=== PATIENT | male | born 1935 | race Caucasian/White ===

== ENCOUNTER 2017-03-25 08:46 | Emergency (ER) | payer BC ==
[~2017-03-25] VITALS: Ht 172.7 cm; Wt 106.7 kg
[~2017-03-25 08:46] MED LIST: DONE10TA12 PO; ECON0.05 TOP; FINA5TAB PO; PHEN1TAB86 PO; TOPI200T14 PO
[2017-03-25 08:49] VITALS: BP 145/80; PULSE 74; TEMP 36.7; O2SAT 95; Ht 172.7 cm; Wt 106.7 kg
--- NOTE | 2017-03-25 09:22 | EMERGENCY ROOM VISIT NOTE ---
ED Visit Note First contact with patient: 09:02 CHIEF COMPLAINT: Left shoulder pain times several weeks HISTORY OF PRESENT ILLNESS: Patient is a [id number] 81-year-old white male who presents emergency department for evaluation of left shoulder pain. He has had pain for several weeks. It is impacting his ADLs. He has been overusing the right arm, and now is beginning to have some right shoulder pain. He reports a history of bursitis in the shoulder, he was injected by his neurologist, Dr. Strange, maybe 10 or 15 years ago. The patient has taken Tylenol and applied ice to his shoulder with minimal relief. He was seen at Dr. Bose's office yesterday and advised that they unfortunately or unable to do any cortisone injections. He hoped that he would be able to get a cortisone injection in the shoulder by coming to the emergency department today. Pain is located in the anterior lateral aspect of the right shoulder and does not radiate. It is worse with movement. He has an appointment with Stephanie in May, but it is for a different complaint. REVIEW OF SYSTEMS: Review of systems as per HPI. All other systems reviewed were negative. At least 3 systems reviewed. PMH: Electronic medical records are reviewed and summarized as above/below. See Problem List. SOCIAL HISTORY: Patient lives at home with his spouse. PHYSICAL EXAM: Vital Signs: Reviewed nurse's notes. CONSTITUTIONAL: Patient is a well-appearing 81-year-old white male who is awake and alert and in no acute distress. Patient declined further exam after being told that the emergency department would be unable to do a cortisone injection in the shoulder. EMERGENCY DEPARTMENT COURSE: The patient was seen and assessed as above. His old records were reviewed. He is here solely for the purpose of getting a cortisone injection in the left shoulder. He denies any new direct trauma. He was advised that the emergency department is unable to perform cortisone injections, but we would be happy to help facilitate getting him follow-up with orthopedics. He was unwilling. He declined any further exam or radiograph. Patient was discussed with attending physician. He was discharged home. Problem List Medical Problems: (1) Epilepsy Status: Chronic (2) Psoriasis Status: Chronic (3) Sleep apnea Status: Chronic Current/Historical Medications Scheduled Donepezil Hydrochloride (Aricept), 10 MG PO DAILY Finasteride (Proscar), 5 MG PO DAILY Phenobarbital (Phenobarbital), 60 MG PO DAILY Topiramate (Topamax), 200 MG PO BID Scheduled PRN Econazole Nitrate 1% (Spectazole 1%), 1 APPLN TOP BID PRN Allergies Coded Allergies: No Known Allergies (Unverified , 07/14/09) Vital Signs Date Time Temp Pulse Resp B/P (MAP) Pulse Ox O2 Delivery O2 Flow Rate FiO2 03/25/17 08:49 36.7 74 18 145/80 95 Room Air Departure Information Impression Primary Impression: Left shoulder pain Referrals Rene Bose D.O. (PCP) Patient Instructions My [facility] Additional Instructions Continue Tylenol. Follow up with Dr. Strange as discussed. Return to the ED as needed.
== END 2017-03-25 09:18 | disposition home or self-care (01) ==
LOC: C.EDB 08:48 → C.EDA 09:18
DX: M25.512 Pain in left shoulder (principal); G40.909 Epilepsy, unspecified, not intractable, without status epilepticus; L40.9 Psoriasis, unspecified

== ENCOUNTER → 2017-09-10 | Outpatient (CLI) | payer BC ==
[2017-09-10 17:10] LABS: BLOOD UREA NITROGEN 8 mg/dl (7-18); CREATININE 0.94 mg/dl (0.60-1.40)
== END | disposition home or self-care (01) ==
LOC: C.LABBC 15:07
PROVIDERS: ATTEND Orthopaedic Surgery
DX: Z01.818 Encounter for other preprocedural examination (principal); M75.100 Unspecified rotator cuff tear or rupture of unspecified shoulder, not specified as traumatic

== ENCOUNTER 2021-04-26 14:27 | Inpatient (IN) ==
--- NOTE | 2021-04-26 15:35 | XRay Report ---
XR chest 1V portable HISTORY: Shortness of breath. COMPARISON: Outside hospital chest CTA 04/26/2021. FINDINGS: No pneumothorax. No pleural effusions. The heart remains mildly enlarged. A few bibasilar l inear densities consistent with subsegmental atelectasis. No evidence for pulmonary edema. Left-sided stimulator device identified. IMPRESSION: Stable mild cardiomegaly. Otherwise, no acute process within the chest. ACT 112: Negative or not required by law. Electronically signed by: Dexter Mancia M.D. 04/26/2021 3:33 PM
--- NOTE | 2021-04-26 15:39 | Emergency Department Note ---
Impression & Plan Pulmonary embolism, SOSA (dyspnea on exertion), Left leg swelling, DVT (deep venous thrombosis) ED Provider Note Provider: Neville Christine MD DATE OF SERVICE: 04/26/2021 CHIEF COMPLAINT: Referred by For blood clot HISTORY OF PRESENT ILLNESS: Patient is a 5-year-old gentleman past medical h istory of epilepsy with vagal stimulator, some memory issues, and dyspnea on exertion. Patient states last summer and again starting in March has had some issues with dyspnea on exertion. Feels short of breath with certain movements. Had prior chest x-ray and PFTs. Seen by cardiology today and had outpatient labs as well as a CT scan. CT scan showed evidence of pulmonary embolisms acute in the distal right pulmonary artery and multiple segmental and subsegmental branches of the right lung. No evidence of pulmonary infarct or right heart strain on the CT report. 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 Patient is reportedly a non-smoker. Was noted to be in the office dyspneic after ambulation. States at rest he does not have significant dyspnea. Denies chest pain. No trauma reported. Patient states last several days he has started to take an aspirin. States he is some chronic swelling in his left leg from prior injury here years ago. REVIEW OF SYSTEMS: A total of 10 review of systems was obtained and negative except as stated above in the HPI. PAST MEDICAL HISTORY: As noted above MEDICATIONS: Reviewed home medication list. SOCIAL HISTORY: Non-smoker, lives at home with PHYSICAL EXAM: GENERAL: alert and oriented in no acute distress on stretcher Head: normocephalic and atraumatic EYES: No injection, discharge or icterus. NECK: Trachea midline. Supple. ENT: Mucous membranes pink and moist. LUNGS: Airway patent. No retractions. Breath sounds clear with good air entry bilaterally. HEART: Regular rate and rhythm. No chest wall tenderness upper chest wall stimulator noted in the subcutaneous tissue without erythema. ABDOMEN: Soft and non-tender, without guarding or rebound. SKIN: Acyanotic, warm, dry, without rashes EXTREMITIES: 2+ left lower extremity swelling with trace pedal edema on the right. No significant tenderness or erythema noted NEUROLOGICAL: No focal deficits. No aphasia. No facial droop or slurred speech. Normal strength and tone in the extremities. Sensation to gross touch normal. EK bpm sinus rhythm with some baseline artifact. No acute ST segment elevation noted. QTc 480. CONTINUOUS CARDIAC MONITORING: was ordered and showed a heart rate of 80s-90s bpm in normal sinus rhythm Patient's laboratory studies and imaging reviewed. Differential includes Reactive airway disease, pneumonia, pneumothorax, COPD, CHF, infections, cardiac ischemia, pulmonary embolism, musculoskeletal, gastrointestinal, as well as other pathologies. IMPRESSION/MEDICAL DECISION MAKING: CT report from outside medical record noted. Repeat labs sent here. Ultrasound of the lower extremity of the legs for DVT given the chronic swelling of the left leg. Patient not hypoxic here but reportedly desaturates gets very dyspneic with ambulation. Discussed the patient the need for anticoagulation. Do not see obvious contraindications at this time. Chest x-ray without pneu monia or pneumothorax. Letter without anemia or leukocytosis. INR is 1. Platelets normal. No severe electrolyte abnormality. No troponin elevation. Negative COVID. Ultrasound shows bilateral DVTs. Again gets dyspneic with ambulation given his age and this with his significant VTE started on the heparin drip. Will discuss with the hospitalist for further care and monitoring here. DIAGNOSIS: Pulmonary embolisms, dyspnea on exertion, bilateral DVTs DISPOSITION: Hospitalist will evaluate Patient was agreeable with this plan. Critical Care I have personally spent 40 minutes of critical care time in the direct management of this patient. This includes bedside care, interpretation of diagnostic studies, and testing, discussion with consultants, patient, and other required patient management activities. These 40 minutes is in excess of all separately billable procedures. 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 Sleep apnea CPAP Surgical History History of colonoscopy History of left cataract surgery History of surgery LEFT HAND LITTLE FINGER S/P placement of VNS (vagus nerve stimulation) device ORIGINAL 1998 AND 2 SINCE THEN (CURRENT AND FUNCTIONING) Family History Son Family history of colon cancer Mother Family history of diabetes mellitus Social History Smoking Status: Never smoker Hx Alcohol Use: No Preferred Language: Icelandic Communication Ability: Effective Stri[employer] Apprentice Required: No Beliefs That Will Affect Care: None Current Living Situation: Spouse Feels Safe at Home: Yes Assistive Devices: CPAP Allergies Allergies Allergy/AdvReac Type Severity Reaction Status Date / Time No Known Allergies Allergy Verified 04/26/21 16:32 Home Meds Home Medications Medication Instructions Recorded Confirmed finasteride 5 mg tablet 5 mg PO QPM 03/11/19 04/26/21 memantine ER 28 mg-donepezil 10 mg 1 cap PO QPM 03/11/19 04/26/21 capsule sprinkle,ext.release 24 hr (Namzaric) phenobarbital 60 mg tablet 60 mg PO BID 03/11/19 04/26/21 tamsulosin 0.4 mg capsule (Flomax) 0.4 mg PO QPM 03/11/19 04/26/21 topiramate 200 mg tablet (Topamax) 200 mg PO BID 03/11/19 04/26/21 ropinirole 0.25 mg tablet 0.25 mg PO QPM 04/26/21 04/26/21 Results & Data (ED) Vital Signs Vital Signs - 24 hr 04/26/21 14:48 04/26/21 15:39 04/26/21 17:00 Temperature 36.6 C Temperature Source Oral Pulse Rate 90 88 Pulse Rate [Apical] 82 84 Pulse Rhythm [Apical] Regular Respiratory Rate 18 18 22 Respiratory Effort / Characteristics Respiratory Depth Normal Blood Pressure 134/74 Blood Pressure [Left Arm] 150/102 H 144/64 H Blood Pressure Mean 94 Blood Pressure Mean [Left Arm] 118 90 Blood Pressure Position Sitting Pulse Oximetry 94 96 94 Oxygen Delivery Method Room Air Room Air Nasal Cannula Oxygen Flow Rate 3 Sepsis Recent Fever Within 48 Hours No Sepsis New/Unexplained Change in Mental Status No Sepsis Action Taken by Nursing No Action Required 04/26/21 19:00 Temperature Temperature Source Pulse Rate Pulse Rate [Apical] 93 H Pulse Rhythm [Apical] Respiratory Rate 18 Respiratory Effort / Characteristics Non-Labored Spontaneous Respiratory Depth Normal Blood Pressure Blood Pressure [Left Arm] 143/78 H Blood Pressure Mean Blood Pressure Mean [Left Arm] 99 Blood Pressure Position Pulse Oximetry 98 Oxygen Delivery Method Nasal Cannula Oxygen Flow Rate 3 Sepsis Recent Fever Within 48 Hours Sepsis New/Unexplained Change in Mental Status Sepsis Action Taken by Nursing Laboratory Data Result diagrams: 04/26/21 15:36 04/26/21 15:36 Lab Results 04/26/21 04/26/21 04/26/21 Range/Units 15:36 15:36 15:36 WBC 7.84 (4.8-10.8) K/uL RBC 4.69 L (4.7-6.1) M/uL Hgb 15.7 (14.0-18.0) g/dL Hct 47.3 (42-52) % MCV 100.9 H (80-100) fL MCH 33.5 (25-34) pg MCHC 33.2 (32-36) g/dL RDW Std Deviation 48.7 H (36.4-46.3) fL RDW Coeff of Tamir 13.3 (11.5-14.5) % Plt Count 188 (130-400) K/uL MPV 9.7 (7.4-10.4) fL Immature Gran % (Auto) 0.4 % Neut % (Auto) 75.6 % Lymph % (Auto) 16.2 % [place] % (Auto) 6.9 % Eos % (Auto) 0.6 % Baso % (Auto) 0.3 % Neut # (Auto) 5.93 (1.4-6.5) K/uL Lymph # (Auto) 1.27 (1.2-3.4) K/uL [place] # (Auto) 0.54 (0.11-0.59) K/uL Eos # (Auto) 0.05 (0-0.5) K/uL Baso # (Auto) 0.02 (0-0.2) K/uL Immature Gran # (Auto) 0.03 H (0.00-0.02) K/uL PT 11.4 (9.0-12.0) Seconds INR 1.1 (0.9-1.1) APTT 28.7 (21.0-31.0) Seconds PTT Ratio 1.0 Sodium 139 (136-145) mmol/L Potassium 4.1 (3.5-5.1) mmol/L Chloride 108 H (98-107) mmol/L Carbon Dioxide 21 (21-32) mmol/L Anion Gap 10 (3-11) BUN 14 (6-23) mg/dl Creatinine 1.07 (0.6-1.4) mg/dl Est Cr Clr Drug Dosing 55.9 ml/min Est GFR ( Amer) 73.5 ml/min Est GFR (Non-Af Amer) 63.4 ml/min BUN/Creatinine Ratio 13.1 (10-20) Glucose 86 (70-99(Fasting)) mg/dl Calcium 9.3 (8.5-10.1) mg/dl Magnesium 1.9 (1.7-2.4) mg/dl Total Bilirubin 0.6 (0.2-1.0) mg/dl AST 12 L (13-39) U/L ALT 10 (7-52) U/L Alkaline Phosphatase 104 (34-104) U/L Troponin I < 0.03 (0-0.04) ng/ml Total Protein 6.8 (6.0-8.3) gm/dl Albumin 4.2 (3.4-5.0) gm/dl Globulin 2.6 (2.5-4.0) gm/dl Albumin/Globulin Ratio 1.6 (0.9-2) SARS-CoV-2, RNA, NAAT (NEGATIVE) 04/26/21 Range/Units 15:36 WBC (4.8-10.8) K/uL RBC (4.7-6.1) M/uL Hgb (14.0-18.0) g/dL Hct (42-52) % MCV (80-100) fL MCH (25-34) pg MCHC (32-36) g/dL RDW Std Deviation (36.4-46.3) fL RDW Coeff of Tamir (11.5-14.5) % Plt Count (130-400) K/uL MPV (7.4-10.4) fL Immature Gran % (Auto) % Neut % (Auto) % Lymph % (Auto) % [place] % (Auto) % Eos % (Auto) % Baso % (Auto) % Neut # (Auto) (1.4-6.5) K/uL Lymph # (Auto) (1.2-3.4) K/uL [place] # (Auto) (0.11-0.59) K/uL Eos # (Auto) (0-0.5) K/uL Baso # (Auto) (0-0.2) K/uL Immature Gran # (Auto) (0.00-0.02) K/uL PT (9.0-12.0) Seconds INR (0.9-1.1) APTT (21.0-31.0) Seconds PTT Ratio Sodium (136-145) mmol/L Potassium (3.5-5.1) mmol/L Chloride (98-107) mmol/L Carbon Dioxide (21-32) mmol/L Anion Gap (3-11) BUN (6-23) mg/dl Creatinine (0.6-1.4) mg/dl Est Cr Clr Drug Dosing ml/min Est GFR ( Amer) ml/min Est GFR (Non-Af Amer) ml/min BUN/Creatinine Ratio (10-20) Glucose (70-99(Fasting)) mg/dl Calcium (8.5-10.1) mg/dl Magnesium (1.7-2.4) mg/dl Total Bilirubin (0.2-1.0) mg/dl AST (13-39) U/L ALT (7-52) U/L Alkaline Phosphatase (34-104) U/L Troponin I (0-0.04) ng/ml Total Protein (6.0-8.3) gm/dl Albumin (3.4-5.0) gm/dl Globulin (2.5-4.0) gm/dl Albumin/Globulin Ratio (0.9-2) SARS-CoV-2, RNA, NAAT NEGATIVE (NEGATIVE) Administered Medications Heparin Sodium/Dextrose (Heparin Sodium/Dextrose) 25,000 units in 500 mls @ 28 mls/hr IV .[id number] [facility]; Protocol Stop: 05/26/21 17:59 Last Admin: 04/26/21 18:34 Dose: 1,400 units/hr, 28 mls/hr Documented by: [id number] Cosigned by: [id number] Discontinued Medications Heparin Sodium (Porcine) (Heparin Sod (Porcine) 1000 Unit/Ml) 6,000 units IV NOW ONE Stop: 04/26/21 18:01 Last Admin: 04/26/21 18:33 Dose: 6,000 units Documented by: [id number] Cosigned by: [id number] Heparin Sodium/Dextrose (Heparin Iv Adult Wt-Based Standard With Bolus Protocol) 1 ea IV NOW STA; Protocol Stop: 04/26/21 17:33 Last Admin: 04/26/21 18:34 Dose: 1 ea Documented by: [id number] Imaging Data Radiologist's Impression: Chest X-Ray 04/26/21 14:59 XR chest 1V portable HISTORY: Shortness of breath. COMPARISON: Outside hospital chest CTA 04/26/2021. FINDINGS: No pneumothorax. No pleural effusions. The heart remains mildly enlarged. A few bibasilar linear densities consistent with subsegmental at electasis. No evidence for pulmonary edema. Left-sided stimulator device identified. IMPRESSION: Stable mild cardiomegaly. Otherwise, no acute process within the chest. ACT 112: Negative or not required by law. Electronically signed by: Dexter Mancia M.D. 04/26/2021 3:33 PM Venous Doppler Study 04/26/21 15:38 BILATERAL LOWER EXTREMITY VENOUS DOPPLER HISTORY: Bilateral lower extremity swelling, history of pulmonary embolus COMPARISON STUDY: None. FINDINGS: A right common femoral and superficial femoral veins are patent. Thrombus identified within the right popliteal vein and one of 2 right posterior tibial veins. Incomplete flow within the right peroneal vein may also represent an area of thrombosed. There is also extensive thrombus within the left common femoral vein, superficial femoral vein, deep femoral vein, popliteal, posterior tibial, and peroneal veins. IMPRESSION: Bilateral lower extremity DVT, left greater than right, as described above ACT 112: Negative or not required by law. Electronically signed by: Dexter Mancia M.D. 04/26/2021 5:16 PM Discharge Plan Visit Data Chief Complaint: Referred by Doctor Stated Complaint: HAS BLOOD CLOT IN LUNG, DR REFERRED ED Provider: Neville Christine Discharge Problem: Pulmonary embolism, SOSA (dyspnea on exertion), Left leg swelling, DVT (deep venous thrombosis) Patient Disposition: Being Evaluated by Hospitalist Forms Stand Alone Forms: [facility] [employer] Prescriptions Prescriptions: No Action finasteride 5 mg tablet 5 mg PO QPM RF: 0 tamsulosin [Flomax] 0.4 mg capsule 0.4 mg PO QPM RF: 0 Namzaric 28-10 mg capsule,sprinkle,ER 24hr 1 cap PO QPM RF: 0 phenobarbital 60 mg tablet 60 mg PO BID RF: 0 topiramate [Topamax] 200 mg tablet 200 mg PO BID RF: 0 ropinirole 0.25 mg tablet 0.25 mg PO QPM RF: 0 Referrals Referrals: PCP,NO [Physician] - Discharge Problem: Pulmonary embolism Qualifiers: Pulmonary embolism type: unspecified Chronicity: acute Acute cor pulmonale presence: unspecified Qualified Code(s): I26.99 - Other pulmonary embolism without acute cor pulmonale DVT (deep venous thrombosis) Qualifiers: DVT location: lower extremity Affected thrombotic vein of extremity: uns pecified vein of extremity Chronicity: acute Laterality: bilateral Qualified Code(s): I82.403 - Acute embolism and thrombosis of unspecified deep veins of lower extremity, bilateral
[2021-04-26 16:00] LABS: Basophils # (auto) 0.02 K/uL (0-0.2); Basophils % (auto) 0.3 %; Eosinophils # (auto) 0.05 K/uL (0-0.5); Eosinophils % (auto) 0.6 %; Hematocrit (blood only) 47.3 % (42-52); Hemoglobin 15.7 g/dL (14.0-18.0); Immature Granulocytes # (auto) 0.03 K/uL (0.00-0.02); Immature Granulocytes % (auto) 0.4 %; Lymphocytes # (auto) 1.27 K/uL (1.2-3.4); Lymphocytes % (auto) 16.2 %; Mean Corpuscular Hemoglobin 33.5 pg (25-34); Mean Corpuscular Hgb Conc 33.2 g/dL (32-36); Mean Corpuscular Volume 100.9 fL (80-100); Mean Platelet Volume 9.7 fL (7.4-10.4); Monocytes # (auto) 0.54 K/uL (0.11-0.59); Monocytes % (auto) 6.9 %; Neutrophils # (auto) 5.93 K/uL (1.4-6.5); Neutrophils % (auto) 75.6 %; Platelet Count 188 K/uL (130-400); RDW Coefficient of Variation 13.3 % (11.5-14.5); RDW Standard Deviation 48.7 fL (36.4-46.3); Red Blood Count 4.69 M/uL (4.7-6.1); White Blood Count 7.84 K/uL (4.8-10.8)
[2021-04-26 16:18] LABS: INR 1.1 (0.9-1.1); Partial Thromboplastin Time 28.7 Seconds (21.0-31.0); Prothrombin Time 11.4 Seconds (9.0-12.0)
[2021-04-26 16:31] LABS: Troponin I < 0.03 ng/ml (0-0.04)
[2021-04-26 16:36] LABS: Alanine Aminotransferase 10 U/L (7-52); Albumin Globulin Ratio 1.6 (0.9-2); Albumin Level 4.2 gm/dl (3.4-5.0); Alkaline Phosphatase 104 U/L (34-104); Anion Gap 10 (3-11); Aspartate Aminotransferase 12 U/L (13-39); BUN Creatinine Ratio 13.1 (10-20); Bilirubin,Total 0.6 mg/dl (0.2-1.0); Blood Urea Nitrogen 14 mg/dl (6-23); Calcium 9.3 mg/dl (8.5-10.1); Carbon Dioxide 21 mmol/L (21-32); Chloride 108 mmol/L (98-107); Creatinine Clr Calc Pharmacy 55.9 ml/min; Est GFR (African American) 73.5 ml/min; Est GFR (Non-African American) 63.4 ml/min; Globulin 2.6 gm/dl (2.5-4.0); Glucose 86 mg/dl (70-99(Fasting)); Magnesium 1.9 mg/dl (1.7-2.4); Potassium 4.1 mmol/L (3.5-5.1); Sodium 139 mmol/L (136-145); Total Protein 6.8 gm/dl (6.0-8.3)
--- NOTE | 2021-04-26 17:18 | Ultrasound Report ---
BILATERAL LOWER EXTREMITY VENOUS DOPPLER HISTORY: Bilateral lower extremity swelling, history of pulmonary embolus COMPARISON STUDY: None. FINDINGS: A right common femoral and superficial femoral veins are patent. Thrombus identified within the right popliteal vein and one of 2 right posterior tibial veins. Incomplete flow within the right peroneal vein may also represent an area of thrombosed. There is also extensive thrombus within the left common femoral vein, superficial femoral vein, deep femoral vein, popliteal, posterior tibial, a nd peroneal veins. IMPRESSION: Bilateral lower extremity DVT, left greater than right, as described above ACT 112: Negative or not required by law. Electronically signed by: Dexter Mancia M.D. 04/26/2021 5:16 PM
[2021-04-26] MEDS ORDERED: Heparin IV Adult Wt-Based Standard WITH Bolus Protocol IV STA (17:32)
[2021-04-26] MEDS ORDERED: HEPARIN SOD (PORCINE) 1000 UNIT/ML IV ONE ×2 (17:47→18:00)
[2021-04-26] MEDS: HEPARIN SODIUM/DEXTROSE 25,000 UNITS/500 ML BAG IV SCH (18:34)
--- NOTE | 2021-04-26 18:52 | History & Physical Report ---
Date of Service April 26, 2021 Assessment & Plan (1) Acute respiratory failure with hypoxia: (2) Pulmonary embolism: (3) DVT (deep venous thrombosis): Plan: Admit to [facility] with telemetry Patient presenting by referral of outpatient podiatric aide after CTA chest showed pulmonary embolism. Currently requiring 3 L of oxygen via nasal cannula In the ED, venous Doppler showing BLE DVT Seems to be unprovoked, however CTA chest showing possible pancreatic tail lesion, therefore ?? Underlying malignancy Started on IV heparin in the ED, likely transition to Eliquis Echo May need two-step O2 eval before discharge (4) Pancreatic lesion: Plan: CT chest showing Indeterminate 2.3 cm lesion in the pancreatic tail, which may represent normal parenchyma with surrounding pancreatic atrophy, an intrap ancreatic splenule, or possibly a mass. A contrast enhanced MRI of the abdomen is recommended. Abdomen MRI ordered, discussed with mobile service rv technician regarding patient's VNS. They will investigate if it is MRI compatible. (5) Pulmonary nodules: Plan: CTA chest showing Multiple solid nodules throughout both lungs measuring 2-3 mm, which are likely benign in the absence of known malignancy. If the patient has risk factors for lung cancer, an optional follow-up CT of the chest can be considered in 1 year. (6) Seizure disorder: Plan: S/p VNS Continue phenobarbital and Topamax (7) Enlarged prostate: Plan: Continue finasteride and tamsulosin (8) Sleep apnea: Plan: CPAP as per home settings (9) DVT prophylaxis: Plan: On IV heparin History of Present Illness Chief Complaint: Shortness of Breath Primary Care Provider: Marbin Lira PA-C 85 year old male with PMH epilepsy s/p VNS, ELAN, BPH and other problems listed below who presents to the ED for evaluation of shortness of breath and after outpatient CTA chest showed pulmonary embolism. Patient reports he had sudden onset shortness of breath last summer. Symptoms only lasted briefly, patient also states he an "extensive work up that didn't show anything." On Mar 16, patient reports he had similar return of symptoms. He was seen in the cardiology office today and a CTA chest was ordered that showed Acute pulmonary emboli in the distal right pulmonary artery and extending throughout multiple segmental and subsegmental branches in the right lung. Patient was referred to the ED for further evaluation. Patient reports shortness of breath with minimal exertion. No chest pain. Denies lightheadedness, dizziness, diaphoresis, syncopal events. No abdominal pain, nausea, vomiting, diarrhea. Denies any other recent illnesses, fevers, chills. No urinary symptoms. In the ED, patient was requiring 3 L of oxygen via nasal cannula. Labs are unremarkable. BLE venous Doppler shows Bilateral lower extremity DVT, left greater than right. Patient was started on IV heparin. Allergies Allergy/AdvReac Type Severity Reaction Status Date / Time No Known Allergies Allergy Verified 04/26/21 16:32 Home Medications Medication Instructions Recorded Confirmed Type finasteride 5 mg tablet 5 mg PO QPM 03/11/19 04/26/21 History memantine ER 28 mg-donepezil 10 mg 1 cap PO QPM 03/11/19 04/26/21 History capsule sprinkle,ext.release 24 hr (Namzaric) phenobarbital 60 mg tablet 60 mg PO BID 03/11/19 04/26/21 History tamsulosin 0.4 mg capsule (Flomax) 0.4 mg PO QPM 03/11/19 04/26/21 History topiramate 200 mg tablet (Topamax) 200 mg PO BID 03/11/19 04/26/21 History ropinirole 0.25 mg tablet 0.25 mg PO QPM 04/26/21 04/26/21 History Past Med/Surg History Medical History (Updated 04/26/21 @ 21:17 by DICK Doherty) Enlarged prostate Restless leg syndrome Seizure disorder DX AGE 7 , 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 Sleep apnea CPAP Surgical History History of colonoscopy History of left cataract surgery History of surgery LEFT HAND LITTLE FINGER S/P placement of VNS (vagus nerve stimulation) device ORIGINAL 1998 AND 2 SINCE THEN (CURRENT AND FUNCTIONING) Family History Son Family history of colon cancer Mother Family history of diabetes mellitus Social History Smoking Status: Unknown if ever smoked Second Hand Exposure: No; Do You Dip or Chew Tobacco: No; Tobacco Cessation Education Requested by Patient: No Hx Alcohol Use: No Hx Substance Use: No Preferred Language: Kazakh Communication Ability: Effective Health Unit Supervisor Required: No Beliefs That Will Affect Care: None Current Living Situation: Other Other Information That Helps Us Care for You: No Feels Safe at Home: Yes Safety Concerns: Feels Safe At This Time Assistive Devices: Glasses Assistive Devices Comment: NO PRIOR HX OF ASSISTIVE DEVICE USE Review of Systems Review of Systems: ROS per HPI, all other systems reviewed and negative Physical Exam Physical Exam: Please refer to Dr. Reynaga's addendum for physical exam Results & Data Results & Data ([facility]) Vital Signs (Past 12 Hours) Vital Signs Temp Pulse Pulse Resp BP BP Pulse Ox 04/26/21 17:00 84 22 144/64 H 94 04/26/21 15:39 88 82 18 150/102 H 96 04/26/21 14:48 36.6 C 90 18 134/74 94 Laboratory Results Short CBC 04/26/21 Range/Units 15:36 WBC 7.84 (4.8-10.8) K/uL Hgb 15.7 (14.0-18.0) g/dL Hct 47.3 (42-52) % Plt Count 188 (130-400) K/uL BMP 04/26/21 15:36 Sodium 139 Potassium 4.1 Chloride 108 H Carbon Dioxide 21 BUN 14 Creatinine 1.07 Glucose 86 Calcium 9.3 Cardiac Enzymes 04/26/21 Range/Units 15:36 Troponin I < 0.03 (0-0.04) ng/ml Liver Function 04/26/21 Range/Units 15:36 Total Bilirubin 0.6 (0.2-1.0) mg/dl AST 12 L (13-39) U/L ALT 10 (7-52) U/L Alkaline Phosphatase 104 (34-104) U/L Albumin 4.2 (3.4-5.0) gm/dl Diagnostic Findings Outpatient CTA chest 04/26/2021 IMPRESSION: 1. Acute pulmonary emboli in the distal right pulmonary artery and extending throughout multiple segmental and subsegmental branches in the right lung. There is no evidence of pulmonary infarction or right heart strain. 2. 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 3. Multiple solid nodules throughout both lungs measuring 2-3 mm, which are likely benign in the absence of known malignancy. If the patient has risk factors for lung cancer, an optional follow-up CT of the chest can be considered in 1 year. 4. Indeterminate 2.3 cm lesion in the pancreatic tail, which may represent normal parenchyma with surrounding pancreatic atrophy, an intrapancreatic splenule, or possibly a mass. A contrast enhanced MRI of the abdomen is recommended. Chest X-Ray 04/26/21 14:59 XR chest 1V portable HISTORY: Shortness of breath. COMPARISON: Outside hospital chest CTA 04/26/2021. FINDINGS: No pneumothorax. No pleural effusions. The heart remains mildly enlarged. A few bibasilar linear densities consistent with subsegmental atelectasis. No evidence for pulmonary edema. Left-sided stimulator device identified. IMPRESSION: Stable mild cardiomegaly. Otherwise, no acute process within the chest. ACT 112: Negative or not required by law. Electronically signed by: Dexter Mancia M.D. 04/26/2021 3:33 PM Venous Doppler Study 04/26/21 15:38 BILATERAL LOWER EXTREMITY VENOUS DOPPLER HISTORY: Bilateral lower extremity swelling, history of pulmonary embolus COMPARISON STUDY: None. FINDINGS: A right common femoral and superficial femoral veins are patent. Thrombus identified within the right popliteal vein and one of 2 right posterior tibial veins. Incomplete flow within the right peroneal vein may also represent an area of thrombosed. There is also extensive thrombus within the left common femoral vein, superficial femoral vein, deep femoral vein, popliteal, posterior tibial, and peroneal veins. IMPRESSION: Bilateral lower extremity DVT, left greater than right, as described above ACT 112: Negative or not required by law. Electronically signed by: Dexter Mancia M.D. 04/26/2021 5:16 PM Code Status & VTE Plan Code Status Patient is a full code. VTE Prophylaxis Plan VTE Prophylaxis will be ordered: No Supervising Physician Co-Signing Physician Notes Addendum in a communication note (1) DVT (deep venous thrombosis) Affected thrombotic vein of extremity: unspecified vein of extremity Chronicity: acute DVT location: lower extremity Laterality: bilateral Qualified Code(s): I82.403 - Acute embolism and thrombosis of unspecified deep veins of lower extremity, bilateral (2) Pulmonary embolism Acute cor pulmonale presence: unspecified Chronicity: acute Pulmonary embolism type: unspecified Qualified Code(s): I26.99 - Other pulmonary embolism without acute cor pulmonale
--- NOTE | 2021-04-26 20:18 | Communication Note ---
Date of Service: April 26, 2021 Addendum to Admission note: Pt is a 85 y/o M with hx of Dementia, Epilepsy s/p vagus nerve stimulator, ELAN on CPAP, BPH, RLS admitted for b/l DVT and PE. CTA chest (from [email or web address] [facility]): IMPRESSION 1. Acute pulmonary emboli in the distal right pulmonary artery and extending throughout multiple segmental and subsegmental branches in the right lung. There is no evidence of pulmonary infarction or right heart strain. 2. 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 3. Multiple solid nodules throughout both lungs measuring 2-3 mm, which are likely benign in the absence of known malignancy. If the patient has risk factors for lung cancer, an optional follow-up CT of the chest can be considered in 1 year. 4. Indeterminate 2.3 cm lesion in the pancreatic tail, which may represent normal parenchyma with surrounding pancreatic atrophy, an intrapancreatic splenule, or possibly a mass. A contrast enhanced MRI of the abdomen is recommended. PE: NAD, well developed Lungs: CTA, no wheezing or crackles Cardiac: normal S1/S2, no murmur Abd: ND, NT, soft MSK: LLE mild pitting edema Psych: AAOX3, normal affect A/P: B/L DVT and PE: -Vss -no personal hx of cancer ---- had colonoscopy in 2014 and PSA on 2007 wnl - will get MRI abd with contrast to evaluate the pancreatic tail lesion -started on heparin drip - cbc unremarkable - possible DOAC on discharge and outpt work up for coagulopathy Other chronic medical conditions: continue home meds and plan per Admission note by DICK Doherty
[2021-04-26] MEDS ORDERED: ACETAMINOPHEN 325 MG TAB PO PRN (21:36)
[2021-04-26] MEDS: TAMSULOSIN HCL 0.4 MG CAP PO SCH (22:19)
[2021-04-26] MEDS: FINASTERIDE 5 MG TAB PO SCH (22:19)
[2021-04-26] MEDS: rOPINIRole HCL 0.25 MG TABLET PO SCH (22:19)
[2021-04-26] MEDS: TOPIRAMATE 100 MG TAB PO SCH (22:19)
[2021-04-26] MEDS: PHENobarbitaL 30 MG TAB PO SCH (22:45)
[2021-04-27 01:23] LABS: Partial Thromboplastin Ratio 2.9
[2021-04-27 01:44] LABS: Partial Thromboplastin Time 78.5 Seconds (21.0-31.0)
[2021-04-27 08:16] LABS: Hematocrit (blood only) 43.5 % (42-52); Hemoglobin 14.9 g/dL (14.0-18.0); Mean Corpuscular Hemoglobin 33.9 pg (25-34); Mean Corpuscular Hgb Conc 34.3 g/dL (32-36); Mean Corpuscular Volume 98.9 fL (80-100); Mean Platelet Volume 9.2 fL (7.4-10.4); Platelet Count 169 K/uL (130-400); RDW Coefficient of Variation 13.2 % (11.5-14.5); RDW Standard Deviation 47.8 fL (36.4-46.3); White Blood Count 5.53 K/uL (4.8-10.8)
[2021-04-27] MEDS: TOPIRAMATE 100 MG TAB PO SCH ×2 (08:19→20:53)
[2021-04-27] MEDS: PHENobarbitaL 30 MG TAB PO SCH ×2 (08:19→20:53)
[2021-04-27 08:41] LABS: BUN Creatinine Ratio 14.9 (10-20); Calcium 8.6 mg/dl (8.5-10.1); Creatinine Clr Calc Pharmacy 61.5 ml/min; Est GFR (African American) 85.9 ml/min; Est GFR (Non-African American) 74.2 ml/min; Potassium 4.1 mmol/L (3.5-5.1)
[2021-04-27 08:56] LABS: Partial Thromboplastin Time 83.1 Seconds (21.0-31.0)
--- NOTE | 2021-04-27 11:48 | Hospitalist Progress Note ---
Date of Service April 27, 2021 Assessment & Plan (1) Acute respiratory failure with hypoxia: (2) Pulmonary embolism: (3) DVT (deep venous thrombosis): (4) Pancreatic lesion: (5) Pulmonary nodules: (6) Seizure disorder: (7) Enlarged prostate: (8) Sleep apnea: (9) DVT prophylaxis: Plan: 85 year old male referred to the ED 04/26 by OP certified wellness program manager after OP CTA chest showed acute PE 1. Acute pulmonary embolism with acute hypoxic respiratory failure 2. Acute bilateral LE DVT - Unprovoked, 1st episode, hemodynamically stable. - CTA chest 04/26 with acyte PE in distal right pulmonary emboli and extending throughout multiple segmental and subsegmental branches in right lung, no evidence of right heart strain; suspected chronic PE in distal left pulmonary - US LE 04/26 with bilateral LE DVT (L>R; extensive thrombus in left common femoral vein, superficial femoral vein, deep femoral vein, popliteal, posterior tibial and peroneal vein; thrombus in right posterior tibial and popliteal vein) - Echo pending - Currently on heparin drip, will change to DOAC tomorrow - Wean down on oxygen, will need two step O2 eval at discharge 3. Pancreatic lesion: Incidental finding in CT.CT chest showing Indeterminate 2.3 cm lesion in the pancreatic tail, which may represent normal parenchyma with surrounding pancreatic atrophy, an intrapancreatic splenule, or possibly a mass. A contrast enhanced MRI of the abdomen is recommended. - Abdominal MRI pending 4. Pulmonary nodules: - CTA chest showing Multiple solid nodules throughout both lungs measuring 2-3 mm, which are likely benign in the absence of known malignancy. If the patient has risk factors for lung cancer, an optional follow-up CT of the chest can be considered in 1 year. He is a non smoker. F/u with PCP 5. Seizure disorder: S/p VNS; Continue phenobarbital and Topamax 6. Enlarged prostate: Continue finasteride and tamsulosin 7. Sleep apnea: continue CPAP as per home settings DVT prophylaxis: heparin drip Dispo: Likely d/c in 1-2 days, Abdominal MRI pending, needs 2step O2 eval prior to discharge Admission and Anticipated Discharge Date Admission Date: April 26, 2021 Subjective Feels okay. Denies any new issues. Remains on 3 L NC. Denies any history of VTE in the past. Denies any bleeding issues. Denies any anticoagulation in the past. Denies any history of known malignancy. He is physically active. States he lives on 1 floor and is independent with his daily activities. He started getting short of breath with exertion in March. Review of Systems Review of Systems: All systems reviewed & are unremarkable except as noted in Subjective Physical Exam Physical Exam: General: Elderly male, Lying comfortably in bed, not in distress, on 3 L NC HEENT: EOMI, COLLIN, MMM Chest: Clear breath sounds bilaterally, no wheezes or crackles CVS: Regular rate and rhythm, normal heart sounds, no murmur Abdomen: Soft, non tender, not distended, normal bowel sounds Neuro: Awake, alert, oriented, conversing well, non focal Extremities: No cyanosis, clubbing or edema Results & Data Results & Data ([facility]) Vital Signs (Past 12 Hours) Vital Signs Temp Pulse Pulse Resp BP Pulse Ox 04/27/21 10:46 36.4 C L 66 16 118/70 99 04/27/21 07:52 70 04/27/21 06:35 36.6 C 71 18 115/73 98 04/27/21 04:03 36.6 C 74 20 109/65 96 04/27/21 00:44 36.6 C 85 20 153/77 H 97 Laboratory Results Short CBC 04/26/21 04/27/21 Range/Units 15:36 07:58 WBC 7.84 5.53 (4.8-10.8) K/uL Hgb 15.7 14.9 (14.0-18.0) g/dL Hct 47.3 43.5 (42-52) % Plt Count 188 169 (130-400) K/uL BMP 04/26/21 04/27/21 15:36 07:58 Sodium 139 138 Potassium 4.1 4.1 Chloride 108 H 111 H Carbon Dioxide 21 23 BUN 14 14 Creatinine 1.07 0.94 Glucose 86 85 Calcium 9.3 8.6 Cardiac Enzymes 04/26/21 Range/Units 15:36 Troponin I < 0.03 (0-0.04) ng/ml Liver Function 04/26/21 Range/Units 15:36 Total Bilirubin 0.6 (0.2-1.0) mg/dl AST 12 L (13-39) U/L ALT 10 (7-52) U/L Alkaline Phosphatase 104 (34-104) U/L Albumin 4.2 (3.4-5.0) gm/dl Diagnostic Findings Laboratory Results WBC 5.53 K/uL (4.8-10.8) 04/27/21 07:58 RBC 4.40 M/uL (4.7-6.1) L 04/27/21 07:58 Hgb 14.9 g/dL (14.0-18.0) 04/27/21 07:58 Hct 43.5 % (42-52) 04/27/21 07:58 MCV 98.9 fL (80-100) 04/27/21 07:58 MCH 33.9 pg (25-34) 04/27/21 07:58 MCHC 34.3 g/dL (32-36) 04/27/21 07:58 RDW Std Deviation 47.8 fL (36.4-46.3) H 04/27/21 07:58 RDW Coeff of Tamir 13.2 % (11.5-14.5) 04/27/21 07:58 Plt Count 169 K/uL (130-400) 04/27/21 07:58 MPV 9.2 fL (7.4-10.4) 04/27/21 07:58 Immature Gran % (Auto) 0.4 % 04/26/21 15:36 Neut % (Auto) 75.6 % 04/26/21 15:36 Lymph % (Auto) 16.2 % 04/26/21 15:36 [place] % (Auto) 6.9 % 04/26/21 15:36 Eos % (Auto) 0.6 % 04/26/21 15:36 Baso % (Auto) 0.3 % 04/26/21 15:36 Neut # (Auto) 5.93 K/uL (1.4-6.5) 04/26/21 15:36 Lymph # (Auto) 1.27 K/uL (1.2-3.4) 04/26/21 15:36 [place] # (Auto) 0.54 K/uL (0.11-0.59) 04/26/21 15:36 Eos # (Auto) 0.05 K/uL (0-0.5) 04/26/21 15:36 Baso # (Auto) 0.02 K/uL (0-0.2) 04/26/21 15:36 Immature Gran # (Auto) 0.03 K/uL (0.00-0.02) H 04/26/21 15:36 PT 11.4 Seconds (9.0-12.0) 04/26/21 15:36 INR 1.1 (0.9-1.1) 04/26/21 15:36 APTT 83.1 Seconds (21.0-31.0) H* 04/27/21 07:58 PTT Ratio 3.0 04/27/21 07:58 Sodium 138 mmol/L (136-145) 04/27/21 07:58 Potassium 4.1 mmol/L (3.5-5.1) 04/27/21 07:58 Chloride 111 mmol/L (98-107) H 04/27/21 07:58 Carbon Dioxide 23 mmol/L (21-32) 04/27/21 07:58 Anion Gap 4 (3-11) 04/27/21 07:58 BUN 14 mg/dl (6-23) 04/27/21 07:58 Creatinine 0.94 mg/dl (0.6-1.4) 04/27/21 07:58 Est Cr Clr Drug Dosing 61.5 ml/min 04/27/21 07:58 Est GFR ( Amer) 85.9 ml/min 04/27/21 07:58 Est GFR (Non-Af Amer) 74.2 ml/min 04/27/21 07:58 BUN/Creatinine Ratio 14.9 (10-20) 04/27/21 07:58 Glucose 85 mg/dl (70-99(Fasting)) 04/27/21 07:58 Calcium 8.6 mg/dl (8.5-10.1) 04/27/21 07:58 Magnesium 1.9 mg/dl (1.7-2.4) 04/26/21 15:36 Total Bilirubin 0.6 mg/dl (0.2-1.0) 04/26/21 15:36 AST 12 U/L (13-39) L 04/26/21 15:36 ALT 10 U/L (7-52) 04/26/21 15:36 Alkaline Phosphatase 104 U/L (34-104) 04/26/21 15:36 Troponin I < 0.03 ng/ml (0-0.04) 04/26/21 15:36 Total Protein 6.8 gm/dl (6.0-8.3) 04/26/21 15:36 Albumin 4.2 gm/dl (3.4-5.0) 04/26/21 15:36 Globulin 2.6 gm/dl (2.5-4.0) 04/26/21 15:36 Albumin/Globulin Ratio 1.6 (0.9-2) 04/26/21 15:36 SARS-CoV-2, RNA, NAAT NEGATIVE (NEGATIVE) 04/26/21 15:36 Impressions Chest X-Ray 04/26/21 14:59 XR chest 1V portable HISTORY: Shortness of breath. COMPARISON: Outside hospital chest CTA 04/26/2021. FINDINGS: No pneumothorax. No pleural effusions. The heart remains mildly enlarged. A few bibasilar linear densities consistent with subsegmental atelectasis. No evidence for pulmonary edema. Left-sided stimulator device identified. IMPRESSION: Stable mild cardiomegaly. Otherwise, no acute process within the chest. ACT 112: Negative or not required by law. Electronically signed by: Dexter Mancia M.D. 04/26/2021 3:33 PM Venous Doppler Study 04/26/21 15:38 BILATERAL LOWER EXTREMITY VENOUS DOPPLER HISTORY: Bilateral lower extremity swelling, history of pulmonary embolus COMPARISON STUDY: None. FINDINGS: A right common femoral and superficial femoral veins are patent. Thrombus identified within the right popliteal vein and one of 2 right posterior tibial veins. Incomplete flow within the right peroneal vein may also represent an area of thrombosed. There is also extensive thrombus within the left common femoral vein, superficial femoral vein, deep femoral vein, popliteal, posterior tibial, and peroneal veins. IMPRESSION: Bilateral lower extremity DVT, left greater than right, as described above ACT 112: Negative or not required by law. Electronically signed by: Dexter Mancia M.D. 04/26/2021 5:16 PM Medications Administered Current Inpatient Medications Acetaminophen (Acetaminophen 325 Mg Tab) 650 mg PO Q4H PRN PRN Reason: pain/fever Stop: 05/26/21 21:35 Finasteride (Finasteride 5 Mg Tab) 5 mg PO QPM SHANNON Stop: 05/26/21 21:59 Last Admin: 04/26/21 22:19 Dose: 5 mg Documented by: Heparin Sodium/Dextrose (Heparin Sodium/Dextrose) 25,000 units in 500 mls @ 28 mls/hr IV .[id number] [facility]; Protocol Stop: 05/26/21 17:59 Last Titration: 04/27/21 09:04 Dose: 1,200 units/hr, 24 mls/hr Documented by: Miscellaneous (Namzaric: Order Awaiting Action) 1 ea N/A QS SHANNON Stop: 05/27/21 00:00 Last Admin: 04/27/21 08:20 Dose: Not Given Documented by: Phenobarbital (Phenobarbital 30 Mg Tab) 60 mg PO BID [facility] Stop: 05/26/21 21:59 Last Admin: 04/27/21 08:19 Dose: 60 mg Documented by: Ropinirole HCl (Ropinirole Hcl 0.25 Mg Tablet) 0.25 mg PO QPM [facility] Stop: 05/26/21 21:59 Last Admin: 04/26/21 22:19 Dose: 0.25 mg Documented by: Tamsulosin HCl (Tamsulosin Hcl 0.4 Mg Cap) 0.4 mg PO QPM SHANNON Stop: 05/26/21 21:59 Last Admin: 04/26/21 22:19 Dose: 0.4 mg Documented by: Topiramate (Topiramate 100 Mg Tab) 200 mg PO BID [facility] Stop: 05/26/21 21:59 Last Admin: 04/27/21 08:19 Dose: 200 mg Documented by: (1) Pulmonary embolism Acute cor pulmonale presence: unspecified Chronicity: acute Pulmonary embolism type: unspecified Qualified Code(s): I26.99 - Other pulmonary embolism without acute cor pulmonale (2) DVT (deep venous thrombosis) Affected thrombotic vein of extremity: unspecified vein of extremity Chronicity: acute DVT location: lower extremity Laterality: bilateral Qualified Code(s): I82.403 - Acute embolism and thrombosis of unspecified deep veins of lower extremity, bilateral
[2021-04-27] MEDS: HEPARIN SODIUM/DEXTROSE 25,000 UNITS/500 ML BAG IV SCH (13:40)
[2021-04-27 16:05] LABS: Partial Thromboplastin Ratio 2.4
[2021-04-27 16:46] LABS: Partial Thromboplastin Time 66.6 Seconds (21.0-31.0)
[2021-04-27] MEDS: rOPINIRole HCL 0.25 MG TABLET PO SCH (20:53)
[2021-04-27] MEDS: TAMSULOSIN HCL 0.4 MG CAP PO SCH (20:53)
[2021-04-27] MEDS: FINASTERIDE 5 MG TAB PO SCH (20:53)
--- NOTE | 2021-04-27 21:13 | Electrocardiogram Report ---
Test Reason : Blood Pressure : / mmHG Vent. Rate : 095 BPM Atrial Rate : 095 BPM P-R Int : 188 ms QRS Dur : 088 ms QT Int : 382 ms P-R-T Axes : 069 054 036 degrees QTc Int : 480 ms Poor data quality, interpretation may be adversely affected Sinus rhythm with sinus arrhythmia Nonspecific ST and T wave abnormality Prolonged QT Abnormal ECG When compared with ECG of 01-OCT-2012 00:42, QT has lengthened Confirmed by Saad Obrien ([id number]) on 04/27/2021 9:13:32 PM Referred By: Confirmed By:Saad Obrien
[2021-04-27 23:09] LABS: Partial Thromboplastin Ratio 2.1
[2021-04-28 06:55] LABS: Appearance Urine Clear (Clear); Bilirubin Urine Negative (Negative); Blood Urine Negative (Negative); Color Urine Yellow; Glucose Urine UA Negative (Negative); Ketones Urine Negative (Negative); Leukocyte Esterase Urine Negative (Negative); Nitrite Urine Negative (Negative); Protein Urine Negative (Negative); Specific Gravity Urine 1.022 (1.000-1.030); Urobilinogen Urine Negative (Negative)
[2021-04-28 07:12] LABS: Basophils # (auto) 0.05 K/uL (0-0.2); Basophils % (auto) 0.9 %; Eosinophils # (auto) 0.12 K/uL (0-0.5); Eosinophils % (auto) 2.1 %; Hematocrit (blood only) 41.3 % (42-52); Immature Granulocytes # (auto) 0.01 K/uL (0.00-0.02); Immature Granulocytes % (auto) 0.2 %; Lymphocytes # (auto) 1.42 K/uL (1.2-3.4); Lymphocytes % (auto) 25.1 %; Mean Corpuscular Hemoglobin 33.5 pg (25-34); Mean Corpuscular Hgb Conc 33.9 g/dL (32-36); Mean Corpuscular Volume 98.8 fL (80-100); Mean Platelet Volume 9.3 fL (7.4-10.4); Monocytes # (auto) 0.42 K/uL (0.11-0.59); Monocytes % (auto) 7.4 %; Neutrophils # (auto) 3.63 K/uL (1.4-6.5); Neutrophils % (auto) 64.3 %; Platelet Count 183 K/uL (130-400); RDW Coefficient of Variation 13.2 % (11.5-14.5); RDW Standard Deviation 47.4 fL (36.4-46.3); Red Blood Count 4.18 M/uL (4.7-6.1); White Blood Count 5.65 K/uL (4.8-10.8)
[2021-04-28 07:41] LABS: Partial Thromboplastin Ratio 2.3
[2021-04-28 07:43] LABS: Partial Thromboplastin Time 62.9 Seconds (21.0-31.0)
[2021-04-28 07:46] LABS: BUN Creatinine Ratio 14.3 (10-20); Calcium 8.5 mg/dl (8.5-10.1); Creatinine Clr Calc Pharmacy 52.4 ml/min; Est GFR (African American) 69.5 ml/min; Potassium 3.9 mmol/L (3.5-5.1)
[2021-04-28] MEDS ORDERED: APIXABAN 5 MG TABLET PO SCH (09:00)
[2021-04-28] MEDS: TOPIRAMATE 100 MG TAB PO SCH (09:13)
[2021-04-28] MEDS: PHENobarbitaL 30 MG TAB PO SCH (09:14)
[2021-04-28] MEDS ORDERED: OPTIRAY 320 100ml IV ONE (13:01)
--- NOTE | 2021-04-28 13:27 | CT Scan Report ---
CT SCAN OF THE ABDOMEN COMBO PANCREAS PROTOCOL CLINICAL HISTORY: Follow-up pancreatic lesion. COMPARISON STUDY: Chest CT scans dated 04/26/2021 and 02/13/2019. TECHNIQUE: Before and following the IV administration of 95 cc of Optiray 320, CT scan of the abdome n is performed from the lung bases to the pelvic inlet utilizing the pancreas protocol. Images are re viewed in the axial, sagittal, and coronal planes. IV contrast was administered without complication. A dose lowering technique was utilized adhering to the principles of ALARA. CT DOSE: 1572.09 mGycm FINDINGS: Lung bases: The heart is normal in size and without pericardial effusion. There is bibasilar scarring /atelectasis. No airspace consolidation typical for pneumonia or pleural effusion is identified. Ther e is a tiny hiatal hernia. Liver: The contrast-enhanced liver is normal in size, contour, and attenuation. There is no intrahepa tic biliary ductal dilatation. Hepatic and portal vasculature: Hepatic arterial anatomy is conventional. The hepatic veins and miah l veins are patent. The splenic vein and the superior mesenteric vein are patent. Gallbladder: Unremarkable. Spleen: Normal in size and attenuation. Pancreas: There is moderate glandular atrophy of the pancreas. The duct is normal in caliber. There i s a cluster of 3 round nodules within or adjacent to the pancreatic tail near the splenic hilum. Thes e measure up to 1.5 cm and appear to follow the spleen on all phases of enhancement and likely repres ent splenules. No additional enhancing pancreatic lesion is identified. Adrenal glands: Unremarkable. Kidneys: The contrast enhanced kidneys demonstrate mild cortical atrophy and are without hydronephros is. A punctate nonobstructing left renal calculus is seen on the unenhanced series. The kidneys enhan ce symmetrically. Abdominal vasculature: The abdominal aorta is normal in course and caliber noting moderate atheroscle rotic calcification. Bowel: Imaged portions of the small bowel and colon show no evidence of obstruction. There is diverti culosis of the visualized colon without CT evidence of acute diverticulitis. Peritoneum: There is no intraperitoneal free air or abdominal ascites. Lymphadenopathy: None. Skeletal structures: The skeletal structures are osteopenic. There is mild lumbosacral spondylosis. T here are chronic-appearing superior endplate compression deformities of T12 and L1. No lytic or blast ic lesions are seen. IMPRESSION: 1. There are 3 round nodules within or adjacent to the pancreatic tail near the splenic hilum. These measure up to 1.5 cm and appear to follow splenic enhancement on all phases. These have not appreciab ly changed as compared to a 02/13/[address] and given 2 years of stability likely represent benign splenules. If clinically desired, an additional one-year follow-up CT scan could be considered. 2. No concerning pancreatic lesion is identified. The duct is normal in caliber. 3. Additional findings as above. ACT 112: Negative or not required by law. Electronically signed by: Stewart Thrasher M.D. 04/28/2021 1:26 PM
--- NOTE | 2021-04-28 14:50 | Discharge Summary ---
Date of Service April 28, 2021 Admission HPI Per Admitting Provider Chief Complaint: Shortness of Breath Primary Care Provider: Marbin Lira PA-C 85 year old male with PMH epilepsy s/p VNS, EALN, BPH and other problems listed below who presents to the ED for evaluation of shortness of br eath and after outpatient CTA chest showed pulmonary embolism. Patient reports he had sudden onset shortness of breath last summer. Symptoms only lasted briefly, patient also states he an "extensive work up that didn't show anything." On Mar 16, patient reports he had similar return of symptoms. He was seen in the cardiology office today and a CTA chest was ordered that showed Acute pulmonary emboli in the distal right pulmonary artery and extending throughout multiple segmental and subsegmental branches in the right lung. Patient was referred to the ED for further evaluation. Patient reports shortness of breath with minimal exertion. No chest pain. Denies lightheadedness, dizziness, diaphoresis, syncopal events. No abdominal pain, nausea, vomiting, diarrhea. Denies any other recent illnesses, fevers, chills. No urinary symptoms. In the ED, patient was requiring 3 L of oxygen via nasal cannula. Labs are unremarkable. BLE venous Doppler shows Bilateral lower extremity DVT, left greater than right. Patient was started on IV heparin. Admission Exam Per Admitting Provider NAD, well developed Lungs: CTA, no wheezing or crackles Cardiac: normal S1/S2, no murmur Abd: ND, NT, soft MSK: LLE mild pitting edema Psych: AAOX3, normal affect Principal Diagnosis Acute pulmonary embolism, acute bilateral LE DVT Discharge Exam General: Elderly male, Lying comfortably in bed, not in distress, on room air HEENT: EOMI, COLLIN, MMM Chest: Clear breath sounds bilaterally, no wheezes or crackles CVS: Regular rate and rhythm, normal heart sounds, no murmur Abdomen: Soft, non tender, not distended, normal bowel sounds Neuro: Awake, alert, oriented, conversing well, non focal Extremities: No cyanosis, clubbing or edema Discharge Data Allergies Allergy/AdvReac Type Severity Reaction Status Date / Time No Known Allergies Allergy Verified 04/26/21 16:32 Consultations 04/26/21 18:05 ED Decision to Admit Stat Ordered Studies 04/26/21 15:38 US venous doppler LE BI Stat 04/28/21 08:41 CT pancreas 3-phase wo/w con Routine Hospital Course (1) Acute respiratory failure with hypoxia: (2) Pulmonary embolism: (3) DVT (deep venous thrombosis): (4) Pancreatic lesion: (5) Pulmonary nodules: (6) Seizure disorder: (7) Enlarged prostate: (8) Sleep apnea: (9) DVT prophylaxis: 85 year old male referred to the ED 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 Patient was started on IV heparin. Workup showed bilateral LE DVT. CT chest showed possible pancreatic lesion and recommended MRI which patient could not get due to his vagal nerve stimulator. Dedicated pancreatic CT was done which showed no pancreatic lesion but stable splenic nodules, likely benign and recommended 1 year follow up if clinically desired. Also has stable pulmonary nodules, likely benign as he is a never smoker- recommended [address] if there is concern for malignancy. He was initially on oxygen however was able to wean down to room air and also with ambulation. He was seen by physical therapy and cleared for discharge home. His heparin drip was switched to Eliquis- 40$ per month which patient is agreeable to. Recommended at least 3-6 months of anticoagulation and likely lifelong, given extensive DVT along with PE, suma if patient tolerates well without any issues. Will defer to the family doctor. All questions were answered to satisfaction. Patient is comfortable and stable for discharge home. 1. Acute hypoxic respiratory failure- due to PE. Resolved. On room air saturating well. 2 step oxygen evaluation completed. 2. Acute pulmonary embolism with bilateral LE DVT - Unprovoked, 1st episode, hemodynamically stable. 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 Sent to pharmacy. $40 per month 3. Splenic nodules: Incidental finding in CT.Stable compared to prior CT and likely benign. No pancreatic lesion. Recommended repeat CT in 1 year if desired. Couldn't get MRI due to vagal nerve stimulator. 4. Pulmonary nodules: CTA chest showing Multiple solid nodules throughout both lungs measuring 2-3 mm, which are likely benign in the absence of known malignancy. If the patient has risk factors for lung cancer, an optional follow-up CT of the chest can be considered in 1 year. He is a non smoker. F/u with PCP 5. Seizure disorder: S/p VNS; Continue phenobarbital and Topamax 6. Enlarged prostate: Continue finasteride and tamsulosin 7. Sleep apnea: continue CPAP as per home settings Total Time Total Time Spent Total Time Spent (In Minutes): 45 Discharge Plan Discharge Items Patient Disposition: Home - Self-Care Reason For Visit: DVT/PE Discharge Diagnosis: Acute DVT/PE Activity: Resume your previous activity Non-emergency contact: Primary Care Provider Call non-emergency contact if: you have any medication questions and your symptoms worsen Follow-up/Referrals: Marbin Lira PA-C [Primary Care Provider] - 05/04/21 10:00 am (Date & Time 05/04/2021 10:00 AM Provider Miranda Rogers MD Department General Internal Medicine [facility] ) Diet: Regular Addtl Attending Provider Instructions: Continue eliquis 2 tab (10 mg) twice daily for 1 week followed by 1 tab (5mg) twice daily. You will need the blood thinner for at least 3-6 months and likely indefinitely. Follow with the family doctor for further discussion. Watch out for any bleeding. Take care not to fall down or hit your head while on blood thinners. You have spleen and lung nodules which have been stable and are likely benign. You can get repeat CT in 1 year to ensure stability. Follow up with the family doctor. Pending Studies at Discharge: No Stand-Alone Forms: [employer], Smoking Cessation Medications and DC Order Prescriptions: New Eliquis 5 mg (74 tabs) tablets,dose pack 5 mg PO BID Qty: 74 RF: 0 Continued finasteride 5 mg tablet 5 mg PO QPM RF: 0 tamsulosin [Flomax] 0.4 mg capsule 0.4 mg PO QPM RF: 0 Namzaric 28-10 mg capsule,sprinkle,ER 24hr 1 cap PO QPM RF: 0 phenobarbital 60 mg tablet 60 mg PO BID RF: 0 topiramate [Topamax] 200 mg tablet 200 mg PO BID RF: 0 ropinirole 0.25 mg tablet 0.25 mg PO QPM RF: 0 Discharge Orders: Discharge Order (Routine); Ordered 04/28/21 Ordered By: Jarred Amaya Admission Data Admit Date/Time: 04/26/21 18:45 Attending Provider: Jarred Amaya Admit Provider: Suzie Reynaga Primary Care Provider: Marbin Lira Other Providers: Suzie Reynaga
== END 2021-04-28 17:00 | disposition home or self-care (01) | DRG 175 ==
LOC: ED 14:27 → SUATTDRO 18:45 → 2N 18:45

== ENCOUNTER 2022-03-13 10:55 | Inpatient (IN) ==
--- NOTE | 2022-03-13 11:22 | Emergency Department Note ---
Impression & Plan Closed rib fracture, Ambulatory dysfunction ADMIT ED Provider Note HPI: The patient is an 86-year-old gentleman with reported history of seizure disorder, on Topamax and phenobarbital, presents emergency department after he had a seizure earlier this morning at approximately 4 AM. Patient was at home with his son, patient states that he believes he had a seizure in the bathroom and hit his head against likely the radiator in the bathroom. Patient states that his son heard him fall and then helped him get back into bed. Patient's other family members found out about this later in the morning and then brought him to the ED to be assessed. Patient is on Eliquis for history of DVT. On arrival here to the ED the patient is alert and oriented, he has an abrasion to the left side of his scalp but otherwise no outward evidence of trauma is noted. He is in no acute distress on arrival. ROS: - Per HPI *Outpatient medications and allergy history reviewed. *Pertinent external medical records reviewed. PE: General: Alert, frail-appearing, no acute distress HEENT: Normocephalic, trachea midline, abrasion to left side of scalp without active bleeding Eyes: Extraocular eye movement is intact, no scleral erythema Pulmonary: Clear to auscultation bilaterally, no wheezing Cardio: Regular rate and rhythm GI: Abdomen is soft, nontender : No suprapubic tenderness MSK: No evidence of trauma or malformation of the extremities, no edema, there is tenderness to palpation in the area of the left lateral ribs Skin: No evidence of rash Neuro: Alert, no focal deficits Psychiatric: Cooperative client services account manager: - An order was placed for continuous cardiac monitoring - Patient was noted to be in sinus rhythm with a rate of 105 EKG: (As interpreted by myself): Rate: 99 Rhythm: Sinus rhythm Intervals: NH interval prolonged at 230 ms, otherwise within normal limits ST changes: No ST elevation Time: 1109 Interventions provided in ED: -IV fluid bolus Medical Decision Making: Patient presented to the emergency department after a fall versus seizure that happened at approximately 4:00 in the morning. This was unwitnessed by family at the bedside, apparently was heard by his son who is not here in the ED and patient was assisted back to bed. Patient's family tells me on further history that he has had some ambulatory issues at home recently that been worsening. He is only able to ambulate short distances and this has been worsening over the past several weeks. He apparently had an event at about 4 AM where he fell, this was unwitnessed so unclear if it was a seizure versus a fall. Patient states he does not remember the event. He does have an abrasion to left forehead but otherwise appears in no acute distress on arrival. IV was established, lab work obtained, CT imaging of the head, cervical spine, as well as the chest, abdomen, and pelvis were obtained, no evidence of intracranial bleeding or cervical spine fracture is noted, there is evidence of endplate fracture at L3 as well as age-indeterminate rib fracture at the 11th rib on the left side without significant displacement. Patient is tender in this area therefore I suspect this is acute. Patient's lab work otherwise is fairly reassuring, lactic acid level is within normal limits. Patient was given IV fluids in the ED. X-ray imaging of left knee does not show any evidence of acute fracture or dislocation. Patient was able to ambulate a short distance with bedside RN and the assistance of a walker however he became acutely short of breath and had oxygen desaturation to 84%. He appears more comfortable at rest on my reassessment. I did have a thorough discussion with the family at the bedside, at this time they do not feel the patient is safe to be at home secondary to his ambulatory dysfunction and recurrent fall risk. In addition, he is becoming significantly short of breath with exertion. I think given his comorbidities in addition to his recent ambulatory dysfunction worsening, he is appropriate for admission with PT/OT consultation and pain management for his rib fracture if determined appropriate. Family is requesting admission at this time. Case [facility] patient was placed for admission in stable condition. Disposition discussion held by myself with: Patient, , and daughter at the bedside Diagnosis: 1. Hypoxia with exertion 2. Left-sided rib fracture, closed, 11th rib 3. Syncopal event versus seizure 4. 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 Sleep apnea CPAP Weakness Surgical History History of colonoscopy History of left cataract surgery History of surgery LEFT HAND LITTLE FINGER S/P placement of VNS (vagus nerve stimulation) device ORIGINAL 1998 AND 2 SINCE THEN (CURRENT AND FUNCTIONING) Family History Son Family history of colon cancer Mother Family history of diabetes mellitus Social History Smoking Status: Never smoker Second Hand Exposure: No; Hx Alcohol Use: No Hx Substance Use: No Preferred Language: Mongolian Communication Ability: Effective Product Marketing Coordinator Required: No Beliefs That Will Affect Care: None marital status: Current Living Situation: Other Feels Safe at Home: Yes Assistive Devices: Glasses Allergies Allergies Allergy/AdvReac Type Severity Reaction Status Date / Time No Known Drug Allergies Allergy Verified 06/20/21 09:24 Home Meds Home Medications Medication Instructions Recorded Confirmed finasteride 5 mg tablet 5 mg PO QPM 03/11/19 03/13/22 memantine ER 28 mg-donepezil 10 mg 1 cap PO QPM 03/11/19 03/13/22 capsule sprinkle,ext.release 24 hr (Namzaric) phenobarbital 60 mg tablet 60 mg PO BID 03/11/19 03/13/22 tamsulosin 0.4 mg capsule (Flomax) 0.4 mg PO QPM 03/11/19 03/13/22 topiramate 200 mg tablet (Topamax) 200 mg PO BID 03/11/19 03/13/22 ropinirole 0.25 mg tablet 0.25 mg PO QPM 04/26/21 03/13/22 Previous Rx's Medication Instructions Recorded apixaban 5 mg (74 tabs) tablets in 5 mg PO BID #74 ea 04/27/21 a dose pack (Eliquis) Results & Data (ED) Vital Signs Vital Signs - 24 hr 03/13/22 10:57 03/13/22 11:05 03/13/22 14:48 Temperature 36.7 C 36.9 C 37 C Temperature Source Oral Oral Oral Pulse Rate 101 H Pulse Rate [Right Brachial] 98 H 91 H Pulse Rhythm Regular Pulse Rhythm [Right Brachial] Regular Regular Pulse Strength Normal Pulse Strength [Right Brachial] Normal Normal Respiratory Rate 19 19 19 Respiratory Effort / Characteristics Non-Labored Spontaneous Non-Labored Spontaneous Non-Labored Spontaneous Respiratory Depth Normal Normal Normal Respiratory Pattern Regular Regular Regular Blood Pressure 139/80 Blood Pressure [Right Arm] 139/80 132/72 Blood Pressure Mean 99 Blood Pressure Mean [Right Arm] 99 92 Blood Pressure Position Lying Blood Pressure Position [Right Arm] Lying Lying Pulse Oximetry 95 99 98 Oxygen Delivery Method Nasal Cannula Nasal Cannula Nasal Cannula Oxygen Flow Rate 2 3 Sepsis Recent Fever Within 48 Hours No Sepsis New/Unexplained Change in Mental Status N/A Sepsis Action Taken by Nursing No Action Required Laboratory Data 03/13/22 11:20 03/13/22 11:20 Lab Results 03/13/22 03/13/22 03/13/22 Range/Units 11:20 11:20 11:20 WBC 11.99 H (4.8-10.8) K/ul RBC 4.64 L (4.70-6.10) M/uL Hgb 15.1 (14.0-18.0) g/dl Hct 44.9 (42.0-52.0) % MCV 96.8 (80.0-100.0) fL MCH 32.5 (25.0-34.0) pg MCHC 33.6 (32.0-36.0) g/dL RDW Std Deviation 45.3 (36.4-46.3) fL RDW Coeff of Tamir 12.7 (11.5-14.5) % Plt Count 217 (130-400) K/uL MPV 9.2 L (9.4-12.4) fL Immature Gran % (Auto) 0.5 % Neut % (Auto) 89.2 % Lymph % (Auto) 6.1 % Hale % (Auto) 3.7 % Eos % (Auto) 0.2 % Baso % (Auto) 0.3 % Neut # (Auto) 10.71 H (1.40-6.50) K/uL Lymph # (Auto) 0.73 L (1.2-3.4) K/uL Hale # (Auto) 0.44 (0.11-0.59) K/uL Eos # (Auto) 0.02 (0-0.50) K/uL Baso # (Auto) 0.03 (0-0.2) K/uL Immature Gran # (Auto) 0.06 (0.01-0.20) K/uL Sodium 140 (136-145) mmol/L Potassium 4.2 (3.5-5.1) mmol/L Chloride 110 H (98-107) mmol/L Carbon Dioxide 25 (21-32) mmol/L Anion Gap 5 (3-11) BUN 18 (6-23) mg/dl Creatinine 1.01 (0.6-1.4) mg/dl Est Cr Clr Drug Dosing 57.1 ml/min Est GFR ( Amer) 78.2 ml/min Est GFR (Non-Af Amer) 67.5 ml/min BUN/Creatinine Ratio 17.8 (10-20) Glucose 103 H (70-99(Fasting)) mg/dl Lactate 1.0 (0.4-2.0) mmol/L Calcium 9.0 (8.5-10.1) mg/dl Total Bilirubin 0.6 (0.2-1.0) mg/dl AST 17 (13-39) U/L ALT 11 (7-52) U/L Alkaline Phosphatase 87 (34-104) U/L Total Protein 6.3 (6.0-8.3) gm/dl Albumin 3.7 (3.4-5.0) gm/dl Globulin 2.6 (2.5-4.0) gm/dl Albumin/Globulin Ratio 1.4 (0.9-2) Urine Color Urine Appearance (Clear) Urine pH (4.5-7.5) Ur Specific [place] (1.000-1.030) Urine Protein (Negative) Urine Glucose (UA) (Negative) Urine Ketones (Negative) Urine Blood (Negative) Urine Nitrite (Negative) Urine Bilirubin (Negative) Urine Urobilinogen (Negative) Ur Leukocyte Esterase (Negative) Urine WBC (Auto) (0-5) /hpf Urine RBC (Auto) (0-4) /hpf U Hyaline Cast (Auto) (0-5) /lpf U Epithel Cells (Auto) (0-5) /lpf Urine Bacteria (Auto) (Negative) Phenobarbital (10-40) mcg/ml SARS-CoV-2, RNA, NAAT (NEGATIVE) 03/13/22 03/13/22 03/13/22 Range/Units 13:50 14:05 15:43 WBC (4.8-10.8) K/ul RBC (4.70-6.10) M/uL Hgb (14.0-18.0) g/dl Hct (42.0-52.0) % MCV (80.0-100.0) fL MCH (25.0-34.0) pg MCHC (32.0-36.0) g/dL RDW Std Deviation (36.4-46.3) fL RDW Coeff of Tamir (11.5-14.5) % Plt Count (130-400) K/uL MPV (9.4-12.4) fL Immature Gran % (Auto) % Neut % (Auto) % Lymph % (Auto) % Hale % (Auto) % Eos % (Auto) % Baso % (Auto) % Neut # (Auto) (1.40-6.50) K/uL Lymph # (Auto) (1.2-3.4) K/uL Hale # (Auto) (0.11-0.59) K/uL Eos # (Auto) (0-0.50) K/uL Baso # (Auto) (0-0.2) K/uL Immature Gran # (Auto) (0.01-0.20) K/uL Sodium (136-145) mmol/L Potassium (3.5-5.1) mmol/L Chloride (98-107) mmol/L Carbon Dioxide (21-32) mmol/L Anion Gap (3-11) BUN (6-23) mg/dl Creatinine (0.6-1.4) mg/dl Est Cr Clr Drug Dosing ml/min Est GFR ( Amer) ml/min Est GFR (Non-Af Amer) ml/min BUN/Creatinine Ratio (10-20) Glucose (70-99(Fasting)) mg/dl Lactate (0.4-2.0) mmol/L Calcium (8.5-10.1) mg/dl Total Bilirubin (0.2-1.0) mg/dl AST (13-39) U/L ALT (7-52) U/L Alkaline Phosphatase (34-104) U/L Total Protein (6.0-8.3) gm/dl Albumin (3.4-5.0) gm/dl Globulin (2.5-4.0) gm/dl Albumin/Globulin Ratio (0.9-2) Urine Color Yellow Urine Appearance Clear (Clear) Urine pH 8.0 H (4.5-7.5) Ur Specific [place] > 1.045 H (1.000-1.030) Urine Protein Trace H (Negative) Urine Glucose (UA) Negative (Negative) Urine Ketones Negative (Negative) Urine Blood Trace H (Negative) Urine Nitrite Negative (Negative) Urine Bilirubin Negative (Negative) Urine Urobilinogen Negative (Negative) Ur Leukocyte Esterase Negative (Negative) Urine WBC (Auto) 0 (0-5) /hpf Urine RBC (Auto) 0-4 (0-4) /hpf U Hyaline Cast (Auto) 0 (0-5) /lpf U Epithel Cells (Auto) 0-5 (0-5) /lpf Urine Bacteria (Auto) Negative (Negative) Phenobarbital 15.9 (10-40) mcg/ml SARS-CoV-2, RNA, NAAT NEGATIVE (NEGATIVE) Administered Medications Discontinued Medications Sodium Chloride (Nss) 500 mls @ 999 mls/hr IV .Q31M SHANNON Stop: 03/13/22 12:00 Last Infusion: 03/13/22 12:21 Dose: 0 mls/hr Documented By: Admin: 03/13/22 11:28 Dose: 999 mls/hr Documented By: ALEKS Acetaminophen (Ofirmev) 1,000 mg in 100 mls @ 400 mls/hr IV NOW STA Stop: 03/13/22 15:30 Last Infusion: 03/13/22 15:40 Dose: 0 mls/hr Documented By: Admin: 03/13/22 15:22 Dose: 400 mls/hr Documented By: ALEKS Ioversol (Optiray 350 100ml) 86 ml IV ONCE ONE Stop: 03/13/22 12:43 Last Admin: 03/13/22 12:42 Dose: 86 ml Documented By: MICHAEL Imaging Data Radiologist's Impression: Head CT 03/13/22 11:[address] DOSE: HISTORY: seizure/fall TECHNIQUE: Multiaxial CT images of the head were performed without the use of intravenous contrast. Automated exposure control was utilized for this study. A dose lowering technique was utilized adhering to the principles of ALARA. Comparison: Head CT 05/08/2007. Findings: Near complete opacification of the right maxillary sinus with an associated fluid level. This is consistent with acute sinusitis. The mastoid air cells are clear. The calvarium and skull base are intact. There is no mass, hematoma, midline shift, acute infarct. White matter hypodensity is nonspecific but suggestive of microvascular ischemic change. The ventricles and sulci demonstrate mild age-related involutional changes. Impression: 1. No acute intracranial abnormality. 2. Acute right maxillary sinusitis. ACT 112: Negative or not required by law. Electronically signed by: Dexter Mancia M.D. 03/13/2022 12:58 PM Abdomen/Pelvis CT 03/13/22 11:[address] WITH IV CONTRAST CT DOSE: HISTORY: fall L side pain, on OAC TECHNIQUE: Multiaxial CT images of the abdomen and pelvis were performed following the use of intravenous contrast. A dose lowering technique was utilized adhering to the principles of ALARA. COMPARISON STUDY: CT pancreas 04/28/2021. FINDINGS: The lung bases will be reported on the same day chest CT. Mild superior endplate compression deformities at T12 and L1 are likely chronic. There is an acute mild superior endplate compression fracture at L3 which demonstrates up to 10% loss of height centrally. No associated retropulsion. No pneumoperitoneum. No pneumatosis. Age-indeterminate nondisplaced left lateral 11th rib fracture on image 187. The liver, gallbladder, pancreas, spleen, and adrenal glands unremarkable. There is a punctate stone within the left kidney on image 189. The kidneys enhance normally. No hydronephrosis. No retroperitoneal hematoma or lymphadenopathy. Calcified plaque within the normal caliber abdominal aorta. The prostate gland is enlarged. The bladder is mildly distend ed. Trace presacral edema is noted. No pelvic free fluid. Colonic diverticulosis. No evidence for acute diverticulitis. No bowel wall thickening or obstruction. Normal appendix. IMPRESSION: 1. An acute mild superior endplate compression fracture at L3. No associated retropulsion. 2. Age-indeterminate nondisplaced left lateral 11th rib fracture. 3. Left-sided nephrolithiasis. No hydronephrosis. 4. Additional findings as described above. ACT 112: Negative or not required by law. Electronically signed by: Dexter Mancia M.D. 03/13/2022 1:[address] 03/13/22 11:[address] DOSE: HISTORY: Neck pain. fall TECHNIQUE: Multiaxial CT images of the cervical spine were performed and reformatted in the sagittal and coronal plane without the use of contrast. A dose lowering technique was utilized adhering to the principles of ALARA. COMPARISON: None. FINDINGS: No fractures. No subluxation. Prevertebral soft tissues and the C1-C2 interval are intact. IMPRESSION: No fractures within the cervical spine. ACT 112: Negative or not required by law. Electronically signed by: Dexter Mancia M.D. 03/13/2022 12:[address] 03/13/22 11:[address] CONTRAST CT DOSE: 2351.00 mGy.cm HISTORY: Acute left-sided flank pain status post fall fall L flank pain TECHNIQUE: Multiaxial CT images of the chest were performed following the IV administration of 86 cc of Optiray. A dose lowering technique was utilized adhering to the principles of ALARA. COMPARISON: CT abdomen and pelvis of same day, chest CT 10/09/2019 FINDINGS: Unremarkable thyroid. Subcentimeter mediastinal and hilar lymph nodes are likely reactive. Heart is normal in size without pericardial effusion. Moderate coronary artery calcifications. Unremarkable thoracic aorta. The pulmonary artery is within normal limits. No pneumothorax or pleural effusion. Bibasilar groundglass and linear consolidative opacities within the dependent lower lobes. Mild associated mucous plugging. 3 mm fissural nodule of the right midlung on image 146 is suggestive of a benign lymph node. There are a few scattered low suspicion likely benign solid pulmonary nodules including a stable 3 mm nodule of the right upper lobe, image 99. Subpleural 4 mm nodular focus of the right upper lobe, image 129. 3 mm lingular nodule, image 182. 5 mm subpleural nodule of the left lower lobe, image 193. No acute process of the imaged upper abdomen. Mild gynecomastia. Battery pack of the left chest wall with electrode projected superiorly within the left neck extending outside the [id number]. Chronic T12 and L1 superior endplate compression deformities. IMPRESSION: 1. No acute posttraumatic intrathoracic abnormality. 2. No acute fracture or pneumothorax. 3. Mild bibasilar mucous plugging with bibasilar densities favoring atelectasis. 4. Scattered low suspicion solid pulmonary nodules measuring up to 5 mm Please refer to below summary of Fleischner criteria recommendations for follow- up of incidental CT nodules (Deb Martinez, Guidelines for management of small pulmonary nodules detected on CT scans: A statement from the Fleischner Society , Radiology 237: [phone].) SOLID NODULES Multiple nodules size: <6 mm * Low risk patients: no routine follow-up * high risk patients: optional CT at 12 months Note: newly detected indeterminate nodule in persons 35 years of age or older. * Low risk patients: minimal or absent history of smoking and/or other known risk factors * high risk patients: history of smoking or of other known risk factors (e.g. first degree relative with lung cancer, or exposure to asbestos, radon, uranium) * if a nodule up to 8 mm is partly solid or is ground glass further follow-up is required after 24 months to exclude possible slow growing adenocarcinoma (BEBA) ACT 112: Negative or not required by law. Electronically signed by: Josemanule Ellis M.D. 03/13/2022 1:10 PM Knee X-Ray 03/13/22 11:19 LEFT KNEE 3 VIEWS HISTORY: Left knee pain. fall COMPARISON: None. FINDINGS: There is no fracture or dislocation. Soft tissues are unremarkable. No radiopaque foreign bodies. No significant joint effusion. IMPRESSION: No fractures. ACT 112: Negative or not required by law. Electronically signed by: Dexter Mancia M.D. 03/13/2022 1:41 PM Discharge Plan Visit Data Chief Complaint: Fall Stated Complaint: SEIZURE, FALL, RIB PAIN ED Provider: Reg Madrigal Discharge Problem: Closed rib fracture, Ambulatory dysfunction Patient Disposition: Admitted As Inpatient Condition: Good Forms Stand Alone Forms: [facility] Next 2 Greatness Prescriptions Prescriptions: No Action finasteride 5 mg tablet 5 mg PO QPM tamsulosin [Flomax] 0.4 mg capsule 0.4 mg PO QPM Namzaric 28-10 mg capsule,sprinkle,ER 24hr 1 cap PO QPM phenobarbital 60 mg tablet 60 mg PO BID topiramate [Topamax] 200 mg tablet 200 mg PO BID ropinirole 0.25 mg tablet 0.25 mg PO QPM Eliquis 5 mg (74 tabs) tablets,dose pack 5 mg PO BID Qty: 74 0RF Rx Instructions: take 2 tabs twice daily for 1 week followed by 1 tab twice daily Referrals Referrals: Marbni Lira PA-C [Primary Care Provider] -
[2022-03-13] MEDS ORDERED: SODIUM CHLORIDE 0.9% 500 ML IV SCH (11:30)
[2022-03-13 11:54] LABS: Albumin Level 3.7 gm/dl (3.4-5.0); Bilirubin,Total 0.6 mg/dl (0.2-1.0); Potassium 4.2 mmol/L (3.5-5.1)
[2022-03-13 11:58] LABS: Hematocrit (blood only) 44.9 % (42.0-52.0); Hemoglobin 15.1 g/dl (14.0-18.0); Mean Corpuscular Hemoglobin 32.5 pg (25.0-34.0); Mean Corpuscular Hgb Conc 33.6 g/dL (32.0-36.0); Mean Corpuscular Volume 96.8 fL (80.0-100.0); Mean Platelet Volume 9.2 fL (9.4-12.4); Platelet Count 217 K/uL (130-400); RDW Coefficient of Variation 12.7 % (11.5-14.5); RDW Standard Deviation 45.3 fL (36.4-46.3); Red Blood Count 4.64 M/uL (4.70-6.10); White Blood Count 11.99 K/ul (4.8-10.8)
[2022-03-13 12:00] LABS: Albumin Globulin Ratio 1.4 (0.9-2); BUN Creatinine Ratio 17.8 (10-20); Creatinine Clr Calc Pharmacy 57.1 ml/min; Est GFR (African American) 78.2 ml/min; Est GFR (Non-African American) 67.5 ml/min; Globulin 2.6 gm/dl (2.5-4.0); Total Protein 6.3 gm/dl (6.0-8.3)
[2022-03-13 12:02] LABS: Basophils # (auto) 0.03 K/uL (0-0.2); Basophils % (auto) 0.3 %; Eosinophils # (auto) 0.02 K/uL (0-0.50); Eosinophils % (auto) 0.2 %; Immature Granulocytes # (auto) 0.06 K/uL (0.01-0.20); Immature Granulocytes % (auto) 0.5 %; Lymphocytes # (auto) 0.73 K/uL (1.2-3.4); Lymphocytes % (auto) 6.1 %; Monocytes # (auto) 0.44 K/uL (0.11-0.59); Monocytes % (auto) 3.7 %; Neutrophils # (auto) 10.71 K/uL (1.40-6.50); Neutrophils % (auto) 89.2 %
[2022-03-13] MEDS ORDERED: OPTIRAY 350 100ml IV ONE (12:42)
--- NOTE | 2022-03-13 12:55 | CT Scan Report ---
CERVICAL SPINE CT CT DOSE: HISTORY: Neck pain. fall TECHNIQUE: Multiaxial CT images of the cervical spine were performed and reformatted in the sagittal and coronal plane without the use of contrast. A dose lowering technique was utilized adhering to e principles of ALARA. COMPARISON: None. FINDINGS: No fractures. No subluxation. Prevertebral soft tissues and the C1-C2 interval are intact. IMPRESSION: No fractures within the cervical spine. ACT 112: Negative or not required by law. Electronically signed by: Dexter Mancia M.D. 03/13/2022 12:54 PM
--- NOTE | 2022-03-13 13:00 | CT Scan Report ---
HEAD CT NONCONTRAST CT DOSE: HISTORY: seizure/fall TECHNIQUE: Multiaxial CT images of the head were performed without the use of intravenous contrast. A utomated exposure control was utilized for this study. A dose lowering technique was utilized adheri ng to the principles of ALARA. Comparison: Head CT 05/08/2007. Findings: Near complete opacification of the right maxillary sinus with an associated fluid level. Th is is consistent with acute sinusitis. The mastoid air cells are clear. The calvarium and skull base are intact. There is no mass, hematoma, midline shift, acute infarct. White matter hypodensity is non specific but suggestive of microvascular ischemic change. The ventricles and sulci demonstrate mild a ge-related involutional changes. Impression: 1. No acute intracranial abnormality. 2. Acute right maxillary sinusitis. ACT 112: Negative or not required by law. Electronically signed by: Dexter Mancia M.D. 03/13/2022 12:58 PM
--- NOTE | 2022-03-13 13:09 | CT Scan Report ---
ABDOMEN AND PELVIS CT WITH IV CONTRAST CT DOSE: HISTORY: fall L side pain, on OAC TECHNIQUE: Multiaxial CT images of the abdomen and pelvis were performed following the use of intrave nous contrast. A dose lowering technique was utilized adhering to the principles of ALARA. COMPARISON STUDY: CT pancreas 04/28/2021. FINDINGS: The lung bases will be reported on the same day chest CT. Mild superior endplate compressio n deformities at T12 and L1 are likely chronic. There is an acute mild superior endplate compression fracture at L3 which demonstrates up to 10% loss of height centrally. No associated retropulsion. No pneumoperitoneum. No pneumatosis. Age-indeterminate nondisplaced left lateral 11th rib fracture on im age 89. The liver, gallbladder, pancreas, spleen, and adrenal glands unremarkable. There is a puncta te stone within the left kidney on image 189. The kidneys enhance normally. No hydronephrosis. No ret roperitoneal hematoma or lymphadenopathy. Calcified plaque within the normal caliber abdominal aorta. The prostate gland is enlarged. The bladder is mildly distended. Trace presacral edema is noted. No pelvic free fluid. Colonic diverticulosis. No evidence for acute diverticulitis. No bowel wall thicke maxine or obstruction. Normal appendix. IMPRESSION: 1. An acute mild superior endplate compression fracture at L3. No associated retropulsion. 2. Age-indeterminate nondisplaced left lateral 11th rib fracture. 3. Left-sided nephrolithiasis. No hydronephrosis. 4. Additional findings as described above. ACT 112: Negative or not required by law. Electronically signed by: Dexter Mancia M.D. 03/13/2022 1:07 PM
--- NOTE | 2022-03-13 13:11 | CT Scan Report ---
CHEST CT WITH CONTRAST CT DOSE: 2351.00 mGy.cm HISTORY: Acute left-sided flank pain status post fall fall L flank pain TECHNIQUE: Multiaxial CT images of the chest were performed following the IV administration of 86 cc of Optiray. A dose lowering technique was utilized adhering to the principles of ALARA. COMPARISON: CT abdomen and pelvis of same day, chest CT 10/09/2019 FINDINGS: Unremarkable thyroid. Subcentimeter mediastinal and hilar lymph nodes are likely reactive. Heart is normal in size without pericardial effusion. Moderate coronary artery calcifications. Unrema rkable thoracic aorta. The pulmonary artery is within normal limits. No pneumothorax or pleural effusion. Bibasilar groundglass and linear consolidative opacities within the dependent lower lobes. Mild associated mucous plugging. 3 mm fissural nodule of the right midlung on image 146 is suggestive of a benign lymph node. There are a few scattered low suspicion likely be nign solid pulmonary nodules including a stable 3 mm nodule of the right upper lobe, image 99. Subple ural 4 mm nodular focus of the right upper lobe, image 129. 3 mm lingular nodule, image 182. 5 mm sub pleural nodule of the left lower lobe, image 193. No acute process of the imaged upper abdomen. Mild gynecomastia. Battery pack of the left chest wall with electrode projected superiorly within the left neck extending outside the [id number]. Chronic T12 and L1 superior endplate compression deformities. IMPRESSION: 1. No acute posttraumatic intrathoracic abnormality. 2. No acute fracture or pneumothorax. 3. Mild bibasilar mucous plugging with bibasilar densities favoring atelectasis. 4. Scattered low suspicion solid pulmonary nodules measuring up to 5 mm Please refer to below summary of Fleischner criteria recommendations for follow-up of incidental CT n odules (Deb Martinez, Guidelines for management of small pulmonary nodules detected on CT scans: A sta tement from the Fleischner Society, Radiology 237: [phone].) SOLID NODULES Multiple nodules size: <6 mm * Low risk patients: no routine follow-up * high risk patients: optional CT at 12 months Note: newly detected indeterminate nodule in persons 35 years of age or older. * Low risk patients: minimal or absent history of smoking and/or other known risk factors * high risk patients: history of smoking or of other known risk factors (e.g. first degree relative with lung cancer, or exposure to asbestos, radon, uranium) * if a nodule up to 8 mm is partly solid or is ground glass further follow-up is required after 24 m onths to exclude possible slow growing adenocarcinoma (BEBA) ACT 112: Negative or not required by law. Electronically signed by: Josemanuel Ellis M.D. 03/13/2022 1:10 PM
--- NOTE | 2022-03-13 13:43 | XRay Report ---
LEFT KNEE 3 VIEWS HISTORY: Left knee pain. fall COMPARISON: None. FINDINGS: There is no fracture or dislocation. Soft tissues are unremarkable. No radiopaque foreign b odies. No significant joint effusion. IMPRESSION: No fractures. ACT 112: Negative or not required by law. Electronically signed by: Dexter Mancia M.D. 03/13/2022 1:41 PM
[2022-03-13 14:08] LABS: Appearance Urine Clear (Clear); Bilirubin Urine Negative (Negative); Blood Urine Trace (Negative); Color Urine Yellow; Glucose Urine UA Negative (Negative); Ketones Urine Negative (Negative); Leukocyte Esterase Urine Negative (Negative); Nitrite Urine Negative (Negative); Specific Gravity Urine > 1.045 (1.000-1.030); Urobilinogen Urine Negative (Negative)
[2022-03-13 14:13] LABS: Protein Urine Trace (Negative)
[2022-03-13 14:22] LABS: Epithelial Cell Urine Auto 0-5 /lpf (0-5); RBC Urine Automated 0-4 /hpf (0-4); WBC Urine Automated 0 /hpf (0-5)
[2022-03-13 14:23] LABS: Bacteria Urine Automated Negative (Negative); Cast Urine Automated 0 /lpf (0-5)
--- NOTE | 2022-03-13 14:53 | History & Physical Report ---
Date of Service March 13, 2022 Assessment & Plan (1) Weakness: (2) Fall: (3) Seizure disorder: (4) Sleep apnea: Plan 86 y/o with h/o seizures presents s/p fall and suspected seizure. 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 Pain control, ortho and neuro consult with PT/OT. Ambulatory Dysfunction: Compression fracture: s/p fall: -Fall in bathroom; baseline no cane/walker -Head CT (-) -C-spine CT (-) -Abd/Pelvis CT: compression fracture L3 -Chest CT: 11th rib left chest wall non-displaced fracture, no PNX -PT/OT -Ortho BP's -Pain control with scheduled Tylenol and Lidocaine patch -Ortho consult for evaluation; unlikely surgery but OPT f/u. 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 BPH: -Takes Tamsulosin; continue Disposition: PCP: Marbin Lira PA-C Code Status: Full Code VTE Prophylaxis: Eloquis A total of 88 minutes was spent with greater than 50% of that time personally reviewing all current laboratory work and diagnostic imaging studies obtained in the ED. Additionally, I was able to review the patients past medication reconciliation and history with direct visualization in the patients chart. Included in the time above, a portion of that time was spent assessing the patient while discussing and collaborating with specialists, if necessary, and making medical decisions regarding orders to be placed. All of the aforementioned completed while collaborating with Dr. Ward for a full treatment plan. Please see her addendum for further details. History of Present Illness Chief Complaint: s/p fall and weakness Primary Care Provider: Marbin Lira PA-C Mr. Dumont is an 86 year old male that presented to the [facility] s/p fall at home this morning. He reports that he woke this morning at 4AM and went to the bathroom and fell into one of their radiators. His son, who lives in the home, heard him fall and went to help him up. He thought he could have had a seizure, but pre other family, this information may not be reliable. He did hit his left chest wall and face for which he does have an abrasion. Chest CT revealed acute nondisplaced rib fracture, C-spine CT negative, Head CT negative for ICH, midline shift or fractures, abdomen/pelvis CT reveals compression fracture L3. Additional PMH includes dementia, H/O DVT/PE (03/2019 s/p COVID and now on Eliquis), ELAN (on CPAP at ), and asthma with ILD. Per patient, he initially stated that he recalled the event and that this happens in March, and later he indicated that he did recall having an aura. He does have a history of seizures that was diagnosed at the age of 7 and his last seizure was 03/2019. He does take Topamax and Phenobarbital. He did NOT take these medications this morning. With review in EMR, pt last ECHO 04/2021: EF 55- 60% , mild tricuspid regurgitation, mild aortic regurgitation but normal wall motion. Patient was able to answer all questions appropriately. His and daughter were at bedside and stated that he appears back to his baseline functional and cognitive status. On exam, he was AAOx4 and able to recall the events that occurred and also tell me his medications. At baseline, he is able to do his ADL's independently and does not use a walker or can for ambulatory assistance. Patient does not appear post ictal on exam. He does have left chest wall pain from his non-displaced rib fracture. Patient will be admitted for further evaluation and management. Please see A/P for further details. Allergies Allergy/AdvReac Type Severity Reaction Status Date / Time No Known Drug Allergies Allergy Verified 06/20/21 09:24 Home Medications Medication Instructions Recorded Confirmed Type finasteride 5 mg tablet 5 mg PO QPM 03/11/19 03/13/22 History memantine ER 28 mg-donepezil 10 mg 1 cap PO QPM 03/11/19 03/13/22 History capsule sprinkle,ext.release 24 hr (Namzaric) phenobarbital 60 mg tablet 60 mg PO BID 03/11/19 03/13/22 History tamsulosin 0.4 mg capsule (Flomax) 0.4 mg PO QPM 03/11/19 03/13/22 History topiramate 200 mg tablet (Topamax) 200 mg PO BID 03/11/19 03/13/22 History ropinirole 0.25 mg tablet 0.25 mg PO QPM 04/26/21 03/13/22 History apixaban 5 mg (74 tabs) tablets in 5 mg PO BID #74 ea 04/27/21 03/13/22 Rx a dose pack (Eliquis) Past Med/Surg History Medical History Enlarged prostate Fall Restless leg syndrome Seizure disorder DX AGE 7 , 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 Sleep apnea CPAP Weakness Surgical History History of colonoscopy History of left cataract surgery History of surgery LEFT HAND LITTLE FINGER S/P placement of VNS (vagus nerve stimulation) device ORIGINAL 1998 AND 2 SINCE THEN (CURRENT AND FUNCTIONING) Family History Son Family history of colon cancer Mother Family history of diabetes mellitus Social History Smoking Status: Never smoker Second Hand Exposure: No; Hx Alcohol Use: No Hx Substance Use: No Preferred Language: Faroese Communication Ability: Effective Team Lead Required: No Beliefs That Will Affect Care: None marital status: Current Living Situation: Other Feels Safe at Home: Yes Assistive Devices: Glasses Review of Systems Review of Systems: Neuro: (+) Falls, trauma, (-) slurred speech HEENT: (-) SIMMONS, dizziness, dysphagia, visual or auditory changes CV: (-) CP, palpitations, swelling Resp: (-) SOB GI: (-) appetite changes, N/V/D, bowel changes : (-) urinary changes Skin: (-) rashes Psych: (-) anxiety, depression Physical Exam Physical Exam: Neuro: AAOx4, PERRLA, no aphagia, memory changes, CNII-XII grossly intact. Reports aura HEENT: head normocephalic, moist mucus membranes CV: S1/S2, (-) M/G/R, (-) edema, cap refill < 3 seconds Resp: Lungs CTA in all escobar. On 2LNC GI: Abdomen S/NT/ND, Ax4 bowel sounds, (-) CVA tenderness Musculoskeletal: 5/5 B/L UE strength, 5/5 B/L LE strength. No gait disturbance Skin: (-) rashes , (-) erythema. Psych: euthymic mood Results & Data Results & Data ([facility]) Vital Signs (Past 12 Hours) Vital Signs Temp Pulse Pulse Resp BP BP Pulse Ox 03/13/22 14:48 37 C 91 H 19 132/72 98 03/13/22 11:05 36.9 C 98 H 19 139/80 99 03/13/22 10:57 36.7 C 101 H 19 139/80 95 O2 Del Method O2 Flow Rate 03/13/22 14:48 Nasal Cannula 3 03/13/22 11:05 Nasal Cannula 2 03/13/22 10:57 Nasal Cannula Laboratory Results Short CBC 03/13/22 Range/Units 11:20 WBC 11.99 H (4.8-10.8) K/ul Hgb 15.1 (14.0-18.0) g/dl Hct 44.9 (42.0-52.0) % Plt Count 217 (130-400) K/uL BMP 03/13/22 11:20 Sodium 140 Potassium 4.2 Chloride 110 H Carbon Dioxide 25 BUN 18 Creatinine 1.01 Glucose 103 H Calcium 9.0 Liver Function 03/13/22 Range/Units 11:20 Total Bilirubin 0.6 (0.2-1.0) mg/dl AST 17 (13-39) U/L ALT 11 (7-52) U/L Alkaline Phosphatase 87 (34-104) U/L Albumin 3.7 (3.4-5.0) gm/dl Urine 03/13/22 Range/Units 13:50 Urine Color Yellow Urine Appearance Clear (Clear) Urine pH 8.0 H (4.5-7.5) Ur Specific [place] > 1.045 H (1.000-1.030) Urine Protein Trace H (Negative) Urine Glucose (UA) Negative (Negative) Diagnostic Findings Head CT 03/13/22 11:[address] DOSE: HISTORY: seizure/fall TECHNIQUE: Multiaxial CT images of the head were performed without the use of intravenous contrast. Automated exposure control was utilized for this study. A dose lowering technique was utilized adhering to the principles of ALARA. Comparison: Head CT 05/08/2007. Findings: Near complete opacification of the right maxillary sinus with an associated fluid level. This is consistent with acute sinusitis. The mastoid air cells are clear. The calvarium and skull base are intact. There is no mass, hematoma, midline shift, acute infarct. White matter hypodensity is nonspecific but suggestive of microvascular ischemic change. The ventricles and sulci demonstrate mild age-related involutional changes. Impression: 1. No acute intracranial abnormality. 2. Acute right maxillary sinusitis. ACT 112: Negative or not required by law. Electronically signed by: Dexter Mancia M.D. 03/13/2022 12:58 PM Abdomen/Pelvis CT 03/13/22 11:[address] WITH IV CONTRAST CT DOSE: HISTORY: fall L side pain, on OAC TECHNIQUE: Multiaxial CT images of the abdomen and pelvis were performed following the use of intravenous contrast. A dose lowering technique was utilized adhering to the principles of ALARA. COMPARISON STUDY: CT pancreas 04/28/2021. FINDINGS: The lung bases will be reported on the same day chest CT. Mild superior endplate compression deformities at T12 and L1 are likely chronic. There is an acute mild superior endplate compression fracture at L3 which demonstrates up to 10% loss of height centrally. No associated retropulsion. No pneumoperitoneum. No pneumatosis. Age-indeterminate nondisplaced left lateral 11th rib fracture on image 187. The liver, gallbladder, pancreas, spleen, and adrenal glands unremarkable. There is a punctate stone within the left kidney on image 189. The kidneys enhance normally. No hydronephrosis. No retroperitoneal hematoma or lymphadenopathy. Calcified plaque within the normal caliber abdominal aorta. The prostate gland is enlarged. The bladder is mildly distended. Trace presacral edema is noted. No pelvic free fluid. Colonic diverticulosis. No evidence for acute diverticulitis. No bowel wall thickening or obstruction. Normal appendix. IMPRESSION: 1. An acute mild superior endplate compression fracture at L3. No associated retropulsion. 2. Age-indeterminate nondisplaced left lateral 11th rib fracture. 3. Left-sided nephrolithiasis. No hydronephrosis. 4. Additional findings as described above. ACT 112: Negative or not required by law. Electronically signed by: Dexter Mancia M.D. 03/13/2022 1:[address] 03/13/22 11:[address] DOSE: HISTORY: Neck pain. fall TECHNIQUE: Multiaxial CT images of the cervical spine were performed and reformatted in the sagittal and coronal plane without the use of contrast. A dose lowering technique was utilized adhering to the principles of ALARA. COMPARISON: None. FINDINGS: No fractures. No subluxation. Prevertebral soft tissues and the C1-C2 interval are intact. IMPRESSION: No fractures within the cervical spine. ACT 112: Negative or not required by law. Electronically signed by: Dexter Mancia M.D. 03/13/2022 12:[address] 03/13/22 11:[address] WITH CONTRAST CT DOSE: 2351.00 mGy.cm HISTORY: Acute left-sided flank pain status post fall fall L flank pain TECHNIQUE: Multiaxial CT images of the chest were performed following the IV administration of 86 cc of Optiray. A dose lowering technique was utilized adhering to the principles of ALARA. COMPARISON: CT abdomen and pelvis of same day, chest CT 10/09/2019 FINDINGS: Unremarkable thyroid. Subcentimeter mediastinal and hilar lymph nodes are likely reactive. Heart is normal in size without pericardial effusion. Moderate coronary artery calcifications. Unremarkable thoracic aorta. The pulmonary artery is within normal limits. No pneumothorax or pleural effusion. Bibasilar groundglass and linear consolidative opacities within the dependent lower lobes. Mild associated mucous plugging. 3 mm fissural nodule of the right midlung on image 146 is suggestive of a benign lymph node. There are a few scattered low suspicion likely benign solid pulmonary nodules including a stable 3 mm nodule of the right upper lobe, image 99. Subpleural 4 mm nodular focus of the right upper lobe, image 129. 3 mm lingular nodule, image 182. 5 mm subpleural nodule of the left lower lobe, image 193. No acute process of the imaged upper abdomen. Mild gynecomastia. Battery pack of the left chest wall with electrode projected superiorly within the left neck extending outside the [id number]. Chronic T12 and L1 superior endplate compression deformities. IMPRESSION: 1. No acute posttraumatic intrathoracic abnormality. 2. No acute fracture or pneumothorax. 3. Mild bibasilar mucous plugging with bibasilar densities favoring atelectasis. 4. Scattered low suspicion solid pulmonary nodules measuring up to 5 mm Please refer to below summary of Fleischner criteria recommendations for follow- up of incidental CT nodules (Deb Martinez, Guidelines for management of small pulmonary nodules detected on CT scans: A statement from the Fleischner Society, Radiology 237: [phone].) SOLID NODULES Multiple nodules size: <6 mm * Low risk patients: no routine follow-up * high risk patients: optional CT at 12 months Note: newly detected indeterminate nodule in persons 35 years of age or older. * Low risk patients: minimal or absent history of smoking and/or other known risk factors * high risk patients: history of smoking or of other known risk factors (e.g. first degree relative with lung cancer, or exposure to asbestos, radon, uranium) * if a nodule up to 8 mm is partly solid or is ground glass further follow-up is required after 24 months to exclude possible slow growing adenocarcinoma (BEBA) ACT 112: Negative or not required by law. Electronically signed by: Josemanuel Ellis M.D. 03/13/2022 1:10 PM Knee X-Ray 03/13/22 11:19 LEFT KNEE 3 VIEWS HISTORY: Left knee pain. fall COMPARISON: None. FINDINGS: There is no fracture or dislocation. Soft tissues are unremarkable. No radiopaque foreign bodies. No significant joint effusion. IMPRESSION: No fractures. ACT 112: Negative or not required by law. Electronically signed by: Dexter Mancia M.D. 03/13/2022 1:41 PM Code Status & VTE Plan Code Status Full Code in the event of cardiac or respiratory arrest VTE Prophylaxis Plan VTE Prophylaxis will be ordered: Yes Supervising Physician Co-Signing Physician Notes Patient was seen and examined. Chart reviewed. Case discussed with MADISYN. Patient here with fall, he reports it was a breakthrough seizure. Described as having an aura preceding the fall then "blacking out" then waking up on the floor. Denies recent illness but reports he has not been sleeping well due to left knee pain. Post fall, found to have acute L3 compression fracture and 11th rib fracture. Patient counseled on seizure precaution (no driving, no swimming, no baths). Will consult Neurology to evaluate whether medications need adjustment. He has been well controlled prior to today, his last breakthrough seizure was 3 years prior. Will consult Orthopedic surgery for acute L3 compression fracture. Agree with scheduled tylenol and lidocaine patch PT/OT evaluation
[2022-03-13] MEDS ORDERED: ACETAMINOPHEN 1,000 MG/100 ML VIAL IV STA (15:16)
--- NOTE | 2022-03-13 16:20 | Electrocardiogram Report ---
Test Reason : Blood Pressure : / mmHG Vent. Rate : 099 BPM Atrial Rate : 099 BPM P-R Int : 230 ms QRS Dur : 086 ms QT Int : 340 ms P-R-T Axes : 052 070 033 degrees QTc Int : 436 ms Sinus rhythm with 1st degree A-V block Otherwise normal ECG When compared with ECG of 26-APR-2021 15:20, DE interval has increased T wave inversion no longer evident in Lateral leads Confirmed by Onesimo Dugan ([id number]) on 03/13/2022 4:19:59 PM Referred By: REFERRED SELF Confirmed By:Onesimo Dugan
[2022-03-13] MEDS: LIDOCAINE 5% 1 PATCH TD SCH (18:33)
[2022-03-13] MEDS: FINASTERIDE 5 MG TAB PO SCH (20:06)
[2022-03-13] MEDS: rOPINIRole HCL 0.25 MG TABLET PO SCH (20:06)
[2022-03-13] MEDS: APIXABAN 5 MG TABLET PO SCH (20:06)
[2022-03-13] MEDS: TAMSULOSIN HCL 0.4 MG CAP PO SCH (20:07)
[2022-03-13] MEDS: TOPIRAMATE 100 MG TAB PO SCH (20:07)
[2022-03-13] MEDS: PHENobarbitaL 30 MG TAB PO SCH (20:33)
[2022-03-14] MEDS: ACETAMINOPHEN 325 MG TAB PO SCH ×4 (00:13→21:57)
[2022-03-14] MEDS: oxyCODONE HCL IR 5 MG TAB (IMMEDIATE RELEASE) PO PRN ×3 (04:00→18:04)
[2022-03-14] MEDS: TOPIRAMATE 100 MG TAB PO SCH ×2 (09:08→21:59)
[2022-03-14] MEDS: APIXABAN 5 MG TABLET PO SCH ×2 (09:08→21:57)
[2022-03-14] MEDS: LIDOCAINE 5% 1 PATCH TD SCH (09:13)
[2022-03-14] MEDS: PHENobarbitaL 30 MG TAB PO SCH ×2 (09:20→22:06)
[2022-03-14] MEDS ORDERED: LIDOCAINE 5% 1 PATCH TD SCH (09:40)
--- NOTE | 2022-03-14 13:29 | XRay Report ---
XR femur LT 2V routine CLINICAL HISTORY: pain, r/o fracture. Left femur pain. COMPARISON STUDY: None. FINDINGS: No fracture or dislocation within the left femur. Soft tissues are unremarkable. No radiopa que foreign bodies. IMPRESSION: No fracture or dislocation within the left femur. ACT 112: Negative or not required by law. Electronically signed by: Dexter Mancia M.D. 03/14/2022 1:28 PM
--- NOTE | 2022-03-14 13:49 | Orthopedic Consultation ---
Date of Service March 14, 2022 Assessment & Plan (1) Trochanteric bursitis of left hip: He was seen and examined by Dr. Kelsey. He was reassured that his xrays are negative for fracture of the left femur/knee. We offered him an injection for the trochanteric bursitis and he would like to proceed with that. We will order this and plan to inject his left hip/trochanteric bursa. He has an appointment with Dr. Mcintyre 03/28/22 for his hip and shoulders as well. History of Present Illness Reason for Consultation: . Requesting Physician: . Attending Physician: Servando Hall MD .86 year old patient admitted yesterday after a fall and history of seizures. He is complaining of proximal lateral left thigh pain. He has had this pain intermittently in the past and does see Dr. Mcintyre for greater trochanteric bursitis injections as well as shoulder injections. Denies groin pain. No back pain. Imaging did reveal L3 compression fracture and rib fracture. Allergies Allergy/AdvReac Type Severity Reaction Status Date / Time No Known Drug Allergies Allergy Verified 06/20/21 09:24 Home Medications Medication Instructions Recorded Confirmed Type finasteride 5 mg tablet 5 mg PO QPM 03/11/19 03/13/22 History memantine ER 28 mg-donepezil 10 mg 1 cap PO QPM 03/11/19 03/13/22 History capsule sprinkle,ext.release 24 hr (Namzaric) phenobarbital 60 mg tablet 60 mg PO BID 03/11/19 03/13/22 History tamsulosin 0.4 mg capsule (Flomax) 0.4 mg PO QPM 03/11/19 03/13/22 History topiramate 200 mg tablet (Topamax) 200 mg PO BID 03/11/19 03/13/22 History ropinirole 0.25 mg tablet 0.25 mg PO QPM 04/26/21 03/13/22 History apixaban 5 mg (74 tabs) tablets in 5 mg PO BID #74 ea 04/27/21 03/13/22 Rx a dose pack (Eliquis) Past Med/Surg History Medical History Enlarged prostate Fall Restless leg syndrome Seizure disorder DX AGE 7 , 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 Sleep apnea CPAP Weakness Surgical History History of colonoscopy History of left cataract surgery History of surgery LEFT HAND LITTLE FINGER S/P placement of VNS (vagus nerve stimulation) device ORIGINAL 1998 AND 2 SINCE THEN (CURRENT AND FUNCTIONING) Family History Son Family history of colon cancer Mother Family history of diabetes mellitus Social History Smoking Status: Never smoker Second Hand Exposure: No; Hx Alcohol Use: No Hx Substance Use: No Preferred Language: Prydeinig Communication Ability: Effective Sales Support Associate Required: No Beliefs That Will Affect Care: None marital status: Current Living Situation: Family Other Information That Helps Us Care for You: No Feels Safe at Home: Yes Safety Concerns: Feels Safe At This Time Assistive Devices: CPAP Review of Systems All systems reviewed & are unremarkable except as noted in HPI & below. Physical Exam . Alert and oriented. NAD. Left leg: able to do a straight leg raise without pain or difficulty. Has good motion of his left hip. He is tender to palpation laterally around the greater trochanteric bursa. No knee effusion. No tenderness around the knee and no pain with motion of his knee. Results & Data Results & Data Laboratory Results . Diagnostic Findings .xrays of the left knee and left femur were reviewed and are negative for fracture. PG Care Time/CCT Total # of Minutes Spent Total Time Spent with Patient: Total time spent is greater than 50% in coordination of care (as documented) at patient's floor/unit and/or counseling patient: Coding Level of Care Code INP/OBS CONSULT LVL 3, 45 MIN Diagnoses Trochanteric bursitis of left hip M70.62
[2022-03-14] MEDS ORDERED: BUPIVACAINE 0.5 % 5 MG/1 ML MPF 30ML VIAL IA ONE (14:00)
[2022-03-14] MEDS ORDERED: BETAMETH SOD PHOS/ACETATE IA 6 MG/ML IA ONE (14:00)
--- NOTE | 2022-03-14 15:22 | Hospitalist Progress Note ---
Date of Service March 14, 2022 Assessment & Plan (1) Weakness: (2) Fall: (3) Seizure disorder: (4) Sleep apnea: Plan 86 y/o with h/o seizures presents s/p fall and suspected seizure. 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 Pain control, ortho and neuro consult with PT/OT. per admitting service notes with addendum: Ambulatory Dysfunction: L 3 Acute Compression fracture: L rib #1 Fracture s/p Fall, s/p Breakthrough Seizure -Fall in bathroom; baseline no cane/walker -Head CT (-) -C-spine CT (-) -Abd/Pelvis CT: compression fracture L3 -Chest CT: 11th rib left chest wall non-displaced fracture, no PNX pain well controlled Ortho spine ordered PT/OT Possible Breakthrough Seizure H/O Seizure disorder: -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7 -last seizure 03/2019 -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 -Takes Topamax and Phenobarbital with compliance -Topamax and Phenobarb levels pending -CT head: negative awaiting Neurologist recommendations L upper leg pain Ortho consulted Femur XR: no fracture possible trochanteric bursitis, steroid injection planned 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 BPH: -Takes Tamsulosin; continue Disposition: PCP: Marbin Lira PA-C Code Status: Full Code VTE Prophylaxis: Eloquis Disposition pending lives at home with son PT/OT eval Admission and Anticipated Discharge Date Admission Date: March 13, 2022 Subjective Follow-up for status post fall, possible breakthrough seizure, L3 compression fracture, left rib fracture, etc. seen resting in bed, comfortable, sitting up states he feels ok overall no recurrence of seizure no headache, dizziness, focal neuro deficits has mild pain on the L lower rib are no SOB denies back pain reports L upper leg pain, lateral side, chronic but worse no other symptoms Review of Systems Review of Systems: all noted and negative except for above Physical Exam Physical Exam: General- oriented x 3, not in distress, speaks in sentences with no effort or accessory muscle use Eyes- anicteric Neck- no JVD Lungs- clear breath sounds bilaterally, no rales/wheezes mild tenderness #11 L Rib are no hematoma Heart- normal rate, regular rhythm; no murmurs Abdomen- normal bowel sounds, nondistended, soft, nontender Extremities- no pretibial edema, no calf tenderness (+) moderate tenderness distal, lateral aspect of L upper leg Neuro- alert, oriented x 3; no gross focal neurologic deficits Skin- warm & dry Results & Data Results & Data ([facility]) Vital Signs (Past 12 Hours) Vital Signs Temp Pulse Pulse Resp BP Pulse Ox O2 Del Method 03/14/22 14:53 36.7 C 65 20 116/70 92 Room Air 03/14/22 14:49 75 03/14/22 12:04 Nasal Cannula 03/14/22 11:10 36.5 C 73 20 113/72 94 Nasal Cannula 03/14/22 08:02 36.8 C 73 20 111/68 96 Nasal Cannula 03/14/22 06:58 77 03/14/22 04:38 83 137/71 93 Nasal Cannula O2 Flow Rate 03/14/22 14:53 03/14/22 14:49 03/14/22 12:04 2 03/14/22 11:10 2 03/14/22 08:02 2 03/14/22 06:58 03/14/22 04:38 3 all noted and reviewed including below
--- NOTE | 2022-03-14 15:39 | XRay Report ---
XR lumbar spine 2-3V HISTORY: 86 years-old Male lumbar fracture acute low back pain COMPARISON: CT abdomen pelvis 03/13/2022 TECHNIQUE: 3 views of the lumbar spine FINDINGS: Mild acute L3 superior endplate compression deformity without retropulsion. Chronic appearing T12 and L1 compression deformity is again noted. Demineralized appearance of the bones. Mild multilevel disc space narrowing with moderate to severe facet arthrosis. Gaseous distention of the large and small b owel. IMPRESSION: 1. Unchanged appearance of the mild acute superior endplate compression fracture of L3 without retrop ulsion. 2. Chronic T12 and L1 compression deformities. ACT 112: Negative or not required by law. The above report was generated using voice recognition software. It may contain grammatical, syntax o r spelling errors. Electronically signed by: Josemanuel Ellis M.D. 03/14/2022 3:38 PM
[2022-03-14] MEDS ORDERED: DOCUSATE SODIUM/SENNA 50/8.6MG TAB PO SCH (20:10)
--- NOTE | 2022-03-14 21:41 | Neurology Consultation ---
Date of Consultation March 14, 2022 Assessment & Plan (1) Fall: Impression: The patient fell down after using bathroom at night. The patient was pushing his bowels more than usual because of constipation. After standing up, he fell down. There was no warning sign. He was helped by his son after he heard a sound related to patient's fall. There is no witnessed tonic-clonic activity, postictal confusion, urinary incontinence or tongue biting. Seizure is unlikely cause of the patient's recent fall. Either vasovagal syncope or mechanical fall is more likely. Recommendations/plan: We will keep the patient on the same antiepileptic medications. I agree with serum trough topiramate and phenobarbital level checks. The patient should contact with his regular neurologist. Apparently, he has nephrolithiasis, and topiramate can cause kidney stones. Seizure precautions are fully explained to patient. Fall precautions. No further recommendations at this time. Please contact with neurology again for any additional concerns or questions. (2) Seizure disorder: Impression: The patient has a long history of seizure disorder. He has been followed by an neurologist in [place] for a long time. His last witnessed seizure activity was 3 years ago. He has been compliant on current antiepileptic medications. Plan/recommendations: As mentioned above. (3) Sleep apnea: (4) Peripheral polyneuropathy: Impression: The patient has been having balance issues with frequent falls. Today's examination is suggestive of peripheral polyneuropathy. Plan/recommendations: The patient will contact with his regular neurologist. History of Present Illness Reason for Consultation: Fall, possible seizure Requesting Physician: Sarah Ward MD Attending Physician: Sarah Ward MD History of Present Illness The patient is 86-year-old pleasant gentleman, with long history of seizure disorder, who was brought to emergency department after he fell down yesterday morning after using the bathroom. His son into home, heard him fall, went to help him up. There is no postictal confusion, witnessed tonic-clonic activity, urinary incontinence or tongue biting. Apparently, the patient pushed his bowel a lot, due to constipation while using bathroom. He was able to stand up, then he remembered his son was helping him up. He did not remember feeling dizzy, lightheaded, or unusual feeling as he typically experienced prior to seizures. He has unsteady gait and imbalance, probably due to arthritis and peripheral polyneuropathy. Only light light was on when he fell down. He has been compliant on phenobarbital and topiramate. He has been followed by his neurologist in [place] regularly. Last visit with him was [address] was unremarkable. Apparently, the patient hit his head on a radiator when he was falling down. There is no persistent headache, mental status change, or other symptoms to suggest postconcussive syndrome. The patient has been on Eliquis. His last seizure was 3 years ago. Imaging studies did not show fracture but he had bruises and knees and elbows. I have reviewed the patient's chart including imaging studies and discussed the case with the patient and answer his questions in detail. Allergies Allergy/AdvReac Type Severity Reaction Status Date / Time No Known Drug Allergies Allergy Verified 06/20/21 09:24 Home Medications Medication Instructions Recorded Confirmed Type finasteride 5 mg tablet 5 mg PO QPM 03/11/19 03/13/22 History memantine ER 28 mg-donepezil 10 mg 1 cap PO QPM 03/11/19 03/13/22 History capsule sprinkle,ext.release 24 hr (Namzaric) phenobarbital 60 mg tablet 60 mg PO BID 03/11/19 03/13/22 History tamsulosin 0.4 mg capsule (Flomax) 0.4 mg PO QPM 03/11/19 03/13/22 History topiramate 200 mg tablet (Topamax) 200 mg PO BID 03/11/19 03/13/22 History ropinirole 0.25 mg tablet 0.25 mg PO QPM 04/26/21 03/13/22 History apixaban 5 mg (74 tabs) tablets in 5 mg PO BID #74 ea 04/27/21 03/13/22 Rx a dose pack (Eliquis) Patient History Medical History Enlarged prostate Fall Restless leg syndrome Seizure disorder DX AGE 7 , 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 Sensorineural hearing loss (SNHL) of both ears Sleep apnea CPAP Weakness Surgical History History of colonoscopy History of left cataract surgery History of surgery LEFT HAND LITTLE FINGER S/P placement of VNS (vagus nerve stimulation) device ORIGINAL 1998 AND 2 SINCE THEN (CURRENT AND FUNCTIONING) Family History Son Family history of colon cancer Mother Family history of diabetes mellitus Social History Smoking Status: Never smoker Second Hand Exposure: No; Hx Alcohol Use: No Hx Substance Use: No Preferred Language: Libyan Communication Ability: Effective Property Adjuster Required: No Beliefs That Will Affect Care: None marital status: Current Living Situation: Family Other Information That Helps Us Care for You: No Feels Safe at Home: Yes Safety Concerns: Feels Safe At This Time Assistive Devices: CPAP Review of Systems Review of Systems: All systems reviewed & are unremarkable except as noted in HPI & below Physical Exam Physical Exam: General Examination: Constitutional: Well developed person in no acute distress. HENT: Normal exam with inspection. CV: Hearth rhythm is regular. Neck: Supple, no carotid bruits. Lungs: Non-labored and comfortable breathing. Abdomen: Soft, non-tender, non-distended. Skin: No rash or ecchymosis. Extremities: No edema or cyanosis. Bruises in extremities and left confucianism. NEUROLOGICAL EXAMINATION: Mental Status: Alert and oriented to place, person and time. Cranial Nerves: II-XII are intact. No nystagmus. Funduscopy: Normal looking optic discs. Motor: 5-/5 in all extremities without asymmetry. Tone: Normal without spasticity or rigidity. Sensory: Decreased sensation in distal lower extremities symmetrically. Coordination: No dysmetria with FTN testing. Speech: Fluent. Comprehension is intact. Gait: Not assessed DTRs: 1- in upper extremities, trace in knees and absent in ankles. Results & Data ([facility]) Vital Signs (Past 12 Hours) Vital Signs Temp Pulse Pulse Resp BP BP Pulse Ox 03/14/22 20:28 36.7 C 94 H 134/72 96 03/14/22 19:54 90 18 116/65 96 03/14/22 19:33 37.3 C 89 16 106/65 93 03/14/22 14:53 36.7 C 65 20 116/70 92 03/14/22 14:49 75 03/14/22 12:04 03/14/22 11:10 36.5 C 73 20 113/72 94 O2 Del Method O2 Flow Rate 03/14/22 20:28 Nasal Cannula 4 03/14/22 19:54 Nasal Cannula 2 03/14/22 19:33 Nasal Cannula 3 03/14/22 14:53 Room Air 03/14/22 14:49 03/14/22 12:04 Nasal Cannula 2 03/14/22 11:10 Nasal Cannula [address] 03/13/22 11:[address] DOSE: HISTORY: seizure/fall TECHNIQUE: Multiaxial CT images of the head were performed without the use of intravenous contrast. Automated exposure control was utilized for this study. A dose lowering technique was utilized adhering to the principles of ALARA. Comparison: Head CT 05/08/2007. Findings: Near complete opacification of the right maxillary sinus with an associated fluid level. This is consistent with acute sinusitis. The mastoid air cells are clear. The calvarium and skull base are intact. There is no mass, hematoma, midline shift, acute infarct. White matter hypodensity is nonspecific but suggestive of microvascular ischemic change. The ventricles and sulci demonstrate mild age-related involutional changes. Impression: 1. No acute intracranial abnormality. 2. Acute right maxillary sinusitis. ACT 112: Negative or not required by law. Electronically signed by: Dexter Mancia M.D. 03/13/2022 12:58 PM Abdomen/Pelvis CT 03/13/22 11:[address] WITH IV CONTRAST CT DOSE: HISTORY: fall L side pain, on OAC TECHNIQUE: Multiaxial CT images of the abdomen and pelvis were performed following the use of intravenous contrast. A dose lowering technique was utilized adhering to the principles of ALARA. COMPARISON STUDY: CT pancreas 04/28/2021. FINDINGS: The lung bases will be reported on the same day chest CT. Mild superior endplate compression deformities at T12 and L1 are likely chronic. There is an acute mild superior endplate compression fracture at L3 which demonstrates up to 10% loss of height centrally. No associated retropulsion. No pneumoperitoneum. No pneumatosis. Age-indeterminate nondisplaced left lateral 11th rib fracture on image 187. The liver, gallbladder, pancreas, spleen, and adrenal glands unremarkable. There is a punctate stone within the left kidney on image 189. The kidneys enhance normally. No hydronephrosis. No retroperitoneal hematoma or lymphadenopathy. Calcified plaque within the normal caliber abdominal aorta. The prostate gland is enlarged. The bladder is mildly distended. Trace presacral edema is noted. No pelvic free fluid. Colonic diverticulosis. No evidence for acute diverticulitis. No bowel wall thickening or obstruction. Normal appendix. IMPRESSION: 1. An acute mild superior endplate compression fracture at L3. No associated retropulsion. 2. Age-indeterminate nondisplaced left lateral 11th rib fracture. 3. Left-sided nephrolithiasis. No hydronephrosis. 4. Additional findings as described above. ACT 112: Negative or not required by law. Electronically signed by: Dexter Mancia M.D. 03/13/2022 1:[address] 03/13/22 11:[address] DOSE: HISTORY: Neck pain. fall TECHNIQUE: Multiaxial CT images of the cervical spine were performed and reformatted in the sagittal and coronal plane without the use of contrast. A dose lowering technique was utilized adhering to the principles of ALARA. COMPARISON: None. FINDINGS: No fractures. No subluxation. Prevertebral soft tissues and the C1-C2 interval are intact. IMPRESSION: No fractures within the cervical spine. ACT 112: Negative or not required by law. Electronically signed by: Dexter Mancia M.D. 03/13/2022 12:[address] 03/13/22 11:[address] WITH CONTRAST CT DOSE: 2351.00 mGy.cm HISTORY: Acute left-sided flank pain status post fall fall L flank pain TECHNIQUE: Multiaxial CT images of the chest were performed following the IV administration of 86 cc of Optiray. A dose lowering technique was utilized adhering to the principles of ALARA. COMPARISON: CT abdomen and pelvis of same day, chest CT 10/09/2019 FINDINGS: Unremarkable thyroid. Subcentimeter mediastinal and hilar lymph nodes are likely reactive. Heart is normal in size without pericardial effusion. Moderate coronary artery calcifications. Unremarkable thoracic aorta. The pulmonary artery is within normal limits. No pneumothorax or pleural effusion. Bibasilar groundglass and linear consolidative opacities within the dependent lower lobes. Mild associated mucous plugging. 3 mm fissural nodule of the right midlung on image 146 is suggestive of a benign lymph node. There are a few scattered low suspicion likely benign solid pulmonary nodules including a stable 3 mm nodule of the right upper lobe, image 99. Subpleural 4 mm nodular focus of the right upper lobe, image 129. 3 mm lingular nodule, image 182. 5 mm subpleural nodule of the left lower lobe, image 193. No acute process of the imaged upper abdomen. Mild gynecomastia. Battery pack of the left chest wall with electrode projected superiorly within the left neck extending outside the [id number]. Chronic T12 and L1 superior endplate compression deformities. IMPRESSION: 1. No acute posttraumatic intrathoracic abnormality. 2. No acute fracture or pneumothorax. 3. Mild bibasilar mucous plugging with bibasilar densities favoring atelectasis. 4. Scattered low suspicion solid pulmonary nodules measuring up to 5 mm Please refer to below summary of Fleischner criteria recommendations for follow- up of incidental CT nodules (Deb Martinez, Guidelines for management of small pulmonary nodules detected on CT scans: A statement from the Fleischner Society, Radiology 237: [phone].) SOLID NODULES Multiple nodules size: <6 mm * Low risk patients: no routine follow-up * high risk patients: optional CT at 12 months Note: newly detected indeterminate nodule in persons 35 years of age or older. * Low risk patients: minimal or absent history of smoking and/or other known risk factors * high risk patients: history of smoking or of other known risk factors (e.g. first degree relative with lung cancer, or exposure to asbestos, radon, uranium) * if a nodule up to 8 mm is partly solid or is ground glass further follow-up is required after 24 months to exclude possible slow growing adenocarcinoma (BEBA) ACT 112: Negative or not required by law. Electronically signed by: Josemanuel Ellis M.D. 03/13/2022 1:10 PM Knee X-Ray 03/13/22 11:19 LEFT KNEE 3 VIEWS HISTORY: Left knee pain. fall COMPARISON: None. FINDINGS: There is no fracture or dislocation. Soft tissues are unremarkable. No radiopaque foreign bodies. No significant joint effusion. IMPRESSION: No fractures. ACT 112: Negative or not required by law. Electronically signed by: Dexter Mancia M.D. 03/13/2022 1:41 PM Femur X-Ray 03/14/22 09:37 XR femur LT 2V routine CLINICAL HISTORY: pain, r/o fracture. Left femur pain. COMPARISON STUDY: None. FINDINGS: No fracture or dislocation within the left femur. Soft tissues are unremarkable. No radiopaque foreign bodies. IMPRESSION: No fracture or dislocation within the left femur. ACT 112: Negative or not required by law. Electronically signed by: Dexter Mancia M.D. 03/14/2022 1:28 PM Lumbar Spine X-Ray 03/14/22 14:24 XR lumbar spine 2-3V HISTORY: 86 years-old Male lumbar fracture acute low back pain COMPARISON: CT abdomen pelvis 03/13/2022 TECHNIQUE: 3 views of the lumbar spine FINDINGS: Mild acute L3 superior endplate compression deformity without retropulsion. Chronic appearing T12 and L1 compression deformity is again noted. Demineralized appearance of the bones. Mild multilevel disc space narrowing with moderate to severe facet arthrosis. Gaseous distention of the large and small bowel. IMPRESSION: 1. Unchanged appearance of the mild acute superior endplate compression fracture of L3 without retropulsion. 2. Chronic T12 and L1 compression deformities. ACT 112: Negative or not required by law. The above report was generated using voice recognition software. It may contain grammatical, syntax or spelling errors. Electronically signed by: Josemanuel Ellis M.D. 03/14/2022 3:38 PM
[2022-03-14] MEDS: FINASTERIDE 5 MG TAB PO SCH (21:59)
[2022-03-14] MEDS: TAMSULOSIN HCL 0.4 MG CAP PO SCH (21:59)
[2022-03-14] MEDS: rOPINIRole HCL 0.25 MG TABLET PO SCH (21:59)
[2022-03-14] MEDS: POLYETHYLENE (MIRALAX) 17 GM PACK PO PRN (22:35)
[2022-03-15] MEDS ORDERED: OPTIRAY 350 100ml IV ONE (04:04)
[2022-03-15] MEDS ORDERED: LACTULOSE SYRUP 30 GM/45 ML UDP PO STA (05:14)
--- NOTE | 2022-03-15 05:14 | Communication Note ---
Date of Service: March 15, 2022 Patient had a fall after coming out of the bathroom around 8:40 PM last night. Did not use call murguia as recommended by RN. No head trauma, no LOC. Patient later on complaint of lower abdominal pain and constipation. CT head initial read: No acute intracranial findings. No change from 03/13/2022. No fracture. Extensive opacification of the right maxillary sinus. CT abdomen pelvis initial read: Gaseous distention of much of the colon. Small bowel loops are mildly and diffusely prominent without clear evidence of small bowel obstruction. No free intraperitoneal air or fluid. Contrast is seen within the bladder. The bladder has a normal appearance. There is no hydronephrosis. Mild atelectasis in both lower lobes. AP Constipation, possibly narcotic induced Clear liquids for now Bowel regimen May benefit from methylnaltrexone if without response to above. Will relay to AM provider.
[2022-03-15] MEDS ORDERED: LACTATED RINGER'S 1,000 ML IV ONE (05:15)
[2022-03-15] MEDS: DOCUSATE SODIUM/SENNA 50/8.6MG TAB PO SCH ×2 (05:31→22:59)
[2022-03-15] MEDS: ACETAMINOPHEN 325 MG TAB PO SCH ×3 (05:33→23:04)
--- NOTE | 2022-03-15 07:17 | CT Scan Report ---
CT SCAN OF THE BRAIN WITHOUT IV CONTRAST CLINICAL HISTORY: Fall. COMPARISON STUDY: CT of the brain dated 03/13/2022. TECHNIQUE: Unenhanced axial CT scan of the brain is performed from the vertex to the skull base. A do se lowering technique was utilized adhering to the principles of ALARA. CT DOSE: 663.41 mGy.cm FINDINGS: Brain parenchyma: There is age-related involutional change noting mild subcortical and periventricula r microangiopathic disease. There is no hemorrhage, mass effect, or evidence of acute territorial isc hemia by CT criteria. Sharpe-white matter differentiation is preserved. No extra-axial fluid collection is seen. Ventricles, sulci, cisterns: Prominent secondary to involutional change. Intracranial vasculature: There is atherosclerotic calcification of the cavernous carotid arteries. Calvarium: The skeletal structures are osteopenic. No depressed calvarial fracture is identified. Sinuses and mastoids: There is subtotal opacification of the right maxillary antrum. Trace mucosal th ickening is seen in the ethmoid sinuses. The remaining paranasal sinuses are clear. The mastoid air c ells are well pneumatized. Orbits: The bony orbits are grossly intact. There are bilateral ocular lens implants. IMPRESSION: There is no hemorrhage, mass effect, or evidence of acute territorial ischemia by CT becca carbajal. ACT 112: Negative or not required by law. Electronically signed by: Stewart Thrasher M.D. 03/15/2022 7:14 AM
--- NOTE | 2022-03-15 08:21 | CT Scan Report ---
ABDOMEN AND PELVIS CT WITH IV CONTRAST CT DOSE: 466.36 mGy.cm HISTORY: Acute generalized abdominal pain abd pain TECHNIQUE: Multiaxial CT images of the abdomen and pelvis were performed following the IV administrat ion of 87 cc of Optiray, A dose lowering technique was utilized adhering to the principles of ALARA. COMPARISON STUDY: CT abdomen and pelvis 03/13/2022 FINDINGS: Cardiomegaly with trace pleural effusions and mild dependent subsegmental bibasilar consoli dation. No pneumatosis or pneumoperitoneum. Unremarkable spleen, dystrophic pancreas and adrenal glan ds. Gallbladder is within normal limits. Unremarkable liver with patency of the hepatic and portal ve ins. No hydronephrosis. 2 mm nonobstructing calculus of the inferior pole left kidney. No ureteral calculi or hydronephrosis. Prostamegaly. Mild urinary bladder wall thickening with partial distention. Ather osclerosis of the aorta. No lymphadenopathy identified. Fluid-filled distal esophagus. Debris-filled distended stomach. Numerous air and fluid-filled loops of small bowel measure up to approximately 3 c m. Decompressed rectum and sigmoid with abrupt caliber change involving the sigmoid colon on image 38 6. There is also caliber change within this area on the prior study which was less pronounced. There is now moderate upstream gaseous distention of the large bowel. Moderate fecal retention of the cecum . Normal appendix. Mild gynecomastia. Degenerative changes of the spine, pelvis and hips. Unchanged a ppearance of the acute L3 superior endplate compression deformity without retropulsion. Chronic T12 a nd L1 compression fractures. Minimally displaced lateral left 11th rib fracture again noted. IMPRESSION: 1. Unchanged appearance of the acute L3 superior endplate compression fracture without retropulsion. 2. New/progressive large and small bowel dilation compared to the 03/13/2022 study with focal caliber change within the sigmoid colon. Follow-up KUB radiographs recommended to exclude ileus versus obstru ction. These findings could be correlated with follow-up colonoscopy. 3. Left nephrolithiasis. 4. Acute appearing minimally displaced lateral left 11th rib fracture. 5. Additional findings as above. ACT 112: Negative or not required by law. The above report was generated using voice recognition software. It may contain grammatical, syntax o r spelling errors. Electronically signed by: Josemanuel Ellis M.D. 03/15/2022 8:20 AM
[2022-03-15] MEDS: APIXABAN 5 MG TABLET PO SCH ×2 (09:40→22:59)
[2022-03-15] MEDS: TOPIRAMATE 100 MG TAB PO SCH ×2 (09:40→23:02)
[2022-03-15] MEDS: PHENobarbitaL 30 MG TAB PO SCH ×2 (09:43→23:12)
[2022-03-15] MEDS: LIDOCAINE 5% 1 PATCH TD SCH (09:44)
[2022-03-15] MEDS ORDERED: SOD PHOSPHATE/SOD BIPHOSPHATE ENEMA 132 ML BTL PR PRN (11:00)
[2022-03-15] MEDS ORDERED: SOD PHOSPHATE/SOD BIPHOSPHATE ENEMA 132 ML BTL PR STA ×2 (11:03→16:28)
--- NOTE | 2022-03-15 11:42 | Consultation ---
Date of Consultation March 15, 2022 Assessment & Plan (1) Lumbar compression fracture: Dr. Kimbrough has reviewed imaging from abdominal and pelvic CT scan. Treatment is conservative. Bracing was ordered yesterday by Dr. Kimbrough. Unfortunately when he wears the brace this really increases his left lateral rib pain. We can therefore hold on using the brace. Ambulate ad kenneth. No lifting greater than 5 pounds. No surgical intervention warranted as he does not have any lower back pain. Will sign off. He can follow-up in the office in 2 weeks for updated x-rays. History of Present Illness Reason for Consultation: L3 compression fracture status post fall Attending Physician: Mumtaz Stover MD History of Present Illness Izabella is a pleasant 86-year-old gentleman who presented to the emergency room on March 13. He told me he lost his balance and fell against a radiator. He lives at home with his . Typically he amb ulates independently. He really denies any back pain. Upon examination largest complaint is left anterior rib cage pain. Denies bowel bladder changes Allergies Allergy/AdvReac Type Severity Reaction Status Date / Time No Known Drug Allergies Allergy Verified 06/20/21 09:24 Home Medications Medication Instructions Recorded Confirmed Type finasteride 5 mg tablet 5 mg PO QPM 03/11/19 03/13/22 History memantine ER 28 mg-donepezil 10 mg 1 cap PO QPM 03/11/19 03/13/22 History capsule sprinkle,ext.release 24 hr (Namzaric) phenobarbital 60 mg tablet 60 mg PO BID 03/11/19 03/13/22 History tamsulosin 0.4 mg capsule (Flomax) 0.4 mg PO QPM 03/11/19 03/13/22 History topiramate 200 mg tablet (Topamax) 200 mg PO BID 03/11/19 03/13/22 History ropinirole 0.25 mg tablet 0.25 mg PO QPM 04/26/21 03/13/22 History apixaban 5 mg (74 tabs) tablets in 5 mg PO BID #74 ea 04/27/21 03/13/22 Rx a dose pack (Eliquis) Patient History Medical History Enlarged prostate Fall Restless leg syndrome Seizure disorder DX AGE 7 , 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 Sleep apnea CPAP Weakness Surgical History History of colonoscopy History of left cataract surgery History of surgery LEFT HAND LITTLE FINGER S/P placement of VNS (vagus nerve stimulation) device ORIGINAL 1998 AND 2 SINCE THEN (CURRENT AND FUNCTIONING) Family History Son Family history of colon cancer Mother Family history of diabetes mellitus Social History Smoking Status: Never smoker Second Hand Exposure: No; Hx Alcohol Use: No Hx Substance Use: No Preferred Language: Frisian Communication Ability: Effective Dye Room Helper Required: No Beliefs That Will Affect Care: None marital status: Current Living Situation: Family Other Information That Helps Us Care for You: No Feels Safe at Home: Yes Safety Concerns: Feels Safe At This Time Assistive Devices: CPAP Review of Systems Review of Systems: All systems reviewed & are unremarkable except as noted in HPI & below Physical Exam Physical Exam: He sitting in bed in no acute distress Alert and oriented x3 5/5 bilateral EHL, dorsiflexion, plantarflexion, quadriceps, hamstrings, hip flexors, hip abductor's and hip adductor's Negative tension signs bilaterally Negative logrolling bilaterally Constitutional: average body habitus Eyes: normal visual escobar by confrontation ENMT: external ear and nose normal, oropharynx normal Neck: normal visual inspection Respiratory: normal respiratory effort Cardiovascular: Extremities: normal capillary refill Gastrointestinal (Abdomen): Inspection/Auscultation: abdomen normal to inspection Musculoskeletal: Extremities: extremities normal to inspection and strength 5/5 throughout Skin: normal turgor Neurologic: normal touch/pain/proprioception and moves all extremities Psychiatric: A+Ox3, euthymic affect Eye Contact: good eye contact Results & Data ([facility]) Vital Signs (Past 12 Hours) Vital Signs Temp Pulse Resp BP Pulse Ox O2 Del Method O2 Flow Rate 03/15/22 11:25 36.4 C L 81 20 128/76 93 Nasal Cannula 3 03/15/22 10:00 Nasal Cannula 3 03/15/22 07:35 36.4 C L 83 20 125/76 93 Nasal Cannula 3 03/15/22 05:47 94 Nasal Cannula 3 03/15/22 03:19 36.5 C 89 18 119/70 90 Nasal Cannula 3 03/15/22 02:12 Nasal Cannula 4 [phone] Scan Report Patient:IZABELLA LIZARRAGA Admit Date:03/14/22 MR#:[id number] Address1:[address] [place] [address] Acct ID:[id number] Address2: [address] Date:[address] [facility] Zip:[place] [address] Age:86 Location: Sex:M Room/Bed:[facility] Att Phy:Mumtaz Stover MD Diagnosis:WEAKNESS [place] Phy:Marbin Lira PA-C Service Date:03/14/22 Fam Phy: Interpreting Phy:Josemanuel EllisAdmit Phy:Servando Hall MD Ordering Phy:Yoni Morillo MD cc: ~ ABDOMEN AND PELVIS CT WITH IV CONTRAST CT DOSE: 466.36 mGy.cm HISTORY: Acute generalized abdominal pain abd pain TECHNIQUE: Multiaxial CT images of the abdomen and pelvis were performed following the IV administration of 87 cc of Optiray, A dose lowering technique was utilized adhering to the principles of ALARA. COMPARISON STUDY: CT abdomen and pelvis 03/13/2022 FINDINGS: Cardiomegaly with trace pleural effusions and mild dependent subsegmental bibasilar consolidation. No pneumatosis or pneumoperitoneum. Unremarkable spleen, dystrophic pancreas and adrenal glands. Gallbladder is within normal limits. Unremarkable liver with patency of the hepatic and portal veins. No hydronephrosis. 2 mm nonobstructing calculus of the inferior pole left kidney. No ureteral calculi or hydronephrosis. Prostamegaly. Mild urinary bladder wall thickening with partial distention. Atherosclerosis of the aorta. No lymphadenopathy identified. Fluid-filled distal esophagus. Debris-filled distended stomach. Numerous air and fluid-filled loops of small bowel measure up to approximately 3 cm. Decompressed rectum and sigmoid with abrupt caliber change involving the sigmoid colon on image 386. There is also caliber change within this area on the prior study which was less pronounced. There is now moderate upstream gaseous distention of the large bowel. Moderate fecal retention of the cecum. Normal appendix. Mild gynecomastia. Degenerative changes of the spine, pelvis and hips. Unchanged appearance of the acute L3 superior endplate compression deformity without retropulsion. Chronic T12 and L1 compression fractures. Minimally displaced lateral left 11th rib fracture again noted. IMPRESSION: 1. Unchanged appearance of the acute L3 superior endplate compression fracture without retropulsion. 2. New/progressive large and small bowel dilation compared to the 03/13/2022 study with focal caliber change within the sigmoid colon. Follow-up KUB radiographs recommended to exclude ileus versus obstruction. These findings could be correlated with follow-up colonoscopy. 3. Left nephrolithiasis. 4. Acute appearing minimally displaced lateral left 11th rib fracture. 5. Additional findings as above. ACT 112: Negative or not required by law. The above report was generated using voice recognition software. It may contain grammatical, syntax or spelling errors. Electronically signed by: Josemanuel Ellis M.D. 03/15/2022 8:20 AM Dictated:03/15/2213 Transcribed: 03/15/22 08
[2022-03-15 13:06] LABS: Appearance Urine Clear (Clear); Bacteria Urine Automated Negative (Negative); Bilirubin Urine Negative (Negative); Blood Urine Negative (Negative); Color Urine Dark Yellow; Glucose Urine UA Negative (Negative); Ketones Urine Trace (Negative); Leukocyte Esterase Urine Negative (Negative); Nitrite Urine Negative (Negative); Protein Urine 1+ (Negative); RBC Urine Automated 0-4 /hpf (0-4); Specific Gravity Urine > 1.045 (1.000-1.030); Urobilinogen Urine Negative (Negative)
--- NOTE | 2022-03-15 15:22 | Hospitalist Progress Note ---
Date of Service March 15, 2022 Assessment & Plan (1) Weakness: (2) Fall: (3) Seizure disorder: (4) Sleep apnea: Plan 86 y/o with h/o seizures presents s/p fall and suspected seizure. 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 Pain control, ortho and neuro consult with PT/OT. Fall Likely secondary to ambulatory dysfunction and seizure is unlikely the cause of fall Status post breakthrough seizure was considered on admission Appreciate neurology input and recommendation We will continue current doses of seizure medication Phenobarb level is therapeutic at 15.9 and topiramate level is pending No more seizure since admission Status post fall last evening-03/14/2022 No significant injury no loss of consciousness and no seizures CT scan of the head and CT of the abdomen and pelvis remain unremarkable Denies any complaints as of today Constipation Has had laxatives without any effect Will give Fleet enema L 3 Acute Compression fracture: L rib #[address] and negative C-spine CT of the abdomen and pelvis showed L3 acute compression fraction as above -Chest CT: 11th rib left chest wall non-displaced fracture, no PNX Appreciate orthospine evaluation and recommendation Will have PT and OT evaluation-PT recommended home Possible Breakthrough Seizure H/O Seizure disorder: -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7 -last seizure 03/2019 -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 -Takes Topamax and Phenobarbital with compliance -Topamax and Phenobarb levels pending -Appreciate neurology input and recommendation L upper leg pain Ortho consulted Femur XR: no fracture possible trochanteric bursitis, steroid injection planned Appreciate Ortho input and recommendation for left greater trochanteric bursa injection 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 BPH: -Takes Tamsulosin; continue Disposition: PCP: Marbin Lira PA-C Code Status: Full Code VTE Prophylaxis: Eloquis Disposition pending lives at home with son PT/OT eval Admission and Anticipated Discharge Date Admission Date: March 14, 2022 Subjective 03/15/2022 The patient was seen and examined in medical telemetry unit He has been feeling a lot better today but has not moved his bowels for the last few days His back pain seems to be stable at rest Denies any problem with urine Denies any other symptoms Review of Systems Review of Systems: All systems reviewed and are unremarkable except as noted below Physical Exam Physical Exam: Lying in bed comfortably Constitutional: well developed, well nourished and + obese; not ill appearing Eyes: PERRL, conjunctivae normal, anicteric sclerae ENMT: external ear and nose normal, oropharynx normal Neck: trachea midline, no thyromegaly Respiratory: no respiratory distress Auscultation: lungs clear to auscultation bilaterally Cardiovascular: Rate/Rhythm: regular rate and regular rhythm; not tachycardic Heart Sounds: normal S1 and normal S2; no murmur Extremities: no edema Gastrointestinal (Abdomen): Inspection/Auscultation: + abdomen distended and normal bowel sounds Percussion/Palpation: abdomen soft; abdomen nontender Musculoskeletal: No acute arthritis involving any joint Neurologic: Alert, awake and oriented x3. No focal sensory or no motor deficit appreciated Psychiatric: A+Ox3, euthymic affect Lymphatic: no cervical or axillary lymphadenopathy Results & Data Results & Data ([facility]) Vital Signs (Past 12 Hours) Vital Signs Temp Pulse Resp BP Pulse Ox O2 Del Method O2 Flow Rate 03/15/22 11:25 36.4 C L 81 20 128/76 93 Nasal Cannula 3 03/15/22 10:00 Nasal Cannula 3 03/15/22 07:35 36.4 C L 83 20 125/76 93 Nasal Cannula 3 03/15/22 05:47 94 Nasal Cannula 3 Laboratory Results Urine 03/15/22 Range/Units 12:50 Urine Color Dark Yellow Urine Appearance Clear (Clear) Urine pH 5.0 (4.5-7.5) Ur Specific [place] > 1.045 H (1.000-1.030) Urine Protein 1+ H (Negative) Urine Glucose (UA) Negative (Negative) Medications Administered Current Inpatient Medications Acetaminophen (Acetaminophen 325 Mg Tab) 650 mg PO Q8 [facility] Stop: 04/13/22 00:00 Last Admin: 03/15/22 14:26 Dose: 650 mg Apixaban (Apixaban 5 Mg Tablet) 5 mg PO BID [facility] Stop: 04/12/22 20:59 Last Admin: 03/15/22 09:40 Dose: 5 mg Finasteride (Finasteride 5 Mg Tab) 5 mg PO QPM [facility] Stop: 04/12/22 20:59 Last Admin: 03/14/22 21:59 Dose: 5 mg Lactated Ringer's (Lr) 1,000 mls @ 60 mls/hr IV .[id number] ONE Stop: 03/15/22 21:54 Last Admin: 03/15/22 05:28 Dose: 60 mls/hr Lidocaine (Lidocaine 5% 1 Patch) 1 patch TD QAM [facility] Stop: 04/12/22 15:29 Last Admin: 03/15/22 09:44 Dose: 1 patch Miscellaneous (Remove Lidoderm Patch) 1 each N/A DAILY@2100 [facility] Stop: 04/12/22 20:59 Last Admin: 03/14/22 21:59 Dose: 1 each Oxycodone HCl (Oxycodone Hcl Ir 5 Mg Tab (Immediate Release)) 5 mg PO Q4H PRN PRN Reason: Pain Stop: 03/28/22 03:40 Last Admin: 03/14/22 18:04 Dose: 5 mg Phenobarbital (Phenobarbital 30 Mg Tab) 60 mg PO BID [facility] Stop: 04/12/22 20:59 Last Admin: 03/15/22 09:43 Dose: 60 mg Polyethylene Glycol (Polyethylene (Miralax) 17 Gm Pack) 17 gm PO DAILY PRN PRN Reason: Constipation Stop: 04/13/22 20:08 Last Admin: 03/14/22 22:35 Dose: 17 gm Ropinirole HCl (Ropinirole Hcl 0.25 Mg Tablet) 0.25 mg PO QPM [facility] Stop: 04/12/22 20:59 Last Admin: 03/14/22 21:59 Dose: 0.25 mg Senna/Docusate Sodium (Docusate Sodium/Senna 50/8.6mg Tab) 1 tab PO BID [facility] Stop: 04/14/22 05:19 Last Admin: 03/15/22 05:31 Dose: 1 tab Sodium Biphosphate/Sodium Phosphate (Sod Phosphate/Sod Biphosphate Enema 132 Ml Btl) 132 ml AR DAILY PRN PRN Reason: Constipation Stop: 04/14/22 10:59 Tamsulosin HCl (Tamsulosin Hcl 0.4 Mg Cap) 0.4 mg PO QPM [facility] Stop: 04/12/22 20:59 Last Admin: 03/14/22 21:59 Dose: 0.4 mg Topiramate (Topiramate 100 Mg Tab) 200 mg PO BID [facility] Stop: 04/12/22 20:59 Last Admin: 03/15/22 09:40 Dose: 200 mg
--- NOTE | 2022-03-15 17:23 | Orthopedic Progress Note ---
Date of Service March 15, 2022 Assessment & Plan (1) Trochanteric bursitis of left hip: I offered him the steroid injection and he wants to proceed with that today. Injection provided around the troch. bursa. He can follow up with Dr. Mcintyre as scheduled. Procedure note: Left hip sterilely prepped laterally with alcohol. Using aseptic technique 2ml of celestone and 8ml of 0.5% marcaine injected into the troch bursa around the area of tenderness. He tolerated the procedure well. No complications. Subjective . Patient still complaining of left hip/lateral thigh pain, requesting injection. No groin pain. Review of Systems All systems reviewed & are unremarkable except as noted in HPI & below. Physical Exam . alert, NAD Left leg: No pain or difficulty with straight leg raise. Tender around lateral hip/thigh. Skin intact. Results & Data Results & Data Laboratory Results . Diagnostic Findings . PG Care Time/CCT Total # of Minutes Spent Total Time Spent with Patient: Total time spent is greater than 50% in coordination of care (as documented) at patient's floor/unit and/or counseling patient: Coding Level of Care Code 83254 SUB INP/OBS CARE 2/35MIN Diagnoses Trochanteric bursitis of left hip M70.62
[2022-03-15] MEDS: FINASTERIDE 5 MG TAB PO SCH (23:00)
[2022-03-15] MEDS: TAMSULOSIN HCL 0.4 MG CAP PO SCH (23:01)
[2022-03-15] MEDS: rOPINIRole HCL 0.25 MG TABLET PO SCH (23:01)
[2022-03-16] MEDS: ACETAMINOPHEN 325 MG TAB PO SCH ×3 (06:17→21:21)
[2022-03-16 06:51] LABS: Hematocrit (blood only) 41.9 % (42.0-52.0); Hemoglobin 14.2 g/dl (14.0-18.0); Immature Granulocytes # (auto) 0.02 K/uL (0.01-0.20); Immature Granulocytes % (auto) 0.4 %; Lymphocytes # (auto) 0.53 K/uL (1.2-3.4); Lymphocytes % (auto) 9.7 %; Mean Corpuscular Hemoglobin 32.8 pg (25.0-34.0); Mean Corpuscular Hgb Conc 33.9 g/dL (32.0-36.0); Mean Corpuscular Volume 96.8 fL (80.0-100.0); Mean Platelet Volume 9.5 fL (9.4-12.4); Monocytes # (auto) 0.28 K/uL (0.11-0.59); Monocytes % (auto) 5.1 %; Neutrophils # (auto) 4.63 K/uL (1.40-6.50); Neutrophils % (auto) 84.8 %; Platelet Count 189 K/uL (130-400); RDW Coefficient of Variation 12.1 % (11.5-14.5); RDW Standard Deviation 43.7 fL (36.4-46.3); Red Blood Count 4.33 M/uL (4.70-6.10); White Blood Count 5.46 K/ul (4.8-10.8)
[2022-03-16 08:16] LABS: BUN Creatinine Ratio 19.8 (10-20); Calcium 8.9 mg/dl (8.5-10.1); Creatinine Clr Calc Pharmacy 71.4 ml/min; Est GFR (African American) 93.9 ml/min
[2022-03-16] MEDS: APIXABAN 5 MG TABLET PO SCH ×2 (09:53→20:09)
[2022-03-16] MEDS: DOCUSATE SODIUM/SENNA 50/8.6MG TAB PO SCH ×2 (09:54→20:09)
[2022-03-16] MEDS: LIDOCAINE 5% 1 PATCH TD SCH (09:55)
[2022-03-16] MEDS: TOPIRAMATE 100 MG TAB PO SCH ×2 (10:03→20:11)
[2022-03-16] MEDS: PHENobarbitaL 30 MG TAB PO SCH ×2 (10:30→20:16)
--- NOTE | 2022-03-16 14:42 | Hospitalist Progress Note ---
Date of Service March 16, 2022 Assessment & Plan (1) Weakness: (2) Fall: (3) Seizure disorder: (4) Sleep apnea: Plan 86 y/o with h/o seizures presents s/p fall and suspected seizure. 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 Pain control, ortho and neuro consult with PT/OT. Fall Likely secondary to ambulatory dysfunction and seizure is unlikely the cause of fall Status post breakthrough seizure was considered on admission Appreciate neurology input and recommendation We will continue current doses of seizure medication Phenobarb level is therapeutic at 15.9 and topiramate level is pending No more seizure since admission Will have PT and OT evaluation prior to discharge likely tomorrow Status post fall last evening-03/14/2022 No significant injury no loss of consciousness and no seizures CT scan of the head and CT of the abdomen and pelvis remain unremarkable Denies any complaints as of today No acute symptoms Constipation Has had laxatives without any effect Will give Fleet enema We will start more mobilization L 3 Acute Compression fracture: L rib #[address] and negative C-spine CT of the abdomen and pelvis showed L3 acute compression fraction as above -Chest CT: 11th rib left chest wall non-displaced fracture, no PNX Appreciate orthospine evaluation and recommendation Possible Breakthrough Seizure H/O Seizure disorder: -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7 -last seizure 03/2019 -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 -Takes Topamax and Phenobarbital with compliance -Topamax and Phenobarb levels pending -Appreciate neurology input and recommendation L upper leg pain Ortho consulted Femur XR: no fracture possible trochanteric bursitis, steroid injection planned Appreciate Ortho input and recommendation for left greater trochanteric bursa injection Status post steroid injection to the greater trochanteric bursa on the left side Symptomatically better Get PT and OT evaluation 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 BPH: -Takes Tamsulosin; continue Disposition: PCP: Marbin Lira PA-C Code Status: Full Code VTE Prophylaxis: Eloquis Disposition pending lives at home with son PT/OT eval-likely discharge tomorrow Admission and Anticipated Discharge Date Admission Date: March 14, 2022 Subjective 03/15/2022 The patient was seen and examined in medical telemetry unit He has been feeling a lot better today but has not moved his bowels for the last few days His back pain seems to be stable at rest Denies any problem with urine Denies any other symptoms 03/16/2022 The patient was seen and examined in medical telemetry floor He has been feeling better but he still has abdominal distention and bowel is not cleared His back pain and the pain in the left hip are reasonable Did not had any physical therapy at Review of Systems Review of Systems: All systems reviewed and are unremarkable except as noted below Musculoskeletal: Denies any significant pain involving the left hip and her back Physical Exam Physical Exam: Lying in bed comfortably Constitutional: well developed, well nourished and + obese; not ill appearing Eyes: PERRL, conjunctivae normal, anicteric sclerae ENMT: external ear and nose normal, oropharynx normal Neck: trachea midline, no thyromegaly Respiratory: no respiratory distress Auscultation: lungs clear to auscultation bilaterally Cardiovascular: Rate/Rhythm: regular rate and regular rhythm; not tachycardic Heart Sounds: normal S1 and normal S2; no murmur Extremities: no edema Gastrointestinal (Abdomen): Inspection/Auscultation: + abdomen distended and normal bowel sounds Percussion/Palpation: abdomen soft; abdomen nontender Musculoskeletal: No acute arthritis involving any joint Neurologic: normal touch/pain/proprioception and moves all extremities; no focal motor deficits Psychiatric: A+Ox3, euthymic affect Lymphatic: no cervical or axillary lymphadenopathy Results & Data Results & Data ([facility]) Vital Signs (Past 12 Hours) Vital Signs Temp Pulse Pulse Resp BP BP Pulse Ox 03/16/22 11:53 80 18 124/64 93 03/16/22 08:00 03/16/22 08:35 36.5 C 72 18 124/73 95 03/16/22 08:02 72 03/16/22 04:00 36.5 C 77 18 121/78 96 O2 Del Method O2 Flow Rate 03/16/22 11:53 Nasal Cannula 3 03/16/22 08:00 Nasal Cannula 3 03/16/22 08:35 Nasal Cannula 3 03/16/22 08:02 03/16/22 04:00 Nasal Cannula 3 Laboratory Results Short CBC 03/16/22 Range/Units 06:40 WBC 5.46 (4.8-10.8) K/ul Hgb 14.2 (14.0-18.0) g/dl Hct 41.9 L (42.0-52.0) % Plt Count 189 (130-400) K/uL BMP 03/16/22 06:40 Sodium 139 Potassium 4.0 Chloride 109 H Carbon Dioxide 23 BUN 16 Creatinine 0.81 Glucose 126 H Calcium 8.9 Medications Administered Current Inpatient Medications Acetaminophen (Acetaminophen 325 Mg Tab) 650 mg PO Q8 [facility] Stop: 04/13/22 00:00 Last Admin: 03/16/22 13:18 Dose: 650 mg Apixaban (Apixaban 5 Mg Tablet) 5 mg PO BID [facility] Stop: 04/12/22 20:59 Last Admin: 03/16/22 09:53 Dose: 5 mg Finasteride (Finasteride 5 Mg Tab) 5 mg PO QPM [facility] Stop: 04/12/22 20:59 Last Admin: 03/15/22 23:00 Dose: 5 mg Lidocaine (Lidocaine 5% 1 Patch) 1 patch TD QAM [facility] Stop: 04/12/22 15:29 Last Admin: 03/16/22 09:55 Dose: 1 patch Miscellaneous (Remove Lidoderm Patch) 1 each N/A DAILY@2100 [facility] Stop: 04/12/22 20:59 Last Admin: 03/15/22 23:01 Dose: 1 each Oxycodone HCl (Oxycodone Hcl Ir 5 Mg Tab (Immediate Release)) 5 mg PO Q4H PRN PRN Reason: Pain Stop: 03/28/22 03:40 Last Admin: 03/14/22 18:04 Dose: 5 mg Phenobarbital (Phenobarbital 30 Mg Tab) 60 mg PO BID [facility] Stop: 04/12/22 20:59 Last Admin: 03/16/22 10:30 Dose: 60 mg Polyethylene Glycol (Polyethylene (Miralax) 17 Gm Pack) 17 gm PO DAILY PRN PRN Reason: Constipation Stop: 04/13/22 20:08 Last Admin: 03/14/22 22:35 Dose: 17 gm Ropinirole HCl (Ropinirole Hcl 0.25 Mg Tablet) 0.25 mg PO QPM [facility] Stop: 04/12/22 20:59 Last Admin: 03/15/22 23:01 Dose: 0.25 mg Senna/Docusate Sodium (Docusate Sodium/Senna 50/8.6mg Tab) 1 tab PO BID [facility] Stop: 04/14/22 05:19 Last Admin: 03/16/22 09:54 Dose: 1 tab Sodium Biphosphate/Sodium Phosphate (Sod Phosphate/Sod Biphosphate Enema 132 Ml Btl) 132 ml AL DAILY PRN PRN Reason: Constipation Stop: 04/14/22 10:59 Tamsulosin HCl (Tamsulosin Hcl 0.4 Mg Cap) 0.4 mg PO QPM [facility] Stop: 04/12/22 20:59 Last Admin: 03/15/22 23:01 Dose: 0.4 mg Topiramate (Topiramate 100 Mg Tab) 200 mg PO BID [facility] Stop: 04/12/22 20:59 Last Admin: 03/16/22 10:03 Dose: 200 mg
[2022-03-16] MEDS: FINASTERIDE 5 MG TAB PO SCH (20:09)
[2022-03-16] MEDS: rOPINIRole HCL 0.25 MG TABLET PO SCH (20:10)
[2022-03-16] MEDS: TAMSULOSIN HCL 0.4 MG CAP PO SCH (20:11)
[2022-03-17] MEDS: ACETAMINOPHEN 325 MG TAB PO SCH ×3 (05:29→20:24)
[2022-03-17] MEDS: TOPIRAMATE 100 MG TAB PO SCH ×2 (07:41→20:26)
[2022-03-17] MEDS: DOCUSATE SODIUM/SENNA 50/8.6MG TAB PO SCH ×2 (07:41→20:24)
[2022-03-17] MEDS: LIDOCAINE 5% 1 PATCH TD SCH (07:42)
[2022-03-17] MEDS: APIXABAN 5 MG TABLET PO SCH ×2 (07:42→20:26)
[2022-03-17] MEDS: PHENobarbitaL 30 MG TAB PO SCH ×2 (07:51→20:29)
[2022-03-17] MEDS ORDERED: LACTULOSE 200GM/700ML WTR ENEMA PR ONE (12:10)
--- NOTE | 2022-03-17 15:06 | Hospitalist Progress Note ---
Date of Service March 17, 2022 Assessment & Plan (1) Weakness: (2) Fall: (3) Seizure disorder: (4) Sleep apnea: Plan 86 y/o with h/o seizures presents s/p fall and suspected seizure. 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 Pain control, ortho and neuro consult with PT/OT. Fall Likely secondary to ambulatory dysfunction and seizure is unlikely the cause of fall Status post breakthrough seizure was considered on admission Appreciate neurology input and recommendation We will continue current doses of seizure medication Phenobarb level is therapeutic at 15.9 and topiramate level is pending No more seizure since admission PT recommended rehab but the family members are refusing to send him to rehab Discussed with the patient he wants to go to rehab for short-term We will discussed with the family members prior to discharge Has had PT today and the recommendation persist Status post fall last evening-03/14/2022 No significant injury no loss of consciousness and no seizures CT scan of the head and CT of the abdomen and pelvis remain unremarkable Denies any complaints as of today No acute symptoms Constipation Has had laxatives without any effect Will give Fleet enema We will start more mobilization Current laxatives have not been working Will give her lactulose enema today and start with regular lactulose orally L 3 Acute Compression fracture: L rib #[address] and negative C-spine CT of the abdomen and pelvis showed L3 acute compression fraction as above -Chest CT: 11th rib left chest wall non-displaced fracture, no PNX Appreciate orthospine evaluation and recommendation Back pain is stable Possible Breakthrough Seizure H/O Seizure disorder: -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7 -last seizure 03/2019 -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 -Takes Topamax and Phenobarbital with compliance -Topamax and Phenobarb levels pending -Appreciate neurology input and recommendation L upper leg pain Ortho consulted Femur XR: no fracture possible trochanteric bursitis, steroid injection planned Appreciate Ortho input and recommendation for left greater trochanteric bursa injection Status post steroid injection to the greater trochanteric bursa on the left side Symptomatically better Get PT and OT evaluation 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 BPH: -Takes Tamsulosin; continue Disposition: PCP: Marbin Lira PA-C Code Status: Full Code VTE Prophylaxis: Eloquis Disposition pending lives at home with son PT/OT recommended rehab and the patient is willing to go to rehab but the family members are resisting Admission and Anticipated Discharge Date Admission Date: March 14, 2022 Subjective 03/15/2022 The patient was seen and examined in medical telemetry unit He has been feeling a lot better today but has not moved his bowels for the last few days His back pain seems to be stable at rest Denies any problem with urine Denies any other symptoms 03/16/2022 The patient was seen and examined in medical telemetry floor He has been feeling better but he still has abdominal distention and bowel is not cleared His back pain and the pain in the left hip are reasonable Did not had any physical therapy yet 03/17/2022 The patient was seen and examined in medical telemetry floor He has had physical therapy and recommended rehab The family members did does not want to send him to rehab Discussed with the patient he feels that he should go to rehab Has not had any bowel movement for the last 2 or 3 days as per the nurse Review of Systems Review of Systems: All systems reviewed and are unremarkable except as noted below Musculoskeletal: Denies any significant pain involving the left hip and her back Physical Exam Physical Exam: Lying in bed comfortably Constitutional: well developed, well nourished and + obese; not ill appearing Eyes: PERRL, conjunctivae normal, anicteric sclerae ENMT: external ear and nose normal, oropharynx normal Neck: trachea midline, no thyromegaly Respiratory: no respiratory distress Auscultation: lungs clear to auscultation bilaterally Cardiovascular: Rate/Rhythm: regular rate and regular rhythm; not tachycardic Heart Sounds: normal S1 and normal S2; no murmur Extremities: no edema Gastrointestinal (Abdomen): Inspection/Auscultation: + abdomen distended and normal bowel sounds Percussion/Palpation: abdomen soft; abdomen nontender Musculoskeletal: The back pain and the pain in the left hip are improving Neurologic: normal touch/pain/proprioception and moves all extremities; no focal motor deficits Psychiatric: A+Ox3, euthymic affect Lymphatic: no cervical or axillary lymphadenopathy Results & Data Results & Data ([facility]) Vital Signs (Past 12 Hours) Vital Signs Temp Pulse Pulse Resp BP Pulse Ox O2 Del Method 03/17/22 11:34 36.5 C 74 19 116/70 95 Nasal Cannula 03/17/22 09:18 Nasal Cannula 03/17/22 07:00 63 O2 Flow Rate 03/17/22 11:34 2 03/17/22 09:18 3 03/17/22 07:00 Medications Administered Current Inpatient Medications Acetaminophen (Acetaminophen 325 Mg Tab) 650 mg PO Q8 SHANNON Stop: 04/13/22 00:00 Last Admin: 03/17/22 05:29 Dose: 650 mg Apixaban (Apixaban 5 Mg Tablet) 5 mg PO BID SHANNON Stop: 04/12/22 20:59 Last Admin: 03/17/22 07:42 Dose: 5 mg Finasteride (Finasteride 5 Mg Tab) 5 mg PO QPM SHANNON Stop: 04/12/22 20:59 Last Admin: 03/16/22 20:09 Dose: 5 mg Lidocaine (Lidocaine 5% 1 Patch) 1 patch TD QAM SHANNON Stop: 04/12/22 15:29 Last Admin: 03/17/22 07:42 Dose: 1 patch Miscellaneous (Remove Lidoderm Patch) 1 each N/A DAILY@2100 COUNT INCLUDES THE [facility] Stop: 04/12/22 20:59 Last Admin: 03/16/22 20:10 Dose: 1 each Oxycodone HCl (Oxycodone Hcl Ir 5 Mg Tab (Immediate Release)) 5 mg PO Q4H PRN PRN Reason: Pain Stop: 03/28/22 03:40 Last Admin: 03/14/22 18:04 Dose: 5 mg Phenobarbital (Phenobarbital 30 Mg Tab) 60 mg PO BID SHANNON Stop: 04/12/22 20:59 Last Admin: 03/17/22 07:51 Dose: 60 mg Polyethylene Glycol (Polyethylene (Miralax) 17 Gm Pack) 17 gm PO DAILY PRN PRN Reason: Constipation Stop: 04/13/22 20:08 Last Admin: 03/14/22 22:35 Dose: 17 gm Ropinirole HCl (Ropinirole Hcl 0.25 Mg Tablet) 0.25 mg PO QPM SHANNON Stop: 04/12/22 20:59 Last Admin: 03/16/22 20:10 Dose: 0.25 mg Senna/Docusate Sodium (Docusate Sodium/Senna 50/8.6mg Tab) 1 tab PO BID SHANNON Stop: 04/14/22 05:19 Last Admin: 03/17/22 07:41 Dose: 1 tab Sodium Biphosphate/Sodium Phosphate (Sod Phosphate/Sod Biphosphate Enema 132 Ml Btl) [address] DAILY PRN PRN Reason: Constipation Stop: 04/14/22 10:59 Tamsulosin HCl (Tamsulosin Hcl 0.4 Mg Cap) 0.4 mg PO QPM SHANNON Stop: 04/12/22 20:59 Last Admin: 03/16/22 20:11 Dose: 0.4 mg Topiramate (Topiramate 100 Mg Tab) 200 mg PO BID SHANNON Stop: 04/12/22 20:59 Last Admin: 03/17/22 07:41 Dose: 200 mg
[2022-03-17] MEDS: oxyCODONE HCL IR 5 MG TAB (IMMEDIATE RELEASE) PO PRN (20:24)
[2022-03-17] MEDS: FINASTERIDE 5 MG TAB PO SCH (20:25)
[2022-03-17] MEDS: TAMSULOSIN HCL 0.4 MG CAP PO SCH (20:25)
[2022-03-17] MEDS: rOPINIRole HCL 0.25 MG TABLET PO SCH (20:26)
[2022-03-18] MEDS: ACETAMINOPHEN 325 MG TAB PO SCH ×3 (05:07→22:58)
[2022-03-18] MEDS: oxyCODONE HCL IR 5 MG TAB (IMMEDIATE RELEASE) PO PRN (06:28)
[2022-03-18] MEDS: APIXABAN 5 MG TABLET PO SCH ×2 (08:18→20:34)
[2022-03-18] MEDS: TOPIRAMATE 100 MG TAB PO SCH ×2 (08:18→20:34)
[2022-03-18] MEDS: LIDOCAINE 5% 1 PATCH TD SCH (08:19)
[2022-03-18] MEDS: DOCUSATE SODIUM/SENNA 50/8.6MG TAB PO SCH ×2 (08:19→20:36)
[2022-03-18] MEDS: PHENobarbitaL 30 MG TAB PO SCH ×2 (09:07→20:33)
--- NOTE | 2022-03-18 11:07 | XRay Report ---
KUB HISTORY: Follow up study in a patient with small bowel obstruction SBO COMPARISON: CT 03/15/2022 FINDINGS: Unchanged appearance of the large and small bowel dilation with dilation again most pronoun rob involving the large bowel. No renal calculi. No ureteral calculi. No pneumoperitoneum or pneumat osis. No fracture. IMPRESSION: Unchanged large and small bowel dilation suggestive of ileus versus distal obstruction. Enteric tube placement may be considered. ACT 112: Negative or not required by law. The above report was generated using voice recognition software. It may contain grammatical, syntax o r spelling errors. Electronically signed by: Josemanuel Ellis M.D. 03/18/2022 11:05 AM
[2022-03-18] MEDS ORDERED: LACTULOSE SYRUP 30 GM/45 ML UDP PO STA (12:23)
[2022-03-18] MEDS ORDERED: METHYLNALTREXONE BROMIDE 12 MG/0.6 ML VIAL SQ ONE (12:45)
--- NOTE | 2022-03-18 13:40 | Hospitalist Progress Note ---
Date of Service March 18, 2022 Assessment & Plan (1) Weakness: (2) Fall: (3) Seizure disorder: (4) Sleep apnea: Plan 86 y/o with h/o seizures presents s/p fall and suspected seizure. 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 Pain control, ortho and neuro consult with PT/OT. Fall Likely secondary to ambulatory dysfunction and seizure is unlikely the cause of fall Status post breakthrough seizure was considered on admission Appreciate neurology input and recommendation We will continue current doses of seizure medication Phenobarb level is therapeutic at 15.9 and topiramate level is pending No more seizure since admission PT recommended rehab but the family members are refusing to send him to rehab Discussed with the patient he wants to go to rehab for short-term We will discussed with the family members prior to discharge Has had PT today and the recommendation persist Has been waiting to go to rehab. Denies any pain but has abdominal discomfort due to ongoing constipation Status post fall last evening-03/14/2022 No significant injury no loss of consciousness and no seizures CT scan of the head and CT of the abdomen and pelvis remain unremarkable Denies any complaints as of today No acute symptoms Constipation Has had laxatives without any effect Will give Fleet enema We will start more mobilization Current laxatives have not been working Will give her lactulose enema today and start with regular lactulose orally KUB showed ileus but no definite obstruction Will try Relistor and oral lactulose If no improvement will get GI involved for possible rectal tube L 3 Acute Compression fracture: L rib #[address] and negative C-spine CT of the abdomen and pelvis showed L3 acute compression fraction as above -Chest CT: 11th rib left chest wall non-displaced fracture, no PNX Appreciate orthospine evaluation and recommendation Back pain is stable Possible Breakthrough Seizure H/O Seizure disorder: -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7 -last seizure 03/2019 -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 -Takes Topamax and Phenobarbital with compliance -Topamax and Phenobarb levels pending -Appreciate neurology input and recommendation L upper leg pain Ortho consulted Femur XR: no fracture possible trochanteric bursitis, steroid injection planned Appreciate Ortho input and recommendation for left greater trochanteric bursa injection Status post steroid injection to the greater trochanteric bursa on the left side Symptomatically better Get PT and OT evaluation 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 BPH: -Takes Tamsulosin; continue Disposition: PCP: Marbin Lira PA-C Code Status: Full Code VTE Prophylaxis: Eloquis Disposition pending lives at home with son PT/OT recommended rehab and the patient is willing to go to rehab but the family members are resisting To discharge on Sunday Admission and Anticipated Discharge Date Admission Date: March 14, 2022 Subjective 03/15/2022 The patient was seen and examined in medical telemetry unit He has been feeling a lot better today but has not moved his bowels for the last few days His back pain seems to be stable at rest Denies any problem with urine Denies any other symptoms 03/16/2022 The patient was seen and examined in medical telemetry floor He has been feeling better but he still has abdominal distention and bowel is not cleared His back pain and the pain in the left hip are reasonable Did not had any physical therapy yet 03/17/2022 The patient was seen and examined in medical telemetry floor He has had physical therapy and recommended rehab The family members did does not want to send him to rehab Discussed with the patient he feels that he should go to rehab Has not had any bowel movement for the last 2 or 3 days as per the nurse 03/18/2022 The patient was seen and examined in medical telemetry unit Apparently he has not had any bowel movement for the last few days Slight distention of the abdomen with some discomfort but no definite pain No nausea and/or vomiting His pain seems to be controlled Review of Systems Review of Systems: All systems reviewed and are unremarkable except as noted below Gastrointestinal: Abdominal distention and discomfort Musculoskeletal: Denies any significant pain involving the left hip and her back Physical Exam Physical Exam: Lying in bed with discomfort secondary to abdominal discomfort and distention Constitutional: well developed, well nourished and + obese; not ill appearing Eyes: PERRL, conjunctivae normal, anicteric sclerae ENMT: external ear and nose normal, oropharynx normal Neck: trachea midline, no thyromegaly Respiratory: no respiratory distress Auscultation: lungs clear to auscultation bilaterally Cardiovascular: Rate/Rhythm: regular rate and regular rhythm; not tachycardic Heart Sounds: normal S1 and normal S2; no murmur Extremities: no edema Gastrointestinal (Abdomen): Inspection/Auscultation: + abdomen distended (Distended but soft); + abnormal bowel sounds (Decreased bowel sound) Percussion/Palpation: + abdomen tender (Minimally tender all over) and abdomen soft Musculoskeletal: No acute arthritis involving any joint Neurologic: normal touch/pain/proprioception and moves all extremities; no focal motor deficits Psychiatric: A+Ox3, euthymic affect Lymphatic: no cervical or axillary lymphadenopathy Results & Data Results & Data ([facility]) Vital Signs (Past 12 Hours) Vital Signs Temp Pulse Pulse Resp BP BP Pulse Ox 03/18/22 11:16 36.7 C 79 18 130/77 98 03/18/22 07:30 03/18/22 08:07 72 03/18/22 07:25 36.4 C L 76 18 124/71 96 03/18/22 02:51 36.6 C 70 20 123/76 97 O2 Del Method O2 Flow Rate 03/18/22 11:16 Nasal Cannula 3 03/18/22 07:30 Nasal Cannula 3 03/18/22 08:07 03/18/22 07:25 Nasal Cannula 3 03/18/22 02:51 Nasal Cannula 3 Medications Administered Current Inpatient Medications Acetaminophen (Acetaminophen 325 Mg Tab) 650 mg PO Q8 SHANNON Stop: 04/13/22 00:00 Last Admin: 03/18/22 05:07 Dose: Not Given Apixaban (Apixaban 5 Mg Tablet) 5 mg PO BID SHANNON Stop: 04/12/22 20:59 Last Admin: 03/18/22 08:18 Dose: 5 mg Finasteride (Finasteride 5 Mg Tab) 5 mg PO QPM SHANNON Stop: 04/12/22 20:59 Last Admin: 03/17/22 20:25 Dose: 5 mg Lidocaine (Lidocaine 5% 1 Patch) 1 patch TD QAM SHANNON Stop: 04/12/22 15:29 Last Admin: 03/18/22 08:19 Dose: 1 patch Miscellaneous (Remove Lidoderm Patch) 1 each N/A DAILY@2100 SHANNON Stop: 04/12/22 20:59 Last Admin: 03/17/22 20:25 Dose: 1 each Oxycodone HCl (Oxycodone Hcl Ir 5 Mg Tab (Immediate Release)) 5 mg PO Q4H PRN PRN Reason: Pain Stop: 03/28/22 03:40 Last Admin: 03/18/22 06:28 Dose: 5 mg Phenobarbital (Phenobarbital 30 Mg Tab) 60 mg PO BID SHANNON Stop: 04/12/22 20:59 Last Admin: 03/18/22 09:07 Dose: 60 mg Polyethylene Glycol (Polyethylene (Miralax) 17 Gm Pack) 17 gm PO DAILY PRN PRN Reason: Constipation Stop: 04/13/22 20:08 Last Admin: 03/14/22 22:35 Dose: 17 gm Ropinirole HCl (Ropinirole Hcl 0.25 Mg Tablet) 0.25 mg PO QPM SHANNON Stop: 04/12/22 20:59 Last Admin: 03/17/22 20:26 Dose: 0.25 mg Senna/Docusate Sodium (Docusate Sodium/Senna 50/8.6mg Tab) 1 tab PO BID SHANNON Stop: 04/14/22 05:19 Last Admin: 03/18/22 08:19 Dose: 1 tab Sodium Biphosphate/Sodium Phosphate (Sod Phosphate/Sod Biphosphate Enema 132 Ml Btl) 132 ml [place] DAILY PRN PRN Reason: Constipation Stop: 04/14/22 10:59 Tamsulosin HCl (Tamsulosin Hcl 0.4 Mg Cap) 0.4 mg PO QPM SHANNON Stop: 04/12/22 20:59 Last Admin: 03/17/22 20:25 Dose: 0.4 mg Topiramate (Topiramate 100 Mg Tab) 200 mg PO BID SHANNON Stop: 04/12/22 20:59 Last Admin: 03/18/22 08:18 Dose: 200 mg
[2022-03-18] MEDS: POLYETHYLENE (MIRALAX) 17 GM PACK PO PRN (19:30)
[2022-03-18] MEDS: FINASTERIDE 5 MG TAB PO SCH (20:34)
[2022-03-18] MEDS: rOPINIRole HCL 0.25 MG TABLET PO SCH (20:35)
[2022-03-18] MEDS: TAMSULOSIN HCL 0.4 MG CAP PO SCH (20:35)
[2022-03-19] MEDS: oxyCODONE HCL IR 5 MG TAB (IMMEDIATE RELEASE) PO PRN ×2 (00:52→12:56)
[2022-03-19] MEDS: ACETAMINOPHEN 325 MG TAB PO SCH ×3 (05:25→21:06)
[2022-03-19 06:47] LABS: Basophils # (auto) 0.03 K/uL (0-0.2); Basophils % (auto) 0.4 %; Eosinophils # (auto) 0.15 K/uL (0-0.50); Eosinophils % (auto) 1.8 %; Hematocrit (blood only) 41.5 % (42.0-52.0); Hemoglobin 13.9 g/dl (14.0-18.0); Immature Granulocytes # (auto) 0.06 K/uL (0.01-0.20); Immature Granulocytes % (auto) 0.7 %; Lymphocytes # (auto) 1.04 K/uL (1.2-3.4); Lymphocytes % (auto) 12.4 %; Mean Corpuscular Hemoglobin 32.7 pg (25.0-34.0); Mean Corpuscular Hgb Conc 33.5 g/dL (32.0-36.0); Mean Corpuscular Volume 97.6 fL (80.0-100.0); Mean Platelet Volume 9.8 fL (9.4-12.4); Monocytes # (auto) 0.66 K/uL (0.11-0.59); Monocytes % (auto) 7.9 %; Neutrophils # (auto) 6.45 K/uL (1.40-6.50); Neutrophils % (auto) 76.8 %; Platelet Count 211 K/uL (130-400); RDW Coefficient of Variation 12.2 % (11.5-14.5); RDW Standard Deviation 44.1 fL (36.4-46.3); Red Blood Count 4.25 M/uL (4.70-6.10); White Blood Count 8.39 K/ul (4.8-10.8)
[2022-03-19 06:50] LABS: BUN Creatinine Ratio 23.3 (10-20); Calcium 9.2 mg/dl (8.5-10.1); Creatinine Clr Calc Pharmacy 68.2 ml/min; Est GFR (African American) 91.6 ml/min; Est GFR (Non-African American) 79.1 ml/min; Potassium 3.4 mmol/L (3.5-5.1)
[2022-03-19] MEDS: APIXABAN 5 MG TABLET PO SCH ×2 (08:29→21:03)
[2022-03-19] MEDS: DOCUSATE SODIUM/SENNA 50/8.6MG TAB PO SCH ×2 (08:29→21:03)
[2022-03-19] MEDS: LIDOCAINE 5% 1 PATCH TD SCH (08:29)
[2022-03-19] MEDS: TOPIRAMATE 100 MG TAB PO SCH ×2 (08:29→21:04)
[2022-03-19] MEDS: PHENobarbitaL 30 MG TAB PO SCH ×2 (08:32→21:04)
[2022-03-19] MEDS: POLYETHYLENE (MIRALAX) 17 GM PACK PO PRN (08:38)
[2022-03-19] MEDS ORDERED: SOD PHOSPHATE/SOD BIPHOSPHATE ENEMA 132 ML BTL PR STA (09:15)
[2022-03-19] MEDS: POTASSIUM CHLORIDE / WTR 10 MEQ/100 ML PLCT IV SCH ×2 (10:31→12:52)
--- NOTE | 2022-03-19 11:41 | Hospitalist Progress Note ---
Date of Service March 19, 2022 Assessment & Plan (1) Weakness: (2) Fall: (3) Seizure disorder: (4) Sleep apnea: Plan 86 y/o with h/o seizures presents s/p fall and suspected seizure. 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 Pain control, ortho and neuro consult with PT/OT. Fall Likely secondary to ambulatory dysfunction and seizure is unlikely the cause of fall Status post breakthrough seizure was considered on admission Appreciate neurology input and recommendation We will continue current doses of seizure medication Phenobarb level is therapeutic at 15.9 and topiramate level is pending No more seizure since admission PT recommended rehab but the family members are refusing to send him to rehab Discussed with the patient he wants to go to rehab for short-term We will discussed with the family members prior to discharge Has had PT today and the recommendation persist Has been waiting to go to rehab. Denies any pain but has abdominal discomfort due to ongoing constipation He has been is stable to be transferred except that he has not had a bowel movement for a while Status post fall last evening-03/14/2022 No significant injury no loss of consciousness and no seizures CT scan of the head and CT of the abdomen and pelvis remain unremarkable Denies any complaints as of today No acute symptoms Constipation Has had laxatives without any effect Will give Fleet enema We will start more mobilization Current laxatives have not been working Will give her lactulose enema today and start with regular lactulose orally KUB showed ileus but no definite obstruction Will try Relistor and oral lactulose If no improvement will get GI involved for possible rectal tube His bowel sounds are much improved today and has had results with enema and he feels better following small bowel movement Will try another enema this afternoon L 3 Acute Compression fracture: L rib #[address] and negative C-spine CT of the abdomen and pelvis showed L3 acute compression fraction as above -Chest CT: 11th rib left chest wall non-displaced fracture, no PNX Appreciate orthospine evaluation and recommendation Back pain is stable Possible Breakthrough Seizure H/O Seizure disorder: -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7 -last seizure 03/2019 -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 -Takes Topamax and Phenobarbital with compliance -Topamax and Phenobarb levels pending -Appreciate neurology input and recommendation L upper leg pain Ortho consulted Femur XR: no fracture possible trochanteric bursitis, steroid injection planned Appreciate Ortho input and recommendation for left greater trochanteric bursa injection Status post steroid injection to the greater trochanteric bursa on the left side Symptomatically better Get PT and OT evaluation-recommended rehab 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 BPH: -Takes Tamsulosin; continue Disposition: PCP: Marbin Lira PA-C Code Status: Full Code VTE Prophylaxis: Eloquis Disposition pending lives at home with son PT/OT recommended rehab and the patient is willing to go to rehab but the family members are resisting Awaiting placement Admission and Anticipated Discharge Date Admission Date: March 14, 2022 Subjective 03/15/2022 The patient was seen and examined in medical telemetry unit He has been feeling a lot better today but has not moved his bowels for the last few days His back pain seems to be stable at rest Denies any problem with urine Denies any other symptoms 03/16/2022 The patient was seen and examined in medical telemetry floor He has been feeling better but he still has abdominal distention and bowel is not cleared His back pain and the pain in the left hip are reasonable Did not had any physical therapy yet 03/17/2022 The patient was seen and examined in medical telemetry floor He has had physical therapy and recommended rehab The family members did does not want to send him to rehab Discussed with the patient he feels that he should go to rehab Has not had any bowel movement for the last 2 or 3 days as per the nurse 03/18/2022 The patient was seen and examined in medical telemetry unit Apparently he has not had any bowel movement for the last few days Slight distention of the abdomen with some discomfort but no definite pain No nausea and/or vomiting His pain seems to be controlled 03/19/2022 The patient was seen and examined in medical telemetry unit He has not had any bowel movement for the last few days Abdomen is distended but without any pain and/or significant discomfort and no nausea or vomiting KUB showed possible ileus but no obstruction Denies any other significant symptoms except weakness Review of Systems Review of Systems: All systems reviewed and are unremarkable except as noted below Gastrointestinal: Abdominal distention and discomfort Musculoskeletal: Denies any significant pain involving the left hip and her back Physical Exam Physical Exam: Lying in bed with discomfort secondary to abdominal discomfort and distention Constitutional: well developed, well nourished and + obese; not ill appearing Eyes: PERRL, conjunctivae normal, anicteric sclerae ENMT: external ear and nose normal, oropharynx normal Neck: trachea midline, no thyromegaly Respiratory: no respiratory distress Auscultation: lungs clear to auscultation bilaterally Cardiovascular: Rate/Rhythm: regular rate and regular rhythm; not tachycardic Heart Sounds: normal S1 and normal S2; no murmur Extremities: no edema Gastrointestinal (Abdomen): Inspection/Auscultation: + abdomen distended (Distended but soft) and normal bowel sounds (Much better today) Per cussion/Palpation: + abdomen tender (Minimally tender all over) and abdomen soft Musculoskeletal: No acute arthritis involving any joint Neurologic: normal touch/pain/proprioception and moves all extremities; no focal motor deficits Psychiatric: A+Ox3, euthymic affect Lymphatic: no cervical or axillary lymphadenopathy Results & Data Results & Data ([facility]) Vital Signs (Past 12 Hours) Vital Signs Temp Pulse Pulse Resp BP BP Pulse Ox 03/19/22 10:51 36.3 C L 78 20 113/70 97 03/19/22 07:46 73 03/19/22 07:39 36.4 C L 78 18 131/81 98 03/19/22 03:23 36.4 C L 76 18 138/71 93 O2 Del Method O2 Flow Rate 03/19/22 10:51 Nasal Cannula 3 03/19/22 07:46 03/19/22 07:39 Nasal Cannula 3 03/19/22 03:23 Nasal Cannula 3 Laboratory Results Short CBC 03/19/22 Range/Units 05:46 WBC 8.39 (4.8-10.8) K/ul Hgb 13.9 L (14.0-18.0) g/dl Hct 41.5 L (42.0-52.0) % Plt Count 211 (130-400) K/uL BMP 03/19/22 05:46 Sodium 138 Potassium 3.4 L Chloride 107 Carbon Dioxide 24 BUN 20 Creatinine 0.86 Glucose 82 Calcium 9.2 Medications Administered Current Inpatient Medications Acetaminophen (Acetaminophen 325 Mg Tab) 650 mg PO Q8 [facility] Stop: 04/13/22 00:00 Last Admin: 03/19/22 05:25 Dose: Not Given Apixaban (Apixaban 5 Mg Tablet) 5 mg PO BID [facility] Stop: 04/12/22 20:59 Last Admin: 03/19/22 08:29 Dose: 5 mg Finasteride (Finasteride 5 Mg Tab) 5 mg PO QPM [facility] Stop: 04/12/22 20:59 Last Admin: 03/18/22 20:34 Dose: 5 mg Potassium Chloride (K Ruel / Wtr) 10 meq in 100 mls @ 100 mls/hr IV Q1H [facility] Stop: 03/19/22 11:59 Last Admin: 03/19/22 10:31 Dose: 100 mls/hr Lidocaine (Lidocaine 5% 1 Patch) 1 patch TD QAM [facility] Stop: 04/12/22 15:29 Last Admin: 03/19/22 08:29 Dose: 1 patch Miscellaneous (Remove Lidoderm Patch) 1 each N/A DAILY@2100 [facility] Stop: 04/12/22 20:59 Last Admin: 03/18/22 20:34 Dose: 1 each Oxycodone HCl (Oxycodone Hcl Ir 5 Mg Tab (Immediate Release)) 5 mg PO Q4H PRN PRN Reason: Pain Stop: 03/28/22 03:40 Last Admin: 03/19/22 00:52 Dose: 5 mg Phenobarbital (Phenobarbital 30 Mg Tab) 60 mg PO BID [facility] Stop: 04/12/22 20:59 Last Admin: 03/19/22 08:32 Dose: 60 mg Polyethylene Glycol (Polyethylene (Miralax) 17 Gm Pack) 17 gm PO DAILY PRN PRN Reason: Constipation Stop: 04/13/22 20:08 Last Admin: 03/19/22 08:38 Dose: 17 gm Ropinirole HCl (Ropinirole Hcl 0.25 Mg Tablet) 0.25 mg PO QPM [facility] Stop: 04/12/22 20:59 Last Admin: 03/18/22 20:35 Dose: 0.25 mg Senna/Docusate Sodium (Docusate Sodium/Senna 50/8.6mg Tab) 1 tab PO BID [facility] Stop: 04/14/22 05:19 Last Admin: 03/19/22 08:29 Dose: 1 tab Sodium Biphosphate/Sodium Phosphate (Sod Phosphate/Sod Biphosphate Enema 132 Ml Btl) 132 ml [place] DAILY PRN PRN Reason: Constipation Stop: 04/14/22 10:59 Tamsulosin HCl (Tamsulosin Hcl 0.4 Mg Cap) 0.4 mg PO QPM [facility] Stop: 04/12/22 20:59 Last Admin: 03/18/22 20:35 Dose: 0.4 mg Topiramate (Topiramate 100 Mg Tab) 200 mg PO BID [facility] Stop: 04/12/22 20:59 Last Admin: 03/19/22 08:29 Dose: 200 mg
[2022-03-19] MEDS: rOPINIRole HCL 0.25 MG TABLET PO SCH (21:04)
[2022-03-19] MEDS: TAMSULOSIN HCL 0.4 MG CAP PO SCH (21:04)
[2022-03-19] MEDS: FINASTERIDE 5 MG TAB PO SCH (21:04)
[2022-03-20] MEDS: oxyCODONE HCL IR 5 MG TAB (IMMEDIATE RELEASE) PO PRN ×2 (01:05→13:45)
[2022-03-20] MEDS: ACETAMINOPHEN 325 MG TAB PO SCH ×3 (05:20→21:40)
[2022-03-20] MEDS: DOCUSATE SODIUM/SENNA 50/8.6MG TAB PO SCH ×2 (07:35→21:35)
[2022-03-20] MEDS: TOPIRAMATE 100 MG TAB PO SCH ×2 (07:35→21:34)
[2022-03-20] MEDS: APIXABAN 5 MG TABLET PO SCH ×2 (07:35→21:34)
[2022-03-20] MEDS: LIDOCAINE 5% 1 PATCH TD SCH (07:36)
[2022-03-20] MEDS: PHENobarbitaL 30 MG TAB PO SCH ×2 (07:40→21:41)
[2022-03-20] MEDS ORDERED: LACTULOSE 200GM/700ML WTR ENEMA PR ONE (10:30)
--- NOTE | 2022-03-20 14:49 | Hospitalist Progress Note ---
Date of Service March 20, 2022 Assessment & Plan (1) Weakness: (2) Fall: (3) Seizure disorder: (4) Sleep apnea: Plan 86 y/o with h/o seizures presents s/p fall and suspected seizure. 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 Pain control, ortho and neuro consult with PT/OT. Fall Likely secondary to ambulatory dysfunction and seizure is unlikely the cause of fall Status post breakthrough seizure was considered on admission Appreciate neurology input and recommendation We will continue current doses of seizure medication Phenobarb level is therapeutic at 15.9 and topiramate level is pending No more seizure since admission PT recommended rehab but the family members are refusing to send him to rehab Discussed with the patient he wants to go to rehab for short-term We will discussed with the family members prior to discharge Has had PT today and the recommendation persist Has been waiting to go to rehab. Denies any pain but has abdominal discomfort due to ongoing constipation He has been is stable to be transferred except that he has not had a bowel movement for a while Remained stable except abdominal distention and inadequate bowel movement Status post fall last evening-03/14/2022 No significant injury no loss of consciousness and no seizures CT scan of the head and CT of the abdomen and pelvis remain unremarkable Denies any complaints as of today No acute symptoms Constipation Has had laxatives without any effect Will give Fleet enema We will start more mobilization Current laxatives have not been working Will give her lactulose enema today and start with regular lactulose orally KUB showed ileus but no definite obstruction Will try Relistor and oral lactulose If no improvement will get GI involved for possible rectal tube His bowel sounds are much improved today and has had results with enema and he feels better following small bowel movement Will try another enema this afternoon Small amount of bowel movement yesterday but is still very distended We will get a CT of the abdomen without contrast to rule out an obstruction L 3 Acute Compression fracture: L rib #[address] and negative C-spine CT of the abdomen and pelvis showed L3 acute compression fraction as above -Chest CT: 11th rib left chest wall non-displaced fracture, no PNX Appreciate orthospine evaluation and recommendation Back pain is stable Possible Breakthrough Seizure H/O Seizure disorder: -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7 -last seizure 03/2019 -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 -Takes Topamax and Phenobarbital with compliance -Topamax and Phenobarb levels pending -Appreciate neurology input and recommendation -No more seizures L upper leg pain Ortho consulted Femur XR: no fracture possible trochanteric bursitis, steroid injection planned Appreciate Ortho input and recommendation for left greater trochanteric bursa injection Status post steroid injection to the greater trochanteric bursa on the left side Symptomatically better Get PT and OT evaluation-recommended rehab 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 BPH: -Takes Tamsulosin; continue Disposition: PCP: Marbin Lira PA-C Code Status: Full Code VTE Prophylaxis: Eloquis Disposition pending lives at home with son PT/OT recommended rehab and the patient is willing to go to rehab but the family members are resisting Awaiting placement Admission and Anticipated Discharge Date Admission Date: March 14, 2022 Subjective 03/15/2022 The patient was seen and examined in medical telemetry unit He has been feeling a lot better today but has not moved his bowels for the last few days His back pain seems to be stable at rest Denies any problem with urine Denies any other symptoms 03/16/2022 The patient was seen and examined in medical telemetry floor He has been feeling better but he still has abdominal distention and bowel is not cleared His back pain and the pain in the left hip are reasonable Did not had any physical therapy yet 03/17/2022 The patient was seen and examined in medical telemetry floor He has had physical therapy and recommended rehab The family members did does not want to send him to rehab Discussed with the patient he feels that he should go to rehab Has not had any bowel movement for the last 2 or 3 days as per the nurse 03/18/2022 The patient was seen and examined in medical telemetry unit Apparently he has not had any bowel movement for the last few days Slight distention of the abdomen with some discomfort but no definite pain No nausea and/or vomiting His pain seems to be controlled 03/19/2022 The patient was seen and examined in medical telemetry unit He has not had any bowel movement for the last few days Abdomen is distended but without any pain and/or significant discomfort and no nausea or vomiting KUB showed possible ileus but no obstruction Denies any other significant symptoms except weakness 03/20/2022 The patient was seen and examined in medical telemetry unit He has had a bowel movement last evening but is still the abdomen remains very distended He denies any pain but does have discomfort and no nausea or vomiting He will have a CT scan of the abdomen pelvis to rule out an obstruction or any other pathology Review of Systems Review of Systems: All systems reviewed and are unremarkable except as noted below Gastrointestinal: Abdominal distention and discomfort Musculoskeletal: Denies any significant pain involving the left hip and her back Physical Exam Physical Exam: Lying in bed with discomfort secondary to abdominal discomfort and distention Constitutional: well developed, well nourished and + obese; not ill appearing Eyes: PERRL, conjunctivae normal, anicteric sclerae ENMT: external ear and nose normal, oropharynx normal Neck: trachea midline, no thyromegaly Respiratory: no respiratory distress Auscultation: lungs clear to auscultation bilaterally Cardiovascular: Rate/Rhythm: regular rate and regular rhythm; not tachycardic Heart Sounds: normal S1 and normal S2; no murmur Extremities: no edema Gastrointestinal (Abdomen): Inspection/Auscultation: + abdomen distended (Distended but soft) and normal bowel sounds (Much better today) Percussion/Palpation: + abdomen tender (Minimally tender all over) and abdomen soft Musculoskeletal: No acute arthritis involving any joint Neurologic: normal touch/pain/proprioception and moves all extremities; no focal motor deficits Psychiatric: A+Ox3, euthymic affect Lymphatic: no cervical or axillary lymphadenopathy Results & Data Results & Data ([place]) Vital Signs (Past 12 Hours) Vital Signs Temp Pulse Pulse Resp BP BP Pulse Ox 03/20/22 11:10 36.3 C L 80 20 148/77 H 96 03/20/22 07:56 03/20/22 07:34 36.7 C 74 20 135/75 96 03/20/22 07:14 75 03/20/22 03:12 36.4 C L 75 18 127/70 96 O2 Del Method O2 Flow Rate 03/20/22 11:10 Nasal Cannula 3 03/20/22 07:56 Nasal Cannula 3.5 03/20/22 07:34 Nasal Cannula 03/20/22 07:14 03/20/22 03:12 Nasal Cannula 3 Medications Administered Current Inpatient Medications Acetaminophen (Acetaminophen 325 Mg Tab) 650 mg PO Q8 [facility] Stop: 04/13/22 00:00 Last Admin: 03/20/22 13:44 Dose: 650 mg Apixaban (Apixaban 5 Mg Tablet) 5 mg PO BID [facility] Stop: 04/12/22 20:59 Last Admin: 03/20/22 07:35 Dose: 5 mg Finasteride (Finasteride 5 Mg Tab) 5 mg PO QPM [facility] Stop: 04/12/22 20:59 Last Admin: 03/19/22 21:04 Dose: 5 mg Lidocaine (Lidocaine 5% 1 Patch) 1 patch TD QAM [facility] Stop: 04/12/22 15:29 Last Admin: 03/20/22 07:36 Dose: 1 patch Miscellaneous (Remove Lidoderm Patch) 1 each N/A DAILY@2100 [facility] Stop: 04/12/22 20:59 Last Admin: 03/19/22 21:04 Dose: 1 each Oxycodone HCl (Oxycodone Hcl Ir 5 Mg Tab (Immediate Release)) 5 mg PO Q4H PRN PRN Reason: Pain Stop: 03/28/22 03:40 Last Admin: 03/20/22 13:45 Dose: 5 mg Phenobarbital (Phenobarbital 30 Mg Tab) 60 mg PO BID [facility] Stop: 04/12/22 20:59 Last Admin: 03/20/22 07:40 Dose: 60 mg Polyethylene Glycol (Polyethylene (Miralax) 17 Gm Pack) 17 gm PO DAILY PRN PRN Reason: Constipation Stop: 04/13/22 20:08 Last Admin: 03/19/22 08:38 Dose: 17 gm Ropinirole HCl (Ropinirole Hcl 0.25 Mg Tablet) 0.25 mg PO QPM [facility] Stop: 04/12/22 20:59 Last Admin: 03/19/22 21:04 Dose: 0.25 mg Senna/Docusate Sodium (Docusate Sodium/Senna 50/8.6mg Tab) 1 tab PO BID [facility] Stop: 04/14/22 05:19 Last Admin: 03/20/22 07:35 Dose: 1 tab Sodium Biphosphate/Sodium Phosphate (Sod Phosphate/Sod Biphosphate Enema 132 Ml Btl) 132 ml [place] DAILY PRN PRN Reason: Constipation Stop: 04/14/22 10:59 Tamsulosin HCl (Tamsulosin Hcl 0.4 Mg Cap) 0.4 mg PO QPM [facility] Stop: 04/12/22 20:59 Last Admin: 03/19/22 21:04 Dose: 0.4 mg Topiramate (Topiramate 100 Mg Tab) 200 mg PO BID [facility] Stop: 04/12/22 20:59 Last Admin: 03/20/22 07:35 Dose: 200 mg
--- NOTE | 2022-03-20 15:31 | CT Scan Report ---
ABDOMEN AND PELVIS CT WITHOUT CONTRAST CT DOSE: 1049.80 mGycm HISTORY: Acute generalized abdominal pain R/O obstruction TECHNIQUE: Multiaxial CT images of the abdomen and pelvis were performed without contrast. A dose lo wering technique was utilized adhering to the principles of ALARA. COMPARISON STUDY: 03/15/2022 FINDINGS: Limited exam secondary to upper extremities positioning and lack of contrast. Cardiomegaly with trace right and small left pleural effusions and mild dependent subsegmental bibasilar consolida tion. No pneumatosis or pneumoperitoneum. Unremarkable spleen, dystrophic pancreas and adrenal glands. Gallbladder is mildly distended. Unremar kable liver with patency of the hepatic and portal veins. No hydronephrosis. 2 mm nonobstructing calc ulus of the inferior pole left kidney. No ureteral calculi or hydronephrosis. Prostamegaly. Mild urin victoria bladder wall thickening with partial distention. Atherosclerosis of the aorta. No lymphadenopathy identified. Small amount of fluid within the distal esophagus. Distended debris and fluid-filled stomach. Numerou s air and fluid-filled loops of small bowel measure up to approximately 3.5 cm. Air and fluid-filled distended loops of large bowel are noted with progressive dilation of the cecum now measuring up to 1 0.8 cm, previously 8 cm. There is increased inflammatory stranding with trace ascites adjacent to the cecum. Mild twisting of the mesentery adjacent to the sigmoid colon with sigmoid colonic narrowing o n image 303. Fluid-filled appendix is likely secondary to the fluid within the large bowel. Mild gyne comastia. Degenerative changes of the spine, pelvis and hips. Unchanged appearance of the acute L3 booker perior endplate compression deformity without retropulsion. Chronic T12 and L1 compression fractures. Minimally displaced lateral left 11th rib fracture again noted. IMPRESSION: 1. Large and small bowel dilation is again noted with progressively worsened dilation of the cecum al luciano with new pericecal inflammation and trace ascites. 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 Follow-up recommended. 2. Unchanged appearance of the acute L3 superior endplate compression deformity. 3. Left nephrolithiasis. 4. Acute appearing minimally displaced lateral left 11th rib fracture. 5. Additional findings as above. ACT 112: Negative or not required by law. The above report was generated using voice recognition software. It may contain grammatical, syntax o r spelling errors. Electronically signed by: Josemanuel Ellis M.D. 03/20/2022 3:30 PM
[2022-03-20] MEDS: SODIUM CHLORIDE 0.9% 1000ML 1,000 ML IV SCH (18:06)
[2022-03-20] MEDS: FINASTERIDE 5 MG TAB PO SCH (21:34)
[2022-03-20] MEDS: rOPINIRole HCL 0.25 MG TABLET PO SCH (21:34)
[2022-03-20] MEDS: TAMSULOSIN HCL 0.4 MG CAP PO SCH (21:36)
[2022-03-21] MEDS: ACETAMINOPHEN 325 MG TAB PO SCH ×4 (06:13→20:57)
[2022-03-21] MEDS: SODIUM CHLORIDE 0.9% 1000ML 1,000 ML IV SCH (06:14)
[2022-03-21 08:09] LABS: Basophils # (auto) 0.05 K/uL (0-0.2); Basophils % (auto) 0.5 %; Eosinophils # (auto) 0.15 K/uL (0-0.50); Eosinophils % (auto) 1.6 %; Hematocrit (blood only) 42.2 % (42.0-52.0); Hemoglobin 13.9 g/dl (14.0-18.0); Immature Granulocytes # (auto) 0.03 K/uL (0.01-0.20); Immature Granulocytes % (auto) 0.3 %; Lymphocytes # (auto) 1.06 K/uL (1.2-3.4); Mean Corpuscular Hemoglobin 32.3 pg (25.0-34.0); Mean Corpuscular Hgb Conc 32.9 g/dL (32.0-36.0); Mean Corpuscular Volume 98.1 fL (80.0-100.0); Mean Platelet Volume 9.7 fL (9.4-12.4); Monocytes # (auto) 0.67 K/uL (0.11-0.59); Monocytes % (auto) 6.9 %; Neutrophils % (auto) 79.7 %; Platelet Count 247 K/uL (130-400); RDW Coefficient of Variation 12.3 % (11.5-14.5); RDW Standard Deviation 44.2 fL (36.4-46.3); White Blood Count 9.66 K/ul (4.8-10.8)
[2022-03-21 08:30] LABS: BUN Creatinine Ratio 18.7 (10-20); Calcium 9.1 mg/dl (8.5-10.1); Creatinine Clr Calc Pharmacy 78.8 ml/min; Est GFR (African American) 96.9 ml/min; Est GFR (Non-African American) 83.6 ml/min; Potassium 3.2 mmol/L (3.5-5.1)
[2022-03-21] MEDS ORDERED: SOD PHOSPHATE/SOD BIPHOSPHATE ENEMA 132 ML BTL PR STA (08:36)
--- NOTE | 2022-03-21 08:46 | Anesthesiology Consultation ---
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 initiated History Surgery Operation Date: 03/21/22 16:30 Proposed Procedures p Colonoscopy Dr Sagar Keith, Height/Weight Height: 5 ft 8 in Weight: 90.9 kg Allergies Allergy/AdvReac Type Severity Reaction Status Date / Time No Known Drug Allergies Allergy Verified 06/20/21 09:24 Medications Home Medications Medication Instructions Recorded Confirmed Last Taken finasteride 5 mg tablet 5 mg PO QPM 03/11/19 03/13/22 04/25/21 17:00 memantine ER 28 mg-donepezil 10 mg 1 cap PO QPM 03/11/19 03/13/22 04/25/21 17:00 capsule sprinkle,ext.release 24 hr (Namzaric) phenobarbital 60 mg tablet 60 mg PO BID 03/11/19 03/13/22 04/26/21 09:00 tamsulosin 0.4 mg capsule (Flomax) 0.4 mg PO QPM 03/11/19 03/13/22 04/25/21 17:00 topiramate 200 mg tablet (Topamax) 200 mg PO BID 03/11/19 03/13/22 04/26/21 09:00 ropinirole 0.25 mg tablet 0.25 mg PO QPM 04/26/21 03/13/22 04/25/21 17:00 apixaban 5 mg (74 tabs) tablets in 5 mg PO BID #74 ea 04/27/21 03/13/22 Unknown a dose pack (Eliquis) Active Medications Generic Name Dose Route Start Last Admin Trade Name Josh PRN Reason Stop Dose Admin Acetaminophen 650 mg 03/14/22 00:00 03/21/22 07:20 Acetaminophen 325 Mg Tab PO 04/13/22 00:00 Not Given Q8 SHANNON Apixaban 5 mg 03/13/22 21:00 03/20/22 21:34 Apixaban 5 Mg Tablet PO 04/12/22 20:59 5 mg BID SHANNON Administration Finasteride 5 mg 03/13/22 21:00 03/20/22 21:34 Finasteride 5 Mg Tab PO 04/12/22 20:59 5 mg QPM SHANNON Administration Sodium Chloride 1,000 mls @ 80 mls/hr 03/20/22 17:45 03/21/22 06:14 Nss 1000ml IV 04/19/22 17:44 80 mls/hr .[id number] SHANNON Administration Lidocaine 1 patch 03/13/22 15:30 03/20/22 07:36 Lidocaine 5% 1 Patch TD 04/12/22 15:29 1 patch QAM SHANNON Administration Miscellaneous 1 each 03/13/22 21:00 03/20/22 21:55 Remove Lidoderm Patch N/A 04/12/22 20:59 1 each DAILY@2100 SHANNON Administration Oxycodone HCl 5 mg 03/14/22 03:41 03/20/22 13:45 Oxycodone Hcl Ir 5 Mg Tab (Immediate Release) PO 03/28/22 03:40 5 mg Q4H PRN Administration Pain Phenobarbital 60 mg 03/13/22 21:00 03/20/22 21:41 Phenobarbital 30 Mg Tab PO 04/12/22 20:59 60 mg BID SHANNON Administration Polyethylene Glycol 17 gm 03/14/22 20:09 03/19/22 08:38 Polyethylene (Miralax) 17 Gm Pack PO 04/13/22 20:08 17 gm DAILY PRN Administration Constipation Ropinirole HCl 0.25 mg 03/13/22 21:00 03/20/22 21:34 Ropinirole Hcl 0.25 Mg Tablet PO 04/12/22 20:59 0.25 mg QPM SHANNON Administration Senna/Docusate Sodium 1 tab 03/15/22 05:20 03/20/22 21:35 Docusate Sodium/Senna 50/8.6mg Tab PO 04/14/22 05:19 1 tab BID SHANNON Administration Tamsulosin HCl 0.4 mg 03/13/22 21:00 03/20/22 21:36 Tamsulosin Hcl 0.4 Mg Cap PO 04/12/22 20:59 0.4 mg QPM SHANNON Administration Topiramate 200 mg 03/13/22 21:00 03/20/22 21:34 Topiramate 100 Mg Tab PO 04/12/22 20:59 200 mg BID SHANNON Administration Past Medical History Medical History Enlarged prostate Fall Restless leg syndrome Seizure disorder DX AGE 7 , 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 Sleep apnea CPAP Weakness Past Family History Family History Son Family history of colon cancer Mother Family history of diabetes mellitus Past Surgical History Surgical History History of colonoscopy History of left cataract surgery History of surgery LEFT HAND LITTLE FINGER S/P placement of VNS (vagus nerve stimulation) device ORIGINAL 1998 AND 2 SINCE THEN (CURRENT AND FUNCTIONING) Social History Smoking Status: Never smoker Hx Alcohol Use: No Hx Substance Use: No substance use type: does not use Physical Exam Vital Signs Last Vital Signs Temp 96.3 F L 03/21/22 07:30 Pulse 80 03/21/22 07:30 Resp 22 03/21/22 07:30 BP 135/73 03/21/22 07:30 Pulse Ox 93 03/21/22 07:30 O2 Del Method 03/21/22 07:30 O2 Flow Rate 2 03/21/22 07:30 Testing Laboratory Results 03/21/22 07:35 03/21/22 07:35 Urine Color Dark Yellow 03/15/22 12:50 Urine Appearance Clear (Clear) 03/15/22 12:50 Urine pH 5.0 (4.5-7.5) 03/15/22 12:50 Ur Specific [place] > 1.045 (1.000-1.030) H 03/15/22 12:50 Urine Protein 1+ (Negative) H 03/15/22 12:50 Urine Glucose (UA) Negative (Negative) 03/15/22 12:50 Urine Ketones Trace (Negative) H 03/15/22 12:50 Urine Nitrite Negative (Negative) 03/15/22 12:50 Ur Leukocyte Esterase Negative (Negative) 03/15/22 12:50 Urine WBC (Auto) 1-5 /hpf (0-5) 03/15/22 12:50 Urine RBC (Auto) 0-4 /hpf (0-4) 03/15/22 12:50 U Hyaline Cast (Auto) 1-5 /lpf (0-5) 03/15/22 12:50 U Epithel Cells (Auto) 10-20 /lpf (0-5) H 03/15/22 12:50 Urine Bacteria (Auto) Negative (Negative) 03/15/22 12:50 Electrocardiogram Date: 03/13/22 Sinus rhythm with 1st degree A-V block, rate 99 bpm Otherwise normal ECG When compared with ECG of 26-APR-2021 15:20, IL interval has increased T wave inversion no longer evident in Lateral leads Confirmed by Onesimo Dugan ([id number]) on 03/13/2022 4:19:59 PM Echocardiogram Date: 04/27/21 There is normal LV wall thickness LV wall motion is normal AV sclerosis mild, without significant AV stenosis Mild AR Mild MR Mild to mod TR Mild to mod pulmonary HTN PA systolic pressure is estimated to be 38-58 mm Hg RV is normal in size and function EF 55-60%
--- NOTE | 2022-03-21 08:46 | Gastrointestinal Consultation ---
Date of Consultation March 21, 2022 Assessment & Plan (1) Dilatation of colon: (2) Ambulatory dysfunction: (3) Fall: Plan 86 y/o male with multiple co-morbidities, admitted after a fall at home, has L3 compression fracture, and has had progressive abd distention, w/ progressive l arge and small bowel dilation on imaging, concerning for possible colonic pseudoobstruction; possible contributing factors include recent trauma, meds including narcotics, limited mobility, hypokalemia. On exam, abd distended and tympanic, tender; he is AAOx4 and otherwise resting comfortably in bed; HD stable. - Keep NPO - IVF - Hold AM Eliquis please - Fleets enema stat x 1 now - Would correct electrolytes as needed; K 3.2 this AM - Mag is 2.0; aim to keep this and K in range - Will plan for urgent colonoscopy for decompression today Thank you for allowing us to participate in the care of this patient. Please call with any acute changes, questions or concerns. Please see addendum below with additional recommendation from my supervising physician. Supervising Physician Co-Signing Physician Notes Saw and evaluated the patient. We were asked to see this patient after he had a CT performed yesterday evening which showed a thickened colonic dilation. The patient is admitted after a compression fracture at home after a fall and is presently on high-dose narcotic therapy. Patient notes that he is passing very limited amounts of gas and no stool in several days. CT was obtained yesterday cecal diameter of 10.5 cm which is acutely different from CT in the recent past. The patient notes abdominal distention, nausea and no emesis. Impression Patient presents on chronic chronic analgesia, the CT is somewhat concerning as they wonder about a possible sigmoid volvulus or perhaps colonic pseudoobstr uction/ileus as result of narcotic use. Recommendations Urgent colonic decompression today given the massive dilation of the cecum Daily KUB n.P.o. Highly recommend discontinuation of narcotic analgesia Pending outcome of decompression the patient may benefit from use of Relistor. Stool for C. difficile History of Present Illness Reason for Consultation: Colonic Pseudoobstruction Requesting Physician: Dr. 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 dementia, admitted 03/13/22 after presenting with a fall at home, ? breakthrough seizure, found to have rib fracture and compression fracture L3. Has had issues with constipation while admitted and imaging suggests progressive dilation of the large and small bowel, ? colonic pseudoobstruction, with air and fluid-filled distended loops of large bowel are noted with progressive dilation of the cecum now measuring up to 10.8 cm, previously 8 cm. Has been getting Lactulose and fleets enemas with small amts of liquid stool as output. He reports he is passing minimal flatus. He tells me he has abd pain, mostly in the RLQ. Has been eating well; asking for ice cream this AM. Labs reviewed; he has mild hypokalemia, Mag in range. CTAP 03/20/22: 1. Large and small bowel dilation is again noted with progressively worsened dilation of the cecum along with new pericecal inflammation and trace ascites. Findings may represent colonic pseudoobstruction (Inez syndrome) with distal colonic mechanical obstruction or sigmoid volvulus considered much less likely considerations. Follow-up recommended. Currently states he has RLQ abd discomfort; no nausea, vomiting, hematemesis, melena, hematochezia, CP, SOB, fever, chills. States he used to get regular screening colonoscopies up until around age 77 then stopped due to age; denies having h/o polyps, colon cancer. Allergies Allergy/AdvReac Type Severity Reaction Status Date / Time No Known Drug Allergies Allergy Verified 03/21/22 09:50 Home Medications Medication Instructions Recorded Confirmed Type finasteride 5 mg tablet 5 mg PO QPM 03/11/19 03/13/22 History memantine ER 28 mg-donepezil 10 mg 1 cap PO QPM 03/11/19 03/13/22 History capsule sprinkle,ext.release 24 hr (Namzaric) phenobarbital 60 mg tablet 60 mg PO BID 03/11/19 03/13/22 History tamsulosin 0.4 mg capsule (Flomax) 0.4 mg PO QPM 03/11/19 03/13/22 History topiramate 200 mg tablet (Topamax) 200 mg PO BID 03/11/19 03/13/22 History ropinirole 0.25 mg tablet 0.25 mg PO QPM 04/26/21 03/13/22 History apixaban 5 mg (74 tabs) tablets in 5 mg PO BID #74 ea 04/27/21 03/13/22 Rx a dose pack (Eliquis) Patient History Medical History Enlarged prostate Fall Restless leg syndrome Seizure disorder DX AGE 7 , 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: No Beliefs That Will Affect Care: None marital status: Current Living Situation: Family Other Information That Helps Us Care for You: No Feels Safe at Home: Yes Safety Concerns: Feels Safe At This Time Assistive Devices: CPAP Review of Systems 2 Review of Systems: All systems reviewed & are unremarkable except as noted in HPI & below Physical Exam Constitutional: well developed, well nourished and comfortable; no acute distress Eyes: Sclera anicteric, no conjunctival injection ENMT: moist mucous membranes, no pallor Neck: trachea midline supple Respiratory: normal respiratory effort, lungs clear to auscultation Cardiovascular: RRR Gastrointestinal (Abdomen): abd distended and tympanic, decreased BS w/ occasional high-pitched tinkling sounds, mild TTP diffusely but moreso in the RLQ Skin: no rashes, warm and dry Neurologic: alert and oriented x 3, no obvious focal neuro deficit Psychiatric: normal mood and affect Results & Data ([facility]) Vital Signs (Past 12 Hours) Vital Signs Temp Pulse Pulse Resp BP BP Pulse Ox 03/21/22 07:30 35.7 C L 80 22 135/73 93 03/20/22 21:59 82 03/21/22 07:13 78 03/21/22 02:46 36.5 C 78 18 131/76 98 03/20/22 21:00 03/20/22 22:55 36.4 C L 67 18 130/72 95 O2 Del Method O2 Flow Rate 03/21/22 07:30 Nasal Cannula 2 03/20/22 21:59 03/21/22 07:13 03/21/22 02:46 Nasal Cannula 3 03/20/22 21:00 Nasal Cannula 3 03/20/22 22:55 Nasal Cannula 3 Laboratory Results 03/21/22 03/21/22 Range/Units 07:35 07:35 WBC 9.66 (4.8-10.8) K/ul RBC 4.30 L (4.70-6.10) M/uL Hgb 13.9 L (14.0-18.0) g/dl Hct 42.2 (42.0-52.0) % MCV 98.1 (80.0-100.0) fL MCH 32.3 (25.0-34.0) pg MCHC 32.9 (32.0-36.0) g/dL RDW Std Deviation 44.2 (36.4-46.3) fL RDW Coeff of Tamir 12.3 (11.5-14.5) % Plt Count 247 (130-400) K/uL MPV 9.7 (9.4-12.4) fL Immature Gran % (Auto) 0.3 % Neut % (Auto) 79.7 % Lymph % (Auto) 11.0 % [place] % (Auto) 6.9 % Eos % (Auto) 1.6 % Baso % (Auto) 0.5 % Neut # (Auto) 7.70 H (1.40-6.50) K/uL Lymph # (Auto) 1.06 L (1.2-3.4) K/uL [place] # (Auto) 0.67 H (0.11-0.59) K/uL Eos # (Auto) 0.15 (0-0.50) K/uL Baso # (Auto) 0.05 (0-0.2) K/uL Immature Gran # (Auto) 0.03 (0.01-0.20) K/uL Sodium 141 (136-145) mmol/L Potassium 3.2 L (3.5-5.1) mmol/L Chloride 107 (98-107) mmol/L Carbon Dioxide 27 (21-32) mmol/L Anion Gap 7 (3-11) BUN 14 (6-23) mg/dl Creatinine 0.75 (0.6-1.4) mg/dl Est Cr Clr Drug Dosing 78.8 ml/min Est GFR ( Amer) 96.9 ml/min Est GFR (Non-Af Amer) 83.6 ml/min BUN/Creatinine Ratio 18.7 (10-20) Glucose 100 H (70-99(Fasting)) mg/dl Calcium 9.1 (8.5-10.1) mg/dl Magnesium 2.0 (1.7-2.4) mg/dl Diagnostic Findings CTAP 03/20/22 FINDINGS: Limited exam secondary to upper extremities positioning and lack of contrast. Cardiomegaly with trace right and small left pleural effusions and mild dependent subsegmental bibasilar consolidation. No pneumatosis or pneumoper itoneum. Unremarkable spleen, dystrophic pancreas and adrenal glands. Gallbladder is mildly distended. Unremarkable liver with patency of the hepatic and portal veins. No hydronephrosis. 2 mm nonobstructing calculus of the inferior pole left kidney. No ureteral calculi or hydronephrosis. Prostamegaly. Mild urinary bladder wall thickening with partial distention. Atherosclerosis of the aorta. No lymphadenopathy identified. Small amount of fluid within the distal esophagus. Distended debris and fluid- filled stomach. Numerous air and fluid-filled loops of small bowel measure up to approximately 3.5 cm. Air and fluid-filled distended loops of large bowel are noted with progressive dilation of the cecum now measuring up to 10.8 cm, previously 8 cm. There is increased inflammatory stranding with trace ascites adjacent to the cecum. Mild twisting of the mesentery adjacent to the sigmoid colon with sigmoid colonic narrowing on image 303. Fluid-filled appendix is likely secondary to the fluid within the large bowel. Mild gynecomastia. Degenerative changes of the spine, pelvis and hips. Unchanged appearance of the acute L3 superior endplate compression deformity without retropulsion. Chronic T12 and L1 compression fractures. Minimally displaced lateral left 11th rib fracture again noted. IMPRESSION: 1. Large and small bowel dilation is again noted with progressively worsened dilation of the cecum along with new pericecal inflammation and trace ascites. 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 Follow-up recommended. 2. Unchanged appearance of the acute L3 superior endplate compression deformity. 3. Left nephrolithiasis. 4. Acute appearing minimally displaced lateral left 11th rib fracture. 5. Additional findings as above. KUB 03/18/22: FINDINGS: Unchanged appearance of the large and small bowel dilation with dilation again most pronounced involving the large bowel. No renal calculi. No ureteral calculi. No pneumoperitoneum or pneumatosis. No fracture. IMPRESSION: Unchanged large and small bowel dilation suggestive of ileus versus distal obstruction. Enteric tube placement may be considered. CTAP 03/14/22: FINDINGS: Cardiomegaly with trace pleural effusions and mild dependent subsegmental bibasilar consolidation. No pneumatosis or pneumoperitoneum. Unremarkable spleen, dystrophic pancreas and adrenal glands. Gallbladder is within normal limits. Unremarkable liver with patency of the hepatic and portal veins. No hydronephrosis. 2 mm nonobstructing calculus of the inferior pole left kidney. No ureteral calculi or hydronephrosis. Prostamegaly. Mild urinary bladder wall thickening with partial distention. Atherosclerosis of the aorta. No lymphadenopathy identified. Fluid-filled distal esophagus. Debris-filled distended stomach. Numerous air and fluid-filled loops of small bowel measure up to approximately 3 cm. Decompressed rectum and sigmoid with abrupt caliber change involving the sigmoid colon on image 386. There is also caliber change within this area on the prior study which was less pronounced. There is now moderate upstream gaseous distention of the large bowel. Moderate fecal retention of the cecum. Normal appendix. Mild gynecomastia. Degenerative changes of the spine, pelvis and hips. Unchanged appearance of the acute L3 superior endplate compression deformity without retropulsion. Chronic T12 and L1 compression fractures. Minimally displaced lateral left 11th rib fracture again noted. IMPRESSION: 1. Unchanged appearance of the acute L3 superior endplate compression fracture without retropulsion. 2. New/progressive large and small bowel dilation compared to the 03/13/2022 study with focal caliber change within the sigmoid colon. Follow-up KUB radiographs recommended to exclude ileus versus obstruction. These findings could be correlated with follow-up colonoscopy. 3. Left nephrolithiasis. 4. Acute appearing minimally displaced lateral left 11th rib fracture. 5. Additional findings as above.
[2022-03-21] MEDS ORDERED: LIDOCAINE 2% MPF LOCAL 5 ML VIAL INFIL ONE (08:53)
[2022-03-21] MEDS ORDERED: PROPOFOL IV EMULSION 10 MG/ML 20 ML VIAL IV ONE (08:53)
[2022-03-21] MEDS: NSS + 20MEQ KCL 20 MEQ/1,000 ML BAG IV SCH (09:26)
[2022-03-21] MEDS: POTASSIUM CHLORIDE / WTR 10 MEQ/100 ML PLCT IV SCH ×2 (09:26→12:26)
[2022-03-21] MEDS ORDERED: MINERAL OIL 30 ML UDC ONE (09:47)
[2022-03-21] MEDS ORDERED: fentaNYL citrate 100 MCG/2 ML VIAL ONE (10:36)
[2022-03-21] MEDS ORDERED: MIDAZOLAM HCL 1 MG/ML 2ML VIAL ONE (10:39)
--- NOTE | 2022-03-21 10:54 | Communication Note ---
Date of Service: March 21, 2022 Patient underwent urgent colonic decompression this morning. We found that there was evidence of ischemic changes within the region of the hepatic flexure. A colonic decompression tube placement placed under direct visualization. Recommendations Daily KUB Recommend stopping all narcotic use Pending response to decompression would then suggest use of Relistor. Consider placement of an NG tube Colyte 100 mL via rectal tube every 2-4 hours to maintain tube patency General surgery consultation
--- NOTE | 2022-03-21 11:17 | GI REPORT ---
Patient Name: Patrick Tinoco Procedure Date: 03/21/2022 10:20 AM Date of : 1935 Admit Type: Inpatient Age: 86 Gender: Male Attending MD: Aaron Keith DO, Procedure: Colonoscopy Providers: Aaron Keith DO Referring MD: Mumtaz Stover Indications: Therapeutic procedure, Abnormal CT of the GI tract, Epigastric abdominal pain Medicines: Monitored Anesthesia Care Complications: No immediate complications. Estimated blood loss: Minimal. Estimated Blood Loss: Estimated blood loss was minimal. Procedure: Pre-Anesthesia Assessment: - Prior to the procedure, a History and Physical was performed, and patient medications, allergies and sensitivities were reviewed. The patient's tolerance of previous anesthesia was reviewed. - The risks and benefits of the procedure and the sedation options and risks were discussed with the patient. All questions were answered and informed consent was obtained. - Patient identification and proposed procedure were verified prior to the procedure by the physician, the nurse and the russian history professor. The procedure was verified in the procedure room. - Pre-procedure physical examination revealed no contraindications to sedation. - ASA Grade Assessment: IV - A patient with severe systemic disease that is a constant threat to life. - After reviewing the risks and benefits, the patient was deemed in satisfactory condition to undergo the procedure. - The anesthesia plan was to use monitored anesthesia care (MAC). - The heart rate, respiratory rate, oxygen saturations, blood pressure, adequacy of pulmonary ventilation, and response to care were monitored throughout the procedure. - The physical status of the patient was re-assessed after the procedure. After I obtained informed consent, the scope was passed under direct vision. Throughout the procedure, the patient's blood pressure, pulse, and oxygen saturations were monitored continuously. The Endoscope was introduced through the anus and advanced to the hepatic flexure for evaluation. This was the intended extent. The colonoscopy was performed without difficulty. The patient tolerated the procedure well. The quality of the bowel preparation was fair. Findings: The perianal and digital rectal examinations were normal. Pertinent negatives include normal sphincter tone. Discontinuous areas of nonbleeding ulcerated mucosa with no stigmata of recent bleeding were present at the hepatic flexure. The lumen of the descending colon and transverse colon was significantly dilated. A colonic decompression tube was placed under direct visualization using a Raptor grasper to the region of the hepatic flexure.. Impression: - Preparation of the colon was fair. - Mucosal ulceration consistent with ischemia near the hepatic flexture. - Dilated in the descending colon and in the transverse colon. - Decompression tube placed to the hepatic flexure under direct visualization with an endoscope. Recommendation: - The patient will be observed post-procedure, until all discharge criteria are met. - NPO. - Colyte 100 mL every 2-4 hours to maintain tube patency. - Would recommend stopping narcotic use - Daily KUB - Empiric coverage with broad-spectrum antibiotics recommended - Suggest general surgery consultation Aaron Keith D.O. Aaron Keith, 03/21/2022 11:17:26 AM This report has been signed electronically. Note Initiated On: 03/21/2022 10:20 AM Number of Addenda: 0 I attest to the content of the Intraoperative Record and orders documented therein, exceptions below {[id number]}
[2022-03-21] MEDS ORDERED: PIPERACILLIN/TAZOBACTAM 4.5 GM in DEXTROSE 5% 100 ML IV ONE (11:30)
--- NOTE | 2022-03-21 11:59 | Anesthesiology Progress Note ---
Date of Service March 21, 2022 Anesthesia Post Procedure Vital Signs Vital Signs: Temp Pulse Pulse Resp BP BP Pulse Ox 03/21/22 11:32 82 18 133/68 99 03/21/22 11:17 80 18 132/65 93 03/21/22 11:02 84 18 118/69 97 03/21/22 09:51 97.2 F L 82 16 115/72 99 03/21/22 09:29 03/21/22 07:30 96.3 F L 80 22 135/73 93 03/20/22 21:59 82 03/21/22 07:13 78 03/21/22 02:46 97.7 F 78 18 131/76 98 03/20/22 21:00 03/20/22 22:55 97.5 F L 67 18 130/72 95 03/20/22 19:20 98.6 F 76 16 133/77 96 03/20/22 15:10 97.7 F 86 20 145/77 H 96 03/20/22 15:02 80 O2 Del Method O2 Flow Rate 03/21/22 11:32 Nasal Cannula 3 03/21/22 11:17 Nasal Cannula 3 03/21/22 11:02 Nasal Cannula 3 03/21/22 09:51 Nasal Cannula 3 03/21/22 09:29 Nasal Cannula 3 03/21/22 07:30 Nasal Cannula 2 03/20/22 21:59 03/21/22 07:13 03/21/22 02:46 Nasal Cannula 3 03/20/22 21:00 Nasal Cannula 3 03/20/22 22:55 Nasal Cannula 3 03/20/22 19:20 Nasal Cannula 3 03/20/22 15:10 Nasal Cannula 3 03/20/22 15:02 Pain Intensity Left Ribs: Pain Intensity: 3 Transfer of Care Handoff Completed per policy Notes Mental Status: alert / awake / arousable and participated in evaluation Patient Amnestic to Procedure: Yes Nausea / Vomiting: adequately controlled Pain: adequately controlled Airway Patency, RR, SpO2: stable & adequate BP & HR: stable & adequate Hydration State: stable & adequate Anesthetic Complications: no major complications apparent and Pt Satisfied with anesthetic care
[2022-03-21] MEDS: TOPIRAMATE 100 MG TAB PO SCH ×2 (12:03→20:55)
[2022-03-21] MEDS: PHENobarbitaL 30 MG TAB PO SCH ×2 (12:03→20:57)
[2022-03-21] MEDS: DOCUSATE SODIUM/SENNA 50/8.6MG TAB PO SCH ×2 (12:03→20:56)
[2022-03-21] MEDS: APIXABAN 5 MG TABLET PO SCH ×2 (12:03→20:56)
[2022-03-21] MEDS: LIDOCAINE 5% 1 PATCH TD SCH (12:41)
--- NOTE | 2022-03-21 12:44 | Surgery Consultation ---
Date of Consultation March 21, 2022 Assessment & Plan (1) Dilatation of colon: This is an 86yM with a PMH of seizures, blood clots on eliquis, who presented to the [facility] ED on 03/13/22 with a fall at home with question of seizure. The patient was found to have an L3 compression fracture in addition to a left 11th rib fracture. Since his admission he has been dealing with constipation. Says this started since being here, was previously having regular bowel movements. No CP/SOB/fevers/chills. He had a CT on 03/14 that showed new large and small bowel dilation and cannot rule out ileus vs obstruction, and close follow up recommended. He continued on laxatives, however still unable to have a BM and was with worsening abdominal distention. CT a/p was performed yesterday that revealed large and small bowel dilation is again noted with progressively worsened dilation of the cecum along with new pericecal inflammation and trace ascites. 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 GI was consulted thereafter and performed a colonoscopy and left a rectal tube in place for decompression. They found mucosal ulceration near the hepatic flexure concerning for ischemia and placed decompressive rectal tube. He currently denies any abdominal pain, nausea/vomiting. He denies any prior abdominal surgical history. Supervising Physician Co-Signing Physician Notes Dr. Del Valle saw the patient in his room with his and daughter at the bedside. As above with recent trauma and immobility Developing progressive colon and small bowel dilatation-especially the cecum to 10 cm Undergoing colonoscopic decompression with tube placement-the daughter states that the patient's abdomen is much less distended He is in no distress and not complaining of any abdominal pain-his abdomen is distended but not rigid and does not have any peritoneal irritation to palpation I discussed the treatment which would be major surgery for either worsening abdominal pain consistent with peritoneal irritation or increasing distention of the cecum/colon-major abdominal surgery with possible bowel resection and stoma Likely postop ICU with ventilator and prolonged postop course They do understand We will monitor his progress for now History of Present Illness Attending Physician: Mumtaz Stover MD History of Present Illness This is an 86yM with a PMH of seizures, blood clots on eliquis, who presented to the [facility] ED on 03/13/22 with a fall at home with question of seizure. The patient was found to have an L3 compression fracture in addition to a left 11th rib fracture. Since his admission he has been dealing with constipation. Says this started since being here, was previously having regular bowel movements. No CP/SOB/fevers/chills. He had a CT on 03/14 that showed new large and small bowel dilation and cannot rule out ileus vs obstruction, and close follow up recommended. He continued on laxatives, however still unable to have a BM and was with worsening abdominal distention. CT a/p was performed yesterday that revealed large and small bowel dilation is again noted with progressively worsened dilation of the cecum along with new pericecal inflammation and trace ascites. 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 GI was consulted thereafter and performed a colonoscopy and left a rectal tube in place for decompression. They found mucosal ulceration near the hepatic flexure concerning for ischemia and placed decompressive rectal tube. He currently denies any abdominal pain, nausea/vomiting. He denies any prior abdominal surgical history. Allergies Allergy/AdvReac Type Severity Reaction Status Date / Time No Known Drug Allergies Allergy Verified 03/21/22 09:50 Home Medications Medication Instructions Recorded Confirmed Type finasteride 5 mg tablet 5 mg PO QPM 03/11/19 03/13/22 History memantine ER 28 mg-donepezil 10 mg 1 cap PO QPM 03/11/19 03/13/22 History capsule sprinkle,ext.release 24 hr (Namzaric) phenobarbital 60 mg tablet 60 mg PO BID 03/11/19 03/13/22 History tamsulosin 0.4 mg capsule (Flomax) 0.4 mg PO QPM 03/11/19 03/13/22 History topiramate 200 mg tablet (Topamax) 200 mg PO BID 03/11/19 03/13/22 History ropinirole 0.25 mg tablet 0.25 mg PO QPM 04/26/21 03/13/22 History apixaban 5 mg (74 tabs) tablets in 5 mg PO BID #74 ea 04/27/21 03/13/22 Rx a dose pack (Eliquis) Patient History Medical History Enlarged prostate Fall Restless leg syndrome Seizure disorder DX AGE 7 , 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 Sleep apnea CPAP Weakness Surgical History History of colonoscopy History of left cataract surgery History of surgery LEFT HAND LITTLE FINGER S/P placement of VNS (vagus nerve stimulation) device ORIGINAL 1998 AND 2 SINCE THEN (CURRENT AND FUNCTIONING) Family History Son Family history of colon cancer Mother Family history of diabetes mellitus Social History Smoking Status: Never smoker Second Hand Exposure: No; Hx Alcohol Use: No Hx Substance Use: No Preferred Language: Niuean Communication Ability: Effective Aircraft Instrument Tester Required: No Beliefs That Will Affect Care: None marital status: Current Living Situation: Family Other Information That Helps Us Care for You: No Feels Safe at Home: Yes Safety Concerns: Feels Safe At This Time Assistive Devices: CPAP Review of Systems Constitutional: no fever and no chills Respiratory: no dyspnea Cardiovascular: no chest pain Gastrointestinal: + bloating and + constipation; no abdominal pain, no nausea and no vomiting Physical Exam Physical Exam: awake/alert, no distress Respiratory: normal respiratory effort Gastrointestinal (Abdomen): Inspection/Auscultation: + abdomen distended Percussion/Palpation: abdomen soft; abdomen nontender Results & Data ([facility]) Vital Signs (Past 12 Hours) Vital Signs Temp Pulse Pulse Resp BP BP Pulse Ox 03/21/22 11:32 82 18 133/68 99 03/21/22 11:17 80 18 132/65 93 03/21/22 11:02 84 18 118/69 97 03/21/22 09:51 36.2 C L 82 16 115/72 99 03/21/22 09:29 03/21/22 07:30 35.7 C L 80 22 135/73 93 03/21/22 07:13 78 03/21/22 02:46 36.5 C 78 18 131/76 98 O2 Del Method O2 Flow Rate 03/21/22 11:32 Nasal Cannula 3 03/21/22 11:17 Nasal Cannula 3 03/21/22 11:02 Nasal Cannula 3 03/21/22 09:51 Nasal Cannula 3 03/21/22 09:29 Nasal Cannula 3 03/21/22 07:30 Nasal Cannula 2 03/21/22 07:13 03/21/22 02:46 Nasal Cannula 3 Diagnostic Findings ABDOMEN AND PELVIS CT WITH IV CONTRAST CT DOSE: 466.36 mGy.cm HISTORY: Acute generalized abdominal pain abd pain TECHNIQUE: Multiaxial CT images of the abdomen and pelvis were performed following the IV administration of 87 cc of Optiray, A dose lowering technique was utilized adhering to the principles of ALARA. COMPARISON STUDY: CT abdomen and pelvis 03/13/2022 FINDINGS: Cardiomegaly with trace pleural effusions and mild dependent subsegmental bibasilar consolidation. No pneumatosis or pneumoperitoneum. Unremarkable spleen, dystrophic pancreas and adrenal glands. Gallbladder is within normal limits. Unremarkable liver with patency of the hepatic and portal veins. No hydronephrosis. 2 mm nonobstructing calculus of the inferior pole left kidney. No ureteral calculi or hydronephrosis. Prostamegaly. Mild urinary bladder wall thickening with partial distention. Atherosclerosis of the aorta. No lymphadenopathy identified. Fluid-filled distal esophagus. Debris-filled distended stomach. Numerous air and fluid-filled loops of small bowel measure up to approximately 3 cm. Decompressed rectum and sigmoid with abrupt caliber change involving the sigmoid colon on image 386. There is also caliber change within this area on the prior study which was less pronounced. There is now moderate upstream gaseous distention of the large bowel. Moderate fecal re tention of the cecum. Normal appendix. Mild gynecomastia. Degenerative changes of the spine, pelvis and hips. Unchanged appearance of the acute L3 superior endplate compression deformity without retropulsion. Chronic T12 and L1 compression fractures. Minimally displaced lateral left 11th rib fracture again noted. IMPRESSION: 1. Unchanged appearance of the acute L3 superior endplate compression fracture without retropulsion. 2. New/progressive large and small bowel dilation compared to the 03/13/2022 study with focal caliber change within the sigmoid colon. Follow-up KUB radiographs recommended to exclude ileus versus obstruction. These findings could be correlated with follow-up colonoscopy. 3. Left nephrolithiasis. 4. Acute appearing minimally displaced lateral left 11th rib fracture. 5. Additional findings as above. ACT 112: Negative or not required by law. The above report was generated using voice recognition software. It may contain grammatical, syntax or spelling errors. Electronically signed by: Josemanuel Ellis M.D. 03/15/2022 8:20 AM ABDOMEN AND PELVIS CT WITHOUT CONTRAST CT DOSE: 1049.80 mGycm HISTORY: Acute generalized abdominal pain R/O obstruction TECHNIQUE: Multiaxial CT images of the abdomen and pelvis were performed without contrast. A dose lowering technique was utilized adhering to the principles of ALARA. COMPARISON STUDY: 03/15/2022 FINDINGS: Limited exam secondary to upper extremities positioning and lack of contrast. Cardiomegaly with trace right and small left pleural effusions and mild dependent subsegmental bibasilar consolidation. No pneumatosis or pneumoperitoneum. Unremarkable spleen, dystrophic pancreas and adrenal glands. Gallbladder is mildly distended. Unremarkable liver with patency of the hepatic and portal veins. No hydronephrosis. 2 mm nonobstructing calculus of the inferior pole left kidney. No ureteral calculi or hydronephrosis. Prostamegaly. Mild urinary bladder wall thickening with partial distention. Atherosclerosis of the aorta. No lymphadenopathy identified. Small amount of fluid within the distal esophagus. Distended debris and fluid- filled stomach. Numerous air and fluid-filled loops of small bowel measure up to approximately 3.5 cm. Air and fluid-filled distended loops of large bowel are noted with progressive dilation of the cecum now measuring up to 10.8 cm, previously 8 cm. There is increased inflammatory stranding with trace ascites adjacent to the cecum. Mild twisting of the mesentery adjacent to the sigmoid colon with sigmoid colonic narrowing on image 303. Fluid-filled appendix is li gino secondary to the fluid within the large bowel. Mild gynecomastia. Degenerative changes of the spine, pelvis and hips. Unchanged appearance of the acute L3 superior endplate compression deformity without retropulsion. Chronic T12 and L1 compression fractures. Minimally displaced lateral left 11th rib fracture again noted. IMPRESSION: 1. Large and small bowel dilation is again noted with progressively worsened dilation of the cecum along with new pericecal inflammation and trace ascites. 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 Follow-up recommended. 2. Unchanged appearance of the acute L3 superior endplate compression deformity. 3. Left nephrolithiasis. 4. Acute appearing minimally displaced lateral left 11th rib fracture. 5. Additional findings as above. ACT 112: Negative or not required by law. The above report was generated using voice recognition software. It may contain grammatical, syntax or spelling errors. Electronically signed by: Josemanuel Ellis M.D. 03/20/2022 3:30 PM PG Care Time/CCT Total # of Minutes Spent Total Time Spent with Patient: Total time spent is greater than 50% in coordination of care (as documented) at patient's floor/unit and/or counseling patient: Coding Level of Care Code 65803 INT INP/OBS CARE 1/40MIN Diagnoses Dilatation of colon K59.39
--- NOTE | 2022-03-21 12:45 | XRay Report ---
KUB CLINICAL HISTORY: Enteric tube placement. FINDINGS: An AP, portable, upright view of the lower chest and upper abdomen is correlated with abdom inal CT dated 03/20/2022. An enteric tube has been placed. The tip projects below the diaphragm over th e mid to distal stomach. A presumed rectal tube is in place. There is persistent gaseous distention o f the small bowel loops. No evidence of intraperitoneal free air seen below the diaphragm. There are no abnormal abdominal calcifications. A left pleural effusion is noted with left basilar consolidatio n. IMPRESSION: 1. An enteric tube has been placed as above. 2. There is persistent gaseous distention of the small bowel loops. Electronically signed by: Stewart Thrasher M.D. 03/21/2022 12:43 PM
--- NOTE | 2022-03-21 13:23 | Hospitalist Progress Note ---
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 difficile colitis and the patient is placed on intravenous Zosyn Appreciate GI and surgery input and recommendation Discussed with the family members (2) Weakness: (3) Fall: (4) Seizure disorder: (5) Sleep apnea: Plan 86 y/o with h/o seizures presents s/p fall and suspected seizure. 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 Pain control, ortho and neuro consult with PT/OT. Fall Likely secondary to ambulatory dysfunction and seizure is unlikely the cause of fall Status post breakthrough seizure was considered on admission Appreciate neurology input and recommendation We will continue current doses of seizure medication Phenobarb level is therapeutic at 15.9 and topiramate level is pending No more seizure since admission PT recommended rehab but the family members are refusing to send him to rehab Discussed with the patient he wants to go to rehab for short-term We will discussed with the family members prior to discharge Has had PT today and the recommendation persist Has been waiting to go to rehab. Denies any pain but has abdominal discomfort due to ongoing constipation He has been is stable to be transferred except that he has not had a bowel movement for a while Remained stable except abdominal distention and inadequate bowel movement Status post fall last evening-03/14/2022 No significant injury no loss of consciousness and no seizures CT scan of the head and CT of the abdomen and pelvis remain unremarkable Denies any complaints as of today No acute symptoms Constipation Has had laxatives without any effect Will give Fleet enema We will start more mobilization Current laxatives have not been working Will give her lactulose enema today and start with regular lactulose orally KUB showed ileus but no definite obstruction Will try Relistor and oral lactulose If no improvement will get GI involved for possible rectal tube His bowel sounds are much improved today and has had results with enema and he feels better following small bowel movement Will try another enema this afternoon Small amount of bowel movement yesterday but is still very distended We will get a CT of the abdomen without contrast to rule out an obstruction As above L 3 Acute Compression fracture: L rib #[address] and negative C-spine CT of the abdomen and pelvis showed L3 acute compression fraction as above -Chest CT: 11th rib left chest wall non-displaced fracture, no PNX Appreciate orthospine evaluation and recommendation Back pain is stable-.. 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 -Takes Topamax and Phenobarbital with compliance -Topamax and Phenobarb levels pending -Appreciate neurology input and recommendation -No more seizures -We will continue giving medications orally L upper leg pain Ortho consulted Femur XR: no fracture possible trochanteric bursitis, steroid injection planned Appreciate Ortho input and recommendation for left greater trochanteric bursa injection Status post steroid injection to the greater trochanteric bursa on the left side Symptomatically better Get PT and OT evaluation-recommended rehab 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 BPH: -Takes Tamsulosin; continue Disposition: PCP: Marbin Lira PA-C Code Status: Full Code VTE Prophylaxis: Eloquis Disposition pending lives at home with son PT/OT recommended rehab and the patient is willing to go to rehab but the family members are resisting Awaiting placement Admission and Anticipated Discharge Date Admission Date: March 14, 2022 Subjective 03/15/2022 The patient was seen and examined in medical telemetry unit He has been feeling a lot better today but has not moved his bowels for the last few days His back pain seems to be stable at rest Denies any problem with urine Denies any other symptoms 03/16/2022 The patient was seen and examined in medical telemetry floor He has been feeling better but he still has abdominal distention and bowel is not cleared His back pain and the pain in the left hip are reasonable Did not had any physical therapy yet 03/17/2022 The patient was seen and examined in medical telemetry floor He has had physical therapy and recommended rehab The family members did does not want to send him to rehab Discussed with the patient he feels that he should go to rehab Has not had any bowel movement for the last 2 or 3 days as per the nurse 03/18/2022 The patient was seen and examined in medical telemetry unit Apparently he has not had any bowel movement for the last few days Slight distention of the abdomen with some discomfort but no definite pain No nausea and/or vomiting His pain seems to be controlled 03/19/2022 The patient was seen and examined in medical telemetry unit He has not had any bowel movement for the last few days Abdomen is distended but without any pain and/or significant discomfort and no nausea or vomiting KUB showed possible ileus but no obstruction Denies any other significant symptoms except weakness 03/20/2022 The patient was seen and examined in medical telemetry unit He has had a bowel movement last evening but is still the abdomen remains very distended He denies any pain but does have discomfort and no nausea or vomiting He will have a CT scan of the abdomen pelvis to rule out an obstruction or any other pathology 03/21/2022 The patient was seen and examined in medical telemetry unit He is a status post colonoscopy and rectal tube placement following colonic pseudoobstruction and dilatation Remains n.p.o. with NG tube in place Complaints of discomfort secondary to NGT but denies any other significant symptoms Review of Systems Review of Systems: All systems reviewed and are unremarkable except as noted below Gastrointestinal: Abdominal distention and discomfort Physical Exam Physical Exam: Lying in bed with discomfort secondary to abdominal discomfort and distention Constitutional: well developed, well nourished and + obese; not ill appearing Eyes: PERRL, conjunctivae normal, anicteric sclerae ENMT: external ear and nose normal, oropharynx normal Neck: trachea midline, no thyromegaly Respiratory: no respiratory distress Auscultation: lungs clear to auscultation bilaterally Cardiovascular: Rate/Rhythm: regular rate and regular rhythm; not tachycardic Heart Sounds: normal S1 and normal S2; no murmur Extremities: no edema Gastrointestinal (Abdomen): Inspection/Auscultation: + abdomen distended (Distended but soft) and normal bowel sounds (Decreased) Percussion/Palpation: + abdomen tender (Minimally tender all over) and abdomen soft Musculoskeletal: No acute arthritis involving any joint Neurologic: normal touch/pain/proprioception and moves all extremities; no focal motor deficits Psychiatric: A+Ox3, euthymic affect Lymphatic: no cervical or axillary lymphadenopathy Results & Data Results & Data ([facility]) Vital Signs (Past 12 Hours) Vital Signs Temp Pulse Pulse Resp BP BP Pulse Ox 03/21/22 11:32 82 18 133/68 99 03/21/22 11:17 80 18 132/65 93 03/21/22 11:02 84 18 118/69 97 03/21/22 09:51 36.2 C L 82 16 115/72 99 03/21/22 09:29 03/21/22 07:30 35.7 C L 80 22 135/73 93 03/21/22 07:13 78 03/21/22 02:46 36.5 C 78 18 131/76 98 O2 Del Method O2 Flow Rate 03/21/22 11:32 Nasal Cannula 3 03/21/22 11:17 Nasal Cannula 3 03/21/22 11:02 Nasal Cannula 3 03/21/22 09:51 Nasal Cannula 3 03/21/22 09:29 Nasal Cannula 3 03/21/22 07:30 Nasal Cannula 2 03/21/22 07:13 03/21/22 02:46 Nasal Cannula 3 Laboratory Results Short CBC 03/21/22 Range/Units 07:35 WBC 9.66 (4.8-10.8) K/ul Hgb 13.9 L (14.0-18.0) g/dl Hct 42.2 (42.0-52.0) % Plt Count 247 (130-400) K/uL BMP 03/21/22 07:35 Sodium 141 Potassium 3.2 L Chloride 107 Carbon Dioxide 27 BUN 14 Creatinine 0.75 Glucose 100 H Calcium 9.1 Medications Administered Current Inpatient Medications Acetaminophen (Acetaminophen 325 Mg Tab) 650 mg PO Q8 [facility] Stop: 04/13/22 00:00 Last Admin: 03/21/22 07:20 Dose: Not Given Apixaban (Apixaban 5 Mg Tablet) 5 mg PO BID [facility] Stop: 04/12/22 20:59 Last Admin: 03/21/22 12:03 Dose: Not Given Finasteride (Finasteride 5 Mg Tab) 5 mg PO QPM [facility] Stop: 04/12/22 20:59 Last Admin: 03/20/22 21:34 Dose: 5 mg Potassium Chloride/Sodium Chloride (Normal Saline W/20 Meq Kcl) 20 meq in 1,000 mls @ 100 mls/hr IV .Q10H [facility]; Protocol Stop: 04/20/22 10:59 Last Admin: 03/21/22 09:26 Dose: 100 mls/hr Piperacillin Sod/Tazobactam (Sod 4.5 gm/ Dextrose) 120 mls @ 30 mls/hr IV Q8H [facility]; Protocol Stop: 03/23/22 15:59 Lidocaine (Lidocaine 5% 1 Patch) 1 patch TD QAM [facility] Stop: 04/12/22 15:29 Last Admin: 03/21/22 12:41 Dose: 1 patch Miscellaneous (Remove Lidoderm Patch) 1 each N/A DAILY@2100 [facility] Stop: 04/12/22 20:59 Last Admin: 03/20/22 21:55 Dose: 1 each Oxycodone HCl (Oxycodone Hcl Ir 5 Mg Tab (Immediate Release)) 5 mg PO Q4H PRN PRN Reason: Pain Stop: 03/28/22 03:40 Last Admin: 03/20/22 13:45 Dose: 5 mg Phenobarbital (Phenobarbital 30 Mg Tab) 60 mg PO BID [facility] Stop: 04/12/22 20:59 Last Admin: 03/21/22 12:03 Dose: Not Given Polyethylene Glycol (Polyethylene (Miralax) 17 Gm Pack) 17 gm PO DAILY PRN PRN Reason: Constipation Stop: 04/13/22 20:08 Last Admin: 03/19/22 08:38 Dose: 17 gm Polyethylene Glycol/Electrolytes (Lavage Solution 4000ml) 0.4 dose PA Q2H [facility] Stop: 04/20/22 12:14 Ropinirole HCl (Ropinirole Hcl 0.25 Mg Tablet) 0.25 mg PO QPM [facility] Stop: 04/12/22 20:59 Last Admin: 03/20/22 21:34 Dose: 0.25 mg Senna/Docusate Sodium (Docusate Sodium/Senna 50/8.6mg Tab) 1 tab PO BID [facility] Stop: 04/14/22 05:19 Last Admin: 03/21/22 12:03 Dose: Not Given Tamsulosin HCl (Tamsulosin Hcl 0.4 Mg Cap) 0.4 mg PO QPM [facility] Stop: 04/12/22 20:59 Last Admin: 03/20/22 21:36 Dose: 0.4 mg Topiramate (Topiramate 100 Mg Tab) 200 mg PO BID [facility] Stop: 04/12/22 20:59 Last Admin: 03/21/22 12:03 Dose: Not Given
[2022-03-21] MEDS: LAVAGE SOLUTION 4000ML PR SCH ×6 (13:31→22:31)
[2022-03-21] MEDS: PIPERACILLIN/TAZOBACTAM 4.5 GM in DEXTROSE 5% 100 ML IV SCH (17:10)
[2022-03-21] MEDS: rOPINIRole HCL 0.25 MG TABLET PO SCH (20:55)
[2022-03-21] MEDS: TAMSULOSIN HCL 0.4 MG CAP PO SCH (20:57)
[2022-03-21] MEDS: FINASTERIDE 5 MG TAB PO SCH (20:57)
[2022-03-21] MEDS: oxyCODONE HCL IR 5 MG TAB (IMMEDIATE RELEASE) PO PRN (22:41)
[2022-03-22] MEDS: NSS + 20MEQ KCL 20 MEQ/1,000 ML BAG IV SCH ×3 (00:03→17:59)
[2022-03-22] MEDS: LAVAGE SOLUTION 4000ML PR SCH ×12 (00:06→22:27)
[2022-03-22] MEDS: PIPERACILLIN/TAZOBACTAM 4.5 GM in DEXTROSE 5% 100 ML IV SCH ×3 (02:07→17:07)
[2022-03-22] MEDS: ACETAMINOPHEN 325 MG TAB PO SCH ×3 (05:53→20:30)
--- NOTE | 2022-03-22 07:17 | Surgery Progress Note ---
Date of Service March 22, 2022 Assessment & Plan (1) Pseudoobstruction of colon: Plan: Patient appears to be improving very slowly with NG decompression and transrectal colonic tube Also receiving polyethylene glycol via the NG tube His abdomen is less distended and nontender He does have some bowel sounds Continue with nonoperative intervention Admission and Anticipated Discharge Date Admission Date: March 14, 2022 Subjective Patient in no distress with no abdominal pain NG tube and transrectal colonic tube in place Review of Systems Review of Systems: All systems reviewed & are unremarkable except as noted in HPI & below Physical Exam Physical Exam: Patient in no distress His abdomen is much less distended and he does have some bowel sounds He has no tenderness to palpation Constitutional: no acute distress Respiratory: normal respiratory effort; no respiratory distress Cardiovascular: Rate/Rhythm: regular rate Gastrointestinal (Abdomen): See above Skin: no rashes, warm and dry Neurologic: awake Psychiatric: Orientation: alert Results & Data ([facility]) Vital Signs (Past 12 Hours) Vital Signs Temp Pulse Pulse Resp BP Pulse Ox O2 Del Method 03/21/22 22:55 86 03/22/22 03:28 36.5 C 80 18 107/64 97 Nasal Cannula 03/21/22 19:30 Nasal Cannula 03/21/22 22:22 36.5 C 80 18 131/73 96 Nasal Cannula O2 Flow Rate 03/21/22 22:55 03/22/22 03:28 3 03/21/22 19:30 3 03/21/22 22:22 3 PG Care Time/CCT Total # of Minutes Spent Total Time Spent with Patient: Total time spent is greater than 50% in coordination of care (as documented) at patient's floor/unit and/or counseling patient: Coding Level of Care Code 57842 SUB INP/OBS CARE 03/08MIN Diagnoses Pseudoobstruction of colon K59.81
[2022-03-22 08:14] LABS: Basophils # (auto) 0.06 K/uL (0-0.2); Basophils % (auto) 0.8 %; Eosinophils % (auto) 2.8 %; Hematocrit (blood only) 37.3 % (42.0-52.0); Hemoglobin 12.5 g/dl (14.0-18.0); Immature Granulocytes # (auto) 0.08 K/uL (0.01-0.20); Immature Granulocytes % (auto) 1.1 %; Lymphocytes # (auto) 1.14 K/uL (1.2-3.4); Mean Corpuscular Hemoglobin 32.6 pg (25.0-34.0); Mean Corpuscular Hgb Conc 33.5 g/dL (32.0-36.0); Mean Corpuscular Volume 97.4 fL (80.0-100.0); Mean Platelet Volume 9.5 fL (9.4-12.4); Monocytes # (auto) 0.41 K/uL (0.11-0.59); Monocytes % (auto) 5.8 %; Neutrophils # (auto) 5.24 K/uL (1.40-6.50); Neutrophils % (auto) 73.5 %; Platelet Count 249 K/uL (130-400); RDW Coefficient of Variation 12.2 % (11.5-14.5); RDW Standard Deviation 43.7 fL (36.4-46.3); Red Blood Count 3.83 M/uL (4.70-6.10); White Blood Count 7.13 K/ul (4.8-10.8)
[2022-03-22 08:39] LABS: Albumin Globulin Ratio 1.3 (0.9-2); Albumin Level 2.9 gm/dl (3.4-5.0); Bilirubin,Total 0.4 mg/dl (0.2-1.0); Calcium 8.5 mg/dl (8.5-10.1); Creatinine Clr Calc Pharmacy 69.5 ml/min; Est GFR (African American) 91.6 ml/min; Est GFR (Non-African American) 79.1 ml/min; Globulin 2.3 gm/dl (2.5-4.0); Magnesium 1.8 mg/dl (1.7-2.4); Phosphorus 2.6 mg/dl (2.5-4.9); Potassium 3.7 mmol/L (3.5-5.1); Total Protein 5.2 gm/dl (6.0-8.3)
[2022-03-22] MEDS: APIXABAN 5 MG TABLET PO SCH ×2 (08:49→20:32)
[2022-03-22] MEDS: LIDOCAINE 5% 1 PATCH TD SCH (08:50)
[2022-03-22] MEDS: DOCUSATE SODIUM/SENNA 50/8.6MG TAB PO SCH ×2 (08:50→23:18)
[2022-03-22] MEDS: TOPIRAMATE 100 MG TAB PO SCH ×2 (08:50→20:31)
--- NOTE | 2022-03-22 08:53 | XRay Report ---
KUB HISTORY: eval bowel distention s/p rectal tube COMPARISON: KUB 03/21/2022. FINDINGS: A rectal/colonic tube is again noted with the tip terminating in expected location of the m id transverse colon. There is a nasogastric tube within the stomach. There is persistent distention o f the proximal colon/cecum measuring up to 13 cm in diameter. A few mildly dilated gas-filled loops o f small bowel are also unchanged. No renal calculi. No ureteral calculi. No pneumoperitoneum or pneu matosis. IMPRESSION: 1. A rectal/colonic tube is unchanged in position. 2. Persistent distention of the proximal colon/cecum. 3. A few mildly dilated gas-filled loops of small bowel are also unchanged. 4. Nasogastric tube appears in good position. ACT 112: Negative or not required by law. Electronically signed by: Dexter Mancia M.D. 03/22/2022 8:52 AM
[2022-03-22] MEDS: PHENobarbitaL 30 MG TAB PO SCH ×2 (08:54→20:30)
--- NOTE | 2022-03-22 11:53 | Gastroenterology Progress Note ---
Date of Service March 22, 2022 Assessment & Plan (1) Pseudoobstruction of colon: (2) Dilatation of colon: Plan 86 y/o male with multiple co-morbidities, admitted after a fall at home, has L3 compression fracture, and had progressive large and small bowel dilation on imaging, s/p colonoscopy for decompression yesterday as above. Pt doing much better since placement of rectal/NG tubes. He has been seen by general surgery. KUB today showing persistent distention of proximal colon/cecum. Clinically abd much less distended, soft, nontender. - Would continue to keep NG and rectal tubes in place - Colyte 100 mL every 2-4 hours to maintain tube patency - Would keep NPO for now - Daily KUB - Empiric coverage with broad-spectrum antibiotics recommended - Will order dose of Relistor to help with bowel motility - IVF - Aim to keep potassium and magnesium in range for bowel motility - Would avoid narcotics Thank you for allowing us to participate in the care of this patient. Please call with any acute changes, questions or concerns. Please see addendum below with additional recommendation from my supervising physician. Admission and Anticipated Discharge Date Admission Date: March 14, 2022 Supervising Physician Co-Signing Physician Notes I saw and evaluated the patient this morning. Of note he feels that his abdominal distention is improving significantly and he is now having some spontaneous bowel movements and passage of gas. His abdominal x-ray does show persistent dilation of the cecum up to 12 cm in the right colon. Recommendations Continue with NG tube suction Rectal tube to remain in place for continued decompression Would suggest giving a dose of Relistor today Avoid narcotic use Continue with empiric antibiotic coverage Appreciate surgical insight in case urgent surgery is needed for this patient Subjective Patient seen and examined, chart reviewed. No acute events overnight. Pt having drainge from NG tube and rectal tube. Wants NG tube out and wants to eat . Denies abd pain, nausea, vomiting, melena, hematochezia, fever, chills, CP, SOB. Review of Systems Review of Systems: All systems reviewed & are unremarkable except as noted in HPI & below Physical Exam Constitutional: well developed, well nourished and comfortable; no acute distress ENMT: external ear and nose normal, oropharynx normal NG in place w/ half the cannister full of light brown liquid from last night Neck: trachea midline Respiratory: normal respiratory effort, lungs clear to auscultation Gastrointestinal (Abdomen): abd soft, nontender, normal bowel sounds, much less distended than yesterday Rectal tube in place with 350 mL dark brown liquid from overnight Skin: no rashes, warm and dry Psychiatric: A+Ox3, euthymic affect Results & Data ([facility]) Vital Signs (Past 12 Hours) Vital Signs Temp Pulse Pulse Resp BP BP Pulse Ox 03/22/22 07:10 77 03/22/22 11:05 36.2 C L 75 18 122/68 98 03/22/22 10:33 03/22/22 07:38 36.4 C L 75 18 114/66 96 03/22/22 03:28 36.5 C 80 18 107/64 97 O2 Del Method O2 Flow Rate 03/22/22 07:10 03/22/22 11:05 Nasal Cannula 3 03/22/22 10:33 Nasal Cannula 3 03/22/22 07:38 Nasal Cannula 3 03/22/22 03:28 Nasal Cannula 3 Diagnostic Findings Colonoscopy 03/21/22: Findings: The perianal and digital rectal examinations were normal. Pertinent negatives include normal sphincter tone. Discontinuous areas of nonbleeding ulcerated mucosa with no stigmata of recent bleeding were present at the hepatic flexure. The lumen of the descending colon and transverse colon was significantly dilated. A colonic decompression tube was placed under direct visualization using a Raptor grasper to the region of the hepatic flexure.. Impression: - Preparation of the colon was fair. - Mucosal ulceration consistent with ischemia near the hepatic flexure. - Dilated in the descending colon and in the transverse colon. - Decompression tube placed to the hepatic flexure under direct visualization with an endoscope. Recommendation: - The patient will be observed post-procedure, until all discharge criteria are met. - NPO. - Colyte 100 mL every 2-4 hours to maintain tube patency. - Would recommend stopping narcotic use - Daily KUB - Empiric coverage with broad-spectrum antibiotics recommended - Suggest general surgery consultation KUB 03/22/22: FINDINGS: A rectal/colonic tube is again noted with the tip terminating in expected location of the mid transverse colon. There is a nasogastric tube within the stomach. There is persistent distention of the proximal colon/cecum measuring up to 13 cm in diameter. A few mildly dilated gas-filled loops of small bowel are also unchanged. No renal calculi. No ureteral calculi. No pneumoperitoneum or pneumatosis. IMPRESSION: 1. A rectal/colonic tube is unchanged in position. 2. Persistent distention of the proximal colon/cecum. 3. A few mildly dilated gas-filled loops of small bowel are also unchanged. 4. Nasogastric tube appears in good position.
[2022-03-22] MEDS ORDERED: METHYLNALTREXONE BROMIDE 12 MG/0.6 ML VIAL SQ ONE (12:45)
--- NOTE | 2022-03-22 14:04 | Hospitalist Progress Note ---
Date of Service March 22, 2022 Assessment & Plan (1) Dilatation of colon: Plan: Colonic pseudoobstruction with ischemia and mucosal ulceration-aggravated by use of narcotics Status post colonoscopy and rectal tube placement Status post NG tube placement for decompression Stool was checked for C. difficile colitis and the patient is placed on intravenous Zosyn Appreciate GI and surgery input and recommendation Discussed with the family members Clinically little bit better there is little or no improvement of obstruction as of yet We will continue n.p.o., suction rectal tube drainage as planned Repeat electrolytes and repeat KUB in the morning Narcotics have been discontinued and he is getting Relistor as per GI (2) Weakness: (3) Fall: (4) Seizure disorder: (5) Sleep apnea: Plan 86 y/o with h/o seizures presents s/p fall and suspected seizure. 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 Pain control, ortho and neuro consult with PT/OT. Fall Likely secondary to ambulatory dysfunction and seizure is unlikely the cause of fall Status post breakthrough seizure was considered on admission Appreciate neurology input and recommendation We will continue current doses of seizure medication Phenobarb level is therapeutic at 15.9 and topiramate level is pending No more seizure since admission PT recommended rehab but the family members are refusing to send him to rehab Discussed with the patient he wants to go to rehab for short-term We will discussed with the family members prior to discharge Has had PT today and the recommendation persist Has been waiting to go to rehab. Denies any pain but has abdominal discomfort due to ongoing constipation He has been is stable to be transferred except that he has not had a bowel movement for a while Remained stable except abdominal distention and inadequate bowel movement Status post fall last evening-03/14/2022 No significant injury no loss of consciousness and no seizures CT scan of the head and CT of the abdomen and pelvis remain unremarkable Denies any complaints as of today No acute symptoms Constipation Has had laxatives without any effect Will give Fleet enema We will start more mobilization Current laxatives have not been working Will give her lactulose enema today and start with regular lactulose orally KUB showed ileus but no definite obstruction Will try Relistor and oral lactulose If no improvement will get GI involved for possible rectal tube His bowel sounds are much improved today and has had results with enema and he feels better following small bowel movement Will try another enema this afternoon Small amount of bowel movement yesterday but is still very distended We will get a CT of the abdomen without contrast to rule out an obstruction As above L 3 Acute Compression fracture: L rib #[address] and negative C-spine CT of the abdomen and pelvis showed L3 acute compression fraction as above -Chest CT: 11th rib left chest wall non-displaced fracture, no PNX Appreciate orthospine evaluation and recommendation Back pain is stable-.. 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 -Takes Topamax and Phenobarbital with compliance -Topamax and Phenobarb levels pending -Appreciate neurology input and recommendation -No more seizures -We will continue giving medications orally L upper leg pain Ortho consulted Femur XR: no fracture possible trochanteric bursitis, steroid injection planned Appreciate Ortho input and recommendation for left greater trochanteric bursa injection Status post steroid injection to the greater trochanteric bursa on the left side Symptomatically better Get PT and OT evaluation-recommended rehab 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 BPH: -Takes Tamsulosin; continue Disposition: PCP: Marbin Lira PA-C Code Status: Full Code VTE Prophylaxis: Eloquis Disposition pending lives at home with son PT/OT recommended rehab and the patient is willing to go to rehab but the family members are resisting Awaiting placement Admission and Anticipated Discharge Date Admission Date: March 14, 2022 Subjective 03/15/2022 The patient was seen and examined in medical telemetry unit He has been feeling a lot better today but has not moved his bowels for the last few days His back pain seems to be stable at rest Denies any problem with urine Denies any other symptoms 03/16/2022 The patient was seen and examined in medical telemetry floor He has been feeling better but he still has abdominal distention and bowel is not cleared His back pain and the pain in the left hip are reasonable Did not had any physical therapy yet 03/17/2022 The patient was seen and examined in medical telemetry floor He has had physical therapy and recommended rehab The family members did does not want to send him to rehab Discussed with the patient he feels that he should go to rehab Has not had any bowel movement for the last 2 or 3 days as per the nurse 03/18/2022 The patient was seen and examined in medical telemetry unit Apparently he has not had any bowel movement for the last few days Slight distention of the abdomen with some discomfort but no definite pain No nausea and/or vomiting His pain seems to be controlled 03/19/2022 The patient was seen and examined in medical telemetry unit He has not had any bowel movement for the last few days Abdomen is distended but without any pain and/or significant discomfort and no nausea or vomiting KUB showed possible ileus but no obstruction Denies any other significant symptoms except weakness 03/20/2022 The patient was seen and examined in medical telemetry unit He has had a bowel movement last evening but is still the abdomen remains very distended He denies any pain but does have discomfort and no nausea or vomiting He will have a CT scan of the abdomen pelvis to rule out an obstruction or any other pathology 03/21/2022 The patient was seen and examined in medical telemetry unit He is a status post colonoscopy and rectal tube placement following colonic pseudoobstruction and dilatation Remains n.p.o. with NG tube in place Complaints of discomfort secondary to NGT but denies any other significant symptoms 03/22/2022 The patient was seen and examined in medical telemetry unit He has been feeling better following colonoscopy and NG tube placement Abdomen is less distended Discomfort due to NG tube Review of Systems Review of Systems: All systems reviewed and are unremarkable except as noted below Gastrointestinal: Abdominal distention and discomfort Physical Exam Physical Exam: Lying in bed with discomfort secondary to abdominal discomfort and distention Constitutional: well developed, well nourished and + obese; not ill appearing Eyes: PERRL, conjunctivae normal, anicteric sclerae ENMT: external ear and nose normal, oropharynx normal Neck: trachea midline, no thyromegaly Respiratory: no respiratory distress Auscultation: lungs clear to auscultation bilaterally Cardiovascular: Rate/Rhythm: regular rate and regular rhythm; not tachycardic Heart Sounds: normal S1 and normal S2; no murmur Extremities: no edema Gastrointestinal (Abdomen): Inspection/Auscultation: + abdomen distended (Distended but soft) and normal bowel sounds (Decreased) Percussion/Palpation: + abdomen tender (Minimally tender all over) and abdomen soft Musculoskeletal: No acute arthritis involving any joint Neurologic: normal touch/pain/proprioception and moves all extremities; no focal motor deficits Psychiatric: A+Ox3, euthymic affect Lymphatic: no cervical or axillary lymphadenopathy Results & Data Results & Data ([facility]) Vital Signs (Past 12 Hours) Vital Signs Temp Pulse Pulse Resp BP BP Pulse Ox 03/22/22 07:10 77 03/22/22 11:05 36.2 C L 75 18 122/68 98 03/22/22 10:33 03/22/22 07:38 36.4 C L 75 18 114/66 96 03/22/22 03:28 36.5 C 80 18 107/64 97 O2 Del Method O2 Flow Rate 03/22/22 07:10 03/22/22 11:05 Nasal Cannula 3 03/22/22 10:33 Nasal Cannula 3 03/22/22 07:38 Nasal Cannula 3 03/22/22 03:28 Nasal Cannula 3 Laboratory Results Short CBC 03/22/22 Range/Units 07:52 WBC 7.13 (4.8-10.8) K/ul Hgb 12.5 L (14.0-18.0) g/dl Hct 37.3 L (42.0-52.0) % Plt Count 249 (130-400) K/uL BMP 03/22/22 07:52 Sodium 140 Potassium 3.7 Chloride 110 H Carbon Dioxide 25 BUN 12 Creatinine 0.86 Glucose 81 Calcium 8.5 Liver Function 03/22/22 Range/Units 07:52 Total Bilirubin 0.4 (0.2-1.0) mg/dl AST 14 (13-39) U/L ALT 11 (7-52) U/L Alkaline Phosphatase 74 (34-104) U/L Albumin 2.9 L (3.4-5.0) gm/dl Medications Administered Current Inpatient Medications Acetaminophen (Acetaminophen 325 Mg Tab) 650 mg PO Q8 [facility] Stop: 04/13/22 00:00 Last Admin: 03/22/22 13:59 Dose: Not Given Apixaban (Apixaban 5 Mg Tablet) 5 mg PO BID [facility] Stop: 04/12/22 20:59 Last Admin: 03/22/22 08:49 Dose: 5 mg Finasteride (Finasteride 5 Mg Tab) 5 mg PO QPM [facility]ON Stop: 04/12/22 20:59 Last Admin: 03/21/22 20:57 Dose: Not Given Potassium Chloride/Sodium Chloride (Normal Saline W/20 Meq Kcl) 20 meq in 1,000 mls @ 100 mls/hr IV .Q10H [facility]; Protocol Stop: 04/20/22 10:59 Last Admin: 03/22/22 08:48 Dose: 100 mls/hr Piperacillin Sod/Tazobactam (Sod 4.5 gm/ Dextrose) 120 mls @ 30 mls/hr IV Q8H [facility]; Protocol Stop: 03/23/22 15:59 Last Infusion: 03/22/22 13:58 Dose: Infused Lidocaine (Lidocaine 5% 1 Patch) 1 patch TD QAM [facility] Stop: 04/12/22 15:29 Last Admin: 03/22/22 08:50 Dose: Not Given Miscellaneous (Remove Lidoderm Patch) 1 each N/A DAILY@2100 [facility] Stop: 04/12/22 20:59 Last Admin: 03/21/22 20:58 Dose: 1 each Oxycodone HCl (Oxycodone Hcl Ir 5 Mg Tab (Immediate Release)) 5 mg PO Q4H PRN PRN Reason: Pain Stop: 03/28/22 03:40 Last Admin: 03/21/22 22:41 Dose: 5 mg Phenobarbital (Phenobarbital 30 Mg Tab) 60 mg PO BID [facility] Stop: 04/12/22 20:59 Last Admin: 03/22/22 08:54 Dose: 60 mg Polyethylene Glycol (Polyethylene (Miralax) 17 Gm Pack) 17 gm PO DAILY PRN PRN Reason: Constipation Stop: 04/13/22 20:08 Last Admin: 03/19/22 08:38 Dose: 17 gm Polyethylene Glycol/Electrolytes (Lavage Solution 4000ml) 0.4 dose [place] Q2H [facility] Stop: 04/20/22 12:14 Last Admin: 03/22/22 14:00 Dose: 0.4 dose Ropinirole HCl (Ropinirole Hcl 0.25 Mg Tablet) 0.25 mg PO QPM [facility] Stop: 04/12/22 20:59 Last Admin: 03/21/22 20:55 Dose: 0.25 mg Senna/Docusate Sodium (Docusate Sodium/Senna 50/8.6mg Tab) 1 tab PO BID [facility] Stop: 04/14/22 05:19 Last Admin: 03/22/22 08:50 Dose: 1 tab Tamsulosin HCl (Tamsulosin Hcl 0.4 Mg Cap) 0.4 mg PO QPM [facility] Stop: 04/12/22 20:59 Last Admin: 03/21/22 20:57 Dose: Not Given Topiramate (Topiramate 100 Mg Tab) 200 mg PO BID [facility] Stop: 04/12/22 20:59 Last Admin: 03/22/22 08:50 Dose: 200 mg
[2022-03-22] MEDS ORDERED: Nursing to Pharmacy Communication SCH (16:15)
[2022-03-22] MEDS: FINASTERIDE 5 MG TAB PO SCH (20:34)
[2022-03-22] MEDS: TAMSULOSIN HCL 0.4 MG CAP PO SCH (20:34)
[2022-03-22] MEDS: rOPINIRole HCL 0.25 MG TABLET PO SCH (23:18)
[2022-03-23] MEDS: LAVAGE SOLUTION 4000ML PR SCH ×12 (00:24→22:10)
[2022-03-23] MEDS: PIPERACILLIN/TAZOBACTAM 4.5 GM in DEXTROSE 5% 100 ML IV SCH ×3 (03:24→18:07)
[2022-03-23] MEDS: NSS + 20MEQ KCL 20 MEQ/1,000 ML BAG IV SCH ×2 (04:25→14:58)
[2022-03-23] MEDS ORDERED: ACETAMINOPHEN 325 MG TAB PO STA (04:38)
--- NOTE | 2022-03-23 07:21 | CT Scan Report ---
CT femur LT wo con CLINICAL HISTORY: Left lateral leg pain following injury. COMPARISON STUDY: Left femur radiographs March 14, 2022. TECHNIQUE: Axial images of the left femur and thigh were obtained without IV contrast. Sagittal and c oronal reconstructions were viewed. Automated exposure control was utilized for the study. A dose lo wering technique was utilized adhering to the principles of ALARA. FINDINGS: A rectal tube is partially imaged. There is no acute fracture within the left femur. No oss eous lesions are noted. Fatty atrophy versus a lipoma within the left rectus femoris is noted. There is no left thigh hematoma. There is no soft tissue gas. There is mild subcutaneous fluid of the left thigh. Alignment of the left knee and left hip is in stomach. There is no evidence for avascular necr osis of the left femoral head. No significant muscular abnormality of the left thigh is noted. There is no fascial fluid. IMPRESSION: 1. No acute fracture within the left femur. No left thigh hematoma. 2. Mild subcutaneous edema of the left thigh. ACT 112: Negative or not required by law. Electronically signed by: Michel Nash M.D. 03/23/2022 7:20 AM
[2022-03-23 07:55] LABS: BUN Creatinine Ratio 12.5 (10-20); Calcium 7.7 mg/dl (8.5-10.1); Creatinine Clr Calc Pharmacy 93.5 ml/min; Est GFR (African American) 103.5 ml/min; Est GFR (Non-African American) 89.3 ml/min; Magnesium 1.7 mg/dl (1.7-2.4); Potassium 3.9 mmol/L (3.5-5.1)
--- NOTE | 2022-03-23 08:01 | Surgery Progress Note ---
Date of Service March 23, 2022 Assessment & Plan (1) Pseudoobstruction of colon: Plan: Patient is very immobile Clinically he is not showing any deterioration He does not have any worsening abdominal symptoms to indicate need for surgery Surgical intervention would be major including possible bowel resection and likely ileostomy Ileostomy is not always well tolerated in an elderly person and even can be associated with mortality Appreciate medical and GI input and continued nonoperative management Admission and Anticipated Discharge Date Admission Date: March 14, 2022 Subjective Patient having no abdominal pain and requiring no narcotics Vital signs are stable and he is afebrile NG output is minimal and normal gastric contents Having some bowel movements around the transrectal/colonic tube Review of Systems Review of Systems: All systems reviewed & are unremarkable except as noted in HPI & below Physical Exam Physical Exam: Patient awake and alert in the his bed in no distress, affect seems very normal His abdomen does show distention but is relatively soft and there is no evidence of any peritoneal irritation Or significant tenderness to palpation He does have some bowel sounds Rectal tube is in place as well as NG tube Results & Data ([facility]) Vital Signs (Past 12 Hours) Vital Signs Temp Pulse Resp BP Pulse Ox O2 Del Method O2 Flow Rate 03/23/22 07:36 36.5 C 65 20 111/64 97 Nasal Cannula 2 03/23/22 06:41 36.6 C 71 20 107/67 97 Room Air 03/22/22 22:40 36.6 C 78 18 131/75 98 Nasal Cannula 2 PG Care Time/CCT Total # of Minutes Spent Total Time Spent with Patient: Total time spent is greater than 50% in coordination of care (as documented) at patient's floor/unit and/or counseling patient: Coding Level of Care Code 63259 SUB INP/OBS CARE Diagnoses Pseudoobstruction of colon K59.81
[2022-03-23] MEDS: APIXABAN 5 MG TABLET PO SCH ×2 (08:08→21:09)
[2022-03-23] MEDS: TOPIRAMATE 100 MG TAB PO SCH ×2 (08:08→21:08)
[2022-03-23] MEDS: LIDOCAINE 5% 1 PATCH TD SCH ×2 (08:09→08:10)
[2022-03-23] MEDS: DOCUSATE SODIUM/SENNA 50/8.6MG TAB PO SCH ×2 (08:09→20:58)
[2022-03-23] MEDS: PHENobarbitaL 30 MG TAB PO SCH ×2 (08:14→21:07)
--- NOTE | 2022-03-23 09:47 | XRay Report ---
KUB CLINICAL HISTORY: SBO COMPARISON STUDY: CT of the abdomen and pelvis favor 2022 and KUB March 22, 2022. FINDINGS: Nasogastric tube is within the body of the stomach. There has been slight distal migration of a rectal tube. The tube tip now projects over the splenic flexure. Right colon distention is simil ar to prior exam. Right colon measures up to 13.7 cm in caliber. Although sensitivity is diminished o n this supine exam, there is no evidence for free air. There is no radiographic evidence for pneumato sis or portal venous gas. IMPRESSION: 1. Rectal tube in place. Minimal distal migration. Tip projects over the splenic flexure. 2. No change in significant right colon dilatation. 3. Appropriately positioned nasogastric tube. ACT 112: Negative or not required by law. Electronically signed by: Michel Nash M.D. 03/23/2022 9:46 AM
--- NOTE | 2022-03-23 12:56 | Gastroenterology Progress Note ---
Date of Service March 23, 2022 Assessment & Plan (1) Pseudoobstruction of colon: (2) Dilatation of colon: Plan 86 y/o male with multiple co-morbidities, admitted after a fall at home, has L3 compression fracture, and had progressive large and small bowel dilation on imaging, s/p colonoscopy for decompression. Pt clinically doing much better since placement of rectal/NG tubes. KUB showing no significant change in significant distention of proximal colon/cecum. Clinically soft, nontender. NGT output has been minimal; pt having several loose Bms around the rectal tube. - Would continue to keep NG and rectal tubes in place for today for continued decompression - Daily KUB - Pt got dose of Relistor yesterday; can repeat dose tomorrow - Colyte 100 mL every 2-4 hours to maintain tube patency - Would keep NPO - Empiric coverage with broad-spectrum antibiotics recommended - Appreciate surgery service seeing him in case he would need urgent surgery. - IVF - Aim to keep potassium and magnesium in range for bowel motility - Would avoid narcotics Thank you for allowing us to participate in the care of this patient. Please call with any acute changes, questions or concerns. Please see addendum below with additional recommendation from my supervising physician. Admission and Anticipated Discharge Date Admission Date: March 14, 2022 Supervising Physician Co-Signing Physician Notes I saw and evaluated the patient on 03/23, the patient does seem to be slowly improving from his narcotic induced ileus. Would recommend continued NG tube suction and daily KUBs for the present time. Please avoid use of narcotics. Would recommend an additional dose of Relistor on Sunday. Subjective Patient seen and examined, chart reviewed. Clinically feels well, asking to have tubes removed. No nausea vomiting. NGT output has been minimal; pt having several loose Bms around the rectal tube. No melena hematochezia, abdominal pain, hematemesis, fevers or chills Review of Systems Review of Systems: All systems reviewed & are unremarkable except as noted in HPI & below Physical Exam Constitutional: well developed, well nourished and comfortable; no acute distress ENMT: NGT in place Respiratory: normal respiratory effort, lungs clear to auscultation Gastrointestinal (Abdomen): abd soft, nontender, minimally distended, BS x 4 quads Skin: no rashes, warm and dry Psychiatric: A+Ox3, euthymic affect Results & Data ([facility]) Vital Signs (Past 12 Hours) Vital Signs Temp Pulse Pulse Resp BP Pulse Ox O2 Del Method 03/23/22 11:53 36.3 C L 73 16 117/62 97 Nasal Cannula 03/23/22 10:13 Nasal Cannula 03/23/22 08:00 74 03/23/22 07:36 36.5 C 65 20 111/64 97 Nasal Cannula 03/23/22 06:41 36.6 C 71 20 107/67 97 Room Air O2 Flow Rate 03/23/22 11:53 2 03/23/22 10:13 2 03/23/22 08:00 03/23/22 07:36 2 03/23/22 06:41 Laboratory Results 03/23/22 Range/Units 07:08 Sodium 142 (136-145) mmol/L Potassium 3.9 (3.5-5.1) mmol/L Chloride 112 H (98-107) mmol/L Carbon Dioxide 20 L (21-32) mmol/L Anion Gap 10 (3-11) BUN 8 (6-23) mg/dl Creatinine 0.64 (0.6-1.4) mg/dl Est Cr Clr Drug Dosing 93.5 ml/min Est GFR ( Amer) 103.5 ml/min Est GFR (Non-Af Amer) 89.3 ml/min BUN/Creatinine Ratio 12.5 (10-20) Glucose 65 L (70-99(Fasting)) mg/dl Calcium 7.7 L (8.5-10.1) mg/dl Magnesium 1.7 (1.7-2.4) mg/dl Diagnostic Findings KUB 03/23/22: FINDINGS: Nasogastric tube is within the body of the stomach. There has been slight distal migration of a rectal tube. The tube tip now projects over the splenic flexure. Right colon distention is similar to prior exam. Right colon measures up to 13.7 cm in caliber. Although sensitivity is diminished on this supine exam, there is no evidence for free air. There is no radiographic eviden ce for pneumatosis or portal venous gas. IMPRESSION: 1. Rectal tube in place. Minimal distal migration. Tip projects over the splenic flexure. 2. No change in significant right colon dilatation. 3. Appropriately positioned nasogastric tube.
--- NOTE | 2022-03-23 13:06 | Hospitalist Progress Note ---
Date of Service March 23, 2022 Assessment & Plan (1) Dilatation of colon: Plan: Colonic pseudoobstruction with ischemia and mucosal ulceration-aggravated by use of narcotics Status post colonoscopy and rectal tube placement Status post NG tube placement for decompression Stool was checked for C. difficile colitis and the patient is placed on intravenous Zosyn Appreciate GI and surgery input and recommendation Discussed with the family members Clinically little bit better there is little or no improvement of obstruction as of yet We will continue n.p.o., suction rectal tube drainage as planned Repeat electrolytes and repeat KUB in the morning Narcotics have been discontinued and he is getting Relistor as per GI Clinically not any better or worse-still having watery diarrhea. KUB remains dilated We will continue conservative management and will need to start PPN or TPN for nutritional support (2) Weakness: (3) Fall: (4) Seizure disorder: (5) Sleep apnea: Plan 86 y/o with h/o seizures presents s/p fall and suspected seizure. 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 Pain control, ortho and neuro consult with PT/OT. Fall Likely secondary to ambulatory dysfunction and seizure is unlikely the cause of fall Status post breakthrough seizure was considered on admission Appreciate neurology input and recommendation We will continue current doses of seizure medication Phenobarb level is therapeutic at 15.9 and topiramate level is pending No more seizure since admission PT recommended rehab but the family members are refusing to send him to rehab Discussed with the patient he wants to go to rehab for short-term We will discussed with the family members prior to discharge Has had PT today and the recommendation persist Has been waiting to go to rehab. Denies any pain but has abdominal discomfort due to ongoing constipation He has been is stable to be transferred except that he has not had a bowel movement for a while Remained stable except abdominal distention and inadequate bowel movement Awaiting placement Status post fall last evening-03/14/2022 No significant injury no loss of consciousness and no seizures CT scan of the head and CT of the abdomen and pelvis remain unremarkable Denies any complaints as of today No acute symptoms Constipation Has had laxatives without any effect Will give Fleet enema We will start more mobilization Current laxatives have not been working Will give her lactulose enema today and start with regular lactulose orally KUB showed ileus but no definite obstruction Will try Relistor and oral lactulose If no improvement will get GI involved for possible rectal tube His bowel sounds are much improved today and has had results with enema and he feels better following small bowel movement Will try another enema this afternoon Small amount of bowel movement yesterday but is still very distended We will get a CT of the abdomen without contrast to rule out an obstruction As above L 3 Acute Compression fracture: L rib #[address] and negative C-spine CT of the abdomen and pelvis showed L3 acute compression fraction as above -Chest CT: 11th rib left chest wall non-displaced fracture, no PNX Appreciate orthospine evaluation and recommendation Back pain is stable-.. 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 -Takes Topamax and Phenobarbital with compliance -Topamax and Phenobarb levels pending -Appreciate neurology input and recommendation -No more seizures -We will continue giving medications orally L upper leg pain Ortho consulted Femur XR: no fracture possible trochanteric bursitis, steroid injection planned Appreciate Ortho input and recommendation for left greater trochanteric bursa injection Status post steroid injection to the greater trochanteric bursa on the left side Symptomatically better Get PT and OT evaluation-recommended rehab-awaiting placement 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 BPH: -Takes Tamsulosin; continue Disposition: PCP: Marbin Lira PA-C Code Status: Full Code VTE Prophylaxis: Eloquis Disposition pending lives at home with son PT/OT recommended rehab and the patient is willing to go to rehab but the family members are resisting Awaiting placement Admission and Anticipated Discharge Date Admission Date: March 14, 2022 Subjective 03/15/2022 The patient was seen and examined in medical telemetry unit He has been feeling a lot better today but has not moved his bowels for the last few days His back pain seems to be stable at rest Denies any problem with urine Denies any other symptoms 03/16/2022 The patient was seen and examined in medical telemetry floor He has been feeling better but he still has abdominal distention and bowel is not cleared His back pain and the pain in the left hip are reasonable Did not had any physical therapy yet 03/17/2022 The patient was seen and examined in medical telemetry floor He has had physical therapy and recommended rehab The family members did does not want to send him to rehab Discussed with the patient he feels that he should go to rehab Has not had any bowel movement for the last 2 or 3 days as per the nurse 03/18/2022 The patient was seen and examined in medical telemetry unit Apparently he has not had any bowel movement for the last few days Slight distention of the abdomen with some discomfort but no definite pain No nausea and/or vomiting His pain seems to be controlled 03/19/2022 The patient was seen and examined in medical telemetry unit He has not had any bowel movement for the last few days Abdomen is distended but without any pain and/or significant discomfort and no nausea or vomiting KUB showed possible ileus but no obstruction Denies any other significant symptoms except weakness 03/20/2022 The patient was seen and examined in medical telemetry unit He has had a bowel movement last evening but is still the abdomen remains very distended He denies any pain but does have discomfort and no nausea or vomiting He will have a CT scan of the abdomen pelvis to rule out an obstruction or any other pathology 03/21/2022 The patient was seen and examined in medical telemetry unit He is a status post colonoscopy and rectal tube placement following colonic pseudoobstruction and dilatation Remains n.p.o. with NG tube in place Complaints of discomfort secondary to NGT but denies any other significant symptoms 03/22/2022 The patient was seen and examined in medical telemetry unit He has been feeling better following colonoscopy and NG tube placement Abdomen is less distended Discomfort due to NG tube 03/23/2022 The patient was seen and examined in medical telemetry unit He has been feeling better but is still the abdomen remains distended Having loose stool and green drainage from the NG tube Denies any fever and or chills Review of Systems Review of Systems: All systems reviewed and are unremarkable except as noted below Physical Exam Physical Exam: Lying in bed with discomfort secondary to abdominal discomfort and distention Constitutional: well developed, well nourished and + obese; not ill appearing Eyes: PERRL, conjunctivae normal, anicteric sclerae ENMT: external ear and nose normal, oropharynx normal Neck: trachea midline, no thyromegaly Respiratory: no respiratory distress Auscultation: lungs clear to aus cultation bilaterally Cardiovascular: Rate/Rhythm: regular rate and regular rhythm; not tachycardic Heart Sounds: normal S1 and normal S2; no murmur Extremities: no edema Gastrointestinal (Abdomen): Inspection/Auscultation: + abdomen distended (Distended but soft) and normal bowel sounds (Decreased) Percussion/Palpation: + abdomen tender (Minimally tender all over) and abdomen soft Neurologic: normal touch/pain/proprioception and moves all extremities; no focal motor deficits Psychiatric: A+Ox3, euthymic affect Lymphatic: no cervical or axillary lymphadenopathy Results & Data Results & Data ([facility]) Vital Signs (Past 12 Hours) Vital Signs Temp Pulse Pulse Resp BP Pulse Ox O2 Del Method 03/23/22 11:53 36.3 C L 73 16 117/62 97 Nasal Cannula 03/23/22 10:13 Nasal Cannula 03/23/22 08:00 74 03/23/22 07:36 36.5 C 65 20 111/64 97 Nasal Cannula 03/23/22 06:41 36.6 C 71 20 107/67 97 Room Air O2 Flow Rate 03/23/22 11:53 2 03/23/22 10:13 2 03/23/22 08:00 03/23/22 07:36 2 03/23/22 06:41 Laboratory Results [facility] 03/23/22 07:08 Sodium 142 Potassium 3.9 Chloride 112 H Carbon Dioxide 20 L BUN 8 Creatinine 0.64 Glucose 65 L Calcium 7.7 L Medications Administered Current Inpatient Medications Acetaminophen (Acetaminophen 325 Mg Tab) 650 mg PO Q8 [facility] Stop: 04/22/22 13:59 Apixaban (Apixaban 5 Mg Tablet) 5 mg PO BID [facility] Stop: 04/12/22 20:59 Last Admin: 03/23/22 08:08 Dose: 5 mg Finasteride (Finasteride 5 Mg Tab) 5 mg PO QPM [facility] Stop: 04/12/22 20:59 Last Admin: 03/22/22 20:34 Dose: Not Given Potassium Chloride/Sodium Chloride (Normal Saline W/20 Meq Kcl) 20 meq in 1,000 mls @ 100 mls/hr IV .Q10H [facility]; Protocol Stop: 04/20/22 10:59 Last Admin: 03/23/22 04:25 Dose: 100 mls/hr Piperacillin Sod/Tazobactam (Sod 4.5 gm/ Dextrose) 120 mls @ 30 mls/hr IV Q8H [facility]; Protocol Stop: 03/23/22 15:59 Last Admin: 03/23/22 09:55 Dose: 28.8 mls/hr Lidocaine (Lidocaine 5% 1 Patch) 1 patch TD QAM [facility] Stop: 04/12/22 15:29 Last Admin: 03/23/22 08:10 Dose: Not Given Miscellaneous (Remove Lidoderm Patch) 1 each N/A DAILY@2100 [facility] Stop: 04/12/22 20:59 Last Admin: 03/22/22 20:30 Dose: 1 each Oxycodone HCl (Oxycodone Hcl Ir 5 Mg Tab (Immediate Release)) 5 mg PO Q4H PRN PRN Reason: Pain Stop: 03/28/22 03:40 Last Admin: 03/21/22 22:41 Dose: 5 mg Phenobarbital (Phenobarbital 30 Mg Tab) 60 mg PO BID [facility] Stop: 04/12/22 20:59 Last Admin: 03/23/22 08:14 Dose: 60 mg Polyethylene Glycol (Polyethylene (Miralax) 17 Gm Pack) 17 gm PO DAILY PRN PRN Reason: Constipation Stop: 04/13/22 20:08 Last Admin: 03/19/22 08:38 Dose: 17 gm Polyethylene Glycol/Electrolytes (Lavage Solution 4000ml) 0.[address] Q2H [facility] Stop: 04/20/22 12:14 Last Admin: 03/23/22 12:29 Dose: 0.4 dose Ropinirole HCl (Ropinirole Hcl 0.25 Mg Tablet) 0.25 mg PO QPM [facility] Stop: 04/12/22 20:59 Last Admin: 03/22/22 23:18 Dose: Not Given Senna/Docusate Sodium (Docusate Sodium/Senna 50/8.6mg Tab) 1 tab PO BID [facility] Stop: 04/14/22 05:19 Last Admin: 03/23/22 08:09 Dose: Not Given Tamsulosin HCl (Tamsulosin Hcl 0.4 Mg Cap) 0.4 mg PO QPM [facility] Stop: 04/12/22 20:59 Last Admin: 03/22/22 20:34 Dose: Not Given Topiramate (Topiramate 100 Mg Tab) 200 mg PO BID [facility] Stop: 04/12/22 20:59 Last Admin: 03/23/22 08:08 Dose: 200 mg
[2022-03-23] MEDS: ACETAMINOPHEN 325 MG TAB PO SCH ×2 (13:35→21:07)
[2022-03-23] MEDS ORDERED: DEXTROSE 10% 1,000 ML IV PRN (14:10)
[2022-03-23] MEDS ORDERED: TPN/PPN CONSULT PHARMACY STA (14:10)
[2022-03-23] MEDS ORDERED: TPN/PPN CONSULT PHARMACY PRN (14:13)
[2022-03-23] MEDS ORDERED: PERIPHERAL TPN IV SCH (16:00)
[2022-03-23] MEDS ORDERED: AMINO ACIDS 4.25% IV SCH (16:00)
[2022-03-23] MEDS ORDERED: D5W IV SCH (16:00)
[2022-03-23] MEDS ORDERED: CLINOLIPID 20% IV FAT EMULSION 250 ML IV SCH (16:00)
[2022-03-23] MEDS: rOPINIRole HCL 0.25 MG TABLET PO SCH (21:08)
[2022-03-23] MEDS: TAMSULOSIN HCL 0.4 MG CAP PO SCH (21:09)
[2022-03-23] MEDS: FINASTERIDE 5 MG TAB PO SCH (21:09)
[2022-03-23] MEDS ORDERED: STOP CLINOLIPID SCH (22:00)
[2022-03-24] MEDS: LAVAGE SOLUTION 4000ML PR SCH ×10 (00:40→17:49)
[2022-03-24] MEDS: PIPERACILLIN/TAZOBACTAM 4.5 GM in DEXTROSE 5% 100 ML IV SCH ×3 (01:11→17:49)
[2022-03-24] MEDS: ACETAMINOPHEN 325 MG TAB PO SCH ×3 (05:34→22:21)
[2022-03-24 07:02] LABS: Calcium 8.3 mg/dl (8.5-10.1); Magnesium 1.8 mg/dl (1.7-2.4); Potassium 3.7 mmol/L (3.5-5.1)
[2022-03-24 07:07] LABS: BUN Creatinine Ratio 10.1 (10-20); Creatinine Clr Calc Pharmacy 85.5 ml/min; Est GFR (African American) 100.3 ml/min; Est GFR (Non-African American) 86.6 ml/min; Phosphorus 2.4 mg/dl (2.5-4.9)
[2022-03-24] MEDS: APIXABAN 5 MG TABLET PO SCH ×2 (07:49→22:23)
[2022-03-24] MEDS: TOPIRAMATE 100 MG TAB PO SCH ×2 (07:50→22:22)
[2022-03-24] MEDS: DOCUSATE SODIUM/SENNA 50/8.6MG TAB PO SCH ×2 (07:50→22:23)
[2022-03-24] MEDS: LIDOCAINE 5% 1 PATCH TD SCH (07:51)
[2022-03-24] MEDS ORDERED: POTASSIUM PHOS 3 MMOL/1 ML INFUSION IV STA (07:56)
[2022-03-24] MEDS: PHENobarbitaL 30 MG TAB PO SCH ×2 (08:00→22:34)
[2022-03-24] MEDS ORDERED: POTASSIUM PHOSPHATE 9 MMOL in SODIUM CHLORIDE 0.9% 250 ML IV ONE (08:00)
[2022-03-24] MEDS ORDERED: POTASSIUM PHOSPHATE 15 MMOL in SODIUM CHLORIDE 0.9% 250 ML IV ONE (08:30)
--- NOTE | 2022-03-24 11:14 | Surgery Progress Note ---
Date of Service March 24, 2022 Assessment & Plan (1) Pseudoobstruction of colon: Plan: Patient does not require an urgent operative intervention This would be a major undertaking for him and only if lifesaving His postop course will be very difficult May consider adding PPN as he has not been eating much and may benefit from the protein Appreciate GI input- Patient is extremely immobile with tubes in place Admission and Anticipated Discharge Date Admission Date: March 14, 2022 Subjective Patient without significant abdominal pain Having bowel movements around the transrectal tube NG tube with normal gastric output and minimal Physical Exam Physical Exam: His abdomen is still distended but he does have some bowel sounds Basically does not have any tenderness or peritoneal irritation Results & Data ([facility]) Vital Signs (Past 12 Hours) Vital Signs Temp Pulse Pulse Resp BP Pulse Ox O2 Del Method 03/24/22 08:00 Nasal Cannula 03/24/22 08:05 36.3 C L 70 16 136/71 95 Nasal Cannula 03/24/22 07:10 70 03/24/22 03:00 36.7 C 75 18 131/73 95 Nasal Cannula O2 Flow Rate 03/24/22 08:00 2 03/24/22 08:05 1.5 03/24/22 07:10 03/24/22 03:00 2 PG Care Time/CCT Total # of Minutes Spent Total Time Spent with Patient: Total time spent is greater than 50% in coordination of care (as documented) at patient's floor/unit and/or counseling patient: Coding Level of Care Code 10742 SUB INP/OBS CARE 03/08MIN Diagnoses Pseudoobstruction of colon K59.81
--- NOTE | 2022-03-24 12:57 | Gastroenterology Progress Note ---
Date of Service March 24, 2022 Assessment & Plan (1) Pseudoobstruction of colon: (2) Dilatation of colon: Plan 86 y/o male with multiple co-morbidities, admitted after a fall at home, has L3 compression fracture, and had progressive large and small bowel dilation on imaging, s/p colonoscopy for decompression. Pt clinically doing better since placement of rectal/NG tubes. However KUBs have shown no significant change in significant distention of proximal colon/cecum. Clinically soft, nontender. NGT output has been minimal; pt having several loose Bms around the rectal tube. KUB from today still pending. - Will give an additional dose of Relistor today - Would continue to keep NG and rectal tubes in place for today for continued decompression - Daily KUB - Colyte 100 mL every 2-4 hours to maintain tube patency - Would keep NPO - Empiric coverage with broad-spectrum antibiotics recommended - Appreciate surgery service seeing him in case he would need urgent surgery. - IVF - Aim to keep potassium and magnesium in range for bowel motility - Would avoid narcotics Thank you for allowing us to participate in the care of this patient. Please call with any acute changes, questions or concerns. Please see addendum below with additional recommendation from my supervising physician. Admission and Anticipated Discharge Date Admission Date: March 14, 2022 Supervising Physician Co-Signing Physician Notes The patient notes that he feels better however his abdominal x-ray seems to indicate that the colon is still significantly dilated. This seems to be an acute change from prior imaging done last month. Given this he appears to be failing medical therapy, we will give an additional dose of Relistor however should this surgery may need to be considered. Subjective Patient seen and examined, chart reviewed. No acute events overnight. Pt feels the same. No abd pain, n/v, CP, SOB. Stooling around the rectal tube. NGT draining green bilious fluid. Review of Systems Review of Systems: All systems reviewed & are unremarkable except as noted in HPI & below Physical Exam Constitutional: well developed, well nourished and comfortable; no acute distress ENMT: external ear and nose normal, oropharynx normal Neck: trachea midline Respiratory: Normal respiratory effort Gastrointestinal (Abdomen): Abd remains mildly distended, + tympanic, occasional high pitched tinkling BS, nontender Skin: no rashes, warm and dry Psychiatric: A+Ox3, euthymic affect Results & Data ([facility]) Vital Signs (Past 12 Hours) Vital Signs Temp Pulse Pulse Resp BP Pulse Ox O2 Del Method 03/24/22 11:40 36.5 C 70 16 127/74 94 Room Air 03/24/22 08:00 Nasal Cannula 03/24/22 08:05 36.3 C L 70 16 136/71 95 Nasal Cannula 03/24/22 07:10 70 03/24/22 03:00 36.7 C 75 18 131/73 95 Nasal Cannula O2 Flow Rate 03/24/22 11:40 03/24/22 08:00 2 03/24/22 08:05 1.5 03/24/22 07:10 03/24/22 03:00 2 Laboratory Results 03/24/22 03/24/22 Range/Units 06:14 01:10 Sodium 140 (136-145) mmol/L Potassium 3.7 (3.5-5.1) mmol/L Chloride 109 H (98-107) mmol/L Carbon Dioxide 23 (21-32) mmol/L Anion Gap 8 (3-11) BUN 7 (6-23) mg/dl Creatinine 0.69 (0.6-1.4) mg/dl Est Cr Clr Drug Dosing 85.5 ml/min Est GFR ( Amer) 100.3 ml/min Est GFR (Non-Af Amer) 86.6 ml/min BUN/Creatinine Ratio 10.1 (10-20) Glucose 91 (70-99(Fasting)) mg/dl POC Glucose 75 (70-99) mg/dl Calcium 8.3 L (8.5-10.1) mg/dl Phosphorus 2.4 L (2.5-4.9) mg/dl Magnesium 1.8 (1.7-2.4) mg/dl
--- NOTE | 2022-03-24 13:14 | Pharmacy Report ---
Pharmacy PN Initial Consult - Date of Service March 24, 2022 - Scope Pharmacy has been consulted to manage parenteral nutrition orders and order appropriate labs. As part of the Nutrition Support Team guidelines, pharmacy will work in conjunction with dietary when determining the patients caloric needs. - Subjective The patient is a 86 year old M admitted on 03/14/22 18:51 for WEAKNESS. Patient is to receive parenteral nutrition for prolonged NPO status. Pertinent PMH: N/A - Objective Height: 5 ft 8 in Weight: 90.4 kg Vascular Access:: peripheral Intake & Output (Last 24Hrs): Intake & Output 03/22/22 03/23/22 03/24/22 03/25/22 06:59 06:59 06:59 06:59 Intake Total 1928 / 1928 3033.333 / 3033.333 1735 / 1735 Output Total 1250 / 1250 1804 / 1804 1051 / 1051 Balance 678 / 678 1229.333 / 1229.333 684 / 684 Weight 93.1 kg 93.1 kg 90.4 kg 90.4 kg Laboratory Data (Last 24 Hrs):: 03/24/22 06:14 Sodium 140 Potassium 3.7 Chloride 109 H Carbon Dioxide 23 BUN 7 Creatinine 0.69 Glucose 91 Calcium 8.3 L Phosphorus 2.4 L Magnesium 1.8 Nutrition Assessment:: Please refer to the Notes section of the EMR for the most recent service desk agent note. - Plan For day 2 of PN administration, the following will be ordered: Macronutrients Amino acids 85 grams/day Dextrose 100 grams/day Lipids 50 grams/day Micronutrients Combined electrolytes -- mL - contains 35 mEq Na, 20 meq K, 4.5 mEq Ca, 5 mEq Mg, 35 mEq Cl, 29.5 mEq acetate per 20 mL Sodium phosphate -- MMol Sodium chloride 120 mEq Sodium acetate 10 mEq Potassium phosphate 30 mMol Potassium chloride -- mEq Potassium acetate 40 mEq Magnesium sulfate 8.12 mEq Calcium gluconate 4.06 mEq Multivitamins 10 mL Trace Elements 10 mL Additional additives: Total volume 2121 mL to be infused over 24 hrs will provide 1180 kcal/day Final osmolarity 886 mOsm/L (maximum for PPN is 900 mOsm/L) Labs to be ordered per PN order protocol Pharmacy will follow and adjust parenteral nutrition orders on a daily basis. Thank you.
[2022-03-24] MEDS: METHYLNALTREXONE BROMIDE 12 MG/0.6 ML VIAL SQ SCH (14:02)
--- NOTE | 2022-03-24 14:08 | XRay Report ---
KUB HISTORY: reassess colonic distention COMPARISON: KUB 03/23/2022. FINDINGS: The rectal tube is been pulled back and now resides within the mid sigmoid colon. Nasogastr ic tube is curled within the body the stomach. Dilated gas-filled loops of large and small bowel are again seen throughout the abdomen and are similar to the prior study. The cecum measures up to 14 cm in diameter. No renal calculi. No ureteral calculi. No pneumoperitoneum or pneumatosis. IMPRESSION: 1. No significant change in the dilated gas-filled loops of large and small bowel seen throughout the abdomen most pronounced within the cecum. 2. A rectal tube has been pulled back and now resides within the mid sigmoid colon. 3. Nasogastric tube terminates in the stomach. ACT 112: Negative or not required by law. Electronically signed by: Dexter Mancia M.D. 03/24/2022 2:07 PM
[2022-03-24] MEDS ORDERED: CLINOLIPID 20% IV FAT EMULSION 250 ML IV SCH (16:00)
[2022-03-24] MEDS ORDERED: D5W IV SCH (16:00)
[2022-03-24] MEDS ORDERED: AMINO ACIDS 4.25% IV SCH (16:00)
[2022-03-24] MEDS ORDERED: PERIPHERAL TPN IV SCH (16:00)
--- NOTE | 2022-03-24 16:08 | Hospitalist Progress Note ---
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 difficile colitis and the patient is placed on intravenous Zosyn Appreciate GI and surgery input and recommendation Discussed with the family members Clinically little bit better there is little or no improvement of obstruction as of yet We will continue n.p.o., suction rectal tube drainage as planned KUB today showed no significant change in the dilated gas-filled loops of large and small bowel seen throughout the abdomen most pronounced within the cecum. Narcotics have been discontinued and he is getting Relistor as per GI Clinically not any better or worse-still having watery diarrhea. We will continue conservative management Continue PPN or TPN for nutritional support Continue monitor electrolytes Fall Likely secondary to ambulatory dysfunction and seizure is unlikely the cause of fall Status post breakthrough seizure was considered on admission Appreciate neurology input and recommendation We will continue current doses of seizure medication Phenobarb level is therapeutic at 15.9 and topiramate level is pending No more seizure since admission PT recommended rehab but the family members are refusing to send him to rehab Discussed with the patient he wants to go to rehab for short-term We will discussed with the family members prior to discharge Has had PT today and the recommendation persist Has been waiting to go to rehab. Denies any pain but has abdominal discomfort due to ongoing constipation He has been is stable to be transferred except that he has not had a bowel movement for a while Remained stable except abdominal distention and inadequate bowel movement Awaiting placement Status post fall last evening-03/14/2022 No significant injury no loss of consciousness and no seizures CT scan of the head and CT of the abdomen and pelvis remain unremarkable Denies any complaints as of today No acute symptoms Constipation Has had laxatives without any effect Will give Fleet enema We will start more mobilization Current laxatives have not been working Will give her lactulose enema today and start with regular lactulose orally KUB showed ileus but no definite obstruction Will try Relistor and oral lactulose If no improvement will get GI involved for possible rectal tube His bowel sounds are much improved today and has had results with enema and he feels better following small bowel movement Will try another enema this afternoon Small amount of bowel movement yesterday but is still very distended We will get a CT of the abdomen without contrast to rule out an obstruction As above L 3 Acute Compression fracture: L rib #[address] and negative C-spine CT of the abdomen and pelvis showed L3 acute compression fraction as above -Chest CT: 11th rib left chest wall non-displaced fracture, no PNX Appreciate orthospine evaluation and recommendation Back pain is stable-.. 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 -Takes Topamax and Phenobarbital with compliance -Topamax and Phenobarb levels pending -Appreciate neurology input and recommendation -No more seizures -We will continue giving medications orally L upper leg pain Ortho consulted Femur XR: no fracture possible trochanteric bursitis, steroid injection planned Appreciate Ortho input and recommendation for left greater trochanteric bursa injection Status post steroid injection to the greater trochanteric bursa on the left side Symptomatically better Get PT and OT evaluation-recommended rehab-awaiting placement 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 BPH: -Takes Tamsulosin; continue Disposition: PCP: Marbin Lira PA-C Code Status: Full Code VTE Prophylaxis: Eloquis Disposition pending lives at home with son PT/OT recommended rehab and the patient is willing to go to rehab but the family members are resisting Awaiting placement Plan 86 y/o with h/o seizures presents s/p fall and suspected seizure. 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 Pain control, ortho and neuro consult with PT/OT. Fall Likely secondary to ambulatory dysfunction and seizure is unlikely the cause of fall Status post breakthrough seizure was considered on admission Appreciate neurology input and recommendation We will continue current doses of seizure medication Phenobarb level is therapeutic at 15.9 and topiramate level is pending No more seizure since admission PT recommended rehab but the family members are refusing to send him to rehab Discussed with the patient he wants to go to rehab for short-term We will discussed with the family members prior to discharge Has had PT today and the recommendation persist Has been waiting to go to rehab. Denies any pain but has abdominal discomfort due to ongoing constipation He has been is stable to be transferred except that he has not had a bowel movement for a while Remained stable except abdominal distention and inadequate bowel movement Awaiting placement Status post fall last evening-03/14/2022 No significant injury no loss of consciousness and no seizures CT scan of the head and CT of the abdomen and pelvis remain unremarkable Denies any complaints as of today No acute symptoms Constipation Has had laxatives without any effect Will give Fleet enema We will start more mobilization Current laxatives have not been working Will give her lactulose enema today and start with regular lactulose orally KUB showed ileus but no definite obstruction Will try Relistor and oral lactulose If no improvement will get GI involved for possible rectal tube His bowel sounds are much improved today and has had results with enema and he feels better following small bowel movement Will try another enema this afternoon Small amount of bowel movement yesterday but is still very distended We will get a CT of the abdomen without contrast to rule out an obstruction As above L 3 Acute Compression fracture: L rib #[address] and negative C-spine CT of the abdomen and pelvis showed L3 acute compression fraction as above -Chest CT: 11th rib left chest wall non-displaced fracture, no PNX Appreciate orthospine evaluation and recommendation Back pain is stable-.. 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 -Takes Topamax and Phenobarbital with compliance -Topamax and Phenobarb levels pending -Appreciate neurology input and recommendation -No more seizures -We will continue giving medications orally L upper leg pain Ortho consulted Femur XR: no fracture possible trochanteric bursitis, steroid injection planned Appreciate Ortho input and recommendation for left greater trochanteric bursa injection Status post steroid injection to the greater trochanteric bursa on the left side Symptomatically better Get PT and OT evaluation-recommended rehab-awaiting placement 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 BPH: -Takes Tamsulosin; continue Disposition: PCP: Marbin Lira PA-C Code Status: Full Code VTE Prophylaxis: Eloquis Disposition pending lives at home with son PT/OT recommended rehab and the patient is willing to go to rehab but the family members are resisting Awaiting placement Admission and Anticipated Discharge Date Admission Date: March 14, 2022 Subjective Pt was seen and examined for follow up Lying in bed with no acute distress Pt is asking when the NGT will be removed denies any chest pain, palpitation, dizziness and SOB Review of Systems Review of Systems: All systems reviewed & are unremarkable except as noted in Subjective Physical Exam Physical Exam: General- No acute distress Head- atraumatic Eyes- PERRL, EOMI, ENT- NG tube Neck- supple, no JVD Lungs- clear to auscultation Heart- regular rhythm; no murmur Abdomen- +abdomen distended, +bowel sounds (Decreased), Non tender Extremities- no calf tenderness Neuro- alert, oriented x 3; PERRL, EOMI; no facial palsy; no dysarthria Skin- warm & dry Results & Data Results & Data ([facility]) Vital Signs (Past 12 Hours) Vital Signs Temp Pulse Pulse Resp BP Pulse Ox O2 Del Method 03/24/22 11:40 36.5 C 70 16 127/74 94 Room Air 03/24/22 08:00 Nasal Cannula 03/24/22 08:05 36.3 C L 70 16 136/71 95 Nasal Cannula 03/24/22 07:10 70 O2 Flow Rate 03/24/22 11:40 03/24/22 08:00 2 03/24/22 08:05 1.5 03/24/22 07:10
[2022-03-24] MEDS: STOP CLINOLIPID SCH (22:19)
[2022-03-24] MEDS: rOPINIRole HCL 0.25 MG TABLET PO SCH (22:22)
[2022-03-24] MEDS: FINASTERIDE 5 MG TAB PO SCH (22:47)
[2022-03-24] MEDS: TAMSULOSIN HCL 0.4 MG CAP PO SCH (22:47)
[2022-03-25] MEDS: LAVAGE SOLUTION 4000ML PR SCH ×14 (01:49→23:35)
[2022-03-25] MEDS: PIPERACILLIN/TAZOBACTAM 4.5 GM in DEXTROSE 5% 100 ML IV SCH ×3 (02:13→18:02)
[2022-03-25] MEDS ORDERED: ACETAMINOPHEN 500 MG TAB PO STA (02:18)
[2022-03-25] MEDS: ACETAMINOPHEN 325 MG TAB PO SCH ×3 (06:20→20:01)
--- NOTE | 2022-03-25 07:31 | Gastroenterology Progress Note ---
Date of Service March 25, 2022 Assessment & Plan (1) Pseudoobstruction of colon: Plan: 86 y/o male with multiple co-morbidities, admitted after a fall at home, has L3 compression fracture, and had progressive large and small bowel dilation on imaging, s/p colonoscopy for decompression. Pt clinically doing better since placement of rectal/NG tubes. However KUBs have shown no significant change in significant distention of proximal colon/cecum. Clinically soft, nontender. NGT output has been minimal; pt having several loose Bms around the rectal tube. - Relistor given yesterday with good results - Would continue to keep NG and rectal tubes in place for today for continued decompression - Colyte 100 mL every 2-4 hours to maintain tube patency - Would keep NPO - Empiric coverage with broad-spectrum antibiotics recommended - Appreciate surgery service seeing him in case he would need urgent surgery. - IVF - Aim to keep potassium and magnesium in range for bowel motility - Would avoid narcotics -If recurs given the fact that failed colonic decompression would attempt neostigmine prior to any procedural plans Admission and Anticipated Discharge Date Admission Date: March 14, 2022 Subjective Did well overnight, multiple bowel movements passing flatus feels better. Physical Exam Physical Exam: Awake alert oriented x3, NG tube in place, rectal tube in place, soft abdomen normal active bowel sounds no distention whatsoever. Lungs are clear heart is regular no edema neurologically intact Results & Data ([facility]) Vital Signs (Past 12 Hours) Vital Signs Temp Pulse Pulse Resp BP BP Pulse Ox 03/25/22 03:17 36.5 C 76 18 117/65 92 03/25/22 02:59 03/24/22 22:53 76 03/24/22 22:37 37.2 C 79 18 127/67 95 03/24/22 19:39 36.7 C 92 H 18 107/65 94 O2 Del Method O2 Flow Rate 03/25/22 03:17 Nasal Cannula 1.5 03/25/22 02:59 Room Air 03/24/22 22:53 03/24/22 22:37 Nasal Cannula 1 03/24/22 19:39 Nasal Cannula 2
[2022-03-25] MEDS: APIXABAN 5 MG TABLET PO SCH ×2 (08:00→20:01)
[2022-03-25] MEDS: TOPIRAMATE 100 MG TAB PO SCH ×2 (08:00→20:03)
[2022-03-25] MEDS: PHENobarbitaL 30 MG TAB PO SCH ×2 (08:01→20:00)
[2022-03-25] MEDS: DOCUSATE SODIUM/SENNA 50/8.6MG TAB PO SCH ×2 (08:01→20:04)
[2022-03-25 08:03] LABS: BUN Creatinine Ratio 16.7 (10-20); Calcium 8.1 mg/dl (8.5-10.1); Creatinine Clr Calc Pharmacy 98.3 ml/min; Est GFR (African American) 106.3 ml/min; Est GFR (Non-African American) 91.7 ml/min; Magnesium 1.8 mg/dl (1.7-2.4); Phosphorus 2.7 mg/dl (2.5-4.9); Potassium 3.4 mmol/L (3.5-5.1)
[2022-03-25] MEDS: LIDOCAINE 5% 1 PATCH TD SCH (08:07)
[2022-03-25] MEDS: POTASSIUM CHLORIDE / WTR 10 MEQ/100 ML PLCT IV SCH ×2 (11:18→12:52)
--- NOTE | 2022-03-25 12:00 | XRay Report ---
KUB HISTORY: Follow up colonic distention. COMPARISON: KUB 03/24/2022. FINDINGS: The rectal tube has been retracted and is completely curled within the rectum. Dilated gas- filled loops of large and small bowel have improved. The cecum measures up to 9 cm in diameter, previ ous measuring 14 cm. No renal calculi. No ureteral calculi. No pneumoperitoneum or pneumatosis. Naso gastric tube terminates in the stomach. IMPRESSION: 1. Interval decompression of the large and small bowel. 2. A rectal tube has been retracted and is completely curled within the rectum. Recommend repositioni ng. ACT 112: Negative or not required by law. Electronically signed by: Dexter Mancia M.D. 03/25/2022 11:59 AM
--- NOTE | 2022-03-25 14:11 | Surgery Progress Note ---
Date of Service March 25, 2022 Assessment & Plan (1) Pseudoobstruction of colon: Plan: F/U pseudoobstruction of colon pt is doing better, per- GI recommend- Would continue to keep NG and rectal tubes in place for today for continued decompression may pull NG tomorrow, will F/U Plan Would continue to keep NG and rectal tubes in place for today for continued decompression Admission and Anticipated Discharge Date Admission Date: March 14, 2022 Supervising Physician Co-Signing Physician Notes The patient notes that he feels better however his abdominal x-ray seems to indicate that the colon is still significantly dilated. This seems to be an acute change from prior imaging done last month. Given this he appears to be failing medical therapy, we will give an additional dose of Relistor however should this surgery may need to be considered. Subjective Did well overnight, multiple bowel movements passing flatus feels better. 03/25/2022 2:10 PM F/U Pseudoobstruction of colon, NG tube and rectal tube placed, pt is doing fine, pased some gas and BM, no fever, NG 100ml. Physical Exam Constitutional: WD/WN, vitals as above Eyes: PERRL, conjunctivae normal, anicteric sclerae Neck: trachea midline, no thyromegaly Respiratory: normal respiratory effort, lungs clear to auscultation Cardiovascular: RRR, no murmur, no edema Gastrointestinal (Abdomen): soft, ND, ND, BS +, Neurologic: patellar DTR's 2+ bilat, sensation intact Psychiatric: A+Ox3, euthymic affect Results & Data ([facility]) Vital Signs (Past 12 Hours) Vital Signs Temp Pulse Pulse Resp BP Pulse Ox O2 Del Method 03/25/22 13:48 71 03/25/22 11:51 36.7 C 74 20 143/76 H 93 Nasal Cannula 03/25/22 07:50 36.5 C 70 20 127/77 94 Nasal Cannula 03/25/22 03:17 36.5 C 76 18 117/65 92 Nasal Cannula 03/25/22 02:59 Room Air O2 Flow Rate 03/25/22 13:48 03/25/22 11:51 1 03/25/22 07:50 1 03/25/22 03:17 1.5 03/25/22 02:59 Laboratory Results Abnormal lab results 02/11/23 Range/Units 06:22 Potassium 3.4 L (3.5-5.1) mmol/L Chloride 113 H (98-107) mmol/L Glucose 117 H (70-99(Fasting)) mg/dl Calcium 8.1 L (8.5-10.1) mg/dl Diagnostic Findings KUB HISTORY: Follow up colonic distention. COMPARISON: KUB 03/24/2022. FINDINGS: The rectal tube has been retracted and is completely curled within the rectum. Dilated gas-filled loops of large and small bowel have improved. The cecum measures up to 9 cm in diameter, previous measuring 14 cm. No renal calculi. No ureteral calculi. No pneumoperitoneum or pneumatosis. Nasogastric tube terminates in the stomach. IMPRESSION: 1. Interval decompression of the large and small bowel. 2. A rectal tube has been retracted and is completely curled within the rectum. Recommend repositioning.
--- NOTE | 2022-03-25 15:11 | Hospitalist Progress Note ---
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 difficile colitis and the patient is placed on intravenous Zosyn Appreciate GI and surgery input and recommendation Discussed with the family members Clinically little bit better there is little or no improvement of obstruction as of yet We will continue n.p.o., suction rectal tube drainage as planned KUB today showed interval decompression of the large and small bowel. Narcotics have been discontinued and he is getting Relistor as per GI Clinically not any better or worse-still having watery diarrhea. Continue conservative management Continue PPN or TPN for nutritional support ContinueNG and rectal tubes in place for today for continued decompression Plan to removed NG tube tomorrow if continue to improve Continue monitor electrolytes Fall Likely secondary to ambulatory dysfunction and seizure is unlikely the cause of fall Status post breakthrough seizure was considered on admission Appreciate neurology input and recommendation We will continue current doses of seizure medication Phenobarb level is therapeutic at 15.9 and topiramate level is pending No more seizure since admission PT recommended rehab but the family members are refusing to send him to rehab Discussed with the patient he wants to go to rehab for short-term We will discussed with the family members prior to discharge Has had PT today and the recommendation persist Has been waiting to go to rehab. Denies any pain but has abdominal discomfort due to ongoing constipation He has been is stable to be transferred except that he has not had a bowel movem ent for a while Remained stable except abdominal distention and inadequate bowel movement Awaiting placement Status post fall last evening-03/14/2022 No significant injury no loss of consciousness and no seizures CT scan of the head and CT of the abdomen and pelvis remain unremarkable Denies any complaints as of today No acute symptoms Constipation Has had laxatives without any effect Will give Fleet enema We will start more mobilization Current laxatives have not been working Will give her lactulose enema today and start with regular lactulose orally KUB showed ileus but no definite obstruction Will try Relistor and oral lactulose If no improvement will get GI involved for possible rectal tube His bowel sounds are much improved today and has had results with enema and he feels better following small bowel movement Will try another enema this afternoon Small amount of bowel movement yesterday but is still very distended We will get a CT of the abdomen without contrast to rule out an obstruction As above L 3 Acute Compression fracture: L rib #[address] and negative C-spine CT of the abdomen and pelvis showed L3 acute compression fraction as above -Chest CT: 11th rib left chest wall non-displaced fracture, no PNX Appreciate orthospine evaluation and recommendation Back pain is stable-.. 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 -Takes Topamax and Phenobarbital with compliance -Topamax and Phenobarb levels pending -Appreciate neurology input and recommendation -No more seizures -Stable L upper leg pain Ortho consulted Femur XR: no fracture possible trochanteric bursitis, steroid injection planned Appreciate Ortho input and recommendation for left greater trochanteric bursa injection Status post steroid injection to the greater trochanteric bursa on the left side Symptomatically better Get PT and OT evaluation-recommended rehab-awaiting placement 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 BPH: -Takes Tamsulosin; continue Disposition: PCP: Marbin Lira PA-C Code Status: Full Code VTE Prophylaxis: Eloquis Disposition pending lives at home with son PT/OT recommended rehab and the patient is willing to go to rehab but the family members are resisting Awaiting placement Admission and Anticipated Discharge Date Admission Date: March 14, 2022 Subjective Pt was seen and examined for follow up Lying in bed with no acute distress He said that he feels ok He cannot wait to get the NG tube out tomorrow denies any chest pain, palpitation, dizziness and SOB Review of Systems Review of Systems: All systems reviewed & are unremarkable except as noted in Subjective Physical Exam Physical Exam: General- No acute distress Head- atraumatic Eyes- PERRL, EOMI, ENT- NG tube Neck- supple, no JVD Lungs- clear to auscultation Heart- regular rhythm; no murmur Abdomen- non distended, +BS, Non tender Extremities- no calf tenderness Neuro- alert, oriented x 3; PERRL, EOMI; no facial palsy; no dysarthria Skin- warm & dry Results & Data Results & Data ([facility]) Vital Signs (Past 12 Hours) Vital Signs Temp Pulse Pulse Resp BP Pulse Ox O2 Del Method 03/25/22 14:31 Nasal Cannula 03/25/22 13:48 71 03/25/22 11:51 36.7 C 74 20 143/76 H 93 Nasal Cannula 03/25/22 07:50 36.5 C 70 20 127/77 94 Nasal Cannula 03/25/22 03:17 36.5 C 76 18 117/65 92 Nasal Cannula O2 Flow Rate 03/25/22 14:31 2 03/25/22 13:48 03/25/22 11:51 1 03/25/22 07:50 1 03/25/22 03:17 1.5
[2022-03-25] MEDS ORDERED: CLINOLIPID 20% IV FAT EMULSION 250 ML IV SCH (16:00)
[2022-03-25] MEDS ORDERED: D5W IV SCH (16:00)
[2022-03-25] MEDS ORDERED: AMINO ACIDS 4.25% IV SCH (16:00)
[2022-03-25] MEDS ORDERED: PERIPHERAL TPN IV SCH (16:00)
[2022-03-25] MEDS: rOPINIRole HCL 0.25 MG TABLET PO SCH (20:03)
[2022-03-25] MEDS: FINASTERIDE 5 MG TAB PO SCH (20:04)
[2022-03-25] MEDS: TAMSULOSIN HCL 0.4 MG CAP PO SCH (20:05)
[2022-03-25] MEDS: STOP CLINOLIPID SCH (23:27)
[2022-03-25] MEDS ORDERED: ACETAMINOPHEN 325 MG TAB PO STA (23:44)
[2022-03-26] MEDS: LAVAGE SOLUTION 4000ML PR SCH ×12 (00:31→21:34)
[2022-03-26] MEDS: PIPERACILLIN/TAZOBACTAM 4.5 GM in DEXTROSE 5% 100 ML IV SCH ×3 (03:02→17:02)
[2022-03-26] MEDS: ACETAMINOPHEN 325 MG TAB PO SCH ×3 (05:58→21:34)
[2022-03-26 07:01] LABS: BUN Creatinine Ratio 16.4 (10-20); Calcium 8.4 mg/dl (8.5-10.1); Est GFR (African American) 101.5 ml/min; Est GFR (Non-African American) 87.6 ml/min; Magnesium 1.9 mg/dl (1.7-2.4); Phosphorus 2.9 mg/dl (2.5-4.9); Potassium 3.7 mmol/L (3.5-5.1)
[2022-03-26] MEDS: LIDOCAINE 5% 1 PATCH TD SCH (08:45)
[2022-03-26] MEDS: TOPIRAMATE 100 MG TAB PO SCH ×2 (08:45→20:20)
[2022-03-26] MEDS: PHENobarbitaL 30 MG TAB PO SCH ×2 (08:45→20:30)
[2022-03-26] MEDS: APIXABAN 5 MG TABLET PO SCH ×2 (08:45→20:17)
[2022-03-26] MEDS: DOCUSATE SODIUM/SENNA 50/8.6MG TAB PO SCH ×2 (08:45→20:17)
--- NOTE | 2022-03-26 09:46 | Gastroenterology Progress Note ---
Date of Service March 26, 2022 Assessment & Plan (1) Pseudoobstruction of colon: Plan: 86 y/o male with multiple co-morbidities, admitted after a fall at home, has L3 compression fracture, and had progressive large and small bowel dilation on imaging, s/p colonoscopy for decompression. Pt clinically doing better since placement of rectal/NG tubes. However KUBs have shown no significant change in significant distention of proximal colon/cecum. Clinically soft, nontender. NGT output has been minimal; pt having several loose Bms around the rectal tube. - Relistor given with good results - Would d/c ngt - can keep rectal tube - Colyte 100 mL every 2-4 hours to maintain tube patency - - Empiric coverage with broad-spectrum antibiotics recommended - Appreciate surgery service seeing him in case he would need urgent surgery. - IVF - Aim to keep potassium and magnesium in range for bowel motility - Would avoid narcotics -If recurs given the fact that failed colonic decompression would attempt neostigmine prior to any procedural plans Admission and Anticipated Discharge Date Admission Date: March 14, 2022 Subjective feels better passing air and bm Physical Exam Constitutional: WD/WN, vitals as above Cardiovascular: RRR, no murmur, no edema Gastrointestinal (Abdomen): normal bowel sounds, soft, nontender, no hepatosplenomegaly Results & Data ([facility]) Vital Signs (Past 12 Hours) Vital Signs Temp Pulse Pulse Resp BP Pulse Ox O2 Del Method 03/26/22 08:15 36.5 C 72 20 120/74 92 Nasal Cannula 03/26/22 07:53 70 03/26/22 04:00 36.5 C 78 22 135/78 94 Room Air 03/25/22 22:00 75 03/25/22 21:53 36.5 C 79 18 126/69 95 Nasal Cannula O2 Flow Rate 03/26/22 08:15 1 03/26/22 07:53 03/26/22 04:00 03/25/22 22:00 03/25/22 21:53 1
[2022-03-26] MEDS: METHYLNALTREXONE BROMIDE 12 MG/0.6 ML VIAL SQ SCH (12:50)
--- NOTE | 2022-03-26 14:33 | Hospitalist Progress Note ---
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 difficile colitis and the patient is placed on intravenous Zosyn Appreciate GI and surgery input and recommendation Discussed with the family members Clinically little bit better there is little or no improvement of obstruction as of yet We will continue n.p.o., suction rectal tube drainage as planned KUB today showed interval decompression of the large and small bowel. Narcotics have been discontinued and he is getting Relistor as per GI Clinically not any better or worse-still having watery diarrhea. Continue conservative management Continue PPN or TPN for nutritional support case discussed with GI and agree for NG tube removed today Plan to remove rectal tubes tomorrow Continue monitor electrolytes Fall Likely secondary to ambulatory dysfunction and seizure is unlikely the cause of fall Status post breakthrough seizure was considered on admission Appreciate neurology input and recommendation We will continue current doses of seizure medication Phenobarb level is therapeutic at 15.9 and topiramate level is pending No more seizure since admission PT recommended rehab but the family members are refusing to send him to rehab Discussed with the patient he wants to go to rehab for short-term We will discussed with the family members prior to discharge Has had PT today and the recommendation persist Has been waiting to go to rehab. Denies any pain but has abdominal discomfort due to ongoing constipation He has been is stable to be transferred except that he has not had a bowel movement for a while Remained stable except abdominal distention and inadequate bowel movement Awaiting placement Status post fall last evening-03/14/2022 No significant injury no loss of consciousness and no seizures CT scan of the head and CT of the abdomen and pelvis remain unremarkable Denies any complaints as of today No acute symptoms Constipation Has had laxatives without any effect Will give Fleet enema We will start more mobilization Current laxatives have not been working Will give her lactulose enema today and start with regular lactulose orally KUB showed ileus but no definite obstruction Will try Relistor and oral lactulose If no improvement will get GI involved for possible rectal tube His bowel sounds are much improved today and has had results with enema and he feels better following small bowel movement Will try another enema this afternoon Small amount of bowel movement yesterday but is still very distended We will get a CT of the abdomen without contrast to rule out an obstruction As above L 3 Acute Compression fracture: L rib #[address] and negative C-spine CT of the abdomen and pelvis showed L3 acute compression fraction as above -Chest CT: 11th rib left chest wall non-displaced fracture, no PNX Appreciate orthospine evaluation and recommendation Back pain is stable-.. 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 -Takes Topamax and Phenobarbital with compliance -Topamax and Phenobarb levels pending -Appreciate neurology input and recommendation -No more seizures -Stable L upper leg pain Ortho consulted Femur XR: no fracture possible trochanteric bursitis, steroid injection planned Appreciate Ortho input and recommendation for left greater trochanteric bursa injection Status post steroid injection to the greater trochanteric bursa on the left side Symptomatically better Get PT and OT evaluation-recommended rehab-awaiting placement 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 BPH: -Takes Tamsulosin; continue Disposition: PCP: Marbin Lira PA-C Code Status: Full Code VTE Prophylaxis: Eloquis Disposition pending lives at home with son PT/OT recommended rehab and the patient is willing to go to rehab but the family members are resisting Awaiting placement Admission and Anticipated Discharge Date Admission Date: March 14, 2022 Subjective Pt was seen and examined for follow up Lying in bed with no acute distress He said that he feels ok NG tube removed today denies any chest pain, palpitation, dizziness and SOB Review of Systems Review of Systems: All systems reviewed & are unremarkable except as noted in Subjective Physical Exam Physical Exam: General- No acute distress Head- atraumatic Eyes- PERRL, EOMI, ENT- NG tube Neck- supple, no JVD Lungs- clear to auscultation Heart- regular rhythm; no murmur Abdomen- non distended, +BS, Non tender Extremities- no calf tenderness Neuro- alert, oriented x 3; PERRL, EOMI; no facial palsy; no dysarthria Skin- warm & dry Results & Data Results & Data ([facility]) Vital Signs (Past 12 Hours) Vital Signs Temp Pulse Pulse Resp BP Pulse Ox O2 Del Method 03/26/22 11:33 36.7 C 73 16 144/77 H 94 Nasal Cannula 03/26/22 10:10 Nasal Cannula 03/26/22 08:15 36.5 C 72 20 120/74 92 Nasal Cannula 03/26/22 07:53 70 03/26/22 04:00 36.5 C 78 22 135/78 94 Room Air O2 Flow Rate 03/26/22 11:33 1 03/26/22 10:10 2 03/26/22 08:15 1 03/26/22 07:53 03/26/22 04:00
--- NOTE | 2022-03-26 14:41 | Surgery Progress Note ---
Date of Service March 26, 2022 Assessment & Plan (1) Pseudoobstruction of colon: Plan: F/U pseudoobstruction of colon pt is doing better, per- GI recommend- Would continue to keep NG and rectal tubes in place for today for continued decompression may pull NG tomorrow, will F/U 03/26/2022 2:40 PM doing better, keep rectal tube in, clear diet will F/U, Plan Would continue to keep NG and rectal tubes in place for today for continued decompression Admission and Anticipated Discharge Date Admission Date: March 14, 2022 Supervising Physician Co-Signing Physician Notes The patient notes that he feels better however his abdominal x-ray seems to indicate that the colon is still significantly dilated. This seems to be an acute change from prior imaging done last month. Given this he appears to be failing medical therapy, we will give an additional dose of Relistor however should this surgery may need to be considered. Subjective Pt was seen and examined for follow up Lying in bed with no acute distress He said that he feels ok NG tube removed today denies any chest pain, palpitation, dizziness and SOB 03/26/2022 2:38PM Dr. Dailey pt is doing fine, no abdominal pain, NG out now, Physical Exam Constitutional: WD/WN, vitals as above Eyes: PERRL, conjunctivae normal, anicteric sclerae Neck: trachea midline, no thyromegaly Respiratory: normal respiratory effort, lungs clear to auscultation Cardiovascular: RRR, no murmur, no edema Gastrointestinal (Abdomen): soft, ND, NT, BS +, Neurologic: patellar DTR's 2+ bilat, sensation intact Psychiatric: A+Ox3, euthymic affect Results & Data ([facility]) Vital Signs (Past 12 Hours) Vital Signs Temp Pulse Pulse Resp BP Pulse Ox O2 Del Method 03/26/22 11:33 36.7 C 73 16 144/77 H 94 Nasal Cannula 03/26/22 10:10 Nasal Cannula 03/26/22 08:15 36.5 C 72 20 120/74 92 Nasal Cannula 03/26/22 07:53 70 03/26/22 04:00 36.5 C 78 22 135/78 94 Room Air O2 Flow Rate 03/26/22 11:33 1 03/26/22 10:10 2 03/26/22 08:15 1 03/26/22 07:53 03/26/22 04:00 Laboratory Results Abnormal lab results 03/26/22 Range/Units 06:08 Chloride 112 H (98-107) mmol/L Calcium 8.4 L (8.5-10.1) mg/dl
[2022-03-26] MEDS ORDERED: CLINOLIPID 20% IV FAT EMULSION 250 ML IV SCH (16:00)
[2022-03-26] MEDS ORDERED: PERIPHERAL TPN IV SCH (16:00)
[2022-03-26] MEDS ORDERED: D5W IV SCH (16:00)
[2022-03-26] MEDS ORDERED: AMINO ACIDS 4.25% IV SCH (16:00)
[2022-03-26] MEDS: FINASTERIDE 5 MG TAB PO SCH (20:17)
[2022-03-26] MEDS: rOPINIRole HCL 0.25 MG TABLET PO SCH (20:19)
[2022-03-26] MEDS: TAMSULOSIN HCL 0.4 MG CAP PO SCH (20:19)
[2022-03-26] MEDS: STOP CLINOLIPID SCH (21:34)
[2022-03-27] MEDS: PIPERACILLIN/TAZOBACTAM 4.5 GM in DEXTROSE 5% 100 ML IV SCH ×3 (00:48→17:46)
[2022-03-27] MEDS: LAVAGE SOLUTION 4000ML PR SCH ×6 (00:48→10:46)
[2022-03-27] MEDS: ACETAMINOPHEN 325 MG TAB PO SCH ×3 (05:58→22:06)
[2022-03-27 07:53] LABS: BUN Creatinine Ratio 20.3 (10-20); Calcium 8.4 mg/dl (8.5-10.1); Creatinine Clr Calc Pharmacy 84.8 ml/min; Est GFR (African American) 100.3 ml/min; Est GFR (Non-African American) 86.6 ml/min; Magnesium 1.9 mg/dl (1.7-2.4); Phosphorus 3.5 mg/dl (2.5-4.9); Potassium 4.2 mmol/L (3.5-5.1)
[2022-03-27] MEDS: LIDOCAINE 5% 1 PATCH TD SCH (08:29)
[2022-03-27] MEDS: TOPIRAMATE 100 MG TAB PO SCH ×2 (08:31→20:26)
[2022-03-27] MEDS: DOCUSATE SODIUM/SENNA 50/8.6MG TAB PO SCH ×2 (08:31→20:24)
[2022-03-27] MEDS: APIXABAN 5 MG TABLET PO SCH ×2 (08:32→20:25)
[2022-03-27] MEDS: PHENobarbitaL 30 MG TAB PO SCH ×2 (08:38→20:24)
[2022-03-27] MEDS ORDERED: bisacodyL 5 MG TABEC PO ONE (09:51)
--- NOTE | 2022-03-27 09:59 | Surgery Progress Note ---
Date of Service March 27, 2022 Assessment & Plan (1) Pseudoobstruction of colon: Plan: At this point patient needs to become mobile We will have the rectal tube removed-I believe GI was going to sign off We will give him twice daily MiraLAX and a Dulcolax tab today Continue his PPN until we are sure he is able to eat Hopefully he can get out of bed and begin to walk Monitor for recurrence Admission and Anticipated Discharge Date Admission Date: March 14, 2022 Subjective NG out Has rectal tube On PPN Not walking because of tube Review of Systems Review of Systems: All systems reviewed & are unremarkable except as noted in HPI & below Physical Exam Physical Exam: Patient awake and alert No abdominal pain Mild distention Rectal tube in place Results & Data ([facility]) Vital Signs (Past 12 Hours) Vital Signs Temp Pulse Pulse Resp BP Pulse Ox O2 Del Method 03/27/22 08:30 Nasal Cannula 03/27/22 07:38 36.6 C 72 18 119/73 96 Nasal Cannula 03/27/22 03:06 36.5 C 73 18 129/73 95 Nasal Cannula 03/26/22 23:17 71 03/26/22 22:51 36.6 C 74 18 138/70 94 Nasal Cannula O2 Flow Rate 03/27/22 08:30 2 03/27/22 07:38 03/27/22 03:06 1 03/26/22 23:17 03/26/22 22:51 1 PG Care Time/CCT Total # of Minutes Spent Total Time Spent with Patient: Total time spent is greater than 50% in coordination of care (as documented) at patient's floor/unit and/or counseling patient: Coding Level of Care Code 96144 SUB INP/OBS CARE 03/08MIN Diagnoses Pseudoobstruction of colon K59.81
[2022-03-27] MEDS ORDERED: POLYETHYLENE (MIRALAX) 17 GM PACK PO SCH ×2 (10:00→21:00)
[2022-03-27] MEDS: POLYETHYLENE (MIRALAX) 17 GM PACK PO SCH ×2 (10:51→20:25)
--- NOTE | 2022-03-27 13:38 | Hospitalist Progress Note ---
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 difficile colitis and the patient is placed on intravenous Zosyn Appreciate GI and surgery input and recommendation Discussed with the family members Clinically little bit better there is little or no improvement of obstruction as of yet We will continue n.p.o., suction rectal tube drainage as planned KUB today showed interval decompression of the large and small bowel. Narcotics have been discontinued and he is getting Relistor as per GI Clinically not any better or worse-still having watery diarrhea. Continue conservative management Continue PPN or TPN for nutritional support NG tube and rectal tubes tube removed Continue monitor electrolytes Starting on clear liquid diet Once diet advance as tolerated, will plan to discontinue PPN Fall Likely secondary to ambulatory dysfunction and seizure is unlikely the cause of fall Status post breakthrough seizure was considered on admission Appreciate neurology input and recommendation We will continue current doses of seizure medication Phenobarb level is therapeutic at 15.9 and topiramate level is pending No more seizure since admission PT recommended rehab but the family members are refusing to send him to rehab Discussed with the patient he wants to go to rehab for short-term We will discussed with the family members prior to discharge Has had PT today and the recommendation persist Has been waiting to go to rehab. Denies any pain but has abdominal discomfort due to ongoing constipation He has been is stable to be transferred except that he has not had a bowel move ment for a while Remained stable except abdominal distention and inadequate bowel movement Awaiting placement Status post fall last evening-03/14/2022 No significant injury no loss of consciousness and no seizures CT scan of the head and CT of the abdomen and pelvis remain unremarkable Denies any complaints as of today No acute symptoms Constipation Has had laxatives without any effect Will give Fleet enema We will start more mobilization Current laxatives have not been working Will give her lactulose enema today and start with regular lactulose orally KUB showed ileus but no definite obstruction Will try Relistor and oral lactulose If no improvement will get GI involved for possible rectal tube His bowel sounds are much improved today and has had results with enema and he feels better following small bowel movement Will try another enema this afternoon Small amount of bowel movement yesterday but is still very distended We will get a CT of the abdomen without contrast to rule out an obstruction Continue twice daily MiraLAX and a Dulcolax tab today L 3 Acute Compression fracture: L rib #[address] and negative C-spine CT of the abdomen and pelvis showed L3 acute compression fraction as above -Chest CT: 11th rib left chest wall non-displaced fracture, no PNX Appreciate orthospine evaluation and recommendation Back pain is stable-.. 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 -Takes Topamax and Phenobarbital with compliance -Topamax and Phenobarb levels pending -Appreciate neurology input and recommendation -No more seizures -Stable L upper leg pain Ortho consulted Femur XR: no fracture possible trochanteric bursitis, steroid injection planned Appreciate Ortho input and recommendation for left greater trochanteric bursa injection Status post steroid injection to the greater trochanteric bursa on the left side Symptomatically better Get PT and OT evaluation-recommended rehab-awaiting placement 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 BPH: -Takes Tamsulosin; continue Disposition: PCP: Marbin Lira PA-C Code Status: Full Code VTE Prophylaxis: Eliquis Disposition pending lives at home with son PT/OT recommended rehab and the patient is willing to go to rehab but the family members are resisting Awaiting placement Admission and Anticipated Discharge Date Admission Date: March 14, 2022 Subjective Pt was seen and examined for follow up Sitting in chair with no acute distress He said that he feels ok since the rectal tube and NGT removed Denies any chest pain, palpitation, dizziness and SOB Review of Systems Review of Systems: All systems reviewed & are unremarkable except as noted in Subjective Physical Exam Physical Exam: General- No acute distress Head- atraumatic Eyes- PERRL, EOMI, ENT- NG tube Neck- supple, no JVD Lungs- clear to auscultation Heart- regular rhythm; no murmur Abdomen- non distended, +BS, Non tender Extremities- no calf tenderness Neuro- alert, oriented x 3; PERRL, EOMI; no facial palsy; no dysarthria Skin- warm & dry Results & Data Results & Data ([facility]) Vital Signs (Past 12 Hours) Vital Signs Temp Pulse Pulse Resp BP Pulse Ox O2 Del Method 03/27/22 08:00 67 03/27/22 10:46 36.6 C 96 H 18 107/71 96 Nasal Cannula 03/27/22 08:30 Nasal Cannula 03/27/22 07:38 36.6 C 72 18 119/73 96 Nasal Cannula 03/27/22 03:06 36.5 C 73 18 129/73 95 Nasal Cannula O2 Flow Rate 03/27/22 08:00 03/27/22 10:46 03/27/22 08:30 2 03/27/22 07:38 03/27/22 03:06 1
[2022-03-27] MEDS ORDERED: CLINOLIPID 20% IV FAT EMULSION 250 ML IV SCH (16:00)
[2022-03-27] MEDS ORDERED: PERIPHERAL TPN IV SCH (16:00)
[2022-03-27] MEDS ORDERED: AMINO ACIDS 4.25% IV SCH (16:00)
[2022-03-27] MEDS ORDERED: D5W IV SCH (16:00)
[2022-03-27] MEDS: FINASTERIDE 5 MG TAB PO SCH (20:24)
[2022-03-27] MEDS: TAMSULOSIN HCL 0.4 MG CAP PO SCH (20:25)
[2022-03-27] MEDS: rOPINIRole HCL 0.25 MG TABLET PO SCH (20:26)
[2022-03-27] MEDS: STOP CLINOLIPID SCH (22:07)
[2022-03-28] MEDS: PIPERACILLIN/TAZOBACTAM 4.5 GM in DEXTROSE 5% 100 ML IV SCH ×3 (01:40→17:11)
[2022-03-28] MEDS: ACETAMINOPHEN 325 MG TAB PO SCH ×3 (06:04→22:04)
[2022-03-28 07:18] LABS: BUN Creatinine Ratio 23.8 (10-20); Calcium 8.7 mg/dl (8.5-10.1); Creatinine Clr Calc Pharmacy 72.8 ml/min; Est GFR (African American) 94.4 ml/min; Est GFR (Non-African American) 81.5 ml/min; Phosphorus 3.6 mg/dl (2.5-4.9); Potassium 4.2 mmol/L (3.5-5.1)
[2022-03-28] MEDS: LIDOCAINE 5% 1 PATCH TD SCH (08:33)
[2022-03-28] MEDS: APIXABAN 5 MG TABLET PO SCH ×2 (08:34→20:14)
[2022-03-28] MEDS: POLYETHYLENE (MIRALAX) 17 GM PACK PO SCH ×2 (08:35→20:13)
[2022-03-28] MEDS: DOCUSATE SODIUM/SENNA 50/8.6MG TAB PO SCH ×2 (08:48→20:14)
[2022-03-28] MEDS: TOPIRAMATE 100 MG TAB PO SCH ×2 (08:48→20:13)
[2022-03-28] MEDS: PHENobarbitaL 30 MG TAB PO SCH ×2 (09:05→20:12)
[2022-03-28] MEDS ORDERED: D5W IV SCH (16:00)
[2022-03-28] MEDS ORDERED: AMINO ACIDS 4.25% IV SCH (16:00)
[2022-03-28] MEDS ORDERED: CLINOLIPID 20% IV FAT EMULSION 250 ML IV SCH (16:00)
[2022-03-28] MEDS ORDERED: PERIPHERAL TPN IV SCH (16:00)
--- NOTE | 2022-03-28 16:36 | Hospitalist Progress Note ---
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 Findings may represent colonic pseudoobstruction (Pep syndrome) with distal colonic mechanical obstruction or sigmoid volvulus considered much less likely considerations. Status post colonoscopy and rectal tube placement Status post NG tube placement for decompression Stool was checked for C. difficile colitis and the patient is placed on intravenous Zosyn Appreciate GI and surgery input and recommendation Discussed with the family members Clinically little bit better there is little or no improvement of obstruction as of yet We will continue n.p.o., suction rectal tube drainage as planned recent KUB showed interval decompression of the large and small bowel. Narcotics have been discontinued and he is getting Relistor as per GI Clinically not any better or worse-still having watery diarrhea. Continue conservative management Continue PPN or TPN for nutritional support NG tube and rectal tubes tube removed Continue monitor electrolytes tolerated clear liquid diet and advanced slwoly to full liquid diet Once diet advance as tolerated, will plan to discontinue PPN possible tomorrow Fall Likely secondary to ambulatory dysfunction and seizure is unlikely the cause of fall Status post breakthrough seizure was considered on admission Appreciate neurology input and recommendation We will continue current doses of seizure medication Phenobarb level is therapeutic at 15.9 and topiramate level is pending No more seizure since admission PT recommended rehab but the family members are refusing to send him to rehab Discussed with the patient he wants to go to rehab for short-term We will discussed with the family members prior to discharge Has had PT today and the recommendation persist Has been waiting to go to rehab. Denies any pain but has abdominal discomfort due to ongoing constipation He has been is stable to be transferred except that he has not had a bowel movement for a while Remained stable except abdominal distention and inadequate bowel movement Will need placement Status post fall last evening-03/14/2022 No significant injury no loss of consciousness and no seizures CT scan of the head and CT of the abdomen and pelvis remain unremarkable Denies any complaints as of today No acute symptoms Constipation Has had laxatives without any effect Most recent KUB showed Interval decompression of the large and small bowel. He has been received Relistor and oral lactulose Continue laxative and sool softener Relistor discontinues today L 3 Acute Compression fracture: L rib #[address] and negative C-spine CT of the abdomen and pelvis showed L3 acute compression fraction as above -Chest CT: 11th rib left chest wall non-displaced fracture, no PNX Appreciate orthospine evaluation and recommendation Back pain is stable-.. 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 -Takes Topamax and Phenobarbital with compliance -Topamax and Phenobarb levels pending -Appreciate neurology input and recommendation -No more seizures -Stable L upper leg pain Ortho consulted Femur XR: no fracture possible trochanteric bursitis, steroid injection planned Appreciate Ortho input and recommendation for left greater trochanteric bursa injection Status post steroid injection to the greater trochanteric bursa on the left side Symptomatically better Get PT and OT evaluation-recommended rehab-awaiting placement 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 BPH: -Takes Tamsulosin; continue Disposition: PCP: Marbin Lira PA-C Code Status: Full Code VTE Prophylaxis: Eliquis Disposition lives at home with son PT/OT recommended rehab and the patient is willing to go to rehab but the family members are resisting Will need placement Admission and Anticipated Discharge Date Admission Date: March 14, 2022 Subjective Pt was seen and examined for follow up Sitting in chair with no acute distress he tolerated clear liquid diet Denies any chest pain, palpitation, dizziness and SOB Review of Systems Review of Systems: All systems reviewed & are unremarkable except as noted in Subjective Physical Exam Physical Exam: General- No acute distress Head- atraumatic Eyes- PERRL, EOMI, ENT- NG tube Neck- supple, no JVD Lungs- clear to auscultation Heart- regular rhythm; no murmur Abdomen- non distended, +BS, Non tender Extremities- no calf tenderness Neuro- alert, oriented x 3; PERRL, EOMI; no facial palsy; no dysarthria Skin- warm & dry Results & Data Results & Data ([facility]) Vital Signs (Past 12 Hours) Vital Signs Temp Pulse Pulse BP Pulse Ox O2 Del Method O2 Del Method 03/28/22 14:00 Nasal Cannula 03/28/22 07:00 78 03/28/22 10:41 76 97/62 L 97 Nasal Cannula 03/28/22 08:20 Nasal Cannula 03/28/22 07:24 36.4 C L 78 109/65 97 Nasal Cannula O2 Flow Rate O2 Flow Rate 03/28/22 14:00 2 03/28/22 07:00 03/28/22 10:41 2 03/28/22 08:20 2 03/28/22 07:24 2
[2022-03-28] MEDS: rOPINIRole HCL 0.25 MG TABLET PO SCH (20:13)
[2022-03-28] MEDS: TAMSULOSIN HCL 0.4 MG CAP PO SCH (20:13)
[2022-03-28] MEDS: FINASTERIDE 5 MG TAB PO SCH (20:13)
[2022-03-28] MEDS: STOP CLINOLIPID SCH (22:04)
[2022-03-29] MEDS: PIPERACILLIN/TAZOBACTAM 4.5 GM in DEXTROSE 5% 100 ML IV SCH ×3 (01:43→17:55)
[2022-03-29] MEDS: ACETAMINOPHEN 325 MG TAB PO SCH ×3 (05:50→21:54)
[2022-03-29] MEDS ORDERED: bisacodyL 5 MG TABEC PO ONE (08:27)
[2022-03-29] MEDS: DOCUSATE SODIUM/SENNA 50/8.6MG TAB PO SCH ×2 (08:52→20:54)
[2022-03-29] MEDS: APIXABAN 5 MG TABLET PO SCH ×2 (08:52→20:53)
[2022-03-29] MEDS: POLYETHYLENE (MIRALAX) 17 GM PACK PO SCH ×2 (08:52→20:52)
[2022-03-29] MEDS: TOPIRAMATE 100 MG TAB PO SCH ×2 (08:52→20:53)
[2022-03-29] MEDS: LIDOCAINE 5% 1 PATCH TD SCH (08:53)
[2022-03-29] MEDS: PHENobarbitaL 30 MG TAB PO SCH ×2 (08:59→20:52)
--- NOTE | 2022-03-29 09:02 | Hospitalist Progress Note ---
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 Status post colonoscopy and rectal tube placement Status post NG tube placement for decompression Stool was checked for C. difficile colitis and the patient is placed on intravenous Zosyn Appreciate GI and surgery input and recommendation Discussed with the family members Clinically little bit better there is little or no improvement of obstruction as of yet recent KUB showed interval decompression of the large and small bowel. Narcotics have been discontinued and he is getting Relistor as per GI Clinically not any better or worse-still having watery diarrhea. Continue conservative management Continue PPN or TPN for nutritional support NG tube and rectal tubes tube removed Continue monitor electrolytes tolerates full liquid diet Seen by surgery today - 03/29 and KUB repeated -small and large bowel continues to be distended Once diet advance as tolerated, will plan to discontinue PPN possible tomorrow - will discuss w/ surgery Fall Likely secondary to ambulatory dysfunction and seizure is unlikely the cause of fall Status post breakthrough seizure was considered on admission Appreciate neurology input and recommendation We will continue current doses of seizure medication Phenobarb level is therapeutic at 15.9 and topiramate level is pending No more seizure since admission PT recommended rehab but the family members are refusing to send him to rehab Discussed with the patient he wants to go to rehab for short-term We will discussed with the family members prior to discharge Has had PT again and the recommendation persist Has been waiting to go to rehab. Remained stable except abdominal distention and inadequate bowel movement Will need placement vs home health services Status post fall last evening-03/14/2022 No significant injury no loss of consciousness and no seizures CT scan of the head and CT of the abdomen and pelvis remain unremarkable Denies any complaints as of today No acute symptoms Constipation Has had laxatives without any effect KUB showed Interval decompression of the large and small bowel. He has been received Relistor and oral lactulose Continue laxative and stool softener Relistor discontinued KUB - 03/29 -continues to show small and large bowel distention Surgery again ordered laxative L 3 Acute Compression fracture: L rib #[address] and negative C-spine CT of the abdomen and pelvis showed L3 acute compression fraction as above -Chest CT: 11th rib left chest wall non-displaced fracture, no PNX Appreciate orthospine evaluation and recommendation Back pain is stable- 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 -Takes Topamax and Phenobarbital with compliance -Topamax and Phenobarb levels pending -Appreciate neurology input and recommendation -No more seizures -Stable L upper leg pain Ortho consulted Femur XR: no fracture possible trochanteric bursitis, steroid injection planned Appreciate Ortho input and recommendation for left greater trochanteric bursa injection Status post steroid injection to the greater trochanteric bursa on the left side Symptomatically better Get PT and OT evaluation-recommended rehab-awaiting placement 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 BPH: -Takes Tamsulosin; continue Disposition: PCP: Marbin Lira PA-C Code Status: Full Code VTE Prophylaxis: Eliquis Disposition lives at home with son PT/OT recommended rehab Will need placement vs. home health services once medically stable Admission and Anticipated Discharge Date Admission Date: March 14, 2022 Subjective Pt was seen and examined for follow up colonic pseudo-obstruction Laying in bed in NAD NGT and rectal tube removed, he is still on PPN Pt tolerates full liquid diet Denies any chest pain, palpitation, dizziness or shortness of breath Reports having bowel movement this morning. Yesterday ambulated in the hallway. Seen by surgery this morning, KUB repeated, small and large bowel continues to be distended No abd. pain Review of Systems Review of Systems: All systems reviewed & are unremarkable except as noted in Subjective Physical Exam Physical Exam: General- elderly M in No acute distress Head- atraumatic Eyes- PERRL, EOMI, Neck- supple, no JVD Lungs- clear to auscultation Heart- regular rhythm; no murmur Abdomen- non distended, +BS, Non tender, + obese Extremities- no calf tenderness, moves extremities Neuro- alert, oriented x 3; PERRL, EOMI; no facial palsy; no dysarthria, moves extremities Skin- warm & dry Results & Data Results & Data ([facility]) Vital Signs (Past 12 Hours) Vital Signs Temp Pulse Pulse Resp BP Pulse Ox O2 Del Method 03/29/22 07:54 36.3 C L 74 16 118/72 96 Nasal Cannula 03/29/22 02:51 36.5 C 72 18 134/86 97 Nasal Cannula 03/28/22 22:10 78 03/28/22 23:06 36.4 C L 76 18 117/73 96 Nasal Cannula O2 Flow Rate 03/29/22 07:54 2 03/29/22 02:51 2 03/28/22 22:10 03/28/22 23:06 2 Laboratory Results 03/29/22 03/29/22 03/28/22 Range/Units 07:57 02:08 11:32 Sodium 138 (136-145) mmol/L Potassium 4.3 (3.5-5.1) mmol/L Chloride 106 (98-107) mmol/L Carbon Dioxide 27 (21-32) mmol/L Anion Gap 5 (3-11) BUN 21 (6-23) mg/dl Creatinine 0.81 (0.6-1.4) mg/dl Est Cr Clr Drug Dosing 72.3 ml/min Est GFR ( Amer) 93.9 ml/min Est GFR (Non-Af Amer) 81.0 ml/min BUN/Creatinine Ratio 25.9 H (10-20) Glucose 90 (70-99(Fasting)) mg/dl POC Glucose 87 92 (70-99) mg/dl Calcium 8.7 (8.5-10.1) mg/dl Phosphorus 3.5 (2.5-4.9) mg/dl Magnesium 2.1 (1.7-2.4) mg/dl Medications Administered Current Inpatient Medications Acetaminophen (Acetaminophen 325 Mg Tab) 650 mg PO Q8 [facility] Stop: 04/22/22 13:59 Last Admin: 03/29/22 05:50 Dose: 650 mg Apixaban (Apixaban 5 Mg Tablet) 5 mg PO BID [facility] Stop: 04/12/22 20:59 Last Admin: 03/29/22 08:52 Dose: 5 mg Finasteride (Finasteride 5 Mg Tab) 5 mg PO QPM [facility] Stop: 04/12/22 20:59 Last Admin: 03/28/22 20:13 Dose: 5 mg Piperacillin Sod/Tazobactam (Sod 4.5 gm/ Dextrose) 120 mls @ 30 mls/hr IV Q8H [facility]; Protocol Stop: 03/31/22 15:59 Last Infusion: 03/29/22 05:50 Dose: Infused Dextrose (D10w) 1,000 mls @ 0 mls/hr IV .Q0M PRN PRN Reason: protocol (see label comments) Stop: 04/22/22 14:09 Amino Acids 2,116 ml/ (Nutrition (Parenteral)) 2,116 mls @ 88 mls/hr IV .Q24H [facility]; Protocol Stop: 03/29/22 15:59 Last Admin: 03/28/22 15:59 Dose: 88 mls/hr Lidocaine (Lidocaine 5% 1 Patch) 1 patch TD QAM [facility] Stop: 04/12/22 15:29 Last Admin: 03/29/22 08:53 Dose: Not Given Miscellaneous (Remove Lidoderm Patch) 1 each N/A DAILY@2100 [facility] Stop: 04/12/22 20:59 Last Admin: 03/28/22 20:16 Dose: 1 each Miscellaneous (Stop Clinolipid) 1 each N/A TODAY@22 [facility] Stop: 04/23/22 21:59 Last Admin: 03/28/22 22:04 Dose: 1 each Miscellaneous Information (Tpn/Ppn Consult Pharmacy) 1 each N/A UD PRN PRN Reason: Consult Stop: 04/22/22 14:12 Phenobarbital (Phenobarbital 30 Mg Tab) 60 mg PO BID [facility] Stop: 04/12/22 20:59 Last Admin: 03/29/22 08:59 Dose: 60 mg Polyethylene Glycol (Polyethylene (Miralax) 17 Gm Pack) 17 gm PO DAILY PRN PRN Reason: Constipation Stop: 04/13/22 20:08 Last Admin: 03/19/22 08:38 Dose: 17 gm Polyethylene Glycol (Polyethylene (Miralax) 17 Gm Pack) 17 gm PO BID [facility] Stop: 04/26/22 09:59 Last Admin: 03/29/22 08:52 Dose: 17 gm Ropinirole HCl (Ropinirole Hcl 0.25 Mg Tablet) 0.25 mg PO QPM [facility] Stop: 04/12/22 20:59 Last Admin: 03/28/22 20:13 Dose: 0.25 mg Senna/Docusate Sodium (Docusate Sodium/Senna 50/8.6mg Tab) 1 tab PO BID [facility] Stop: 04/14/22 05:19 Last Admin: 03/29/22 08:52 Dose: 1 tab Tamsulosin HCl (Tamsulosin Hcl 0.4 Mg Cap) 0.4 mg PO QPM [facility] Stop: 04/12/22 20:59 Last Admin: 03/28/22 20:13 Dose: 0.4 mg Topiramate (Topiramate 100 Mg Tab) 200 mg PO BID [facility] Stop: 04/12/22 20:59 Last Admin: 03/29/22 08:52 Dose: 200 mg
--- NOTE | 2022-03-29 09:19 | XRay Report ---
KUB HISTORY: Acute generalized abdominal pain r/o sbo COMPARISON: KUB 03/25/2022 FINDINGS: Persistent dilated air-filled large and small bowel with large bowel loops measuring up to 9.5 cm. Small bowel loops measure up to approximately 3.5 cm. Findings are similar to prior. Status p ost removal of the enteric and rectal tubes. No renal calculi. No ureteral calculi. No pneumoperiton eum or pneumatosis. No fracture. IMPRESSION: 1. Status post removal of the enteric and rectal tubes. 2. Persistent dilated large and small bowel is similar to the prior study. ACT 112: Negative or not required by law. The above report was generated using voice recognition software. It may contain grammatical, syntax o r spelling errors. Electronically signed by: Josemanuel Ellis M.D. 03/29/2022 9:18 AM
[2022-03-29 09:26] LABS: BUN Creatinine Ratio 25.9 (10-20); Calcium 8.7 mg/dl (8.5-10.1); Creatinine Clr Calc Pharmacy 72.3 ml/min; Est GFR (African American) 93.9 ml/min; Magnesium 2.1 mg/dl (1.7-2.4); Phosphorus 3.5 mg/dl (2.5-4.9); Potassium 4.3 mmol/L (3.5-5.1)
--- NOTE | 2022-03-29 09:50 | Surgery Progress Note ---
Date of Service March 29, 2022 Assessment & Plan (1) Pseudoobstruction of colon: Plan: patient doing okay s/p NGT and rectal tube removal KUB obtained showed stable but persistent findings of large and small bowel distention BID miralax and suppository have been ordered no abdominal complaints. on exam it is soft, non tender, with mild distention encourage ongoing ambulation continues on full liquid diet for now Admission and Anticipated Discharge Date Admission Date: March 14, 2022 Supervising Physician Co-Signing Physician Notes Dr. Burgesspatient given Dulcolax and is moving his bowels KUB shows findings similar to several days ago-mildly dilated cecum We will advance to regular diet Continue twice daily MiraLAX His mobility is significantly increased-see PT notes Continue PPN today as he can use the protein Subjective Patient feeling okay. Tolerating full liquids, no nausea/vomiting. Says he has not had a BM in a couple days, but is passing flatus. No abdominal pain. Physical Exam Physical Exam: awake/alert, no distress Respiratory: normal respiratory effort Gastrointestinal (Abdomen): Inspection/Auscultation: + abdomen distended (improved) Percussion/Palpation: abdomen soft; abdomen nontender Results & Data ([facility]) Vital Signs (Past 12 Hours) Vital Signs Temp Pulse Pulse Resp BP Pulse Ox O2 Del Method 03/29/22 07:00 82 03/29/22 07:54 36.3 C L 74 16 118/72 96 Nasal Cannula 03/29/22 02:51 36.5 C 72 18 134/86 97 Nasal Cannula 03/28/22 22:10 78 03/28/22 23:06 36.4 C L 76 18 117/73 96 Nasal Cannula O2 Flow Rate 03/29/22 07:00 03/29/22 07:54 2 03/29/22 02:51 2 03/28/22 22:10 03/28/22 23:06 2 PG Care Time/CCT Total # of Minutes Spent Total Time Spent with Patient: Total time spent is greater than 50% in coordination of care (as documented) at patient's floor/unit and/or counseling patient: Coding Level of Care Code 00804 SUB INP/OBS CARE 1/25MIN Diagnoses Pseudoobstruction of colon K59.81
[2022-03-29] MEDS ORDERED: D5W IV SCH (16:00)
[2022-03-29] MEDS ORDERED: AMINO ACIDS 4.25% IV SCH (16:00)
[2022-03-29] MEDS ORDERED: PERIPHERAL TPN IV SCH (16:00)
[2022-03-29] MEDS ORDERED: CLINOLIPID 20% IV FAT EMULSION 250 ML IV SCH (16:00)
[2022-03-29] MEDS: FINASTERIDE 5 MG TAB PO SCH (20:54)
[2022-03-29] MEDS: rOPINIRole HCL 0.25 MG TABLET PO SCH (20:54)
[2022-03-29] MEDS: TAMSULOSIN HCL 0.4 MG CAP PO SCH (20:55)
[2022-03-29] MEDS: STOP CLINOLIPID SCH (22:27)
[2022-03-30] MEDS: PIPERACILLIN/TAZOBACTAM 4.5 GM in DEXTROSE 5% 100 ML IV SCH ×3 (01:57→17:24)
[2022-03-30] MEDS: ACETAMINOPHEN 325 MG TAB PO SCH ×3 (05:35→21:38)
[2022-03-30 05:56] LABS: Hematocrit (blood only) 40.2 % (42.0-52.0); Hemoglobin 13.6 g/dl (14.0-18.0); Mean Corpuscular Hemoglobin 32.6 pg (25.0-34.0); Mean Corpuscular Hgb Conc 33.8 g/dL (32.0-36.0); Mean Corpuscular Volume 96.4 fL (80.0-100.0); Mean Platelet Volume 9.3 fL (9.4-12.4); Platelet Count 336 K/uL (130-400); RDW Coefficient of Variation 12.6 % (11.5-14.5); RDW Standard Deviation 44.6 fL (36.4-46.3); Red Blood Count 4.17 M/uL (4.70-6.10); White Blood Count 6.86 K/ul (4.8-10.8)
[2022-03-30 06:06] LABS: BUN Creatinine Ratio 27.8 (10-20); Calcium 8.8 mg/dl (8.5-10.1); Creatinine Clr Calc Pharmacy 74.1 ml/min; Est GFR (African American) 94.9 ml/min; Est GFR (Non-African American) 81.9 ml/min; Phosphorus 3.5 mg/dl (2.5-4.9); Potassium 4.2 mmol/L (3.5-5.1)
[2022-03-30] MEDS: PHENobarbitaL 30 MG TAB PO SCH ×2 (07:41→21:38)
[2022-03-30] MEDS: APIXABAN 5 MG TABLET PO SCH ×2 (07:41→21:38)
[2022-03-30] MEDS: POLYETHYLENE (MIRALAX) 17 GM PACK PO SCH ×2 (07:42→22:00)
[2022-03-30] MEDS: DOCUSATE SODIUM/SENNA 50/8.6MG TAB PO SCH ×2 (07:42→22:00)
[2022-03-30] MEDS: TOPIRAMATE 100 MG TAB PO SCH ×2 (07:42→21:38)
[2022-03-30] MEDS: LIDOCAINE 5% 1 PATCH TD SCH (07:42)
--- NOTE | 2022-03-30 09:43 | Hospitalist Progress Note ---
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 Status post colonoscopy and rectal tube placement Status post NG tube placement for decompression Stool was checked for C. difficile colitis and the patient is placed on intravenous Zosyn Appreciate GI and surgery input and recommendation recent KUB showed interval decompression of the large and small bowel. Narcotics have been discontinued and he was getting Relistor as per GI Still having watery diarrhea. Continue conservative management Continue PPN for nutritional support - plan to finish PPN today NG tube and rectal tubes tube were removed Continue monitor electrolytes tolerates low fiber diet KUB yesterday (03/29) repeated -small and large bowel continues to be distended Surgery following Fall Likely secondary to ambulatory dysfunction and seizure is unlikely the cause of fall Status post breakthrough seizure was considered on admission Appreciate neurology input and recommendation We will continue current doses of seizure medication Phenobarb level is therapeutic at 15.9 and topiramate level is pending No more seizure since admission PT recommended rehab initially Has had PT again and the recommendation is now home w/ home health Remained stable except abdominal distention and inadequate bowel movement Will need placement vs home health services Status post fall - 03/14/2022 No significant injury no loss of consciousness and no seizures CT scan of the head and CT of the abdomen and pelvis remain unremarkable Denies any complaints as of today No acute symptoms Constipation He has been received Relistor and oral lactulose Continue laxative and stool softener Relistor discontinued KUB - 03/29 -continues to show small and large bowel distention Surgery again ordered laxative - miralax + senna Pt having loose stools L 3 Acute Compression fracture: L rib #[address] and negative C-spine CT of the abdomen and pelvis showed L3 acute compression fraction as above -Chest CT: 11th rib left chest wall non-displaced fracture, no PNX Appreciate orthospine evaluation and recommendation Back pain is stable- 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 -Takes Topamax and Phenobarbital with compliance -Topamax and Phenobarb levels 15.9 (normal) -Appreciate neurology input and recommendation -No more seizures -Stable L upper leg pain Ortho consulted Femur XR: no fracture possible trochanteric bursitis, steroid injection planned Appreciate Ortho input and recommendation for left greater trochanteric bursa injection Status post steroid injection to the greater trochanteric bursa on the left side Symptomatically better Get PT and OT evaluation-recommended rehab-awaiting placement 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 BPH: -Takes Tamsulosin; continue Disposition: PCP: Marbin Lira PA-C Code Status: Full Code VTE Prophylaxis: Eliquis Disposition lives at home with son PT/OT recommended rehab vs home w/ HH Will need placement vs. home health services once medically stable Admission and Anticipated Discharge Date Admission Date: March 14, 2022 Subjective Pt was seen and examined for follow up colonic pseudo-obstruction Laying in bed in NAD NGT and rectal tube removed, he is still on PPN - plan to finish PPN today Pt tolerates low fiber diet and having BM Denies any chest pain, palpitation, dizziness or shortness of breath. Denies abd. pain Ambulates. Review of Systems Review of Systems: All systems reviewed & are unremarkable except as noted in Subjective Physical Exam Physical Exam: General- elderly M in No acute distress Head- atraumatic Eyes- PERRL, EOMI, Neck- supple, no JVD Lungs- clear to auscultation Heart- regular rhythm; no murmur Abdomen- non distended, +BS, Non tender, + obese Extremities- no calf tenderness, moves extremities Neuro- alert, oriented x 3; PERRL, EOMI; no facial asymmetry; no dysarthria, moves extremities Skin- warm & dry Results & Data Results & Data ([facility]) Vital Signs (Past 12 Hours) Vital Signs Temp Pulse Pulse Resp BP BP Pulse Ox 03/30/22 08:43 89 03/30/22 08:21 36.4 C L 84 18 112/71 95 03/30/22 07:50 03/30/22 03:00 36.5 C 91 H 16 129/74 94 03/29/22 23:09 79 03/30/22 00:00 36.7 C 89 18 122/70 92 03/29/22 22:28 O2 Del Method 03/30/22 08:43 03/30/22 08:21 Room Air 03/30/22 07:50 Room Air 03/30/22 03:00 Room Air 03/29/22 23:09 03/30/22 00:00 Room Air 03/29/22 22:28 Room Air Laboratory Results 03/30/22 03/30/22 03/30/22 Range/Units 05:30 05:30 00:14 WBC 6.86 (4.8-10.8) K/ul RBC 4.17 L (4.70-6.10) M/uL Hgb 13.6 L (14.0-18.0) g/dl Hct 40.2 L (42.0-52.0) % MCV 96.4 (80.0-100.0) fL MCH 32.6 (25.0-34.0) pg MCHC 33.8 (32.0-36.0) g/dL RDW Std Deviation 44.6 (36.4-46.3) fL RDW Coeff of Tamir 12.6 (11.5-14.5) % Plt Count 336 (130-400) K/uL MPV 9.3 L (9.4-12.4) fL Sodium 136 (136-145) mmol/L Potassium 4.2 (3.5-5.1) mmol/L Chloride 105 (98-107) mmol/L Carbon Dioxide 26 (21-32) mmol/L Anion Gap 5 (3-11) BUN 22 (6-23) mg/dl Creatinine 0.79 (0.6-1.4) mg/dl Est Cr Clr Drug Dosing 74.1 ml/min Est GFR ( Amer) 94.9 ml/min Est GFR (Non-Af Amer) 81.9 ml/min BUN/Creatinine Ratio 27.8 H (10-20) Glucose 104 H (70-99(Fasting)) mg/dl POC Glucose 99 (70-99) mg/dl Calcium 8.8 (8.5-10.1) mg/dl Phosphorus 3.5 (2.5-4.9) mg/dl Magnesium 2.0 (1.7-2.4) mg/dl 03/29/22 03/29/22 03/29/22 Range/Units 22:08 11:48 07:57 WBC (4.8-10.8) K/ul RBC (4.70-6.10) M/uL Hgb (14.0-18.0) g/dl Hct (42.0-52.0) % MCV (80.0-100.0) fL MCH (25.0-34.0) pg MCHC (32.0-36.0) g/dL RDW Std Deviation (36.4-46.3) fL RDW Coeff of Tamir (11.5-14.5) % Plt Count (130-400) K/uL MPV (9.4-12.4) fL Sodium (136-145) mmol/L Potassium (3.5-5.1) mmol/L Chloride (98-107) mmol/L Carbon Dioxide 27 (21-32) mmol/L Anion Gap 5 (3-11) BUN (6-23) mg/dl Creatinine (0.6-1.4) mg/dl Est Cr Clr Drug Dosing ml/min Est GFR ( Amer) ml/min Est GFR (Non-Af Amer) ml/min BUN/Creatinine Ratio (10-20) Glucose (70-99(Fasting)) mg/dl POC Glucose 96 96 (70-99) mg/dl Calcium (8.5-10.1) mg/dl Phosphorus (2.5-4.9) mg/dl Magnesium (1.7-2.4) mg/dl Medications Administered Current Inpatient Medications Acetaminophen (Acetaminophen 325 Mg Tab) 650 mg PO Q8 [facility] Stop: 04/22/22 13:59 Last Admin: 03/30/22 05:35 Dose: 650 mg Apixaban (Apixaban 5 Mg Tablet) 5 mg PO BID [facility] Stop: 04/12/22 20:59 Last Admin: 03/30/22 07:41 Dose: 5 mg Finasteride (Finasteride 5 Mg Tab) 5 mg PO QPM [facility] Stop: 04/12/22 20:59 Last Admin: 03/29/22 20:54 Dose: 5 mg Piperacillin Sod/Tazobactam (Sod 4.5 gm/ Dextrose) 120 mls @ 30 mls/hr IV Q8H [facility]; Protocol Stop: 03/31/22 15:59 Last Admin: 03/30/22 09:35 Dose: 30 mls/hr Dextrose (D10w) 1,000 mls @ 0 mls/hr IV .Q0M PRN PRN Reason: protocol (see label comments) Stop: 04/22/22 14:09 Amino Acids 2,114.2 ml/ (Nutrition (Parenteral)) 2,114.2 mls @ 88 mls/hr IV .Q24H [facility]; Protocol Stop: 03/30/22 15:59 Last Admin: 03/29/22 15:29 Dose: 88 mls/hr Lidocaine (Lidocaine 5% 1 Patch) 1 patch TD QAM [facility] Stop: 04/12/22 15:29 Last Admin: 03/30/22 07:42 Dose: Not Given Miscellaneous (Remove Lidoderm Patch) 1 each N/A DAILY@2100 [facility] Stop: 04/12/22 20:59 Last Admin: 03/29/22 21:02 Dose: Not Given Miscellaneous (Stop Clinolipid) 1 each N/A TODAY@22 [facility] Stop: 04/23/22 21:59 Last Admin: 03/29/22 22:27 Dose: 1 each Miscellaneous Information (Tpn/Ppn Consult Pharmacy) 1 each N/A UD PRN PRN Reason: Consult Stop: 04/22/22 14:12 Phenobarbital (Phenobarbital 30 Mg Tab) 60 mg PO BID [facility] Stop: 04/12/22 20:59 Last Admin: 03/30/22 07:41 Dose: 60 mg Polyethylene Glycol (Polyethylene (Miralax) 17 Gm Pack) 17 gm PO DAILY PRN PRN Reason: Constipation Stop: 04/13/22 20:08 Last Admin: 03/19/22 08:38 Dose: 17 gm Polyethylene Glycol (Polyethylene (Miralax) 17 Gm Pack) 17 gm PO BID [facility] Stop: 04/26/22 09:59 Last Admin: 03/30/22 07:42 Dose: 17 gm Ropinirole HCl (Ropinirole Hcl 0.25 Mg Tablet) 0.25 mg PO QPM [facility] Stop: 04/12/22 20:59 Last Admin: 03/29/22 20:54 Dose: 0.25 mg Senna/Docusate Sodium (Docusate Sodium/Senna 50/8.6mg Tab) 1 tab PO BID [facility] Stop: 04/14/22 05:19 Last Admin: 03/30/22 07:42 Dose: Not Given Tamsulosin HCl (Tamsulosin Hcl 0.4 Mg Cap) 0.4 mg PO QPM [facility] Stop: 04/12/22 20:59 Last Admin: 03/29/22 20:55 Dose: 0.4 mg Topiramate (Topiramate 100 Mg Tab) 200 mg PO BID [facility] Stop: 04/12/22 20:59 Last Admin: 03/30/22 07:42 Dose: 200 mg
--- NOTE | 2022-03-30 10:20 | Surgery Progress Note ---
Date of Service March 30, 2022 Assessment & Plan (1) Pseudoobstruction of colon: Plan: patient doing good s/p NGT and rectal tube removal he is having + bowel function. can continue with current bowel regimen diet advanced to low fiber of which he is tolerating well can finish current PPN bag that is running then discontinue it encourage ongoing ambulation Admission and Anticipated Discharge Date Admission Date: March 14, 2022 Subjective Patient doing well. No abdominal complaints. Tolerating diet- had eggs/toast for breakfast. No pain. No n/v. Passing gas/BMs Physical Exam Physical Exam: awake/alert Gastrointestinal (Abdomen): Inspection/Auscultation: + abdomen distended (continues to improve) Percussion/Palpation: abdomen soft; abdomen nontender Results & Data ([facility] [place]) Vital Signs (Past 12 Hours) Vital Signs Temp Pulse Pulse Resp BP BP Pulse Ox 03/30/22 08:43 89 03/30/22 08:21 36.4 C L 84 18 112/71 95 03/30/22 07:50 03/30/22 03:00 36.5 C 91 H 16 129/74 94 03/29/22 23:09 79 03/30/22 00:00 36.7 C 89 18 122/70 92 03/29/22 22:28 O2 Del Method 03/30/22 08:43 03/30/22 08:21 Room Air 03/30/22 07:50 Room Air 03/30/22 03:00 Room Air 03/29/22 23:09 03/30/22 00:00 Room Air 03/29/22 22:28 Room Air PG Care Time/CCT Total # of Minutes Spent Total Time Spent with Patient: Total time spent is greater than 50% in coordination of care (as documented) at patient's floor/unit and/or counseling patient: Coding Level of Care Code 49711 SUB INP/OBS CARE Diagnoses Pseudoobstruction of colon K59.81
[2022-03-30] MEDS: FINASTERIDE 5 MG TAB PO SCH (21:39)
[2022-03-30] MEDS: rOPINIRole HCL 0.25 MG TABLET PO SCH (21:39)
[2022-03-30] MEDS: TAMSULOSIN HCL 0.4 MG CAP PO SCH (21:39)
[2022-03-31] MEDS: PIPERACILLIN/TAZOBACTAM 4.5 GM in DEXTROSE 5% 100 ML IV SCH ×2 (01:14→10:19)
[2022-03-31] MEDS: ACETAMINOPHEN 325 MG TAB PO SCH (05:21)
[2022-03-31 07:51] LABS: BUN Creatinine Ratio 19.3 (10-20); Calcium 8.7 mg/dl (8.5-10.1); Creatinine Clr Calc Pharmacy 65.8 ml/min; Est GFR (African American) 90.8 ml/min; Est GFR (Non-African American) 78.3 ml/min; Magnesium 1.9 mg/dl (1.7-2.4); Phosphorus 3.1 mg/dl (2.5-4.9); Potassium 3.5 mmol/L (3.5-5.1)
[2022-03-31] MEDS ORDERED: POTASSIUM CHLORIDE CRTAB 20 MEQ TABCR PO STA (08:10)
[2022-03-31] MEDS: TOPIRAMATE 100 MG TAB PO SCH (08:46)
[2022-03-31] MEDS: POLYETHYLENE (MIRALAX) 17 GM PACK PO SCH (08:47)
[2022-03-31] MEDS: APIXABAN 5 MG TABLET PO SCH (08:47)
[2022-03-31] MEDS: DOCUSATE SODIUM/SENNA 50/8.6MG TAB PO SCH (08:47)
[2022-03-31] MEDS: LIDOCAINE 5% 1 PATCH TD SCH ×3 (08:47→10:23)
--- NOTE | 2022-03-31 09:22 | Surgery Progress Note ---
Date of Service March 31, 2022 Assessment & Plan (1) Pseudoobstruction of colon: Plan: Instructed patient to make sure to continue with the bowel regime that he has been using in the hospital and seems to be sufficient to generate some GI function Plan Discharge when okay with the primary service No need to follow-up with us unless new issues arise Admission and Anticipated Discharge Date Admission Date: March 14, 2022 Subjective No complaints tolerating a diet and his bowels are moving Physical Exam Physical Exam: Sitting in the chair side of bed without any issues The abdomen completely benign minimally distended Results & Data ([facility]) Vital Signs (Past 12 Hours) Vital Signs Temp Pulse Pulse Resp BP Pulse Ox O2 Del Method 03/31/22 08:00 Room Air 03/31/22 07:05 75 03/31/22 06:30 36.8 C 77 18 127/78 92 Room Air 03/31/22 02:57 36.5 C 80 18 151/73 H 92 Room Air 03/30/22 22:43 86 03/30/22 22:43 36.7 C 84 18 122/72 92 Room Air
[2022-03-31] MEDS: PHENobarbitaL 30 MG TAB PO SCH (09:26)
--- NOTE | 2022-03-31 11:58 | Hospitalist Progress Note ---
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 Status post colonoscopy and rectal tube placement Status post NG tube placement for decompression Stool was checked for C. difficile colitis and the patient is placed on intravenous Zosyn Appreciate GI and surgery input and recommendation recent KUB showed interval decompression of the large and small bowel. Narcotics have been discontinued and he was getting Relistor as per GI Continued conservative management Continued PPN for nutritional support - finished yesterday (03/30) NG tube and rectal tubes tube were removed several days ago Continue monitor electrolytes tolerates low fiber diet KUB (03/29) repeated -small and large bowel continues to be distended Surgery following Patient is tolerating diet, and having BMs with bowel regimen as above. Per surgery, patient is okay for discharge with MiraLAX and senna, his current bowel regimen. Fall Likely secondary to ambulatory dysfunction and seizure is unlikely the cause of fall Status post breakthrough seizure was considered on admission Appreciate neurology input and recommendation We will continue current doses of seizure medication Phenobarb level is therapeutic at 15.9 and topiramate level 9.2 No more seizure since admission PT recommended rehab initially Has had PT again and the recommendation is now home w/ home health Status post fall - 03/14/2022 No significant injury no loss of consciousness and no seizures CT scan of the head and CT of the abdomen and pelvis remain unremarkable Denies any complaints as of today No acute symptoms Constipation He has been received Relistor and oral lactulose Relistor discontinued KUB - 03/29 -continues to show small and large bowel distention Surgery recommend to continue - miralax + senna on discharge Pt having BMs L 3 Acute Compression fracture: L rib #[address] and negative C-spine CT of the abdomen and pelvis showed L3 acute compression fraction as above -Chest CT: 11th rib left chest wall non-displaced fracture, no PNX Appreciate orthospine evaluation and recommendation Back pain is stable- 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 -Takes Topamax and Phenobarbital with compliance -Topamax 9.2 and Phenobarb levels 15.9 (normal) -Appreciate neurology input and recommendation -No more seizures -Stable , follow up as outpt L upper leg pain Ortho consulted Femur XR: no fracture possible trochanteric bursitis, steroid injection planned Appreciate Ortho input and recommendation for left greater trochanteric bursa injection Status post steroid injection to the greater trochanteric bursa on the left side Symptomatically better PT/OT 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; continue for now Sleep Apnea: -Wears CPAP at night -CPAP at night ordered Dementia: -Takes Namzaric; continue -Takes Ropinerole; continue BPH: -Takes Tamsulosin; continue Disposition: PCP: Marbin Lira PA-C Code Status: Full Code VTE Prophylaxis: Eliquis Disposition - home w/ HH Admission and Anticipated Discharge Date Admission Date: March 14, 2022 Subjective Pt was seen and examined for follow up colonic pseudo-obstruction Sitting up in chair in NAD NGT and rectal tube removed several days ago PPN finished yesterday Pt tolerates low fiber diet and having BMs Denies any chest pain, palpitation, dizziness or shortness of breath. Denies abd. pain Ambulates. Seen by surgery, ok to [place] home w/ HH. Review of Systems Review of Systems: All systems reviewed & are unremarkable except as noted in Subjective Physical Exam Physical Exam: General- elderly M in No acute distress Head- atraumatic Eyes- PERRL, EOMI, Neck- supple, no JVD Lungs- clear to auscultation Heart- regular rhythm; no murmur Abdomen- non distended, +BS, Non tender, + obese Extremities- no calf tenderness, moves extremities Neuro- alert, oriented x 3; PERRL, EOMI; no facial asymmetry; no dysarthria, moves extremities Skin- warm & dry Results & Data Results & Data ([facility]) Vital Signs (Past 12 Hours) Vital Signs Temp Pulse Pulse Resp BP Pulse Ox O2 Del Method 03/31/22 11:05 36.8 C 81 20 107/69 93 Room Air 03/31/22 08:00 Room Air 03/31/22 07:05 75 02/17/23 06:30 36.8 C 77 18 127/78 92 Room Air 03/31/22 02:57 36.5 C 80 18 151/73 H 92 Room Air Laboratory Results 03/31/22 03/31/22 03/31/22 Range/Units 11:21 06:51 05:51 Sodium 137 (136-145) mmol/L Potassium 3.5 (3.5-5.1) mmol/L Chloride 107 (98-107) mmol/L Carbon Dioxide 24 (21-32) mmol/L Anion Gap 6 (3-11) BUN 17 (6-23) mg/dl Creatinine 0.88 (0.6-1.4) mg/dl Est Cr Clr Drug Dosing 65.8 ml/min Est GFR ( Amer) 90.8 ml/min Est GFR (Non-Af Amer) 78.3 ml/min BUN/Creatinine Ratio 19.3 (10-20) Glucose 93 (70-99(Fasting)) mg/dl POC Glucose 86 86 (70-99) mg/dl Calcium 8.7 (8.5-10.1) mg/dl Phosphorus 3.1 (2.5-4.9) mg/dl Magnesium 1.9 (1.7-2.4) mg/dl 03/30/22 Range/Units 23:44 Sodium (136-145) mmol/L Potassium (3.5-5.1) mmol/L Chloride (98-107) mmol/L Carbon Dioxide (21-32) mmol/L Anion Gap (3-11) BUN (6-23) mg/dl Creatinine (0.6-1.4) mg/dl Est Cr Clr Drug Dosing ml/min Est GFR ( Amer) ml/min Est GFR (Non-Af Amer) ml/min BUN/Creatinine Ratio (10-20) Glucose (70-99(Fasting)) mg/dl POC Glucose 86 (70-99) mg/dl Calcium (8.5-10.1) mg/dl Phosphorus (2.5-4.9) mg/dl Magnesium (1.7-2.4) mg/dl Medications Administered Current Inpatient Medications Acetaminophen (Acetaminophen 325 Mg Tab) 650 mg PO Q8 [facility] Stop: 04/22/22 13:59 Last Admin: 03/31/22 05:21 Dose: 650 mg Apixaban (Apixaban 5 Mg Tablet) 5 mg PO BID [facility] Stop: 04/12/22 20:59 Last Admin: 03/31/22 08:47 Dose: 5 mg Finasteride (Finasteride 5 Mg Tab) 5 mg PO QPM [facility] Stop: 04/12/22 20:59 Last Admin: 03/30/22 21:39 Dose: 5 mg Piperacillin Sod/Tazobactam (Sod 4.5 gm/ Dextrose) 120 mls @ 30 mls/hr IV Q8H [facility]; Protocol Stop: 03/31/22 15:59 Last Admin: 03/31/22 10:19 Dose: 30 mls/hr Lidocaine (Lidocaine 5% 1 Patch) 1 patch TD QAM [facility] Stop: 04/12/22 15:29 Last Admin: 03/31/22 10:23 Dose: 1 patch Miscellaneous (Remove Lidoderm Patch) 1 each N/A DAILY@2100 [facility] Stop: 04/12/22 20:59 Last Admin: 03/30/22 21:39 Dose: Not Given Phenobarbital (Phenobarbital 30 Mg Tab) 60 mg PO BID [facility] Stop: 04/12/22 20:59 Last Admin: 03/31/22 09:26 Dose: 60 mg Polyethylene Glycol (Polyethylene (Miralax) 17 Gm Pack) 17 gm PO DAILY PRN PRN Reason: Constipation Stop: 04/13/22 20:08 Last Admin: 03/19/22 08:38 Dose: 17 gm Polyethylene Glycol (Polyethylene (Miralax) 17 Gm Pack) 17 gm PO BID [facility] Stop: 04/26/22 09:59 Last Admin: 03/31/22 08:47 Dose: Not Given Ropinirole HCl (Ropinirole Hcl 0.25 Mg Tablet) 0.25 mg PO QPM [facility] Stop: 04/12/22 20:59 Last Admin: 03/30/22 21:39 Dose: 0.25 mg Senna/Docusate Sodium (Docusate Sodium/Senna 50/8.6mg Tab) 1 tab PO BID [facility] Stop: 04/14/22 05:19 Last Admin: 03/31/22 08:47 Dose: Not Given Tamsulosin HCl (Tamsulosin Hcl 0.4 Mg Cap) 0.4 mg PO QPM [facility] Stop: 04/12/22 20:59 Last Admin: 03/30/22 21:39 Dose: 0.4 mg Topiramate (Topiramate 100 Mg Tab) 200 mg PO BID [facility] Stop: 04/12/22 20:59 Last Admin: 03/31/22 08:46 Dose: 200 mg
--- NOTE | 2022-03-31 12:30 | Discharge Summary ---
Date of Service March 31, 2022 Admission HPI Per Admitting Provider Mr. Dumont is an 86 year old male that presented to the [facility] s/p fall at home this morning. He reports that he woke this morning at 4AM and went to the bathroom and fell into one of their radiators. His son, who lives in the home, heard him fall and went to help him up. He thought he could have had a seizure, but pre other family, this information may not be reliable. He did hit his left chest wall and face for which he does have an abrasion. Chest CT revealed acute nondisplaced rib fracture, C-spine CT negative, Head CT negative for ICH, midline shift or fractures, abdomen/pelvis CT reveals compression fracture L3. 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 Per patient, he initially stated that he recalled the event and that this happens in March, and later he indicated that he did recall having an aura. He does have a history of seizures that was diagnosed at the age of 7 and his last seizure was 03/2019. He does take Topamax and Phenobarbital. He did NOT take these medications this morning. With review in EMR, pt last ECHO 04/2021: EF 55- 60% , mild tricuspid regurgitation, mild aortic regurgitation but normal wall motion. Patient was able to answer all questions appropriately. His and daughter were at bedside and stated that he appears back to his baseline functional and cognitive status. On exam, he was AAOx4 and able to recall the events that occurred and also tell me his medications. At baseline, he is able to do his ADL's independently and does not use a walker or can for ambulatory assistance. Patient does not appear post ictal on exam. He does have left chest wall pain from his non-displaced rib fracture. Patient will be admitted for further evaluation and management. Please see A/P for further details. Admission Exam Per Admitting Provider Neuro: AAOx4, PERRLA, no aphagia, memory changes, CNII-XII grossly intact. Reports aura HEENT: head normocephalic, moist mucus membranes CV: S1/S2, (-) M/G/R, (-) edema, cap refill < 3 seconds Resp: Lungs CTA in all escobar. On 2LNC GI: Abdomen S/NT/ND, Ax4 bowel sounds, (-) CVA tenderness Musculoskeletal: 5/5 B/L UE strength, 5/5 B/L LE strength. No gait disturbance Skin: (-) rashes , (-) erythema. Psych: euthymic mood Principal Diagnosis Pseudo-obstruction of colon Fall Discharge Exam General- elderly M in No acute distress Head- atraumatic Eyes- PERRL, EOMI, Neck- supple, no JVD Lungs- clear to auscultation Heart- regular rhythm; no murmur Abdomen- non distended, +BS, Non tender, + obese Extremities- no calf tenderness, moves extremities Neuro- alert, oriented x 3; PERRL, EOMI; no facial asymmetry; no dysarthria, moves extremities Skin- warm & dry Discharge Data Allergies Allergy/AdvReac Type Severity Reaction Status Date / Time No Known Drug Allergies Allergy Verified 03/21/22 09:50 Consultations 03/13/22 14:37 ED Decision to Admit Stat 03/13/22 15:29 Consult Neurology Routine 03/14/22 08:15 Consult Orthopedic Surgery Routine 03/14/22 09:44 Consult Orthopedic Surgery Routine 03/20/22 17:45 Consult Gastroenterology Routine 03/21/22 11:26 Consult General Surgery Routine Procedures Performed Operation Date: 03/21/22 16:30 Actual Procedures p Colonoscopy with Decompression Tube Cassius Keith DO Ordered Studies 03/13/22 11:17 CT head/brain wo con Stat Findings: Near complete opacification of the right maxillary sinus with an associated fluid level. This is consistent with acute sinusitis. The mastoid air cells are clear. The calvarium and skull base are intact. There is no mass, hematoma, midline shift, acute infarct. White matter hypodensity is nonspecific but suggestive of microvascular ischemic change. The ventricles and sulci demonstrate mild age-related involutional changes. Impression: 1. No acute intracranial abnormality. 2. Acute right maxillary sinusitis. 03/13/22 11:19 CT Abd and Pelvis [CT abd pelvis IV con only] Stat FINDINGS: The lung bases will be reported on the same day chest CT. Mild superior endplate compression deformities at T12 and L1 are likely chronic. There is an acute mild superior endplate compression fracture at L3 which demonstrates up to 10% loss of height centrally. No associated retropulsion. No pneumoperitoneum. No pneumatosis. Age-indeterminate nondisplaced left lateral 11th rib fracture on image 187. The liver, gallbladder, pancreas, spleen, and adrenal glands unremarkable. There is a punctate stone within the left kidney on image 189. The kidneys enhance normally. No hydronephrosis. No retroperitoneal hematoma or lymphadenopathy. Calcified plaque within the normal caliber abdominal aorta. The prostate gland is enlarged. The bladder is mildly distended. Trace presacral edema is noted. No pelvic free fluid. Colonic diverticulosis. No evidence for acute diverticulitis. No bowel wall thickening or obstruction. Normal appendix. IMPRESSION: 1. An acute mild superior endplate compression fracture at L3. No associated retropulsion. 2. Age-indeterminate nondisplaced left lateral 11th rib fracture. 3. Left-sided nephrolithiasis. No hydronephrosis. 4. Additional findings as described above. CT cervical spine wo con Stat FINDINGS: No fractures. No subluxation. Prevertebral soft tissues and the C1-C2 interval are intact. IMPRESSION: No fractures within the cervical spine. CT chest diagnostic w con Stat FINDINGS: Unremarkable thyroid. Subcentimeter mediastinal and hilar lymph nodes are likely reactive. Heart is normal in size without pericardial effusion. Moderate coronary artery calcifications. Unremarkable thoracic aorta. The pulmonary artery is within normal limits. No pneumothorax or pleural effusion. Bibasilar groundglass and linear consolidative opacities within the dependent lower lobes. Mild associated mucous plugging. 3 mm fissural nodule of the right midlung on image 146 is suggestive of a benign lymph node. There are a few scattered low suspicion likely benign solid pulmonary nodules including a stable 3 mm nodule of the right upper lobe, image 99. Subpleural 4 mm nodular focus of the right upper lobe, image 129. 3 mm lingular nodule, image 182. 5 mm subpleural nodule of the left lower lobe, image 193. No acute process of the imaged upper abdomen. Mild gynecomastia. Battery pack of the left chest wall with electrode projected superiorly within the left neck extending outside the [id number]. Chronic T12 and L1 superior endplate compression deformities. IMPRESSION: 1. No acute posttraumatic intrathoracic abnormality. 2. No acute fracture or pneumothorax. 3. Mild bibasilar mucous plugging with bibasilar densities favoring atelectasis. 4. Scattered low suspicion solid pulmonary nodules measuring up to 5 mm Please refer to below summary of Fleischner criteria recommendations for follow- up of incidental CT nodules (Deb Martinez, Guidelines for management of small pulmonary nodules detected on CT scans: A statement from the Fleischner Society, Radiology 237: [phone].) SOLID NODULES Multiple nodules size: <6 mm * Low risk patients: no routine follow-up * high risk patients: optional CT at 12 months Note: newly detected indeterminate nodule in persons 35 years of age or older. * Low risk patients: minimal or absent history of smoking and/or other known risk factors * high risk patients: history of smoking or of other known risk factors (e.g. first degree relative with lung cancer, or exposure to asbestos, radon, uranium) * if a nodule up to 8 mm is partly solid or is ground glass further follow-up is required after 24 months to exclude possible slow growing adenocarcinoma (BEBA) 03/14/22 20:37 CT head/brain wo con Urgent FINDINGS: Brain parenchyma: There is age-related involutional change noting mild sub cortical and periventricular microangiopathic disease. There is no hemorrhage, mass effect, or evidence of acute territorial ischemia by CT criteria. Sharpe- white matter differentiation is preserved. No extra-axial fluid collection is seen. Ventricles, sulci, cisterns: Prominent secondary to involutional change. Intracranial vasculature: There is atherosclerotic calcification of the cavernous carotid arteries. Calvarium: The skeletal structures are osteopenic. No depressed calvarial fracture is identified. Sinuses and mastoids: There is subtotal opacification of the right maxillary antrum. Trace mucosal thickening is seen in the ethmoid sinuses. The remaining paranasal sinuses are clear. The mastoid air cells are well pneumatized. Orbits: The bony orbits are grossly intact. There are bilateral ocular lens implants. IMPRESSION: There is no hemorrhage, mass effect, or evidence of acute territorial ischemia by CT criteria. 03/14/22 21:07 CT abd pelvis IV con only Urgent FINDINGS: Cardiomegaly with trace pleural effusions and mild dependent subsegmental bibasilar consolidation. No pneumatosis or pneumoperitoneum. Unremarkable spleen, dystrophic pancreas and adrenal glands. Gallbladder is within normal limits. Unremarkable liver with patency of the hepatic and portal veins. No hydronephrosis. 2 mm nonobstructing calculus of the inferior pole left kidney. No ureteral calculi or hydronephrosis. Prostamegaly. Mild urinary bladder wall thickening with partial distention. Atherosclerosis of the aorta. No lymphadenopathy identified. Fluid-filled distal esophagus. Debris-filled distended stomach. Numerous air and fluid-filled loops of small bowel measure up to approximately 3 cm. Decompressed rectum and sigmoid with abrupt caliber change involving the sigmoid colon on image 386. There is also caliber change within this area on the prior study which was less pronounced. There is now moderate upstream gaseous distention of the large bowel. Moderate fecal retention of the cecum. Normal appendix. Mild gynecomastia. Degenerative changes of the spine, pelvis and hips. Unchanged appearance of the acute L3 superior endplate compression deformity without retropulsion. Chronic T12 and L1 compression fractures. Minimally displaced lateral left 11th rib fracture again noted. IMPRESSION: 1. Unchanged appearance of the acute L3 superior endplate compression fracture without retropulsion. 2. New/progressive large and small bowel dilation compared to the 03/13/2022 study with focal caliber change within the sigmoid colon. Follow-up KUB radiographs recommended to exclude ileus versus obstruction. These findings could be correlated with follow-up colonoscopy. 3. Left nephrolithiasis. 4. Acute appearing minimally displaced lateral left 11th rib fracture. 5. Additional findings as above. 03/20/22 14:14 CT Abd and Pelvis [CT abd pelvis wo con] Urgent FINDINGS: Limited exam secondary to upper extremities positioning and lack of contrast. Cardiomegaly with trace right and small left pleural effusions and mild dependent subsegmental bibasilar consolidation. No pneumatosis or pneum operitoneum. Unremarkable spleen, dystrophic pancreas and adrenal glands. Gallbladder is mildly distended. Unremarkable liver with patency of the hepatic and portal veins. No hydronephrosis. 2 mm nonobstructing calculus of the inferior pole left kidney. No ureteral calculi or hydronephrosis. Prostamegaly. Mild urinary bladder wall thickening with partial distention. Atherosclerosis of the aorta. No lymphadenopathy identified. Small amount of fluid within the distal esophagus. Distended debris and fluid- filled stomach. Numerous air and fluid-filled loops of small bowel measure up to approximately 3.5 cm. Air and fluid-filled distended loops of large bowel are noted with progressive dilation of the cecum now measuring up to 10.8 cm, previously 8 cm. There is increased inflammatory stranding with trace ascites adjacent to the cecum. Mild twisting of the mesentery adjacent to the sigmoid colon with sigmoid colonic narrowing on image 303. Fluid-filled appendix is likely secondary to the fluid within the large bowel. Mild gynecomastia. Degenerative changes of the spine, pelvis and hips. Unchanged appearance of the acute L3 superior endplate compression deformity without retropulsion. Chronic T12 and L1 compression fractures. Minimally displaced lateral left 11th rib fracture again noted. IMPRESSION: 1. Large and small bowel dilation is again noted with progressively worsened dilation of the cecum along with new pericecal inflammation and trace ascites. Findings may represent colonic pseudoobstruction ([place] syndrome) with distal colonic mechanical obstruction or sigmoid volvulus considered much less likely considerations. Follow-up recommended. 2. Unchanged appearance of the acute L3 superior endplate compression deformity. 3. Left nephrolithiasis. 4. Acute appearing minimally displaced lateral left 11th rib fracture. 5. Additional findings as above. 03/23/22 01:38 CT femur LT wo con Urgent FINDINGS: A rectal tube is partially imaged. There is no acute fracture within the left femur. No osseous lesions are noted. Fatty atrophy versus a lipoma within the left rectus femoris is noted. There is no left thigh hematoma. There is no soft tissue gas. There is mild subcutaneous fluid of the left thigh. Alignment of the left knee and left hip is in stomach. There is no evidence for avascular necrosis of the left femoral head. No significant muscular abnormality of the left thigh is noted. There is no fascial fluid. IMPRESSION: 1. No acute fracture within the left femur. No left thigh hematoma. 2. Mild subcutaneous edema of the left thigh. 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 Findings may represent colonic pseudoobstruction ([place] syndrome) with distal colonic mechanical obstruction or sigmoid volvulus considered much less likely considerations. Status post colonoscopy and rectal tube placement Status post NG tube placement for decompression Stool was checked for C. difficile colitis and the patient is placed on intravenous Zosyn Appreciate GI and surgery input and recommendation recent KUB showed interval decompression of the large and small bowel. Narcotics have been discontinued and he was getting Relistor as per GI Continued conservative management Continued PPN for nutritional support - finished yesterday (03/30) NG tube and rectal tubes tube were removed several days ago Continue monitor electrolytes tolerates low fiber diet KUB (03/29) repeated -small and large bowel continues to be distended Surgery following Patient is tolerating diet, and having BMs with bowel regimen as above. Per surgery, patient is okay for discharge with MiraLAX and senna, his current bowel regimen. Fall Likely secondary to ambulatory dysfunction and seizure is unlikely the cause of fall Status post breakthrough seizure was considered on admission Appreciate neurology input and recommendation We will continue current doses of seizure medication Phenobarb level is therapeutic at 15.9 and topiramate level 9.2 No more seizure since admission PT recommended rehab initially Has had PT again and the recommendation is now home w/ home health Status post fall - 03/14/2022 No significant injury no loss of consciousness and no seizures CT scan of the head and CT of the abdomen and pelvis remain unremarkable Denies any complaints as of today No acute symptoms Constipation He has been received Relistor and oral lactulose Relistor discontinued KUB - 03/29 -continues to show small and large bowel distention Surgery recommend to continue - miralax + senna on discharge Pt having BMs L 3 Acute Compression fracture: L rib #[address] and negative C-spine CT of the abdomen and pelvis showed L3 acute compression fraction as above -Chest CT: 11th rib left chest wall non-displaced fracture, no PNX Appreciate orthospine evaluation and recommendation Back pain is stable- 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 -Takes Topamax and Phenobarbital with compliance -Topamax 9.2 and Phenobarb levels 15.9 (normal) -Appreciate neurology input and recommendation -No more seizures -Stable , follow up as outpt L upper leg pain Ortho consulted Femur XR: no fracture possible trochanteric bursitis, steroid injection planned Appreciate Ortho input and recommendation for left greater trochanteric bursa injection Status post steroid injection to the greater trochanteric bursa on the left side Symptomatically better PT/OT 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; continue for now Sleep Apnea: -Wears CPAP at night -CPAP at night ordered Dementia: -Takes Namzaric; continue -Takes Ropinerole; continue BPH: -Takes Tamsulosin; continue Disposition - home w/ HH Home Health Attestation I certify that this patient is under my care and that I, or a physicians drilling assistant working with me, had a face to-face encounter that meets the home health [id number] encounter requirements with this patient. The encounter with the patient was in whole, or in part, for the following medical condition, which is the primary reason for home health care (list medical condition): pseudoobstruction of colon I certify that, based on my findings, the following services are medically necessary home health services: My clinical findings support the need for the above services because: OT Assess ADL Status and Restore Function w ADLs PT Assessment for Endurance / Balance / Strength PT Eval for Safety and Mobility PT Eval for Safety, Gait Training, Assistive Devices PT Gait and Balance Training, Strengthening and Safety Skilled Nsg Assessment Skilled Nsg Assess Pt Illness, Disease and Sx Monitoring S/S to Report to Provider Further, I certify that my clinical findings support that this patient is homebound (i.e. absences from home require considerable and taxing effort and are for medical reasons or mormonism services or infrequently or of short duration when for other reasons) because: Transportation Assistance/Unable to Leave Home Unassisted Certification for Home Health Services: Based on the above findings, I certify that this patient is confined to the home and needs intermittent jail care, physical therapy and/or speech therapy or continues to need occupational therapy. The patient is under my care, and I have initiated the establishment of the plan of care. This patient will be followed by a physician who will periodically review the plan of care. Total Time Total Time Spent Total Time Spent (In Minutes): 40 Discharge Plan Discharge Items Patient Disposition: Home - Home Health Services Reason For Visit: WEAKNESS Discharge Diagnosis: Pseudo-obstruction of colon Fall Condition on Discharge: Good Activity: Per Instructions section Non-emergency contact: Primary Care Provider Call non-emergency contact if: you have any medication questions and your symptoms worsen Follow-up/Referrals: Marbin Lira PA-C [Primary Care Provider] - (Date & Time 04/05/2022 12:00 PM Provider Marbin Lira PA-C Department General Internal Medicine [facility] ) Diet: Low Fiber Addtl Attending Provider Instructions: Follow-up with primary care physician, the appointment was scheduled for you for April 05. Continue using senna twice a day and MiraLAX twice a day, to ensure that you continue to have a bowel movement every day. Recommend taking potassium supplement for next couple of days, discuss this further with your primary care provider. Pending Studies at Discharge: No Stand-Alone Forms: My [facility], Smoking Cessation Medications and DC Order Prescriptions: New sennosides-docusate sodium [Senokot-S] 8.6-50 mg Tablet 1 tab PO BID 10 Days Qty: 20 0RF polyethylene glycol 3350 [Miralax] 17 gram Powder In Packet 17 g PO BID 10 Days Qty: 30 0RF potassium chloride 10 mEq capsule, extended release 10 meq PO DAILY 10 Days Qty: 10 0RF Continued finasteride 5 mg tablet 5 mg PO QPM tamsulosin [Flomax] 0.4 mg capsule 0.4 mg PO QPM Namzaric 28-10 mg capsule,sprinkle,ER 24hr 1 cap PO QPM phenobarbital 60 mg tablet 60 mg PO BID topiramate [Topamax] 200 mg tablet 200 mg PO BID ropinirole 0.25 mg tablet 0.25 mg PO QPM Eliquis 5 mg (74 tabs) tablets,dose pack 5 mg PO BID Qty: 74 0RF Rx Instructions: take 2 tabs twice daily for 1 week followed by 1 tab twice daily Discharge Orders: Discharge Order (Routine); Ordered 03/31/22 Ordered By: Maikel East Admission Data Admit Date/Time: 03/14/22 18:51 Attending Provider: Maikel East Admit Provider: Servando Hall Primary Care Provider: Marbin Lira Other Providers: Sarah Ward ; Olayinka Krishnamurthy ; Arben Kimbrough ; Jose A Kelsey ; [facility] ; [facility] ; Charito Cardona ; Frederick Bynum ; Alysia Roth ; Eloisa Wilder ; Mary De Paz ; Johanna Ferrari ; Colton Senior ; Nas Masterson ; Aaron Keith ; [place] ; Blayne Pineda ; Jael Dixon ; Rosario Candelario ; Ree Alvarado ; Hanh Cordon ; Bentley Hadley ; Silas Wagner ; Patrick Eduardo ; Angelica Copeland ; Robb Nettles Jr ; Floyd Adair ; Mumtaz Stover ; Mervin Sanders ; [facility]
== END 2022-03-31 13:17 | disposition home health service (06) | DRG 552 ==
LOC: ED 10:55 → EDINP 10:55 → SUATTDRO 14:41 → 2N 20:42 → SUATTDRO 03-14 18:51

== ENCOUNTER 2024-06-23 15:24 | Inpatient (IN) ==
--- NOTE | 2024-06-23 15:53 | Emergency Department Note ---
ED DC CONDITION Conditon at Discharge Condition at Discharge: Serious Impression & Plan Severe sepsis, Bilateral pneumonia, Hypoxia ED Provider Note Name: IZABELLA LIZARRAGA Age: 88 Sex: Male Arrives Via: Ambulance Informant: Patient, Family ED Provider: Dayday Llanos MD Chief Complaint: Illness Impression: As Per Impressions Above Medical Decision Makin-year-old gentleman arrives for evaluation of generalized illness. Patient with history of PE/DVT and seizures but no significant infectious issues in the past. He notes worsening weakness throughout the morning increasing shakiness and tremors. On evaluation patient is having rigors and is tachycardic febrile and a bit short of breath. He was given IV fluids, Tylenol and workup initiated. Lactic acid is elevated. Troponin is elevated as well. EKG with prolonged QTc but no overt ischemia. Patient's magnesium is quite low thus IV mag was also ordered, Which may contribute to the prolonged QTc as well. My suspicion is the elevated troponin is secondary to his severe sepsis. Will hold off on anticoagulation given likely type II NSTEMI as well as the fact patient is already on Eliquis for his PE history. Patient did receive about a liter of fluid by EMS and then another 2 L initially here in the ER. Patient was noted to have worsening blood pressure after these had finished and thus a 4th L was initiated. Blood pressure did respond to that. Patient does not have peritonitis thus I do not feel emergent CT imaging of the abdomen is indicated in the ER. He has no evidence of meningitis by examination. Triage/Nursing Notes reviewed by Me External Chart Review by me: Did review discharge summary from 03/31/2022 to review his past medical history that was in the chart. Differential:Viral syndrome, otitis, pharyngitis, pneumonia, influenza, meningitis, urinary tract infection, sepsis, bacteremia, as well as other pathologies. Vital Signs: reviewed and remarkable for hypoxia, tachycardia, fever, hypotension Interventions: Normal saline bolus 1 L IV x 3, Zosyn IV, magnesium IV Labs:ED labs Reviewed by me and remarkable for no significant abnormalities Imagin view chest x-ray as per my interpretation bilateral lower lobe infiltrates new from previous chest x-ray. EKG:As per my interpretation. Indication illness. Sinus tachycardia with poor baseline at 119 bpm and QTc of 593. There is no ectopy nor ischemia. No recent for comparison. Cardiac/Tele Monitoring: Cardiac Monitoring: An Order was placed for continuous cardiac monitoring. The monitor shows a rate of 110 with a sinus tach rhythm. Consults:Discussed with [facility] service who will further evaluate manage. Plan: Disposition:Hospitalization. Condition: Serious History of Present Illness: 88-year-old gentleman arrives for evaluation illness. Patient notes that he was feeling very weak and tired this morning. Notes he was feeling shaky. He went to the bathroom, after having a bowel movement he states he was so weak he could not stand up. His son was able to help him get to the bed but due to severe weakness 911 was called. Patient states he feels very shaky and tired. He denies any chest pain, shortness of breath, abdominal pain, back pain. He is not had any diarrhea. He denies any urinary burning. No rashes or swelling. Denies any actual fall or injury other than he had a fall onto his knees last week without any injury. He stated was walking after this without problem. Denies any headache, neck pain or other concerning signs or symptoms. Patient denies a history of issues with infections. Past Medical History: PE/DVT, seizures Home Medications: Phenobarbital, ropinirole, topiramate, Eliquis, finasteride Allergies:nkda Vitals:Blood Pressure: 146/102, Pulse 120, RR 34, T 39.5C, O2 92% on RA Physical Exam: GENERAL: Patient is ill/septic appearing and in mild distress. Rigors RESPIRATORY: No dyspnea. Clear to auscultation and equal bilaterally. CARDIOVASCULAR: Tachy.No murmur appreciated. GASTROINTESTINAL: Abdomen soft, non-tender, no peritonitis. EXTREMITIES: Normal motion all extremities, no cyanosis, no edema. NEUROLOGIC: Alert and oriented. No focal neurologic deficits appreciated SKIN: No rash, no jaundice, no diaphoresis. PSYCH: Appropriate GCS: 15 ED Course: Times/Reassessments: 6:11 PM. Patient noted to have dropped his pressures. He is at this point received 1 L normal saline by EMS and 2 L normal saline by ED. A third ED liter was ordered. Discussed this with hospital service to make them aware. Critical Care: I have personally spent 45 minutes of critical care time in the direct management of this patient. Severe sepsis with hypotension secondary to pneumonia. This was a life/limb threatening event. This 45 minutes is in excess of all separately billable procedures. 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 Pulmonary embolism (Acute) DVT (deep venous thrombosis) (Acute) Medical History Restless leg syndrome Surgical History History of left cataract surgery History of colonoscopy S/P placement of VNS (vagus nerve stimulation) device History of surgery Family History Son Family history of colon cancer Mother Family history of diabetes mellitus Daughter Asthma Other No family history of adverse response to anesthesia No family history of bleeding disorder Social History Smoking Status: Never smoker Second Hand Exposure: No; Do You Dip or Chew Tobacco: No; Tobacco Cessation Education Requested by Patient: No Hx Alcohol Use: No Hx Substance Use: No Preferred Language: Pashto Communication Ability: Effective Apparel Designer Required: No Beliefs That Will Affect Care: None marital status: Current Living Situation: Spouse Current Living Situation Comment: lives w/ and son current occupational status: retired Other Information That Helps Us Care for You: No Feels Safe at Home: Yes Safety Concerns: Feels Safe At This Time Assistive Devices: None Allergies Allergies Allergy/AdvReac Type Severity Reaction Status Date / Time No Known Drug Allergies Allergy Verified 06/23/24 17:47 Home Meds Home Medications Medication Instructions Recorded Confirmed phenobarbital 60 mg tablet 60 mg PO BID 03/11/19 06/23/24 topiramate 200 mg tablet (Topamax) 200 mg PO BID 03/11/19 06/23/24 ropinirole 0.25 mg tablet 0.25 mg PO QPM 04/26/21 06/23/24 apixaban 5 mg tablet (Eliquis) 5 mg PO BID 06/23/24 06/23/24 finasteride 5 mg tablet 5 mg PO DAILY 06/23/24 06/23/24 Results & Data (ED) Vital Signs Vital Signs - 24 hr 06/23/24 15:34 06/23/24 15:39 06/23/24 15:57 Temperature 39.5 C H Temperature Source Oral Pulse Rate 120 H Pulse Rate [Right Finger] 120 H Pulse Rhythm Regular Pulse Rhythm [Right Finger] Regular Pulse Strength Normal Pulse Strength [Right Finger] Normal Respiratory Rate 34 H 34 H Respiratory Effort / Characteristics Non-Labored Respiratory Depth Normal Respiratory Pattern Regular Blood Pressure 146/102 H Blood Pressure [Right Arm] 146/102 H Blood Pressure Mean 116 Blood Pressure Mean [Right Arm] 116 Blood Pressure Position Lying Blood Pressure Position [Right Arm] Lying Pulse Oximetry 92 92 92 Oxygen Delivery Method Room Air Room Air Room Air Oxygen Flow Rate Sepsis Recent Fever Within 48 Hours No Sepsis New/Unexplained Change in Mental Status N/A Sepsis Action Taken by Nursing Physician Notified Oxygen Flow Rate - Titration Pulse Oximetry Post Tiitration 06/23/24 15:57 06/23/24 16:06 06/23/24 16:21 Temperature Temperature Source Pulse Rate Pulse Rate [Right Finger] 117 H 118 H 111 H Pulse Rhythm Pulse Rhythm [Right Finger] Regular Regular Regular Pulse Strength Pulse Strength [Right Finger] Normal Normal Normal Respiratory Rate 34 H 23 29 H Respiratory Effort / Characteristics Non-Labored Non-Labored Non-Labored Respiratory Depth Normal Normal Normal Respiratory Pattern Regular Regular Regular Blood Pressure Blood Pressure [Right Arm] 118/71 125/63 125/63 Blood Pressure Mean Blood Pressure Mean [Right Arm] 86 83 83 Blood Pressure Position Blood Pressure Position [Right Arm] Lying Lying Lying Pulse Oximetry 92 93 92 Oxygen Delivery Method Room Air Room Air Room Air Oxygen Flow Rate Sepsis Recent Fever Within 48 Hours Sepsis New/Unexplained Change in Mental Status Sepsis Action Taken by Nursing Oxygen Flow Rate - Titration Pulse Oximetry Post Tiitration 06/23/24 16:51 06/23/24 16:51 06/23/24 17:26 Temperature Temperature Source Pulse Rate Pulse Rate [Right Finger] 105 H 101 H Pulse Rhythm Pulse Rhythm [Right Finger] Regular Regular Pulse Strength Pulse Strength [Right Finger] Normal Normal Respiratory Rate 24 21 Respiratory Effort / Characteristics Non-Labored Non-Labored Respiratory Depth Normal Normal Respiratory Pattern Regular Regular Blood Pressure Blood Pressure [Right Arm] 108/57 L 103/60 Blood Pressure Mean Blood Pressure Mean [Right Arm] 74 74 Blood Pressure Position Blood Pressure Position [Right Arm] Lying Lying Pulse Oximetry 95 88 L 97 Oxygen Delivery Method Nasal Cannula Room Air Nasal Cannula Nasal Cannula Oxygen Flow Rate 2 0 2 Sepsis Recent Fever Within 48 Hours Sepsis New/Unexplained Change in Mental Status Sepsis Action Taken by Nursing Oxygen Flow Rate - Titration 2 Pulse Oximetry Post Tiitration 95 06/23/24 18:04 Temperature Temperature Source Pulse Rate Pulse Rate [Right Finger] 100 H Pulse Rhythm Pulse Rhythm [Right Finger] Regular Pulse Strength Pulse Strength [Right Finger] Normal Respiratory Rate 24 Respiratory Effort / Characteristics Non-Labored Respiratory Depth Normal Respiratory Pattern Regular Blood Pressure Blood Pressure [Right Arm] 93/49 L Blood Pressure Mean Blood Pressure Mean [Right Arm] 63 Blood Pressure Position Blood Pressure Position [Right Arm] Lying Pulse Oximetry 97 Oxygen Delivery Method Nasal Cannula Oxygen Flow Rate 2 Sepsis Recent Fever Within 48 Hours Sepsis New/Unexplained Change in Mental Status Sepsis Action Taken by Nursing Oxygen Flow Rate - Titration Pulse Oximetry Post Tiitration Laboratory Data 06/26/24 08:04 06/26/24 08:04 Lab Results 06/23/24 06/23/24 06/23/24 Range/Units 15:35 16:06 17:35 WBC 7.67 (4.8-10.8) K/ul RBC 4.32 L (4.70-6.10) M/uL Hgb 13.9 L (14.0-18.0) g/dl Hct 41.8 L (42.0-52.0) % MCV 96.8 (80.0-100.0) fL MCH 32.2 (25.0-34.0) pg MCHC 33.3 (32.0-36.0) g/dL RDW Std Deviation 43.6 (36.4-46.3) fL RDW Coeff of Tamir 12.3 (11.5-14.5) % Plt Count 201 (130-400) K/uL MPV 9.3 L (9.4-12.4) fL Immature Gran % (Auto) 0.7 % Neut % (Auto) 93.0 % Lymph % (Auto) 3.0 % [place] % (Auto) 3.0 % Eos % (Auto) 0.0 % Baso % (Auto) 0.3 % Neut # (Auto) 7.14 H (1.40-6.50) K/uL Lymph # (Auto) 0.23 L (1.20-3.40) K/uL [place] # (Auto) 0.23 (0.11-0.59) K/uL Eos # (Auto) 0.00 (0.00-0.50) K/uL Baso # (Auto) 0.02 (0.00-0.20) K/uL Immature Gran # (Auto) 0.05 (0.01-0.20) K/uL Sodium 137 (136-145) mmol/L Potassium 4.1 (3.5-5.1) mmol/L Chloride 107 (98-107) mmol/L Carbon Dioxide 23 (21-32) mmol/L Anion Gap 7 (3-11) BUN 18 (6-23) mg/dl Creatinine 1.16 (0.6-1.4) mg/dl Est Cr Clr Drug Dosing 44.9 ml/min eGFR 60.96 BUN/Creatinine Ratio 15.5 (10-20) Glucose 124 H (70-99(Fasting)) mg/dl Lactate 3.3 H* 1.4 (0.4-2.0) mmol/L Calcium 8.8 (8.6-10.3) mg/dl Magnesium 1.6 L (1.7-2.4) mg/dl Total Bilirubin 0.5 (0.2-1.0) mg/dl Direct Bilirubin 0.1 (0-0.2) mg/dl AST 14 (13-39) U/L ALT 7 (7-52) U/L Alkaline Phosphatase 117 H (34-104) U/L Troponin I High Sens 36.7 H 71.0 H* D (0-20) pg/ml Total Protein 7.1 (6.0-8.3) gm/dl Albumin 3.8 (3.4-5.0) gm/dl Procalcitonin 0.32 (0-0.5) ng/ml SARS-CoV-2 (PCR) NEGATIVE (Negative) Influenza Type A (PCR) Negative (Neg) Influenza Type B (PCR) Negative (Neg) RSV (RT-PCR) Negative (Neg) Administered Medications Acetaminophen (Acetaminophen 325 Mg Tab) 650 mg PO Q6H PRN PRN Reason: Fever or pain Stop: 07/23/24 20:54 Last Admin: 06/24/24 22:34 Dose: 650 mg Documented By: AMERICA Apixaban (Apixaban 5 Mg Tablet) 5 mg PO BID [facility] Stop: 07/23/24 20:59 Last Admin: 06/26/24 09:23 Dose: 5 mg Documented By: Admin: 06/25/24 21:05 Dose: 5 mg Documented By: Admin: 06/25/24 08:24 Dose: 5 mg Documented By: Admin: 06/24/24 21:18 Dose: 5 mg Documented By: Admin: 06/24/24 08:33 Dose: 5 mg Documented By: Admin: 06/23/24 21:55 Dose: 5 mg Documented By: KADEN Doxycycline Hyclate (Doxycycline Hyclate 100 Mg Cap) 100 mg PO BID [facility] Stop: 06/29/24 08:59 Last Admin: 06/26/24 09:23 Dose: 100 mg Documented By: Admin: 06/25/24 21:05 Dose: 100 mg Documented By: Admin: 06/25/24 08:23 Dose: 100 mg Documented By: Admin: 06/24/24 21:17 Dose: 100 mg Documented By: Admin: 06/24/24 08:33 Dose: 100 mg Documented By: IZZY Finasteride (Finasteride 5 Mg Tab) 5 mg PO DAILY [facility] Stop: 07/24/24 08:59 Last Admin: 06/26/24 09:23 Dose: 5 mg Documented By: Admin: 06/25/24 08:23 Dose: 5 mg Documented By: Admin: 06/24/24 08:34 Dose: 5 mg Documented By: IZZY Ceftriaxone Sodium (Rocephin) 2,000 mg in 50 mls @ 100 mls/hr IV Q24H [facility] Stop: 06/28/24 22:59 Last Infusion: 06/25/24 23:50 Dose: Infused Documented By: Admin: 06/25/24 22:46 Dose: 100 mls/hr Documented By: Infusion: 06/25/24 00:08 Dose: Infused Documented By: Admin: 06/24/24 22:34 Dose: 100 mls/hr Documented By: Infusion: 06/23/24 23:59 Dose: Infused Documented By: Admin: 06/23/24 23:12 Dose: 100 mls/hr Documented By: KADEN Phenobarbital (Phenobarbital 30 Mg Tab) 60 mg PO BID [facility] Stop: 07/24/24 08:59 Last Admin: 06/26/24 09:48 Dose: 60 mg Documented By: Admin: 06/25/24 21:06 Dose: 60 mg Documented By: Admin: 06/25/24 08:24 Dose: 60 mg Documented By: Admin: 06/24/24 21:16 Dose: 60 mg Documented By: Admin: 06/24/24 08:37 Dose: 60 mg Documented By: IZZY Ropinirole HCl (Ropinirole Hcl 0.25 Mg Tablet) 0.25 mg PO HS [facility] Stop: 07/23/24 20:59 Last Admin: 06/25/24 21:05 Dose: 0.25 mg Documented By: Admin: 06/24/24 21:18 Dose: 0.25 mg Documented By: Admin: 06/23/24 21:55 Dose: 0.25 mg Documented By: KADEN Topiramate (Topiramate 100 Mg Tab) 200 mg PO BID [facility] Stop: 07/23/24 20:59 Last Admin: 06/26/24 09:23 Dose: 200 mg Documented By: Admin: 06/25/24 21:06 Dose: 200 mg Documented By: Admin: 06/25/24 08:23 Dose: 200 mg Documented By: Admin: 06/24/24 21:18 Dose: 200 mg Documented By: Admin: 06/24/24 08:33 Dose: 200 mg Documented By: Admin: 06/23/24 21:55 Dose: 200 mg Documented By: KADEN Discontinued Medications Doxycycline Hyclate (Doxycycline Hyclate 100 Mg Cap) 100 mg PO NOW STA Stop: 06/23/24 18:48 Last Admin: 06/23/24 18:58 Dose: 100 mg Documented By: EFFIE Acetaminophen (Ofirmev) 1,000 mg in 100 mls @ 400 mls/hr IV NOW STA Stop: 06/23/24 16:04 Last Infusion: 06/23/24 17:43 Dose: Infused Documented By: Admin: 06/23/24 16:04 Dose: 400 mls/hr Documented By: EFFIE Sodium Chloride (Nss) 1,000 mls @ 999 mls/hr IV .Q1H1M ONE Stop: 06/23/24 16:50 Last Infusion: 06/23/24 18:05 Dose: Infused Documented By: Admin: 06/23/24 16:04 Dose: 999 mls/hr Documented By: EFFIE Sodium Chloride (Nss) 1,000 mls @ 999 mls/hr IV .Q1H1M ONE Stop: 06/23/24 17:32 Last Infusion: 06/23/24 18:10 Dose: Infused Documented By: Admin: 06/23/24 16:48 Dose: 999 mls/hr Documented By: EFFIE Piperacillin Sod/Tazobactam Sod (Zosyn) 4.5 gm in 100 mls @ 200 mls/hr IV NOW ONE; Protocol Stop: 06/23/24 17:02 Last Infusion: 06/23/24 17:43 Dose: Infused Documented By: Betina Admin: 06/23/24 16:48 Dose: 200 mls/hr Documented By: EFFIE Magnesium Sulfate/Dextrose (Magnesium Sulfate / D5w) 1 gm in 100 mls @ 200 mls/hr IV Q30M [facility] Stop: 06/23/24 18:40 Last Infusion: 06/23/24 19:11 Dose: Infused Documented By: Admin: 06/23/24 18:40 Dose: 200 mls/hr Documented By: Infusion: 06/23/24 18:35 Dose: Infused Documented By: Admin: 06/23/24 18:05 Dose: 200 mls/hr Documented By: EFFIE Sodium Chloride (Nss) 1,000 mls @ 999 mls/hr IV .Q1H1M ONE Stop: 06/23/24 19:10 Last Infusion: 06/23/24 19:44 Dose: Infused Documented By: Admin: 06/23/24 18:13 Dose: 999 mls/hr Documented By: EFFIE Magnesium Sulfate/Dextrose (Magnesium Sulfate / D5w) 1 gm in 100 mls @ 50 mls/hr IV ONE ONE Stop: 06/23/24 22:54 Last Infusion: 06/23/24 23:59 Dose: Infused Documented By: Admin: 06/23/24 21:48 Dose: 50 mls/hr Documented By: KADEN Sodium Chloride (Nss) 1,000 mls @ 125 mls/hr IV .Q8H [facility] Stop: 06/24/24 11:14 Last Infusion: 06/24/24 12:11 Dose: Infused Documented By: OHarsh Admin: 06/24/24 03:47 Dose: 125 mls/hr Documented By: KADEN Vancomycin HCl 1,750 mg/ (Sodium Chloride) 535 mls @ 200 mls/hr IV NOW ONE Stop: 06/24/24 10:26 Last Infusion: 06/24/24 13:17 Dose: Infused Documented By: Admin: 06/24/24 09:46 Dose: 200 mls/hr Documented By: IZZY Vancomycin HCl 1,250 mg/ (Sodium Chloride) 275 mls @ 200 mls/hr IV Q24H [facility] Stop: 06/26/24 23:59 Last Infusion: 06/26/24 07:22 Dose: Infused Documented By: Admin: 06/26/24 00:00 Dose: 200 mls/hr Documented By: Infusion: 06/25/24 02:32 Dose: Infused Documented By: Admin: 06/25/24 00:50 Dose: 200 mls/hr Documented By: MAYI Ketorolac Tromethamine (Ketorolac Tromethamine 15 Mg/Ml Vial) 10 mg IV NOW ONE Stop: 06/23/24 22:51 Last Admin: 06/23/24 23:12 Dose: 10 mg Documented By: KADEN Pneumococcal 20-Valent Conj Vacc (Pneumococcal Vaccine (Pcv20) 20-Rosa Conj-Dip Crm/Pf 0.5 Ml Syr) 0.5 ml IM .ONCE ONE Stop: 06/23/24 21:04 Last Admin: 06/26/24 09:18 Dose: Not Given Documented By: KJL Potassium Chloride (Potassium Chloride Crtab 20 Meq Tabcr) 40 meq PO NOW STA Stop: 06/25/24 08:53 Last Admin: 06/25/24 09:17 Dose: 40 meq Documented By: JORDAN Imaging Data Radiologist's Impression: Chest X-Ray 06/23/24 15:50 Chest radiograph, one view History: Sepsis Comparison: None Findings: Single AP view of the chest performed. There is subtle streaky bibasilar opacity. No focal consolidation or pleural effusion. No pneumothorax. The cardiomediastinal silhouette is within normal limits. Enlargement of the pulmonary arteries, suggestive of pulmonary hypertension. No visualized bony or soft tissue abnormality. Battery pack generator over the left chest wall, with a stimulator device extending into the left side of the neck. Impression: Subtle streaky bibasilar opacity, which may represent atelectasis and/or infection. There is significant enlargement of the pulmonary artery suggesting pulmonary hypertension. Electronically signed by Esa Gonzalez 06-23-2024 4:21 PM Discharge Plan Visit Data Chief Complaint: Fall Stated Complaint: WEAKNESS, FALL ED Provider: Dayday Llanos Discharge Problem: Severe sepsis, Bilateral pneumonia, Hypoxia Patient Disposition: Admitted As Inpatient Condition: Fair Discharge Instructions Interventions: ED Discharge Assessment Last Done: 06/23/24 19:58 Discharge Problem: Bilateral pneumonia Qualifiers: Pneumonia type: due to unspecified organism Lung location: lower lobe of lung Q ualified Code(s): J18.9 - Pneumonia, unspecified organism
[2024-06-23 16:04] LABS: Hematocrit (blood only) 41.8 % (42.0-52.0); Hemoglobin 13.9 g/dl (14.0-18.0); Mean Corpuscular Hemoglobin 32.2 pg (25.0-34.0); Mean Corpuscular Hgb Conc 33.3 g/dL (32.0-36.0); Mean Corpuscular Volume 96.8 fL (80.0-100.0); Mean Platelet Volume 9.3 fL (9.4-12.4); Platelet Count 201 K/uL (130-400); RDW Coefficient of Variation 12.3 % (11.5-14.5); RDW Standard Deviation 43.6 fL (36.4-46.3); Red Blood Count 4.32 M/uL (4.70-6.10); White Blood Count 7.67 K/ul (4.8-10.8)
[2024-06-23] MEDS: SODIUM CHLORIDE 0.9% 1,000 ML IV ONE ×3 (16:04→18:13)
[2024-06-23] MEDS: ACETAMINOPHEN 1,000 MG/100 ML VIAL IV STA (16:04)
[2024-06-23 16:09] LABS: Appearance Urine Clear (Clear); Bacteria Urine Automated None Seen (None Seen); Bilirubin Urine Negative (Negative); Blood Urine Negative (Negative); Cast Urine Automated 0-2 /lpf (0-2); Color Urine Yellow; Epithelial Cell Urine Auto 0-2 /hpf (0-2); Glucose Urine UA Negative (Negative); Ketones Urine Negative (Negative); Leukocyte Esterase Urine Negative (Negative); Nitrite Urine Negative (Negative); Protein Urine 1+ (Negative); RBC Urine Automated 0-2 /hpf (0-2); Specific Gravity Urine 1.017 (1.000-1.030); Urobilinogen Urine Negative (Negative); WBC Urine Automated 0-5 /hpf (0-5); pH Urine 7.5 (4.5-7.5)
[2024-06-23 16:21] LABS: Basophils # (auto) 0.02 K/uL (0.00-0.20); Basophils % (auto) 0.3 %; Immature Granulocytes # (auto) 0.05 K/uL (0.01-0.20); Immature Granulocytes % (auto) 0.7 %; Lymphocytes # (auto) 0.23 K/uL (1.20-3.40); Monocytes # (auto) 0.23 K/uL (0.11-0.59); Neutrophils # (auto) 7.14 K/uL (1.40-6.50)
[2024-06-23 16:29] LABS: Albumin Level 3.8 gm/dl (3.4-5.0); BUN Creatinine Ratio 15.5 (10-20); Bilirubin Direct 0.1 mg/dl (0-0.2); Bilirubin,Total 0.5 mg/dl (0.2-1.0); Calcium 8.8 mg/dl (8.6-10.3); Creatinine Clr Calc Pharmacy 44.9 ml/min; Magnesium 1.6 mg/dl (1.7-2.4); Potassium 4.1 mmol/L (3.5-5.1); Total Protein 7.1 gm/dl (6.0-8.3)
[2024-06-23 16:35] LABS: Troponin I High Sensitivity 36.7 pg/ml (0-20)
[2024-06-23] MEDS: PIPERACILLIN/TAZOBACTAM 4.5 GM/100 ML BAG IV ONE (16:48)
[2024-06-23 17:04] LABS: Influenza A virus by PCR Negative (Neg); Influenza B virus by PCR Negative (Neg); RSV by PCR Negative (Neg); SARS CoV2 RNA(COVID-19) Ceph NEGATIVE (Negative)
--- NOTE | 2024-06-23 17:41 | XRay Report ---
Chest radiograph, one view History: Sepsis Comparison: None Findings: Single AP view of the chest performed. There is subtle streaky bibasilar opacity. No focal consolidation or pleural effusion. No pneumothorax. The cardiomediastinal silhouette is within normal limits. Enlargement of the pulmonary arteries, suggestive of pulmonary hypertension. No visualized bony or soft tissue abnormality. Battery pack generator over the left chest wall, with a stimulator device extending into the left side of the neck. Impression: Subtle streaky bibasilar opacity, which may represent atelectasis and/or infection. There is significant enlargement of the pulmonary artery suggesting pulmonary hypertension. Electronically signed by Esa Gonzalez 06-23-2024 4:21 PM
[2024-06-23] MEDS: MAGNESIUM SULFATE / D5W 1 GM/100 ML BAG IV SCH (18:05)
--- NOTE | 2024-06-23 18:41 | History & Physical Report ---
Date of Service June 23, 2024 Assessment & Plan (1) Sepsis: (2) Pneumonia: (3) History of pulmonary embolism: (4) Restless leg syndrome: (5) Seizure disorder: Plan 88-year-old man with history of PE on Eliquis, ELAN on CPAP at bedtime, restless leg syndrome, asthma with ILD, epilepsy who presents to the ER today with generalized weakness, chills and rigors at home Hypoxic with present on presentation. Also had a fever of 39.5, tachypnea and tachycardia. Labs notable for magnesium of 1.6, troponin of 3671, lactate of 3.31.4 Respiratory PCR is negative Chest x-ray noted subtle streaky bibasilar opacity. Sepsis likely due to pneumonia. Got IV fluid bolus and Zosyn in the ER. Continue with IV ceftriaxone and doxycycline. Monitor blood pressure Follow-up blood cultures Wean oxygen as tolerated. EKG showed prolonged QTc. Avoid QT prolonging medication Elevated troponin likely demand. Will trend troponin and monitor Keep on telemetry Replete hypomagnesemia Reviewed previous echocardiogram. Continue [employer]CH[employer]ICIAN Eliquis Continue home phenobarbital, ropinirole and Topamax Continue CPAP HS CODE STATUSfull code Admit to PCU Updated daughter at bedside I spent a total of 75 minutes coordinating, documenting and providing care for this patient excluding time spent in performance of separately billed services History of Present Illness Chief Complaint: Generalized weakness and chills Primary Care Provider: Mariusz Salguero MD 88-year-old man with history of PE on Eliquis, ELAN on CPAP at bedtime, restless leg syndrome, asthma with ILD, epilepsy who presents to the ER today with generalized weakness. Patient reported that he went to use the commode today and could not get up and required assistance from the son to get up to his bed. ER physician reported that patient was hypoxic by EMS and had rigors on presentation. Patient reports chills earlier today and muscle pains in both legs. Denied any cough, shortness of breath chest pain. Denied nausea, vomiting, abdominal pain, constipation and diarrhea Denied dysuria, frequency or urgency Denies smoking, alcohol or illicit drug use Uses walker as needed. Uses CPAP at bedtime Allergies Allergy/AdvReac Type Severity Reaction Status Date / Time No Known Drug Allergies Allergy Verified 06/23/24 17:47 Home Medications Medication Instructions Recorded Confirmed Type phenobarbital 60 mg tablet 60 mg PO BID 03/11/19 06/23/24 History topiramate 200 mg tablet (Topamax) 200 mg PO BID 03/11/19 06/23/24 History ropinirole 0.25 mg tablet 0.25 mg PO QPM 04/26/21 06/23/24 History apixaban 5 mg tablet (Eliquis) 5 mg PO BID 06/23/24 06/23/24 History finasteride 5 mg tablet 5 mg PO DAILY 06/23/24 06/23/24 History Past Med/Surg History Problem List (Updated 06/23/24 @ 18:44 by Dayday Lalnos MD) Hypoxia (Acute) Bilateral pneumonia (Acute) Severe sepsis (Acute) History of pulmonary embolism Pneumonia Sepsis Lumbar radiculopathy Cerumen impaction Wears hearing aid in both ears Phonak Audeo 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 Pulmonary embolism (Acute) DVT (deep venous thrombosis) (Acute) Medical History Restless leg syndrome Surgical History History of left cataract surgery History of colonoscopy S/P placement of VNS (vagus nerve stimulation) device History of surgery Family History Son Family history of colon cancer Mother Family history of diabetes mellitus Daughter Asthma Other No family history of adverse response to anesthesia No family history of bleeding disorder Social History Smoking Status: Unknown if ever smoked Second Hand Exposure: No; Do You Dip or Chew Tobacco: No; Hx Alcohol Use: No Hx Substance Use: No Preferred Language: Maltese Communication Ability: Effective Metal Roaster Required: No Beliefs That Will Affect Care: None marital status: Current Living Situation: Family current occupational status: retired Feels Safe at Home: Yes Assistive Devices: CPAP Review of Systems Review of Systems: All systems reviewed & are unremarkable except as noted in HPI & below Physical Exam Constitutional: no acute distress Eyes: PERRL, conjunctivae normal, anicteric sclerae ENMT: external ear and nose normal, oropharynx normal Respiratory: normal respiratory effort, lungs clear to auscultation Cardiovascular: Rate/Rhythm: regular rhythm and + tachycardic Gastrointestinal (Abdomen): normal bowel sounds, soft, nontender, no hepatosplenomegaly Musculoskeletal: No pedal edema Neurologic: PERRL, EOMI, accommodation nl, no face palsy, no dysarthria Psychiatric: A+Ox3, euthymic affect Results & Data Results & Data Vital Signs (Past 12 Hours) Vital Signs Temp Pulse Pulse Resp BP BP Pulse Ox 06/23/24 18:04 100 H 24 93/49 L 97 06/23/24 17:26 101 H 21 103/60 97 06/23/24 16:51 88 L 06/23/24 16:51 105 H 24 108/57 L 95 06/23/24 16:21 111 H 29 H 125/63 92 06/23/24 16:06 118 H 23 125/63 93 06/23/24 15:57 117 H 34 H 118/71 92 06/23/24 15:57 92 06/23/24 15:39 39.5 C H 120 H 34 H 146/102 H 92 06/23/24 15:34 120 H 34 H 146/102 H 92 O2 Del Method O2 Flow Rate 06/23/24 18:04 Nasal Cannula 2 06/23/24 17:26 Nasal Cannula 2 06/23/24 16:51 Room Air, Nasal Cannula 0 06/23/24 16:51 Nasal Cannula 2 06/23/24 16:21 Room Air 06/23/24 16:06 Room Air 06/23/24 15:57 Room Air 06/23/24 15:57 Room Air 06/23/24 15:39 Room Air 06/23/24 15:34 Room Air Laboratory Results Laboratory Results - last 24 hr 06/23/24 06/23/24 06/23/24 15:35 16:06 17:35 WBC 7.67 RBC 4.32 L Hgb 13.9 L Hct 41.8 L MCV 96.8 MCH 32.2 MCHC 33.3 RDW Std Deviation 43.6 RDW Coeff of Tamir 12.3 Plt Count 201 MPV 9.3 L Immature Gran % (Auto) 0.7 Neut % (Auto) 93.0 Lymph % (Auto) 3.0 [place] % (Auto) 3.0 Eos % (Auto) 0.0 Baso % (Auto) 0.3 Neut # (Auto) 7.14 H Lymph # (Auto) 0.23 L [place] # (Auto) 0.23 Eos # (Auto) 0.00 Baso # (Auto) 0.02 Immature Gran # (Auto) 0.05 Sodium 137 Potassium 4.1 Chloride 107 Carbon Dioxide 23 Anion Gap 7 BUN 18 Creatinine 1.16 Est Cr Clr Drug Dosing 44.9 eGFR 60.96 BUN/Creatinine Ratio 15.5 Glucose 124 H Lactate 3.3 H* 1.4 Calcium 8.8 Magnesium 1.6 L Total Bilirubin 0.5 Direct Bilirubin 0.1 AST 14 ALT 7 Alkaline Phosphatase 117 H Troponin I High Sens 36.7 H 71.0 H* D Total Protein 7.1 Albumin 3.8 Procalcitonin 0.32 Urine Color Urine Appearance Urine pH Ur Specific Stevenson Urine Protein Urine Glucose (UA) Urine Ketones Urine Blood Urine Nitrite Urine Bilirubin Urine Urobilinogen Ur Leukocyte Esterase Urine WBC (Auto) Urine RBC (Auto) U Hyaline Cast (Auto) U Epithel Cells (Auto) Urine Bacteria (Auto) SARS-CoV-2 (PCR) NEGATIVE Influenza Type A (PCR) Negative Influenza Type B (PCR) Negative RSV (RT-PCR) Negative 06/23/24 Unknown WBC RBC Hgb Hct MCV MCH MCHC RDW Std Deviation RDW Coeff of Tamir Plt Count MPV Immature Gran % (Auto) Neut % (Auto) Lymph % (Auto) [place] % (Auto) Eos % (Auto) Baso % (Auto) Neut # (Auto) Lymph # (Auto) [place] # (Auto) Eos # (Auto) Baso # (Auto) Immature Gran # (Auto) Sodium Potassium Chloride Carbon Dioxide Anion Gap BUN Creatinine Est Cr Clr Drug Dosing eGFR BUN/Creatinine Ratio Glucose Lactate Calcium Magnesium Total Bilirubin Direct Bilirubin AST ALT Alkaline Phosphatase Troponin I High Sens Total Protein Albumin Procalcitonin Urine Color Yellow Urine Appearance Clear Urine pH 7.5 Ur Specific [place] 1.017 Urine Protein 1+ H Urine Glucose (UA) Negative Urine Ketones Negative Urine Blood Negative Urine Nitrite Negative Urine Bilirubin Negative Urine Urobilinogen Negative Ur Leukocyte Esterase Negative Urine WBC (Auto) 0-5 Urine RBC (Auto) 0-2 U Hyaline Cast (Auto) 0-2 U Epithel Cells (Auto) 0-2 Urine Bacteria (Auto) None Seen SARS-CoV-2 (PCR) Influenza Type A (PCR) Influenza Type B (PCR) RSV (RT-PCR) Diagnostic Findings Chest radiograph, one view History: Sepsis Comparison: None Findings: Single AP view of the chest performed. There is subtle streaky bibasilar opacity. No focal consolidation or pleural effusion. No pneumothorax. The cardiomediastinal silhouette is within normal limits. Enlargement of the pulmonary arteries, suggestive of pulmonary hypertension. No visualized bony or soft tissue abnormality. Battery pack generator over the left chest wall, with a stimulator device extending into the left side of the neck. Impression: Subtle streaky bibasilar opacity, which may represent atelectasis and/or infection. There is significant enlargement of the pulmonary artery suggesting pulmonary hypertension. Code Status & VTE Plan Code Status Full
[2024-06-23] MEDS: DOXYCYCLINE HYCLATE 100 MG CAP PO STA (18:58)
[2024-06-23] MEDS ORDERED: guaiFENesin SUGAR FREE 100 MG/5 ML UDC PO PRN (20:55)
[2024-06-23] MEDS: MAGNESIUM SULFATE / D5W 1 GM/100 ML BAG IV ONE (21:48)
[2024-06-23] MEDS: APIXABAN 5 MG TABLET PO SCH (21:55)
[2024-06-23] MEDS: TOPIRAMATE 100 MG TAB PO SCH (21:55)
[2024-06-23] MEDS: rOPINIRole HCL 0.25 MG TABLET PO SCH (21:55)
[2024-06-23] MEDS: cefTRIAXone SODIUM 2,000 MG/50 ML BAG IV SCH (23:12)
[2024-06-23] MEDS: KETOROLAC TROMETHAMINE 15 MG/ML VIAL IV ONE (23:12)
[2024-06-24] MEDS: SODIUM CHLORIDE 0.9% 1,000 ML IV SCH (03:47)
[2024-06-24 06:34] LABS: Hematocrit (blood only) 36.6 % (42.0-52.0); Hemoglobin 12.2 g/dl (14.0-18.0); Mean Corpuscular Hemoglobin 31.9 pg (25.0-34.0); Mean Corpuscular Hgb Conc 33.3 g/dL (32.0-36.0); Mean Corpuscular Volume 95.8 fL (80.0-100.0); Mean Platelet Volume 9.2 fL (9.4-12.4); Platelet Count 159 K/uL (130-400); RDW Coefficient of Variation 12.6 % (11.5-14.5); RDW Standard Deviation 44.4 fL (36.4-46.3); Red Blood Count 3.82 M/uL (4.70-6.10); White Blood Count 12.71 K/ul (4.8-10.8)
[2024-06-24 06:49] LABS: BUN Creatinine Ratio 14.7 (10-20); Calcium 7.8 mg/dl (8.6-10.3); Creatinine Clr Calc Pharmacy 40.3 ml/min; Potassium 3.7 mmol/L (3.5-5.1)
[2024-06-24 07:14] LABS: Troponin I High Sensitivity 72.3 pg/ml (0-20)
[2024-06-24] MEDS ORDERED: VANCOMYCIN CONSULT ACTIVE PRN (07:46)
[2024-06-24] MEDS: DOXYCYCLINE HYCLATE 100 MG CAP PO SCH (08:33)
[2024-06-24] MEDS: FINASTERIDE 5 MG TAB PO SCH (08:34)
[2024-06-24] MEDS: PHENobarbitaL 30 MG TAB PO SCH (08:37)
[2024-06-24] MEDS: VANCOMYCIN HCL 1,750 MG in SODIUM CHLORIDE 0.9% 500 ML IV ONE (09:46)
--- NOTE | 2024-06-24 10:56 | Electrocardiogram Report ---
Test Reason : Blood Pressure : */* mmHG Vent. Rate : 119 BPM Atrial Rate : * BPM P-R Int : * ms QRS Dur : 88 ms QT Int : 422 ms P-R-T Axes : * 51 50 degrees QTcB Int : 593 ms Sinus tachycardia with 1st degree AV block Nonspecific ST abnormality Prolonged QT Abnormal ECG Confirmed by Esa Gould ([id number]) on 06/24/2024 10:56:15 AM Referred By: REFERRED SELF Confirmed By: Esa Gould
--- NOTE | 2024-06-24 11:30 | Hospitalist Progress Note ---
Date of Service June 24, 2024 Assessment & Plan (1) Sepsis: (2) Pneumonia: (3) History of pulmonary embolism: (4) Restless leg syndrome: (5) Seizure disorder: Plan 88-year-old man with history of PE on Eliquis, ELAN on CPAP at bedtime, restless leg syndrome, asthma with ILD, epilepsy who presents to the ER today with generalized weakness, chills and rigors at home Fever Sepsis POA Pneumonia Patient presented to the hospital with fever, chills and rigor. Found to be hypoxic at 88% in room air Chest x-ray shows subtle streaky bibasilar opacity, which may represent atelectasis and/or infection. Respiratory PCR negative MRSA nares negative Blood cx neg Continue on ceftriaxone and doxycycline for possible pneumonia Vancomycin added; DC after blood cultures negative Obtain Lyme screen, Anaplasma PCR, peripheral smear Monitor for recurrence of fever; Demand ischemia High sensitive troponin elevated to 36 on admission; up trended to 76 and down trended EKG shows normal sinus rhythm; nonspecific ST changes. QTc of 593 Obtain echocardiogram Repeat EKG to monitor QTc chronic condition History of PE/DVTcontinue on Eliquis History of seizure disordercontinue on Topamax, phenobarbital Sleep apnea continue on CPAP at night BPHfinasteride CODE STATUSfull code DVT prophylaxisEliquis Time spent evaluating patient, direct bedside care, chart review, placing orders, interpretation of diagnostic studies, discussion with consultants, patient, and family members, as well as other required patient management activities is 50 minutes Please note the above document was generated using voice recognition software. It may contain grammatical, syntax or spelling errors. Any formal questions or concerns about the content, text or information contained within the body of this dictation should be directly addressed to the provider for clarification Admission and Anticipated Discharge Date Admission Date: June 23, 2024 Subjective Patient seen and examined at bedside. He reports that he is feeling much better. Denies any chills and rigor at this time. Requiring 2 L of oxygen by nasal cannula. Reports improved energy Review of Systems Review of Systems: All systems reviewed & are unremarkable except as noted in Subjective Physical Exam Physical Exam: Constitutional: WD/WN, vitals as above, NAD, sitting up in bed, pleasant, conversing easily Respiratory: normal respiratory effort, lungs clear to auscultation, no wheeze, rales, rhonchi. Normal insp/exp effort, no accessory muscle use Cardiovascular: RRR, no murmur, no edema Vessels: no JVD or carotid bruit Chest: normal inspection of chest Abdomen: normal bowel sounds, soft, nontender, no hepatosplenomegaly Musculoskeletal: no cyanosis or clubbing, extremities motor strength 5/5 Skin: no rashes, warm and dry normal turgor Neurologic: PERRL, EOMI, accommodation nl, no face palsy, no dysarthria CN's II- XI intact bilaterally and moves all extremities Psychiatric: A+Ox3, euthymic affect Results & Data Results & Data Vital Signs (Past 12 Hours) Vital Signs Temp Pulse Resp BP Pulse Ox O2 Del Method O2 Flow Rate 06/24/24 07:42 Nasal Cannula 2 06/24/24 07:09 37.2 C 84 18 105/63 95 Nasal Cannula 2 06/24/24 02:43 36.6 C 74 18 91/53 L 96 Room Air
--- NOTE | 2024-06-24 13:50 | Pharmacy Report ---
Pharmacy PK ABX Note - Date of Service June 24, 2024 - Assessment and Plan Assessment 88 year old M receiving vancomycin, ceftriaxone, and doxycycline empirically for fever and possible pneumonia. Pertinent microbiologic data includes: negative MRSA Nasal Swab, blood cultures pending. Influenza, RSV, lyme dx all negative. Anaplasma pending. Day # 1 of antimicrobial therapy. Discussed with hospitalist, continuing vancomycin for now pending blood culture results. Plan Vancomycin * Loading dose: 1750 mg IV x 1 * Maintenance dose: 1250 mg IV every 24 hours * Regimen is predicted to achieve target AUC/VICENTA of 400-600 mg/L.hr * Will order level if continued beyond 48 hours Pharmacy will continue to follow and will adjust dose/frequency as necessary. Thank you. Pharmacy has transitioned to AUC monitoring for vancomycin. AUC/VICENTA is the preferred PK/PD target and is associated with decreased risk of nephrotoxicity compared to traditional trough targets.
--- NOTE | 2024-06-24 17:41 | Electrocardiogram Report ---
Test Reason : Blood Pressure : */* mmHG Vent. Rate : 87 BPM Atrial Rate : 87 BPM P-R Int : 294 ms QRS Dur : 88 ms QT Int : 370 ms P-R-T Axes : 37 36 29 degrees QTcB Int : 445 ms Sinus rhythm with 1st degree A-V block Otherwise normal ECG Confirmed by Esa Gould ([id number]) on 06/24/2024 5:41:04 PM Referred By: REFERRED SELF Confirmed By: Esa Gould
[2024-06-24 19:07] LABS: Adenovirus F 40/41 PCR Not Detected (NotDetected); Astrovirus PCR Not Detected (NotDetected); Campylobacter PCR Not Detected (NotDetected); Cryptosporidium PCR Not Detected (NotDetected); Cyclospora cayetanensis PCR Not Detected (NotDetected); Entamoeba histolytica PCR Not Detected (NotDetected); Enteroaggregative E.coli(EAEC) Not Detected (NotDetected); Enteropathogenic E.coli (EPEC) Not Detected (NotDetected); Enterotoxigenic E.coli (ETEC) DETECTED (NotDetected); Giardia lamblia PCR Not Detected (NotDetected); Norovirus GI/GII PCR Not Detected (NotDetected); Plesiomonas shigelloides PCR Not Detected (NotDetected); Rotavirus A PCR Not Detected (NotDetected); Sapovirus PCR Not Detected (NotDetected); Shiga-like Toxin E.coli (STEC) Not Detected (NotDetected); Shigella/Enteroinvasive E.coli Not Detected (NotDetected); Vibrio cholerae PCR Not Detected (NotDetected); Vibrio species PCR Not Detected (NotDetected); Yersinia enterocolitica PCR Not Detected (NotDetected)
[2024-06-24 19:26] LABS: Salmonella PCR DETECTED (NotDetected)
[2024-06-24] MEDS ORDERED: AZITHROMYCIN 250 MG TAB PO SCH (21:00)
[2024-06-24] MEDS: ACETAMINOPHEN 325 MG TAB PO PRN (22:34)
[2024-06-25] MEDS: VANCOMYCIN HCL 1,250 MG in SODIUM CHLORIDE 0.9% 250 ML IV SCH (00:50)
[2024-06-25 06:45] LABS: Basophils # (auto) 0.01 K/uL (0.00-0.20); Basophils % (auto) 0.1 %; Hematocrit (blood only) 36.1 % (42.0-52.0); Hemoglobin 12.2 g/dl (14.0-18.0); Immature Granulocytes # (auto) 0.04 K/uL (0.01-0.20); Immature Granulocytes % (auto) 0.5 %; Lymphocytes # (auto) 0.87 K/uL (1.20-3.40); Lymphocytes % (auto) 10.4 %; Mean Corpuscular Hemoglobin 32.4 pg (25.0-34.0); Mean Corpuscular Hgb Conc 33.8 g/dL (32.0-36.0); Mean Corpuscular Volume 95.8 fL (80.0-100.0); Monocytes # (auto) 0.45 K/uL (0.11-0.59); Monocytes % (auto) 5.4 %; Neutrophils % (auto) 83.6 %; Platelet Count 145 K/uL (130-400); RDW Coefficient of Variation 12.7 % (11.5-14.5); RDW Standard Deviation 44.1 fL (36.4-46.3); Red Blood Count 3.77 M/uL (4.70-6.10); White Blood Count 8.37 K/ul (4.8-10.8)
[2024-06-25 07:16] LABS: BUN Creatinine Ratio 20.5 (10-20); Creatinine Clr Calc Pharmacy 42.7 ml/min; Potassium 3.4 mmol/L (3.5-5.1)
[2024-06-25] MEDS: POTASSIUM CHLORIDE CRTAB 20 MEQ TABCR PO STA (09:17)
--- NOTE | 2024-06-25 14:56 | Hospitalist Progress Note ---
Date of Service June 25, 2024 Assessment & Plan (1) Sepsis: (2) Pneumonia: (3) History of pulmonary embolism: (4) Restless leg syndrome: (5) Seizure disorder: Plan 88-year-old man with history of PE on Eliquis, ELAN on CPAP at bedtime, restless leg syndrome, asthma with ILD, epilepsy who presents to the ER 06/23 with generalized weakness, chills and rigors at home. He is being managed for the following: Fever Sepsis POA Likely Pneumonia Patient presented to the hospital with fever, chills and rigor. Found to be hypoxic at 88% in room air Admitting Chest x-ray shows subtle streaky bibasilar opacity, which may represent atelectasis and/or infection. Respiratory PCR screen negative, MRSA neg. Lyme screen neg. Peripheral blood smear neg for parasite. Anaplasma pending. Blood cx neg 24H. follow final c/s Tmax of 39.1C in last 24 hours. Now has been afebrile and feels better. Continue on ceftriaxone and doxycycline for possible pneumonia Vancomycin added 06/24; DC after blood cultures negative for 48 hours. Monitor for recurrence of fever; if w/ recurrence, consider ID consult. Diarrhea Ruled out C. difficile ETEC gastroenteritis Salmonella gastroenteritis Stool PCR positive for ETEC and Salmonella. Await blood culture. Continue with Rocephin 06/23. Patient denies abdominal pain, had 4 loose stools today, reports feeling better and eating better. Monitor and replete electrolytes. Continue to monitor symptoms. Demand ischemia High sensitive troponin elevated to 36 on admission; up trended to 76 and down trended EKG shows normal sinus rhythm; nonspecific ST changes. QTc of 593. f/u ekg w/ no changes and improved QTc. ECHO w/ EF of 65-70% EF, LV systolic fxn nl. Pt w/ no chest pain chronic condition History of PE/DVTcontinue on Eliquis History of seizure disordercontinue on Topamax, phenobarbital Sleep apnea continue on CPAP at night BPHfinasteride CODE STATUSfull code DVT prophylaxisEliquis Please note the above document was generated using voice recognition software. It may contain grammatical, syntax or spelling errors. Any formal questions or concerns about the content, text or information contained within the body of this dictation should be directly addressed to the provider for clarification Admission and Anticipated Discharge Date Admission Date: June 23, 2024 Subjective Patient seen and examined at bedside. He reports that he is feeling much better. Denies any chills and rigor at this time. Patient sitting up in chair and appears comfortable. Per RN, patient had 4 loose stools in AM. Reports improved energy and is eating better. Physical Exam Physical Exam: Constitutional: WD/WN, vitals as above, NAD, pleasant, conversing easily Respiratory: normal respiratory effort, lungs clear to auscultation, no wheeze, rales, rhonchi. Normal insp/exp effort, no accessory muscle use Cardiovascular: RRR, no murmur, no edema Vessels: no JVD or carotid bruit Chest: normal inspection of chest Abdomen: normal bowel sounds, soft, nontender, no hepatosplenomegaly Musculoskeletal: no cyanosis or clubbing, extremities motor strength 5/5 Skin: no rashes, warm and dry normal turgor Neurologic: PERRL, EOMI, accommodation nl, no face palsy, no dysarthria CN's II- XI intact bilaterally and moves all extremities Psychiatric: A+Ox3, euthymic affect Results & Data Results & Data Vital Signs (Past 12 Hours) Vital Signs Temp Pulse Pulse Resp BP Pulse Ox O2 Del Method 06/25/24 11:01 36.3 C L 69 20 104/59 L 99 Room Air 06/25/24 08:00 74 06/25/24 07:15 36.3 C L 64 17 115/68 98 Nasal Cannula 06/25/24 03:42 36.8 C 79 18 96/59 L 96 Nasal Cannula O2 Flow Rate 06/25/24 11:01 06/25/24 08:00 06/25/24 07:15 2 06/25/24 03:42 2
[2024-06-26 08:34] LABS: Hematocrit (blood only) 37.6 % (42.0-52.0); Hemoglobin 12.5 g/dl (14.0-18.0); Mean Corpuscular Hemoglobin 31.6 pg (25.0-34.0); Mean Corpuscular Hgb Conc 33.2 g/dL (32.0-36.0); Mean Corpuscular Volume 95.2 fL (80.0-100.0); Mean Platelet Volume 9.7 fL (9.4-12.4); Platelet Count 142 K/uL (130-400); RDW Coefficient of Variation 12.7 % (11.5-14.5); RDW Standard Deviation 45.1 fL (36.4-46.3); Red Blood Count 3.95 M/uL (4.70-6.10); White Blood Count 4.55 K/ul (4.8-10.8)
[2024-06-26 08:52] LABS: BUN Creatinine Ratio 22.7 (10-20); Calcium 8.6 mg/dl (8.6-10.3); Creatinine Clr Calc Pharmacy 47.3 ml/min; Magnesium 2.1 mg/dl (1.7-2.4); Phosphorus 2.4 mg/dl (2.5-4.9); Potassium 3.7 mmol/L (3.5-5.1)
[2024-06-26] MEDS: PNEUMOCOCCAL VACCINE (PCV20) 20-VAL CONJ-DIP CRM/PF 0.5 ML SYR IM ONE (09:18)
[2024-06-26] MEDS: POT PHOSPHATE MONOBASIC W/ SOD TAB PO SCH (12:49)
[2024-06-26] MEDS: POTASSIUM CHLORIDE CRTAB 20 MEQ TABCR PO STA (12:49)
--- NOTE | 2024-06-26 15:14 | Hospitalist Progress Note ---
Date of Service June 26, 2024 Assessment & Plan (1) Sepsis: (2) Pneumonia: (3) History of pulmonary embolism: (4) Restless leg syndrome: (5) Seizure disorder: Plan 88-year-old man with history of PE on Eliquis, ELAN on CPAP at bedtime, restless leg syndrome, asthma with ILD, epilepsy who presents to the ER 06/23 with generalized weakness, chills and rigors at home. He is being managed for the following: Fever Sepsis POA Likely Pneumonia Patient presented to the hospital with fever, chills and rigor. Found to be hypoxic at 88% in room air Admitting Chest x-ray shows subtle streaky bibasilar opacity, which may represent atelectasis and/or infection. Respiratory PCR screen negative, MRSA neg. Lyme screen neg. Peripheral blood smear neg for parasite. Anaplasma pending. Blood cx neg 24H. follow final c/s Now has been afebrile x1 day and feels better. Continue on ceftriaxone and doxycycline for possible pneumonia Vancomycin added 06/24; DC vanc 06/26, blood cultures negative for 48 hours. Monitor for recurrence of fever; if w/ recurrence, consider ID consult. Diarrhea Ruled out C. difficile ETEC gastroenteritis Salmonella gastroenteritis Stool PCR positive for ETEC and Salmonella. Await blood culture. Continue with Rocephin 06/23. Patient denies abdominal pain, had 4 loose stools today, reports feeling better and eating better. Monitor and replete electrolytes. Continue to monitor symptoms. Demand ischemia High sensitive troponin elevated to 36 on admission; up trended to 76 and down trended EKG shows normal sinus rhythm; nonspecific ST changes. QTc of 593. f/u ekg w/ no changes and improved QTc. ECHO w/ EF of 65-70% EF, LV systolic fxn nl. Pt w/ no chest pain chronic condition History of PE/DVTcontinue on Eliquis History of seizure disordercontinue on Topamax, phenobarbital Sleep apnea continue on CPAP at night BPHfinasteride CODE STATUSfull code DVT prophylaxisEliquis Dispo: PT/OT pending, CM to assist w/ dc plan, can likely dc kostas w/ pt/ot recs. Please note the above document was generated using voice recognition software. It may contain grammatical, syntax or spelling errors. Any formal questions or concerns about the content, text or information contained within the body of this dictation should be directly addressed to the provider for clarification Admission and Anticipated Discharge Date Admission Date: June 23, 2024 Subjective Patient seen and examined at bedside. He reports that he is feeling much better. Denies any chills and rigor at this time. Patient sitting up in chair and appears comfortable. Per RN, patient had 4 loose stools in AM yesterday, none overnight, 1 stool in AM today. . Reports improved energy and is eating better. Physical Exam Physical Exam: Constitutional: WD/WN, vitals as above, NAD, pleasant, conversing easily Respiratory: normal respiratory effort, lungs clear to auscultation, no wheeze, rales, rhonchi. Normal insp/exp effort, no accessory muscle use Cardiovascular: RRR, no murmur, no edema Vessels: no JVD or carotid bruit Chest: normal inspection of chest Abdomen: normal bowel sounds, soft, nontender, no hepatosplenomegaly Musculoskeletal: no cyanosis or clubbing, extremities motor strength 5/5 Skin: no rashes, warm and dry normal turgor Neurologic: PERRL, EOMI, accommodation nl, no face palsy, no dysarthria CN's II- XI intact bilaterally and moves all extremities Psychiatric: A+Ox3, euthymic affect Results & Data Results & Data Vital Signs (Past 12 Hours) Vital Signs Temp Pulse Pulse Resp BP Pulse Ox O2 Del Method 06/26/24 14:41 36.3 C L 67 18 134/74 97 Room Air 06/26/24 10:50 36.5 C 17 106/64 97 Room Air 06/26/24 07:54 36.4 C L 67 17 133/72 94 Room Air 06/26/24 05:44 67 06/26/24 03:21 36.3 C L 69 18 121/70 96 Room Air
[2024-06-27 07:32] LABS: Hematocrit (blood only) 36.7 % (42.0-52.0); Hemoglobin 12.3 g/dl (14.0-18.0); Mean Corpuscular Hemoglobin 31.5 pg (25.0-34.0); Mean Corpuscular Hgb Conc 33.5 g/dL (32.0-36.0); Mean Corpuscular Volume 94.1 fL (80.0-100.0); Mean Platelet Volume 9.6 fL (9.4-12.4); Platelet Count 162 K/uL (130-400); RDW Coefficient of Variation 12.9 % (11.5-14.5); RDW Standard Deviation 44.5 fL (36.4-46.3); White Blood Count 4.36 K/ul (4.8-10.8)
[2024-06-27 07:51] VITALS: RESP 20
[2024-06-27 07:59] LABS: BUN Creatinine Ratio 23.7 (10-20); Calcium 8.6 mg/dl (8.6-10.3); Creatinine Clr Calc Pharmacy 53.7 ml/min; Magnesium 1.8 mg/dl (1.7-2.4); Phosphorus 2.8 mg/dl (2.5-4.9); Potassium 3.8 mmol/L (3.5-5.1)
[2024-06-27] MEDS: ADVANCED PROBIOTIC 625 MG CAPSULE PO SCH (09:48)
[2024-06-27 11:37] VITALS: BP 110/64; TEMP 97.9; O2SAT 97
--- NOTE | 2024-06-27 12:20 | Discharge Summary ---
Date of Service June 27, 2024 Admission HPI Per Admitting Provider 88-year-old man with history of PE on Eliquis, ELAN on CPAP at bedtime, restless leg syndrome, asthma with ILD, epilepsy who presents to the ER today with generalized weakness. Patient reported that he went to use the commode today and could not get up and required assistance from the son to get up to his bed. ER physician reported that patient was hypoxic by EMS and had rigors on presentation. Patient reports chills earlier today and muscle pains in both legs. Denied any cough, shortness of breath chest pain. Denied nausea, vomiting, abdominal pain, constipation and diarrhea Denied dysuria, frequency or urgency Denies smoking, alcohol or illicit drug use Uses walker as needed. Uses CPAP at bedtime Admission Exam Per Admitting Provider Constitutional: no acute distress Eyes: PERRL, conjunctivae normal, anicteric sclerae ENMT: external ear and nose normal, oropharynx normal Respiratory: normal respiratory effort, lungs clear to auscultation Cardiovascular: Rate/Rhythm: regular rhythm and + tachycardic Gastrointestinal (Abdomen): normal bowel sounds, soft, nontender, no hepatosplenomegaly Musculoskeletal: No pedal edema Neurologic: PERRL, EOMI, accommodation nl, no face palsy, no dysarthria Psychiatric: A+Ox3, euthymic affect Principal Diagnosis Fever Sepsis POA Likely Pneumonia Diarrhea Ruled out C. difficile ETEC gastroenteritis Salmonella gastroenteritis Discharge Exam Constitutional: WD/WN, vitals as above, NAD, pleasant, conversing easily Respiratory: normal respiratory effort, lungs clear to auscultation, no wheeze, rales, rhonchi. Normal insp/exp effort, no accessory muscle use Cardiovascular: RRR, no murmur, no edema Vessels: no JVD or carotid bruit Chest: normal inspection of chest Abdomen: normal bowel sounds, soft, nontender, no hepatosplenomegaly Musculoskeletal: no cyanosis or clubbing, extremities motor strength 5/5 Skin: no rashes, warm and dry normal turgor Neurologic: PERRL, EOMI, accommodation nl, no face palsy, no dysarthria CN's II-XI intact bilaterally and moves all extremities Psychiatric: A+Ox3, euthymic affect Discharge Data Allergies Allergy/AdvReac Type Severity Reaction Status Date / Time No Known Drug Allergies Allergy Verified 06/23/24 17:47 Consultations 06/23/24 17:57 ED Decision to Admit Stat Hospital Course (1) Sepsis: (2) Pneumonia: (3) History of pulmonary embolism: (4) Restless leg syndrome: (5) Seizure disorder: Plan 88-year-old man with history of PE on Eliquis, ELAN on CPAP at bedtime, restless leg syndrome, asthma with ILD, epilepsy who presents to the ER 06/23 with ge neralized weakness, chills and rigors at home. He is being managed for the following: Fever Sepsis POA Likely Pneumonia Patient presented to the hospital with fever, chills and rigor. Found to be hypoxic at 88% in room air Admitting Chest x-ray shows subtle streaky bibasilar opacity, which may represent atelectasis and/or infection. Respiratory PCR screen negative, MRSA neg. Lyme screen neg. Peripheral blood smear neg for parasite. Anaplasma pending. Blood cx neg 24H. follow final c/s Now has been afebrile x2 day and feels better. Continue on ceftriaxone and doxycycline for possible pneumonia Vancomycin added 06/24; DC'd vanc 06/26, blood cultures negative for 48 hours. Patient is hemodynamically stable and would like to go home. Diarrhea Ruled out C. difficile ETEC gastroenteritis Salmonella gastroenteritis Stool PCR positive for ETEC and Salmonella. Await blood culture. No growth so far. Continue with Rocephin 06/23. No skin rash on exam. No related bradycardia. Patient denies abdominal pain, reports eating better, reports decreasing frequency of stool and reports stool forming up. Monitor and replete electrolytes. Continue to monitor symptoms. Demand ischemia High sensitive troponin elevated to 36 on admission; up trended to 76 and down trended EKG shows normal sinus rhythm; nonspecific ST changes. QTc of 593. f/u ekg w/ no changes and improved QTc. ECHO w/ EF of 65-70% EF, LV systolic fxn nl. Pt w/ no chest pain chronic condition History of PE/DVTcontinue on Eliquis History of seizure disordercontinue on Topamax, phenobarbital Sleep apnea continue on CPAP at night BPHfinasteride CODE STATUSfull code DVT prophylaxisEliquis Patient's daughter Meri was given a phone call and updated on plan of care. Patient is being discharged home with home health with following instructions at the point of discharge: Follow-up with your primary care physician within a week time and likely you will need labs CBC/CMP/magnesium/phosphorus. There was concern of pneumonia at presentation and also you were noted to have Salmonella gastroenteritis. You will be discharged on antibiotic to complete 7 day course. Your Anaplasma test and final results on blood culture is pending at the time of discharge, follow-up with your PCP office on final results of the test during your visit within a week time upon discharge. You will need repeat chest x-ray in about 6 weeks time to document resolution of your bibasal infiltrates. Take your medications as prescribed. Please make sure that you are able to get your medications today by calling your pharmacy before you leave the hospital so that your treatment continuity is not broken. Please note the above document was generated using voice recognition software. It may contain grammatical, syntax or spelling errors. Any formal questions or concerns about the content, text or information contained within the body of this dictation should be directly addressed to the provider for clarification Home Health Attestation I certify that this patient is under my care and that I, or a physicians pediatric dental assistant working with me, had a face to-face encounter that meets the home health [id number] encounter requirements with this patient. The encounter with the patient was in whole, or in part, for the following medical condition, which is the primary reason for home health care (list medical condition): [id number] I certify that, based on my findings, the following services are medically necessary home health services: My clinical findings support the need for the above services because: OT Assess ADL Status and Restore Function w ADLs PT Assessment for Endurance / Balance / Strength PT Eval for Safety and Mobility PT Eval for Safety, Gait Training, Assistive Devices PT Gait and Balance Training, Strengthening and Safety Skilled Nsg Assessment Further, I certify that my clinical findings support that this patient is homebound (i.e. absences from home require considerable and taxing effort and are for medical reasons or adventist services or infrequently or of short duration when for other reasons) because: Supportive Aid - Walker Transportation Assistance/Unable to Leave Home Unassisted Certification for Home Health Services: Based on the above findings, I certify that this patient is confined to the home and needs intermittent senior living care, physical therapy and/or speech therapy or continues to need occupational therapy. The patient is under my care, and I have initiated the establishment of the plan of care. This patient will be followed by a physician who will periodically review the plan of care. Total Time Total Time Spent Total Time Spent (In Minutes): 35 Discharge Plan Discharge Items Patient Disposition: Home - Home Health Services Reason For Visit: CHILLS,FATIGUE Discharge Diagnosis: Fever Sepsis POA Likely Pneumonia Diarrhea Ruled out C. difficile ETEC gastroenteritis Salmonella gastroenteritis Condition on Discharge: Fair Activity: Resume your previous activity Non-emergency contact: Primary Care Provider Call non-emergency contact if: you have any medication questions and your symptoms worsen Follow-up/Referrals: Mariusz Salguero MD [Primary Care Provider] - (Date & Time 07/04/2024 12:00 PM Provider: Mariusz Salguero MD General Internal Medicine [facility] ) Diet: Regular Addtl Attending Provider Instructions: Follow-up with your primary care physician within a week time and likely you will need labs CBC/CMP/magnesium/phosphorus. There was concern of pneumonia at presentation and also you were noted to have Salmonella gastroenteritis. You will be discharged on antibiotic to complete 7 day course. Your Anaplasma test and final results on blood culture is pending at the time of discharge, follow-up with your PCP office on final results of the test during your visit within a week time upon discharge. You will need repeat chest x-ray in about 6 weeks time to document resolution of your bibasal infiltrates. Take your medications as prescribed. Please make sure that you are able to get your medications today by calling your pharmacy before you leave the hospital so that your treatment continuity is not broken. Pending Studies at Discharge: Yes Stand-Alone Forms: My [facility], Smoking Cessation Medications and DC Order Prescriptions: New doxycycline hyclate 100 mg Capsule 100 mg PO BID 4 Days Qty: 8 0RF Advanced Probiotic 625 mg (10 billion cell) Capsule 1 cap PO DAILY 7 Days Qty: 7 0RF cefixime 400 mg capsule 400 mg PO DAILY 3 Days Qty: 3 0RF Rx Instructions: take 1 cap daily from 06/28 morning for 3 days. Continued phenobarbital 60 mg tablet 60 mg PO BID topiramate [Topamax] 200 mg tablet 200 mg PO BID ropinirole 0.25 mg tablet 0.25 mg PO QPM finasteride 5 mg tablet 5 mg PO DAILY Eliquis 5 mg tablet 5 mg PO BID Discharge Orders: Discharge Order (Routine); Ordered 06/27/24 Ordered By: Segun Salvador Admission Data Admit Date/Time: 06/23/24 18:46 Attending Provider: Segun Salvador Admit Provider: Allyn Penn I. Primary Care Provider: Mariusz Salguero Other Providers: Allyn Penn I.; [facility]
[2024-06-27 12:57] VITALS: PULSE 72
== END 2024-06-27 13:56 | disposition home health service (06) | DRG 871 ==
LOC: ED 15:24 → SUATTDRO 18:46 → 2S 18:46